=== PATIENT | female | born 1965 | race Caucasian/White ===

== ENCOUNTER 2016-12-03 09:31 | Inpatient (IN) | payer MEDICAID ==
[~2016-12-03] VITALS: Ht 165.1 cm; Wt 64.5 kg
[2016-12-03] MEDS ORDERED: SODIUM CHLOR 0.9% 1000 ML INJ 1,000 ML IV SCH (09:33)
[2016-12-03 09:36] VITALS: BP 132/81; PULSE 112; RESP 18; O2SAT 96
[2016-12-03] MEDS ORDERED: FENT100D T-DERMAL (09:38)
[2016-12-03] MEDS ORDERED: OXYC-259 PO (09:38)
[2016-12-03] MEDS ORDERED: nausea med PO (09:38)
--- NOTE | 2016-12-03 09:40 | PD ---
HPI Chief Complaint: GI Complaint Time Seen by Provider: 09:33 Travel History International Travel<30 days: No Contact w/Intl Traveler<30days: No Traveled to known affect area: No History of Present Illness HPI 51-year-old female with history of lung cancer on chemotherapy (M,Th,F), brought in by ambulance from home for evaluation of nausea, vomiting, and abdominal pain. The patient reports that she has had several episodes of bilious emesis since around 4:00 AM today. Abdominal pain is diffuse, cramping , moderate. She denies history of abdominal surgeries. No diarrhea. No chest pain or dyspnea. She was given 4 mg of IV Zofran by EMS with improvement in nausea. PFSH Social History Tobacco Use: No (former smoker) Allergies-Medications (Allergen,Severity, Reaction): Coded Allergies: No Known Allergies (Unverified , 12/03/16) Reported Meds & Prescriptions Reported Meds & Active Scripts Active Nicotine Patch (Nicotine) 7 Mg/24 Hr Patch 7 Mg T-DERMAL DAILY Reported [nausea med] Unknown Dose PO Q6HR PRN Oxycontin (Oxycodone HCl) 10 Mg Tab 10 Mg PO Q6HR PRN Fentanyl Patch 72 HR (Fentanyl) 100 Mcg/Hr Patch 100 Mcg T-DERMAL Q72H Remove old patch when new one placed. Review of Systems Except as stated in HPI: all other systems reviewed are Neg Physical Exam Narrative GENERAL: Well-developed, well-nourished, comfortable, no acute distress. SKIN: Warm and dry. HEAD: Atraumatic. Normocephalic. EYES: Pupils equal and round. No scleral icterus. No injection or drainage. ENT: Mucous membranes pink and moist. NECK: Trachea midline. No JVD. CARDIOVASCULAR: Regular rate and rhythm. RESPIRATORY: No accessory muscle use. Clear to auscultation. Breath sounds equal bilaterally. GASTROINTESTINAL: Abdomen soft, nondistended. Mild diffuse tenderness without peritoneal signs. Normal bowel sounds. MUSCULOSKELETAL: No obvious deformities. No clubbing. No cyanosis. No edema. NEUROLOGICAL: Awake and alert. No obvious cranial nerve deficits. Motor grossly within normal limits. Normal speech. PSYCHIATRIC: Appropriate mood and affect; insight and judgment normal. Data Data Last Documented VS Vital Signs Date Time Temp Pulse Resp B/P Pulse Ox O2 Delivery O2 Flow Rate FiO2 12/03/16 10:05 98 Room Air 12/03/16 10:04 18 12/03/16 09:36 112 132/81 Orders Complete Blood Count With Diff (12/03/16 09:33) Comprehensive Metabolic Panel (12/03/16 09:33) Lipase (12/03/16 09:33) Prothrombin Time / Inr (Pt) (12/03/16 09:33) Act Partial Throm Time (Ptt) (12/03/16 09:33) Urinalysis - C+S If Indicated (12/03/16 09:33) Ct Abd/Pel W Iv Contrast(Rout) (12/03/16 09:33) Iv Access Insert/Monitor (12/03/16 09:33) Ecg Monitoring (12/03/16 09:33) Oximetry (12/03/16 09:33) Ondansetron Inj (Zofran Inj) (12/03/16 09:45) Sodium Chlor 0.9% 1000 Ml Inj (Ns 1000 M (12/03/16 09:33) Sodium Chloride 0.9% Flush (Ns Flush) (12/03/16 09:45) Electrocardiogram (12/03/16 09:33) Ckmb (Isoenzyme) Profile (12/03/16 09:33) Troponin I (12/03/16 09:33) Lactic Acid (12/03/16 10:22) CKMB (12/03/16 09:40) CKMB% (12/03/16 09:40) Iohexol 350 Inj (Omnipaque 350 Inj) (12/03/16 10:36) Chest, Single Ap (12/03/16 ) Morphine Inj (Morphine Inj) (12/03/16 11:30) Sodium Chlor 0.9% 1000 Ml Inj (Ns 1000 M (12/03/16 12:45) Alprazolam (Xanax) (12/03/16 12:45) Admit Order (Ed Use Only) (12/03/16 12:55) Labs Laboratory Tests Test 12/03/16 12/03/16 12/03/16 09:40 11:01 11:22 White Blood Count 29.9 TH/MM3 Red Blood Count 3.60 MIL/MM3 Hemoglobin 11.1 GM/DL Hematocrit 34.4 % Mean Corpuscular Volume 95.8 FL Mean Corpuscular Hemoglobin 30.8 PG Mean Corpuscular Hemoglobin 32.2 % Concent Red Cell Distribution Width 17.9 % Platelet Count 47 TH/MM3 Mean Platelet Volume 9.4 FL Neutrophils (%) (Auto) 98.3 % Lymphocytes (%) (Auto) 0.9 % Monocytes (%) (Auto) 0.7 % Eosinophils (%) (Auto) 0.1 % Basophils (%) (Auto) 0.0 % Neutrophils # (Auto) 29.4 TH/MM3 Lymphocytes # (Auto) 0.3 TH/MM3 Monocytes # (Auto) 0.2 TH/MM3 Eosinophils # (Auto) 0.0 TH/MM3 Basophils # (Auto) 0.0 TH/MM3 CBC Comment AUTO DIFF Differential Total Cells 100 Counted Neutrophils % (Manual) 71 % Band Neutrophils % 28 % Monocytes % 1 % Neutrophils # (Manual) 29.6 TH/MM3 Differential Comment FINAL DIFF MANUAL Platelet Estimate LOW Platelet Morphology Comment NORMAL Tear Drop Cells 1+ Ovalocytes 1+ Prothrombin Time 13.0 SEC Prothromb Time International 1.2 RATIO Ratio Activated Partial 28.5 SEC Thromboplast Time Sodium Level 135 MEQ/L Potassium Level 3.4 MEQ/L Chloride Level 101 MEQ/L Carbon Dioxide Level 23.3 MEQ/L Anion Gap 11 MEQ/L Blood Urea Nitrogen 14 MG/DL Creatinine 0.48 MG/DL Estimat Glomerular Filtration 136 ML/MIN Rate Random Glucose 105 MG/DL Calcium Level 7.7 MG/DL Magnesium Level 2.1 MG/DL Total Bilirubin 0.4 MG/DL Aspartate Amino Transf 39 U/L (AST/SGOT) Alanine Aminotransferase 15 U/L (ALT/SGPT) Alkaline Phosphatase 129 U/L Total Creatine Kinase 135 U/L Creatine Kinase MB 3.7 NG/ML Troponin I LESS THAN 0.02 NG/ML Total Protein 6.4 GM/DL Albumin 3.2 GM/DL Lipase 38 U/L Lactic Acid Level 1.3 mmol/L Urine Color LIGHT-YELLOW Urine Turbidity CLEAR Urine pH 7.5 Urine Specific [place] 1.043 Urine Protein TRACE mg/dL Urine Glucose (UA) NEG mg/dL Urine Ketones 40 mg/dL Urine Occult Blood NEG Urine Nitrite NEG Urine Bilirubin NEG Urine Urobilinogen LESS THAN 2.0 MG/DL Urine Leukocyte Esterase NEG Urine RBC LESS THAN 1 /hpf Urine WBC 2 /hpf Urine Squamous Epithelial 1 /hpf Cells Urine Bacteria OCC /hpf Urine Mucus FEW /lpf Microscopic Urinalysis Comment CULT NOT INDICATED MDM Medical Decision Making Medical Screen Exam Complete: Yes Emergency Medical Condition: Yes Differential Diagnosis Nausea and vomiting, enteritis, gastritis, pancreatitis, hepatobiliary disease, bowel obstruction Narrative Course Initial vital signs show heart rate 112, blood pressure 132/81, pulse ox 96% on room air. CBC shows WBC 29.9, hemoglobin 11.1, hematocrit 34.4, platelets 47, neutrophils 98.3%, band neutrophils 28%. CMP is essentially unremarkable. Cardiac enzymes are negative. Lipase is 38. UA is not suggestive of UTI. CT abdomen pelvis: CONCLUSION: 1. Nondisplaced fracture of the transverse process of L2. 2. No findings to indicate bowel obstruction are seen. 3. There are scattered low-attenuation lesions throughout the liver these are probably simple cysts however they are indeterminate in appearance and metastatic disease cannot be entirely excluded. If prior imaging is available these would be of benefit for direct comparison. If not, MRI imaging could be performed for more definitive assessment. Chest x-ray interpreted by me shows no free air, no pneumothorax, no infiltrate. Patient was made aware of all findings. On reassessment she is still feeling very nauseous and is still having epigastric abdominal discomfort. She is tachypneic and slightly tachycardic, and states that she feels somewhat anxious. She will be given another liter of normal saline IV as well as Xanax. Patient is on Neupogen or Neulasta with her chemotherapy. Given ongoing nausea, abdominal pain, as well as leukocytosis, the patient be admitted for further treatment and evaluation. Leukocytosis is most likely secondary to Neupogen or Neulasta, less likely infectious. Case discussed with hospitalist Dr. Lewis who will admit the patient to his service for overnight observation. Diagnosis Primary Impression: Intractable abdominal pain Additional Impressions: Nausea and vomiting Qualified Code: R11.2 - Intractable vomiting with nausea, unspecified vomiting type Leukocytosis Qualified Code: D72.829 - Leukocytosis, unspecified type Admitting Information Admitting Physician Requests: Observation Scripts Nicotine Patch 7 Mg/24 Hr Patch7 Mg T-DERMAL DAILY #30 PATCH Ref 0 Prov:Fish Lewis MD 12/03/16 Keith Becerril MD Dec 03, 2016 09:40
[2016-12-03] MEDS ORDERED: SODIUM CHLORIDE 0.9% FLUSH 5 ML FLUSH IVF PRN (09:45)
[2016-12-03] MEDS ORDERED: ONDANSETRON HCL 4 MG/2 ML VIAL IVP ONE (09:45)
[2016-12-03 10:04] LABS: AUTOMATED NEUTROPHIL # 29.4 TH/MM3 (1.8-7.7); EOSINOPHIL % 0.1 % (0.0-4.0); HEMATOCRIT 34.4 % (35.0-46.0); LYMPH % 0.9 % (9.0-44.0); LYMPHOCYTE # 0.3 TH/MM3 (1.0-4.8); MEAN CELL VOLUME 95.8 FL (80.0-100.0); MEAN CORPUSCULAR HEMOGLOBIN 30.8 PG (27.0-34.0); MEAN CORPUSCULAR HGB CONC 32.2 % (32.0-36.0); MONO % 0.7 % (0.0-8.0); NEUT % 98.3 % (16.0-70.0); PLATELET COUNT 47 TH/MM3 (150-450); RED CELL DISTRIBUTION WIDTH 17.9 % (11.6-17.2); WHITE BLOOD COUNT 29.9 TH/MM3 (4.0-11.0)
[2016-12-03 10:05] VITALS: O2SAT 98
[2016-12-03 10:08] LABS: HEMO FLAGS AUTO DIFF
[2016-12-03 10:11] LABS: APTT (PATIENT) 28.5 SEC (24.3-30.1); INTERNATIONAL NORMALIZED RATIO 1.2 RATIO
[2016-12-03 10:17] LABS: ANION GAP 11 MEQ/L (5-15); AST (GOT) 39 U/L (15-37); BICARBONATE 23.3 MEQ/L (21.0-32.0); BLOOD UREA NITROGEN 14 MG/DL (7-18); CHLORIDE 101 MEQ/L (98-107); GLOMERULAR FILTRATION RATE 136 ML/MIN (>89); POTASSIUM 3.4 MEQ/L (3.5-5.1); SODIUM (NA) 135 MEQ/L (136-145)
[2016-12-03 10:22] LABS: ALKALINE PHOSPHATASE 129 U/L (45-117); ALT (GPT) 15 U/L (10-53); CREATINE KINASE 135 U/L (26-192); TOTAL BILIRUBIN ADULT 0.4 MG/DL (0.2-1.0)
[2016-12-03 10:34] LABS: CKMB 3.7 NG/ML (0.5-3.6)
[2016-12-03 10:36] LABS: BANDS 28 % (0-6); NEUTROPHIL # MANUAL DIFF 29.6 TH/MM3 (1.8-7.7); OVALOCYTES 1+ (NORMAL); PLATELET ESTIMATE SMEAR LOW (NORMAL); PLATELET MORPHOLOGY NORMAL (NORMAL); POLYS (SEG NEUTROPHILS) 71 % (16-70); SCAN/DIFF FINAL DIFF MANUAL; TEARDROP RBCS 1+ (NORMAL); WBC DIFF SAMPLE 100
[2016-12-03] MEDS ORDERED: IOHEXOL 350 MG/ML 10 ML VIAL (for RAD DIAG) IV ONE (10:36)
--- NOTE | 2016-12-03 11:17 | RADRPT ---
EXAM DATE/TIME: 12/03/2016 10:34 [facility] COMPARISON: No previous studies available for comparison. INDICATIONS : Lower abdominal pain and vomiting today. IV CONTRAST: 70 cc Omnipaque 350 (iohexol) IV ORAL CONTRAST: No oral contrast ingested. RADIATION DOSE: 7.23 CTDIvol (mGy) MEDICAL HISTORY : Carcinoma, lung. SURGICAL HISTORY : None. ENCOUNTER: Initial ACUITY: 1 day PAIN SCALE: 7/10 LOCATION: Bilateral lower quadrant TECHNIQUE: Volumetric scanning of the abdomen and pelvis was performed. Using automated exposure control and ad justment of the mA and/or kV according to patient size, radiation dose was kept as low as reasonably achievable to obtain optimal diagnostic quality images. FINDINGS: The limited portion of lung bases lies demonstrates moderate atelectasis or infiltrate in the left lo wer lobe. The right lung base is clear. There is very minimal pericardial effusion evident. Examination of the liver demonstrates scattered low-attenuation lesions throughout the liver. The lar gest lesion identified in the right lobe measures 1.1 cm. The largest lesion identified in the left l obe measures 1.1 cm as well. There are numerous other smaller lesions evident. These are somewhat sma ll in size and possibly represents cyst however metastatic disease to the liver is not excluded. MRI imaging with contrast would be warranted for further assessment. The appearance of the spleen, pancreas, adrenal glands and kidneys is within normal limits. There is no free intraperitoneal air. No free intraperitoneal fluid is identified. There is no retrop eritoneal lymphadenopathy. The aorta is normal in caliber. There is no free fluid within the pelvis. No iliac or inguinal adenopathy is present. The visualized loops of small and large bowel within the pelvis are unremarkable. Bone window imaging is provided. These demonstrate a nondisplaced fracture of the transverse process of L2. The remaining of the osseous structures demonstrate mild degenerative changes but are otherwis e intact. CONCLUSION: 1. Nondisplaced fracture of the transverse process of L2. 2. No findings to indicate bowel obstruction are seen. 3. There are scattered low-attenuation lesions throughout the liver these are probably simple cysts h owever they are indeterminate in appearance and metastatic disease cannot be entirely excluded. If pr ior imaging is available these would be of benefit for direct comparison. If not, MRI imaging could b e performed for more definitive assessment. Adam Aldana MD on December 03, 2016 at 11:10 Board Certified Radiologist. This report was verified electronically.
[2016-12-03] MEDS ORDERED: MORPHINE SULFATE 4 MG/ML INJ IV PUSH ONE (11:30)
[2016-12-03 11:55] LABS: BACTERIA, URINE OCC /hpf; BLOOD, URINE NEG (NEG); COMMENT (UR) CULT NOT INDICATED; CULTURE IF INDICATED CULT NOT INDICATED; GLUCOSE,URINE NEG (NEG); KETONE, URINE 40 mg/dL (NEG); MUCUS URINE FEW /lpf (OCC); NITRITE,URINE NEG (NEG); PH, URINE 7.5 (5.0-8.5); SQUAMOUS EPITHELIAL CELL URINE 1 /hpf (0-5); URINE COLOR LIGHT-YELLOW (YELLW/STRAW)
[2016-12-03] MEDS ORDERED: ALPRAZolam 0.5 MG TAB PO ONE (12:45)
[2016-12-03] MEDS ORDERED: SODIUM CHLOR 0.9% 1000 ML INJ 1,000 ML IV ONE ×2 (12:45→13:15)
[2016-12-03] MEDS ORDERED: NALOXONE HCL 0.4 MG/ML AMP IV PRN (13:00)
--- NOTE | 2016-12-03 13:07 | RADRPT ---
EXAM DATE/TIME: 12/03/2016 11:23 [facility] COMPARISON: No previous studies available for comparison. INDICATIONS : Chest pain MEDICAL HISTORY : Chronic obstructive pulmonary disease. Carcinoma, lung. SURGICAL HISTORY : None. ENCOUNTER: Initial ACUITY: 1 day PAIN SCORE: 6/10 LOCATION: Bilateral chest FINDINGS: A single view of the chest demonstrates the lungs to be symmetrically aerated without evidence of mas s, infiltrate or effusion. The cardiomediastinal contours are unremarkable. Mottled appearance of th e proximal right humerus with findings of an old fracture deformity. CONCLUSION: 1. No acute cardiopulmonary process. 2. Mottled appearance of the proximal right humerus. There may be an associated old fracture deformit y as well. Cannot exclude chronic inflammation/infection or metastatic disease. Cristian Tate MD on December 03, 2016 at 13:02 Board Certified Radiologist. This report was verified electronically.
[2016-12-03] MEDS ORDERED: HYDROmorphone HCL PF 1 MG/ML VIAL IV PUSH PRN (13:15)
[2016-12-03] MEDS ORDERED: POTASSIUM CHLOR 10 MEQ PREMIX 100 ML IV SCH (14:00)
[2016-12-03] MEDS ORDERED: fentaNYL 100 MCG/HR PATCH TD SCH (14:00)
--- NOTE | 2016-12-03 14:18 | EKG ---
Date Performed: 12/03/2016 Time Performed: 09:47:34 PTAGE: 51 years EKG: SINUS TACHYCARDIA POSSIBLE LEFT ATRIAL ENLARGEMENT NONSPECIFIC T-WAVE ABNORMALITY ABNORMAL RHYTHM ECG NO PREVIOUS TRACING DOCTOR: Micah Nñuez Interpretating Date/Time 12/03/2016 14:16:43
[2016-12-03] MEDS: POTASSIUM CHLOR 20 MEQ PREMIX 100 ML IV SCH ×3 (16:00→18:00)
[2016-12-03] MEDS: D5-1/2 NS + KCL 20 MEQ INJ 1,000 ML IV SCH (16:08)
[2016-12-03 16:27] VITALS: BP 156/94; PULSE 106; RESP 18; TEMP 98.5; O2SAT 98
[2016-12-03] MEDS: HYDROmorphone HCL PF 1 MG/ML VIAL IV PUSH PRN (16:37)
[2016-12-03] MEDS: ONDANSETRON HCL 4 MG/2 ML VIAL IV PUSH SCH (16:42)
[2016-12-03 17:00] VITALS: PULSE 107
[2016-12-03] MEDS ORDERED: NICO7DIS2 T-DERMAL (17:58)
--- NOTE | 2016-12-03 18:08 | HHI.HP ---
[facility] Primary Care Physician Admission Diagnosis intractable abdominal pain, nausea and vomiting, leukocytosis Diagnoses: Travel History International Travel<30 Days: No Contact w/Intl Traveler <30 Da: No Traveled to Known Affected Are: No History of Present Illness 51-year-old female with a history of lung cancer on chemotherapy 3 times weekly since August, who presents with a 2 day history of nausea with bilious yellow vomiting, subsequently waking up at 4 AM today with sharp, constant, nonradiating, left sided epigastric pain with no exacerbating or relieving factors. She also reports some chills, however no measured fevers. Patient does report starting dexamethasone 10 mg by mouth twice daily 3 days ago for exacerbation of chronic right shoulder pain. She reports her shoulder pain has not improved, but that shoulder pain is not of concern at this time. She denies ever having an ulcer. She does report very small specks of blood in the vomitus at times, however denies any coffee-ground emesis. Denies any black tarry stools. She does take about 1200 mg of ibuprofen daily. Patient says she was taking her antinausea medication, however this has not been working. Review of Systems Performed and negative except for history of present illness and past medical history. Past Family Social History Past Medical History Lung cancer on chemotherapy. Small cell. On chemotherapy Past Surgical History History of partial lung resection Pneumothorax. Resolved after surgery Left-sided ankle surgery Reported Medications Reported Meds & Active Scripts Active Reported [nausea med] Unknown Dose PO Q6HR PRN Oxycontin (Oxycodone HCl) 10 Mg Tab 10 Mg PO Q6HR PRN Fentanyl Patch 72 HR (Fentanyl) 100 Mcg/Hr Patch 100 Mcg T-DERMAL Q72H Remove old patch when new one placed. Allergies: Coded Allergies: No Known Allergies (Unverified , 12/03/16) Family History Mother at age 60 from cancer Father young age secondary to injuries. Social History Patient reports chronic smoking with 1 pack per day history for 30 years, however over the past several months has been smoking around 6 cigarettes per day. Denies any drinking. Denies any illicit drugs. Lives with Physical Exam Vital Signs Vital Signs Date Time Temp Pulse Resp B/P Pulse Ox O2 Delivery O2 Flow Rate FiO2 12/03/16 17:00 107 12/03/16 16:27 98.5 106 18 156/94 98 12/03/16 10:05 98 Room Air 12/03/16 10:04 18 12/03/16 09:36 112 18 132/81 96 Room Air Physical Exam GENERAL: This is a well-nourished, well-developed patient, who appears in pain. She is alert and oriented 3. SKIN: No rashes, ecchymoses or lesions. Cool and dry. HEAD: Atraumatic. Normocephalic. No temporal or scalp tenderness. EYES: Pupils equal round and reactive. Extraocular motions intact. No scleral icterus. No injection or drainage. ENT: Nose without bleeding, purulent drainage or septal hematoma. Throat without erythema, tonsillar hypertrophy or exudate. Uvula midline. Airway patent. NECK: Trachea midline. No JVD or lymphadenopathy. Supple, nontender, no meningeal signs. CARDIOVASCULAR: Regular rate and rhythm without murmurs, gallops, or rubs. RESPIRATORY: Clear to auscultation. Breath sounds equal bilaterally. No wheezes , rales, or rhonchi. GASTROINTESTINAL: Abdomen soft. Patient does have tenderness to palpation in the epigastrium. No rebound or guarding. MUSCULOSKELETAL: Extremities without clubbing, cyanosis, or edema. No joint tenderness, effusion, or edema noted. No calf tenderness. Negative Homans sign bilaterally. NEUROLOGICAL: Awake and alert. Cranial nerves II through XII intact. Motor and sensory grossly within normal limits. Five out of 5 muscle strength in all muscle groups. Normal speech. Laboratory Laboratory Tests Test 12/03/16 12/03/16 12/03/16 09:40 11:01 11:22 White Blood Count 29.9 Red Blood Count 3.60 Hemoglobin 11.1 Hematocrit 34.4 Mean Corpuscular Volume 95.8 Mean Corpuscular Hemoglobin 30.8 Mean Corpuscular Hemoglobin 32.2 Concent Red Cell Distribution Width 17.9 Platelet Count 47 Mean Platelet Volume 9.4 Neutrophils (%) (Auto) 98.3 Lymphocytes (%) (Auto) 0.9 Monocytes (%) (Auto) 0.7 Eosinophils (%) (Auto) 0.1 Basophils (%) (Auto) 0.0 Neutrophils # (Auto) 29.4 Lymphocytes # (Auto) 0.3 Monocytes # (Auto) 0.2 Eosinophils # (Auto) 0.0 Basophils # (Auto) 0.0 CBC Comment AUTO DIFF Differential Total Cells 100 Counted Neutrophils % (Manual) 71 Band Neutrophils % 28 Monocytes % 1 Neutrophils # (Manual) 29.6 Differential Comment FINAL DIFF MANUAL Platelet Estimate LOW Platelet Morphology Comment NORMAL Tear Drop Cells 1+ Ovalocytes 1+ Prothrombin Time 13.0 Prothromb Time International 1.2 Ratio Activated Partial 28.5 Thromboplast Time Sodium Level 135 Potassium Level 3.4 Chloride Level 101 Carbon Dioxide Level 23.3 Anion Gap 11 Blood Urea Nitrogen 14 Creatinine 0.48 Estimat Glomerular Filtration 136 Rate Random Glucose 105 Calcium Level 7.7 Magnesium Level 2.1 Total Bilirubin 0.4 Aspartate Amino Transf 39 (AST/SGOT) Alanine Aminotransferase 15 (ALT/SGPT) Alkaline Phosphatase 129 Total Creatine Kinase 135 Creatine Kinase MB 3.7 Troponin I LESS THAN 0.02 Total Protein 6.4 Albumin 3.2 Lipase 38 Lactic Acid Level 1.3 Urine Color LIGHT-YELLOW Urine Turbidity CLEAR Urine pH 7.5 Urine Specific [place] 1.043 Urine Protein TRACE Urine Glucose (UA) NEG Urine Ketones 40 Urine Occult Blood NEG Urine Nitrite NEG Urine Bilirubin NEG Urine Urobilinogen LESS THAN 2.0 Urine Leukocyte Esterase NEG Urine RBC LESS THAN 1 Urine WBC 2 Urine Squamous Epithelial 1 Cells Urine Bacteria OCC Urine Mucus FEW Microscopic Urinalysis Comment CULT NOT INDICATED Result Diagram: 12/03/16 0940 12/03/16 0940 Imaging Last Impressions Abdomen/Pelvis CT 12/03/16 0933 Signed Impressions: Service Date/Time: Saturday, December 03, 2016 10:34 - CONCLUSION: 1. Nondisplaced fracture of the transverse process of L2. 2. No findings to indicate bowel obstruction are seen. 3. There are scattered low-attenuation lesions throughout the liver these are probably simple cysts however they are indeterminate in appearance and metastatic disease cannot be entirely excluded. If prior imaging is available these would be of benefit for direct comparison. If not, MRI imaging could be performed for more definitive assessment. Adam Aldana MD Chest X-Ray 12/03/16 0000 Signed Impressions: Service Date/Time: Saturday, December 03, 2016 11:23 - CONCLUSION: 1. No acute cardiopulmonary process. 2. Mottled appearance of the proximal right humerus. There may be an associated old fracture deformity as well. Cannot exclude chronic inflammation/infection or metastatic disease. Cristian Tate MD Assessment and Plan Assessment and Plan //Nausea and vomiting. Acute on chronic. //Lung squamous cell carcinoma. -Nausea Likely secondary to chemotherapy. -Scheduled IV Zofran, with as needed Reglan. We are out of Phenergan unfortunately. Consult hematology. //Epigastric pain. Acute. With tenderness to palpation. -This is several days after starting dexamethasone. Concerning for gastric ulcer. Without acute anemia. -Hold dexamethasone. -IV PPI. -Pain from narcotics as necessary. -We'll consult gastroenterology. //L2 transverse process fracture. -Patient reports chronic numbness in right leg, likely secondary to radiculopathy. -Follow-up primary care as outpatient. Denies any acute pain. //Chronic right shoulder pain. -Continue fentanyl patch. //Leukocytosis. Likely secondary to Neupogen. We'll continue monitor for signs of infection. //Hypokalemia. Acute. Mild. Replaced. //Liver lesions versus simple cysts. Requests outpatient imaging reports. Ending. //Tobacco abuse. Cessation strongly advised. Counseling provided. //From cytopenia. Likely chronic. No signs of acute bleeding. Continue to monitor. //DVT prophylaxis. SCDs. We'll hold AC secondary to possible gastric ulcer. Discussed Condition With Patient, ED physician, at bedside. Physician Certification 2 Midnight Certification Type: Continued Stay Order for Inpatient Services This is an observation admission Estimated LOS (days): 1 This is an observation admission. Post-Hospital Plan: Not yet determined Notes: This is an observation admission. Fish Lewis MD Dec 03, 2016 18:08
[2016-12-03] MEDS ORDERED: PANTOPRAZOLE INJ 80 MG in SODIUM CHLORIDE 0.9% INJ 35 ML IV ONE (18:45)
[2016-12-03] MEDS ORDERED: PROCHLORPERAZINE INJ 10 MG/2 ML VIAL IVS PRN (19:00)
[2016-12-03 19:07] VITALS: BP 178/98; PULSE 100; RESP 18; TEMP 97.8; O2SAT 95
[2016-12-03] MEDS: METOCLOPRAMIDE HCL 10 MG/2 ML VIAL IV PUSH PRN (19:22)
[2016-12-03] MEDS ORDERED: GADODIAMIDE PF 287 MG/ML 5 ML VIAL (for RAD MRI) IV PUSH ONE (20:07)
--- NOTE | 2016-12-03 20:46 | RADRPT ---
EXAM DATE/TIME: 12/03/2016 19:52 [facility] COMPARISON: CT ABDOMEN & PELVIS W CONTRAST, December 03, 2016, 10:34. CHEST SINGLE AP, December 03, 2016, 11:23. INDICATIONS : Mass. CONTRAST: 15 cc Omniscan (gadodiamide) IV MEDICAL HISTORY : Carcinoma, lung. SURGICAL HISTORY : Chest tube about 20 years ago. Port placement. ENCOUNTER: Initial ACUITY: 2 day PAIN SCORE: 8/10 LOCATION: Bilateral cranial TECHNIQUE: Multiplanar, multisequence MRI of the brain was performed both prior to and following the administrat ion of paramagnetic contrast. FINDINGS: CEREBRUM: The ventricles are normal for age. No evidence of midline shift, mass lesion, hemorrhage or acute in farction. No extraaxial fluid collections are seen. The pituitary gland and suprasellar cistern are normal in configuration. WHITE MATTER: Multiple high signal spots are seen in the white matter tracks bilaterally characteristic of ischemic demyelinization. POSTERIOR FOSSA: The cerebellum and brainstem are intact. The 4th ventricle is midline. The cerebellopontine angle is unremarkable. The cerebellar tonsils are normal in position. DIFFUSION IMAGING: No focal areas of restricted diffusion are seen. No evidence of acute infarction. EXTRACRANIAL: The visualized portions of the orbits and paranasal sinuses are unremarkable. POST-CONTRAST: No enhancing mass occupying lesions are seen within the brain. However, there are some areas of scatt ered enhancement within the marrow of the calvarium CONCLUSION: 1. Chronic white matter changes bilaterally characteristic of ischemic demyelinization. 2. No evidence of a mass within the substance of the brain. 3. Nonspecific enhancement of the marrow of the calvarium. Bony metastatic disease would be a conside ration. If clinically indicated, recommend a whole body bone scan for further evaluation. Fernando Diaz MD on December 03, 2016 at 20:33 Board Certified Radiologist. This report was verified electronically.
[2016-12-03] MEDS: SODIUM CHLORIDE 0.9% FLUSH 5 ML FLUSH FLUSH SCH (21:00)
[2016-12-03] MEDS: oxyCODONE HCL 10 MG CONTROLLED RELEASE TAB PO SCH (21:12)
[2016-12-03] MEDS: PANTOPRAZOLE SODIUM 40 MG VIAL IV SCH (21:12)
[2016-12-03] MEDS ORDERED: ENALAPRILAT 1.25 MG/ML VIAL IV PUSH PRN (21:45)
[2016-12-04] VITALS (9 sets, daily range): BP systolic 120–174; BP diastolic 67–95; PULSE 84–127; RESP 18–20; TEMP 96–99.1; O2SAT 96–100
[2016-12-04] MEDS: ONDANSETRON HCL 4 MG/2 ML VIAL IV PUSH SCH ×4 (00:10→20:25)
[2016-12-04] MEDS: HYDROmorphone HCL PF 1 MG/ML VIAL IV PUSH PRN ×5 (00:10→22:15)
--- NOTE | 2016-12-04 06:35 | MB ---
cc: NITISH LAY,ANASTACIO Brown MD DATE OF 1965 DATE OF SERVICE 12/03/[address] Lewis CHIEF COMPLAINT Dr. Lewis requested consultation for Mrs. Jeter regarding intractable nausea and vomiting associated with small cell lung cancer diagnosis. HISTORY OF PRESENT ILLNESS Mrs. Jeter is a 51-year-old woman with history of small cell lung cancer diagnosed in [place] in July of 2016. She reports she was metastatic at the time of diagnosis. She had a lesion in her bone. She had an incident in the hospital, fell and fractured the right humerus. She is receiving palliative chemotherapy. I suspect that she is receiving standard cisplatin or carboplatin along with MANUFACTURING ELECTRICIAN-16 every 3-4 weeks. She is receiving chemotherapy alone because of the metastatic disease presentation. She reports imaging study of the brain was performed at the time of diagnosis. She denies having BAKER BREAD mets. With the last chemotherapy she developed intractable nausea and vomiting. This prompted her to come in to be evaluated. She reports he usually feels well with the chemotherapy. This time is different that she felt bad and has been unable to take anything p.o. She has also increasing pain on the right upper arm. She has no prior history of deep vein thromboses. She has no headaches, no vision changes. She merely has nausea and vomiting. She is unable to tolerate lorazepam as antinausea medication. She believes that the medication had caused her to have ill effects, prompted her fall back in [place]. She is still nauseous despite scheduled Zofran. She has p.r.n. Reglan also ordered. She has chronic pain for which she is wearing a Fentanyl patch, 100 mcg per hour. Breakthrough medication is available. REVIEW OF SYSTEMS She denies any fevers. She feels flushed and sweaty. She requires sitting up and getting comfortable. She was taking ibuprofen for some time because of the pain. She describes some epigastric pain and now right arm pain. The rest of her review of systems is negative. PAST MEDICAL HISTORY 1. Metastatic small cell lung cancer, extensive stage disease. 2. Chemotherapy-induced anemia. 3. Thrombocytopenia. PAST SURGICAL HISTORY 1. Partial lung resection. 2. Left-sided ankle surgery. 3. Port placement. 4. Pneumothorax. FAMILY HISTORY Mother had breast cancer and at age 60. Father from injuries. No cancer. SOCIAL HISTORY She is , lives with her . She has moved from [place] to [place] to the [facility] recently. She has been in the [facility] for the past month. She commutes to see her medical oncologist in [place]. ALLERGIES No known drug allergies. CURRENT MEDICATIONS 1. Zofran. 2. Fentanyl patch. 3. Potassium chloride. 4. Hydromorphone p.r.n. 5. Ondansetron. 6. Protonix. PHYSICAL EXAMINATION VITAL SIGNS: Temperature 98.5, heart rate 106, respiratory rate 18, blood pressure 156/94. GENERAL: Ms.. Jeter is a well-developed, well-nourished flushed-appearing woman who looks anxious and uncomfortable. She sits up and gets very nauseous. She has some retching. She has a cough with some sputum production. HEENT: Her pupils are round, reactive to light and accommodation. Conjunctivae pink. Oropharynx is clear. NECK: Supple. LUNGS: Clear to auscultation. CARDIOVASCULAR: Exam reveals tachycardia. ABDOMEN: Benign. Epigastric discomfort to palpation. LOWER EXTREMITIES: With no edema. Pneumatic compression stockings are in place. LABORATORY DATA 1. Hypokalemia. 2. Hypomagnesemia. 3. Hypocalcemia. 4. Hypoalbuminemia. 5. Thrombocytopenia, platelet count 47,000. 6. Anemia - 11.1. 7. Leukocytosis of 29,900. IMAGING STUDIES CT of the abdomen and pelvis shows a nondisplaced fracture of transverse processes L2. No bowel obstruction. ASSESSMENT Mrs. Jeter is a 51-year-old woman with a long history of tobacco use. She is unable to quit despite her diagnosis of metastatic small cell lung cancer. She smokes occasionally still. She was diagnosed with metastatic small cell lung cancer in July 2016 in [place]. She has moved to the [facility] after first moving to [place]. She had her last cycle of chemotherapy last week and presented with intractable nausea and vomiting. She has associated leukocytosis from Neulasta support suspected. She has a mild anemia and thrombocytopenia. We had discussed concern for progression in light of her new symptoms of right humerus pain. She has new nausea and vomiting. The chemotherapy used to make her feel better. X-ray showed mottled appearance of the right humerus consistent with previous mets. Continued pain control. She is offered p.r.n. pain medication for breakthrough. She is already on 100 mcg per hour patch. We will optimize antiemetic therapy with the use of scheduled Zofran. Reglan is used p.r.n. Compazine will be added p.r.n. We discussed obtaining MRI of the brain to rule out BAKER BREAD metastatic disease. These are new symptoms from chemotherapy that she tolerated previously well. Ultimately, she plans to follow up with her medical oncologist in [place]. We will refer to Case Management for patient assistance to Bianka as she has been applying. Her questions were answered to her satisfaction. Nitish Lay MD RAD/SSB /6:57 PM /6:18 AM
[2016-12-04 06:59] LABS: HEMATOCRIT 28.4 % (35.0-46.0); MEAN CELL VOLUME 95.7 FL (80.0-100.0); MEAN CORPUSCULAR HGB CONC 33.5 % (32.0-36.0); PLATELET COUNT 30 TH/MM3 (150-450); RED BLOOD COUNT 2.96 MIL/MM3 (4.00-5.30); RED CELL DISTRIBUTION WIDTH 17.2 % (11.6-17.2); WHITE BLOOD COUNT 20.6 TH/MM3 (4.0-11.0)
[2016-12-04 07:09] LABS: HEMO FLAGS AUTO DIFF
[2016-12-04] MEDS ORDERED: HYDROmorphone HCL PF 1 MG/ML VIAL IV PUSH ONE ×2 (07:15→14:00)
[2016-12-04 07:25] LABS: ALT (GPT) 13 U/L (10-53); ANION GAP 9 MEQ/L (5-15); AST (GOT) 26 U/L (15-37); BICARBONATE 21.9 MEQ/L (21.0-32.0); BLOOD UREA NITROGEN 4 MG/DL (7-18); CHLORIDE 106 MEQ/L (98-107); GLOMERULAR FILTRATION RATE 168 ML/MIN (>89); POTASSIUM 3.7 MEQ/L (3.5-5.1); SODIUM (NA) 137 MEQ/L (136-145)
[2016-12-04 07:27] LABS: ALKALINE PHOSPHATASE 121 U/L (45-117); TOTAL BILIRUBIN ADULT 0.2 MG/DL (0.2-1.0)
[2016-12-04 07:48] LABS: BANDS 16 % (0-6); NEUTROPHIL # MANUAL DIFF 19.8 TH/MM3 (1.8-7.7); POLYS (SEG NEUTROPHILS) 80 % (16-70); WBC DIFF SAMPLE 100
[2016-12-04 07:49] LABS: DOHLE BODIES PRESENT (NONE SEEN); KERATOCYTES OCC (NORMAL); PLATELET ESTIMATE SMEAR LOW (NORMAL); PLATELET MORPHOLOGY NORMAL (NORMAL); SCAN/DIFF FINAL DIFF MANUAL; TEARDROP RBCS 1+ (NORMAL)
[2016-12-04] MEDS: D5-1/2 NS + KCL 20 MEQ INJ 1,000 ML IV SCH ×3 (09:56→20:00)
[2016-12-04] MEDS: SODIUM CHLORIDE 0.9% FLUSH 5 ML FLUSH FLUSH SCH ×2 (09:56→20:25)
[2016-12-04] MEDS: PANTOPRAZOLE SODIUM 40 MG VIAL IV SCH ×2 (09:57→20:25)
--- NOTE | 2016-12-04 11:53 | PD.CONS ---
HPI History of Present Illness This is a 51 year old female with a history of small cell lung cancer, who developed intractable nausea and vomiting after her last chemotherapy dose. She was diagnosed with small cell lung cancer in July 2016 and [place]. Prior to relocating to this area, her oncologist is able to get her established with Dr. Vail at the cancer [facility]. She recently had her fourth dose of chemotherapy (she does not recall what this was) on November 30. The next day she began having persistent nausea and vomiting. She was able to eat a little bit of clear liquids on Saturday, but by Saturday was not able to keep anythign down. She has Zofran at home to take as needed and she tried taking this on Saturday but did not have any relief. She reports that she is continued to have nausea vomiting consisting of a clear or bilious material, but no visible blood. She has not been able to eat or drink anything since that time because of the nausea and vomiting. She denies any abdominal pain, heartburn, reflux, constipation, diarrhea, melena, or hematochezia. She reports that she has never had any issues with nausea and vomiting in the past with her chemotherapy. She denies any history of peptic ulcer disease. Abdomen /Pelvis CT (12/03/16)-----> 1. Nondisplaced fracture of the transverse process of L2. 2. No findings to indicate bowel obstruction are seen. 3. There are scattered low-attenuation lesions throughout the liver these are probably simple cysts however they are indeterminate in appearance and metastatic disease cannot be entirely excluded. If prior imaging is available these would be of benefit for direct comparison. If not, MRI imaging could be performed for more definitive assessment. She was also evaluated with MRI of the brain ()-----> Brain MRI (12/03/16)----> 1. Chronic white matter changes bilaterally characteristic of ischemic demyelinization. 2. No evidence of a mass within the substance of the brain. 3. Nonspecific enhancement of the marrow of the calvarium. Bony metastatic disease would be a consideration. If clinically indicated, recommend a whole body bone scan for further evaluation. She denies any history of peptic ulcer disease and has never been evaluated with an EGD or colonoscopy. I did discuss further evaluation with EGD with her and at this time she is not agreeable, although she will think about it. ( WorrellMelony) PFSH Past Medical History Metastatic small cell lung cancer, extensive disease Chemotherapy-induced anemia Thrombocytopenia Past Surgical History Partial lung resection Left sided ankle surgery Port placement Chest tube for pneumothorax (WorrellMelony) Coded Allergies: No Known Allergies (Unverified , 12/03/16) Medications Allergies Coded Allergies Type Severity Reaction Last Updated Verified No Known Allergies 12/03/16 No Active Scripts Medications Dose Route/Sig Days Date Category Dose Instructions Nicotine Patch (Nicotine) 7 Mg/24 Hr Patch 7 Mg T-DERMAL DAILY 12/03/16 Rx [nausea med] Unknown Dose PO Q6HR PRN 12/03/16 Reported Oxycontin (Oxycodone HCl) 10 Mg Tab 10 Mg PO Q6HR PRN 12/03/16 Reported Fentanyl Patch 72 HR (Fentanyl) 100 Mcg/Hr Patch 100 Mcg T-DERMAL Q72H 12/03/16 Reported Remove old patch when new one placed. Family History Mother from breast cancer Social History Patient reports chronic smoking with 1 pack per day history for 30 years, however over the past several months has been smoking around 6 cigarettes per day. No alcohol or illicit drug use (Worrell,Melony SALDAÑA) Review of Systems Constitutional: COMPLAINS OF: Fatigue, Weight loss (she cannot quantify), Change in appetite Respiratory: DENIES: Cough Cardiovascular: DENIES: Chest pain, Palpitations Gastrointestinal: COMPLAINS OF: Nausea, Vomiting, DENIES: Abdominal pain, Black stools, Bloody stools, Constipation, Diarrhea, Swelling of Abdomen, Heartburn, Hematemesis Musculoskeletal: DENIES: Joint pain Hematologic/lymphatic: COMPLAINS OF: Bruising Neurologic: DENIES: Headache Psychiatric: DENIES: Confusion (Melony Worrell) GI Exam Vitals I&O Vital Signs Date Time Temp Pulse Resp B/P Pulse Ox O2 Delivery O2 Flow Rate FiO2 12/04/16 08:18 97.6 99 18 120/95 96 12/04/16 04:47 97.7 110 18 136/84 97 12/04/16 00:19 98.4 84 18 174/82 98 12/04/16 00:00 105 12/03/16 19:07 97.8 100 18 178/98 95 12/03/16 17:00 107 12/03/16 16:27 98.5 106 18 156/94 98 Imaging Last Impressions Abdomen/Pelvis CT 12/03/16 0933 Signed Impressions: Service Date/Time: Saturday, December 03, 2016 10:34 - CONCLUSION: 1. Nondisplaced fracture of the transverse process of L2. 2. No findings to indicate bowel obstruction are seen. 3. There are scattered low-attenuation lesions throughout the liver these are probably simple cysts however they are indeterminate in appearance and metastatic disease cannot be entirely excluded. If prior imaging is available these would be of benefit for direct comparison. If not, MRI imaging could be performed for more definitive assessment. Adam Aldana MD Chest X-Ray 12/03/16 0000 Signed Impressions: Service Date/Time: Saturday, December 03, 2016 11:23 - CONCLUSION: 1. No acute cardiopulmonary process. 2. Mottled appearance of the proximal right humerus. There may be an associated old fracture deformity as well. Cannot exclude chronic inflammation/infection or metastatic disease. Cristian Tate MD Brain MRI 12/03/16 0000 Signed Impressions: Service Date/Time: Saturday, December 03, 2016 19:52 - CONCLUSION: 1. Chronic white matter changes bilaterally characteristic of ischemic demyelinization. 2. No evidence of a mass within the substance of the brain. 3. Nonspecific enhancement of the marrow of the calvarium. Bony metastatic disease would be a consideration. If clinically indicated, recommend a whole body bone scan for further evaluation. Fernando Diaz MD Laboratory Test 12/03/16 12/04/16 19:22 06:02 Hemoglobin 10.1 GM/DL 9.5 GM/DL White Blood Count 20.6 TH/MM3 Red Blood Count 2.96 MIL/MM3 Hematocrit 28.4 % Mean Corpuscular Volume 95.7 FL Mean Corpuscular Hemoglobin 32.0 PG Mean Corpuscular Hemoglobin 33.5 % Concent Red Cell Distribution Width 17.2 % Platelet Count 30 TH/MM3 Mean Platelet Volume 9.3 FL Neutrophils (%) (Auto) % Lymphocytes (%) (Auto) % Monocytes (%) (Auto) % Eosinophils (%) (Auto) % Basophils (%) (Auto) % Neutrophils # (Auto) TH/MM3 Lymphocytes # (Auto) TH/MM3 Monocytes # (Auto) TH/MM3 Eosinophils # (Auto) TH/MM3 Basophils # (Auto) TH/MM3 CBC Comment AUTO DIFF Differential Total Cells 100 Counted Neutrophils % (Manual) 80 % Band Neutrophils % 16 % Lymphocytes % 3 % Monocytes % 1 % Neutrophils # (Manual) 19.8 TH/MM3 Differential Comment FINAL DIFF MANUAL Dohle Bodies PRESENT Platelet Estimate LOW Platelet Morphology Comment NORMAL Tear Drop Cells 1+ Keratocytes OCC Sodium Level 137 MEQ/L Potassium Level 3.7 MEQ/L Chloride Level 106 MEQ/L Carbon Dioxide Level 21.9 MEQ/L Anion Gap 9 MEQ/L Blood Urea Nitrogen 4 MG/DL Creatinine 0.40 MG/DL Estimat Glomerular Filtration 168 ML/MIN Rate Random Glucose 98 MG/DL Calcium Level 7.6 MG/DL Total Bilirubin 0.2 MG/DL Aspartate Amino Transf 26 U/L (AST/SGOT) Alanine Aminotransferase 13 U/L (ALT/SGPT) Alkaline Phosphatase 121 U/L Total Protein 5.7 GM/DL Albumin 2.8 GM/DL Physical Examination HEENT: Normocephalic; atraumatic; no jaundice. CHEST: CTA CARDIAC: RRR ABDOMEN: Soft, nondistended, nontender; no hepatosplenomegaly; bowel sounds are present in all four quadrants. EXTREMITIES: No clubbing, cyanosis, or edema. SKIN: Normal; no rash; no jaundice. FRONT OFFICE ASSOCIATE: No focal deficits; alert and oriented times three. (Melony Worrell) Assessment and Plan Plan ASSESSMENT: - Intractable nausea, vomiting. Began after her last chemotherapy tx on Saturday. This was her 4th dose and she reports that she has never had any issues with this in the past. She takes Zofran at home but did not have any improvement. She has not been able to keep anything down since that time. Abdomen/Pelvis CT (12/03/16)-----> 1. Nondisplaced fracture of the transverse process of L2. 2. No findings to indicate bowel obstruction are seen. 3. There are scattered low-attenuation lesions throughout the liver these are probably simple cysts however they are indeterminate in appearance and metastatic disease cannot be entirely excluded. If prior imaging is available these would be of benefit for direct comparison. If not , MRI imaging could be performed for more definitive assessment. She was also evaluated with MRI of the brain (12/03/16)-----> 1. Chronic white matter changes bilaterally characteristic of ischemic demyelinization. 2. No evidence of a mass within the substance of the brain. 3. Nonspecific enhancement of the marrow of the calvarium. Bony metastatic disease would be a consideration. If clinically indicated, recommend a whole body bone scan for further evaluation. Denies history of peptic ulcer disease and has never been evaluated with an EGD or colonoscopy. I did discuss further evaluation with EGD with her and at this time she is not agreeable, although she will think about it. PPI, Compazine, Reglan. IVF. - Anemia, secondary to chemotherapy. No obvious active bleeding. - Thrombocytopenia. Plt 30,000. No active bleeding. Will defer to hematology/ oncology. - Leukocytosis. Oncology suspects that she was treated with Neulasta recently. - Metastatic small cell lung cancer. Followed at [facility]. Had 4th chemotherapy on 11/30. PLAN: - REILLY - PPI - IVF - Reglan prn - Compazine prn - Monitor labs - Notify gi of active bleeding. - Oncology follow-up - Supportive care - D/W patient further evaluation with EGD. She is not agreeable at this time, although she will consider this - Further recommendations to follow based on results of above - Patient seen and examined by Dr. Soriano and myself and this note is written on her behalf (Melony Worrell) Physician Comments seen, examined agree with above call us if patient agrees with egd (Maria Esther Soriano MD) Melony Worrell Dec 04, 2016 11:53 Maria Esther Soriano MD Dec 04, 2016 16:06
[2016-12-04] MEDS: oxyCODONE HCL 10 MG CONTROLLED RELEASE TAB PO SCH ×2 (12:29→20:25)
--- NOTE | 2016-12-04 12:42 | PD.ONC.PN ---
Subjective Subjective Remarks Afebrile overnight. Patient in severe pain. She complains of severe pain in her back shooting down her leg and pain in both her arms. She did eat some scrambled eggs and a whole bowl of cream of wheat. Last BM 7PM yesterday evening. Objective Data Date Time Temp Pulse Resp B/P Pulse Ox O2 Delivery O2 Flow Rate FiO2 12/04/16 12:32 96.0 107 19 125/67 98 12/04/16 08:18 97.6 99 18 120/95 96 12/04/16 04:47 97.7 110 18 136/84 97 12/04/16 00:19 98.4 84 18 174/82 98 12/04/16 00:00 105 12/03/16 19:07 97.8 100 18 178/98 95 12/03/16 17:00 107 12/03/16 16:27 98.5 106 18 156/94 98 Result Diagram: 12/04/16 0602 12/04/16 0602 Laboratory Results Laboratory Tests Test 12/03/16 12/04/16 19:22 06:02 Hemoglobin 10.1 GM/DL 9.5 GM/DL White Blood Count 20.6 TH/MM3 Red Blood Count 2.96 MIL/MM3 Hematocrit 28.4 % Mean Corpuscular Volume 95.7 FL Mean Corpuscular Hemoglobin 32.0 PG Mean Corpuscular Hemoglobin 33.5 % Concent Red Cell Distribution Width 17.2 % Platelet Count 30 TH/MM3 Mean Platelet Volume 9.3 FL Neutrophils (%) (Auto) % Lymphocytes (%) (Auto) % Monocytes (%) (Auto) % Eosinophils (%) (Auto) % Basophils (%) (Auto) % Neutrophils # (Auto) TH/MM3 Lymphocytes # (Auto) TH/MM3 Monocytes # (Auto) TH/MM3 Eosinophils # (Auto) TH/MM3 Basophils # (Auto) TH/MM3 CBC Comment AUTO DIFF Differential Total Cells 100 Counted Neutrophils % (Manual) 80 % Band Neutrophils % 16 % Lymphocytes % 3 % Monocytes % 1 % Neutrophils # (Manual) 19.8 TH/MM3 Differential Comment FINAL DIFF MANUAL Dohle Bodies PRESENT Platelet Estimate LOW Platelet Morphology Comment NORMAL Tear Drop Cells 1+ Keratocytes OCC Sodium Level 137 MEQ/L Potassium Level 3.7 MEQ/L Chloride Level 106 MEQ/L Carbon Dioxide Level 21.9 MEQ/L Anion Gap 9 MEQ/L Blood Urea Nitrogen 4 MG/DL Creatinine 0.40 MG/DL Estimat Glomerular Filtration 168 ML/MIN Rate Random Glucose 98 MG/DL Calcium Level 7.6 MG/DL Total Bilirubin 0.2 MG/DL Aspartate Amino Transf 26 U/L (AST/SGOT) Alanine Aminotransferase 13 U/L (ALT/SGPT) Alkaline Phosphatase 121 U/L Total Protein 5.7 GM/DL Albumin 2.8 GM/DL Imaging Studies Last Impressions Abdomen/Pelvis CT 12/03/16 0933 Signed Impressions: Service Date/Time: Saturday, December 03, 2016 10:34 - CONCLUSION: 1. Nondisplaced fracture of the transverse process of L2. 2. No findings to indicate bowel obstruction are seen. 3. There are scattered low-attenuation lesions throughout the liver these are probably simple cysts however they are indeterminate in appearance and metastatic disease cannot be entirely excluded. If prior imaging is available these would be of benefit for direct comparison. If not, MRI imaging could be performed for more definitive assessment. Adam Aldana MD Chest X-Ray 12/03/16 0000 Signed Impressions: Service Date/Time: Saturday, December 03, 2016 11:23 - CONCLUSION: 1. No acute cardiopulmonary process. 2. Mottled appearance of the proximal right humerus. There may be an associated old fracture deformity as well. Cannot exclude chronic inflammation/infection or metastatic disease. Cristian Tate MD Brain MRI 12/03/16 0000 Signed Impressions: Service Date/Time: Saturday, December 03, 2016 19:52 - CONCLUSION: 1. Chronic white matter changes bilaterally characteristic of ischemic demyelinization. 2. No evidence of a mass within the substance of the brain. 3. Nonspecific enhancement of the marrow of the calvarium. Bony metastatic disease would be a consideration. If clinically indicated, recommend a whole body bone scan for further evaluation. Fernando Diaz MD Administered Medications Medications (Trade) Dose Ordered Sig/Homero Route PRN Reason Start Time Stop Time Status Last Admin Dose Admin Potassium Chloride/Dextrose/ Sod Cl (D5-1/2 NS + KCl 20 Meq Inj) 1,000 ml @ 100 mls/hr Q10H IV 12/03/16 14:00 12/04/16 09:56 IV Flush (NS Flush) 2 ml BID FLUSH 12/03/16 21:00 12/04/16 09:56 Ondansetron HCl (Zofran Inj) 4 mg Q6HR IV PUSH 12/03/16 18:00 12/04/16 06:12 Metoclopramide HCl (Reglan Inj) 10 mg Q8H PRN IV PUSH NAUSEA 12/03/16 13:00 12/03/16 19:22 Fentanyl (Duragesic 100 Mcg Patch.72 Hr) 1 patch Q3D TD 12/03/16 14:00 12/03/16 17:30 Oxycodone HCl (OxyCONTIN CR) 10 mg Q12HR PO 12/03/16 21:00 12/04/16 12:29 Hydromorphone HCl (Dilaudid Pf Inj) 1 mg Q4H PRN IV PUSH PAIN SCALE 8 TO 10 12/03/16 13:15 12/04/16 06:12 Pantoprazole Sodium (Protonix Inj) 40 mg BID IV 12/03/16 21:00 12/04/16 09:57 Objective Remarks GENERAL: Chronically ill female, sitting up in bed panting and complaining of pain. SKIN: Warm and dry. HEAD: Normocephalic. EYES: No injection or drainage. NECK: Supple, trachea midline. CARDIOVASCULAR: +S1/S2 RESPIRATORY: diminished at bases, anterior boyd with scattered rhonchi. GASTROINTESTINAL: Abdomen soft, non-tender, nondistended. EXTREMITIES: No cyanosis NEUROLOGICAL: No obvious focal deficit. Awake, alert, and oriented x3. Assessment/Plan Problem List: (1) Right arm pain Status: Acute Plan: --likely d/t metastatic disease --Continue pain control with Fentanyl 100mcg + dilaudid PRN breakthrough (2) Small cell lung cancer Status: Acute Plan: --follows with an oncologist in [place] --is receiving palliative chemotherapy (likely standard cisplatin or carboplatin along with SEAT COVER INSTALLER-16 every 3-4 weeks) --denies WHEEL SETTER mets (3) Nausea and vomiting Status: Acute Plan: --scheduled Zofran with PRN Compazine and Reglan for breakthrough (4) Leukocytosis Status: Acute Plan: ---secondary to G-CSF (Neulasta) (5) Antineoplastic chemotherapy induced anemia Status: Acute Plan: --monitor for bleeding --transfuse as needed for hgb <7.5 (6) Chemotherapy-induced thrombocytopenia Status: Acute Plan: --monitor for bleeding --transfuse as needed for platelets <15K or bleeding Assessment 51y/o with intractable nausea and vomiting associated with small cell lung cancer diagnosis. history of small cell lung cancer diagnosed in [place] in July of 2016-- metastatic at the time of diagnosis. Plan 1. d/w patient--she takes PRN Oxycodone at home, not Oxycontin. will stop Oxycontin. 2. will increase the Dilaudid to 1 and 1.5mg depending on pain level and decrease the time interval to every 3 hours. 3. I discussed starting the patient on a bowel regimen with her opiates but she does not want to take any stool softeners. she states they make her sick and she can control her bowels. Attending Statement The exam, history, and the medical decision-making described in the above note were completed with the assistance of the mid-level provider. I reviewed and agree with the findings presented. I attest that I had a [id number] encounter with the patient on the same day, and personally performed and documented my assessment and findings in the medical record. Pt seen and examined in AM. Reports better in terms of nausea. Looking forward to eating. Discussed MRI results no evidence of WHEEL SETTER mets. Suspect N/V due to chemo related toxicity. Discussed w/ GI pt's refusal for work up. Pt anticipate returning to her oncologist in [place]. Problem Qualifiers (1) Nausea and vomiting: Qualified Code: R11.2 - Intractable vomiting with nausea, unspecified vomiting type (2) Leukocytosis: Qualified Code: D72.829 - Leukocytosis, unspecified type Jessy Hoffmann Dec 04, 2016 12:42 Minoo Schwartz MD Dec 04, 2016 20:00
[2016-12-04] MEDS ORDERED: HYDROmorphone HCL PF 1 MG/ML VIAL IV PUSH STA (12:56)
[2016-12-04] MEDS ORDERED: HYDROmorphone HCL PF 1 MG/ML VIAL IV PUSH PRN ×3 (13:06→13:15)
--- NOTE | 2016-12-04 17:44 | HHI.PR ---
Subjective Remarks Patient seen this afternoon around 1 PM. She reports that nausea has improved, however chronic back pain is unbearable. She is walking around the room. Appears to has eaten a little bit of her lunch, however says she cannot eat anymore due to pain. Objective Vital Signs Date Time Temp Pulse Resp B/P Pulse Ox O2 Delivery O2 Flow Rate FiO2 12/04/16 16:33 99.1 94 18 120/87 96 12/04/16 12:32 96.0 107 19 125/67 98 12/04/16 08:18 97.6 99 18 120/95 96 12/04/16 04:47 97.7 110 18 136/84 97 12/04/16 00:19 98.4 84 18 174/82 98 12/04/16 00:00 105 12/03/16 19:07 97.8 100 18 178/98 95 Result Diagram: 12/04/16 0602 12/04/16 0602 Imaging Last Impressions Abdomen/Pelvis CT 12/03/16 0933 Signed Impressions: Service Date/Time: Saturday, December 03, 2016 10:34 - CONCLUSION: 1. Nondisplaced fracture of the transverse process of L2. 2. No findings to indicate bowel obstruction are seen. 3. There are scattered low-attenuation lesions throughout the liver these are probably simple cysts however they are indeterminate in appearance and metastatic disease cannot be entirely excluded. If prior imaging is available these would be of benefit for direct comparison. If not, MRI imaging could be performed for more definitive assessment. Adam Aldana MD Chest X-Ray 12/03/16 0000 Signed Impressions: Service Date/Time: Saturday, December 03, 2016 11:23 - CONCLUSION: 1. No acute cardiopulmonary process. 2. Mottled appearance of the proximal right humerus. There may be an associated old fracture deformity as well. Cannot exclude chronic inflammation/infection or metastatic disease. Cristian Tate MD Brain MRI 12/03/16 0000 Signed Impressions: Service Date/Time: Saturday, December 03, 2016 19:52 - CONCLUSION: 1. Chronic white matter changes bilaterally characteristic of ischemic demyelinization. 2. No evidence of a mass within the substance of the brain. 3. Nonspecific enhancement of the marrow of the calvarium. Bony metastatic disease would be a consideration. If clinically indicated, recommend a whole body bone scan for further evaluation. Fernando Diaz MD Objective Remarks GENERAL: patient sitting up in bed. Appears uncomfortable. She is alert and oriented 3. SKIN: Warm and dry. HEAD: Normocephalic. EYES: No scleral icterus. No injection or drainage. NECK: Supple, trachea midline. No JVD. CARDIOVASCULAR: Regular rate and rhythm without murmurs, gallops, or rubs. RESPIRATORY: Breath sounds equal bilaterally. No accessory muscle use. GASTROINTESTINAL: Abdomen soft, non-tender, nondistended. no rebound or guarding MUSCULOSKELETAL: No cyanosis, or edema. BACK: Nontender without obvious deformity. No CVA tenderness. A/P Assessment and Plan 12/04/16 Nausea and epigastric pain improved. Refused EGD. -Pain medications increased. Basal OxyContin 30 mg twice daily. -Monitor CBC for platelets. //Nausea and vomiting. Acute on chronic. Improving on treatment. //Lung squamous cell carcinoma. -Nausea Likely secondary to chemotherapy versus pain. -Continue Scheduled IV Zofran, with as needed Compazine. We are out of Phenergan unfortunately. Oncology following. Appreciate assistance. //Epigastric pain. Acute. With tenderness to palpation. Improving. -This is several days after starting dexamethasone. Concerning for gastric ulcer. Without acute anemia. -Hold dexamethasone. -IV PPI. -Pain from narcotics as necessary. -CT abdomen reviewed no obvious cause of acute pain. Could be from liver lesions. -Gastric nephrology consult. Patient refuses EGD. We'll continue PPI. Hemoglobin is stable. //L2 transverse process fracture. -Patient reports chronic numbness in right leg, likely secondary to radiculopathy. -Follow-up primary care as outpatient. Denies any acute pain. //Chronic right shoulder, , low back pain -With L2 transverse process fracture. -Continue fentanyl patch. -We will add OxyContin 30 mg twice daily for basal control. Appreciate oncology assistance with increasing as needed IV Dilaudid. Continue to monitor. //Leukocytosis. Likely secondary to Neupogen. We'll continue monitor for signs of infection. //Hypokalemia. Acute. Mild. Resolved after replacement. //Liver lesions versus simple cysts. -Outpatient imaging pending. -20 to follow-up with oncology as outpatient. //Tobacco abuse. Cessation strongly advised. Counseling provided. //Thrombocytopenia . Likely chronic, chemotherapy-induced. Continue to monitor. -Hematology following. Appreciate assistance. No signs of active bleeding. Transfusion as needed for platelets under 15,000. //DVT prophylaxis. SCDs. We'll continue to hold AC secondary to possible gastric ulcer. Discharge Planning possible discharge home in the next 1-2 days if -tolerating diet, -pain controlled, -and CBC is stable. -appreciate case management assistance Fish Lewis MD Dec 04, 2016 17:44
[2016-12-04] MEDS: SODIUM CHLORIDE 0.9% FLUSH 5 ML FLUSH FLUSH PRN ×2 (20:13→20:25)
[2016-12-04] MEDS ORDERED: HYDROmorphone HCL PF 2 MG/ML VIAL IV PRN (23:45)
[2016-12-05] VITALS (14 sets, daily range): BP systolic 115–157; BP diastolic 74–97; PULSE 103–126; RESP 15–20; TEMP 97–99.9; O2SAT 91–99
[2016-12-05] MEDS: ONDANSETRON HCL 4 MG/2 ML VIAL IV PUSH SCH ×4 (00:13→17:52)
[2016-12-05] MEDS: HYDROmorphone HCL PF 1 MG/ML VIAL IV PUSH PRN ×11 (00:13→21:39)
[2016-12-05] MEDS: D5-1/2 NS + KCL 20 MEQ INJ 1,000 ML IV SCH ×2 (03:24→16:00)
[2016-12-05] MEDS: SODIUM CHLORIDE 0.9% FLUSH 5 ML FLUSH FLUSH PRN ×3 (03:33→06:58)
[2016-12-05] MEDS ORDERED: PADIMATE (CHAPSTICK) 4.5 GM TUBE TOPICAL PRN (04:00)
[2016-12-05 04:11] LABS: AUTOMATED NEUTROPHIL # 8.1 TH/MM3 (1.8-7.7); BASOPHIL % 0.2 % (0.0-2.0); EOSINOPHIL # 0.1 TH/MM3 (0-0.4); EOSINOPHIL % 0.9 % (0.0-4.0); HEMATOCRIT 26.5 % (35.0-46.0); LYMPH % 3.2 % (9.0-44.0); LYMPHOCYTE # 0.3 TH/MM3 (1.0-4.8); MEAN CORPUSCULAR HEMOGLOBIN 32.2 PG (27.0-34.0); MEAN CORPUSCULAR HGB CONC 33.9 % (32.0-36.0); MONO % 3.6 % (0.0-8.0); NEUT % 92.1 % (16.0-70.0); RED BLOOD COUNT 2.79 MIL/MM3 (4.00-5.30); RED CELL DISTRIBUTION WIDTH 17.4 % (11.6-17.2); WHITE BLOOD COUNT 8.7 TH/MM3 (4.0-11.0)
[2016-12-05 04:17] LABS: HEMO FLAGS AUTO DIFF
[2016-12-05 04:20] LABS: PLATELET COUNT 19 TH/MM3 (150-450)
[2016-12-05 04:39] LABS: BICARBONATE 25.1 MEQ/L (21.0-32.0); POTASSIUM 4.1 MEQ/L (3.5-5.1)
[2016-12-05] MEDS ORDERED: Infusaport/Implanted VAD PRN NS Lock Flush IVF (05:30)
[2016-12-05 07:04] LABS: BANDS 28 % (0-6); CORRECTED NUCLEATED RBC 2 /100 WBC (0-0); DOHLE BODIES PRESENT (NONE SEEN); EOSINOPHILS 3 % (0-4); METAMYELOCYTES 1 % (0-1); NEUTROPHIL # MANUAL DIFF 7.9 TH/MM3 (1.8-7.7); POLYS (SEG NEUTROPHILS) 62 % (16-70); WBC DIFF SAMPLE 100
[2016-12-05 07:05] LABS: PLATELET ESTIMATE SMEAR RARE (NORMAL); PLATELET MORPHOLOGY NORMAL (NORMAL); SCAN/DIFF FINAL DIFF MANUAL
[2016-12-05 07:06] LABS: TEARDROP RBCS 1+ (NORMAL)
[2016-12-05] MEDS: oxyCODONE HCL 10 MG CONTROLLED RELEASE TAB PO SCH ×2 (08:27→21:01)
[2016-12-05] MEDS: SODIUM CHLORIDE 0.9% FLUSH 5 ML FLUSH FLUSH SCH ×2 (08:28→21:00)
[2016-12-05] MEDS: PANTOPRAZOLE SODIUM 40 MG VIAL IV SCH ×2 (08:28→21:02)
[2016-12-05] MEDS ORDERED: HYDROmorphone HCL PF 1 MG/ML VIAL IV PUSH ONE (11:00)
[2016-12-05] MEDS ORDERED: oxyCODONE HCL 20 MG CONTROLLED RELEASE TAB PO ONE (11:00)
[2016-12-05] MEDS ORDERED: fentaNYL 100 MCG/HR PATCH TD SCH (12:00)
[2016-12-05] MEDS ORDERED: fentaNYL 50 MCG/HR PATCH TD SCH (12:00)
--- NOTE | 2016-12-05 12:51 | PD.ONC.PN ---
Subjective Subjective Remarks Afebrile overnight. patient still having significant pain in the hip and low back. She is about to go down for MRI. Objective Data Date Time Temp Pulse Resp B/P Pulse Ox O2 Delivery O2 Flow Rate FiO2 12/05/16 11:28 18 12/05/16 07:50 99.2 103 20 124/77 94 12/05/16 04:00 97.0 104 18 138/82 99 12/05/16 00:00 97.7 20 137/79 98 12/04/16 22:52 115 12/04/16 21:30 97.0 127 20 135/90 100 12/04/16 19:32 98.8 118 18 132/67 97 12/04/16 16:33 99.1 94 18 120/87 96 Result Diagram: 12/05/16 0330 12/05/16 0330 Laboratory Results Laboratory Tests Test 12/05/16 12/05/16 12/05/16 03:30 08:51 09:33 White Blood Count 8.7 TH/MM3 Red Blood Count 2.79 MIL/MM3 Hemoglobin 9.0 GM/DL Hematocrit 26.5 % Mean Corpuscular Volume 95.0 FL Mean Corpuscular Hemoglobin 32.2 PG Mean Corpuscular Hemoglobin 33.9 % Concent Red Cell Distribution Width 17.4 % Platelet Count 19 TH/MM3 Mean Platelet Volume 9.5 FL Neutrophils (%) (Auto) 92.1 % Lymphocytes (%) (Auto) 3.2 % Monocytes (%) (Auto) 3.6 % Eosinophils (%) (Auto) 0.9 % Basophils (%) (Auto) 0.2 % Neutrophils # (Auto) 8.1 TH/MM3 Lymphocytes # (Auto) 0.3 TH/MM3 Monocytes # (Auto) 0.3 TH/MM3 Eosinophils # (Auto) 0.1 TH/MM3 Basophils # (Auto) 0.0 TH/MM3 CBC Comment AUTO DIFF Differential Total Cells 100 Counted Neutrophils % (Manual) 62 % Band Neutrophils % 28 % Monocytes % 6 % Eosinophils % 3 % Neutrophils # (Manual) 7.9 TH/MM3 Metamyelocytes 1 % Nucleated Red Blood Cells 2 /100 WBC Differential Comment FINAL DIFF MANUAL Dohle Bodies PRESENT Platelet Estimate RARE Platelet Morphology Comment NORMAL Tear Drop Cells 1+ Sodium Level 139 MEQ/L Potassium Level 4.1 MEQ/L Chloride Level 106 MEQ/L Carbon Dioxide Level 25.1 MEQ/L Anion Gap 8 MEQ/L Blood Urea Nitrogen 4 MG/DL Creatinine 0.36 MG/DL Estimat Glomerular Filtration 190 ML/MIN Rate Random Glucose 102 MG/DL Calcium Level 7.7 MG/DL Blood Type O POSITIVE O POSITIVE Blood Bank Comment Administered Medications Medications (Trade) Dose Ordered Sig/Homero Route PRN Reason Start Time Stop Time Status Last Admin Dose Admin Potassium Chloride/Dextrose/ Sod Cl (D5-1/2 NS + KCl 20 Meq Inj) 1,000 ml @ 100 mls/hr Q10H IV 12/03/16 14:00 12/05/16 03:24 IV Flush (NS Flush) 2 ml UNSCH PRN FLUSH FLUSH AFTER USING IV ACCESS 12/03/16 13:00 12/05/16 06:58 IV Flush (NS Flush) 2 ml BID FLUSH 12/03/16 21:00 12/05/16 08:28 Ondansetron HCl (Zofran Inj) 4 mg Q6HR IV PUSH 12/03/16 18:00 12/05/16 10:57 Metoclopramide HCl (Reglan Inj) 10 mg Q8H PRN IV PUSH NAUSEA 12/03/16 13:00 12/03/16 19:22 Pantoprazole Sodium (Protonix Inj) 40 mg BID IV 12/03/16 21:00 12/05/16 08:28 Hydromorphone HCl (Dilaudid Pf Inj) 1.5 mg Q2H PRN IV PUSH PAIN SCALE 8 TO 10 12/04/16 22:00 12/05/16 10:58 Padimate O (Chapstick) 1 applic UNSCH PRN TOPICAL DRY LIPS 12/05/16 04:00 12/05/16 04:00 Fentanyl (Duragesic 100 Mcg Patch.72 Hr) 1 patch Q3D TD 12/05/16 12:00 12/05/16 12:04 Fentanyl (Duragesic 50 Mcg Patch.72 Hr) 1 patch Q3D TD 12/05/16 12:00 12/05/16 12:03 Objective Remarks GENERAL: Chronically ill female, lying on stretcher, getting ready to go down for MRI SKIN: Warm and dry. HEAD: Normocephalic. EYES: No injection or drainage. NECK: Supple, trachea midline. CARDIOVASCULAR: +S1/S2 RESPIRATORY: scattered rhonchi. GASTROINTESTINAL: Abdomen soft, non-tender, nondistended. EXTREMITIES: No cyanosis NEUROLOGICAL: awake and alert, normal speech. Assessment/Plan Problem List: (1) Right arm pain Status: Acute Plan: --likely d/t metastatic disease --Continue pain control with Fentanyl 150mcg + oxycontin 50mg BID + Dilaudid PRN breakthrough (2) Small cell lung cancer Status: Acute Plan: --follows with an oncologist in [place] --is receiving palliative chemotherapy (likely standard cisplatin or carboplatin along with [employer]-16 every 3-4 weeks) --denies JIRA ADMINISTRATOR mets (3) Nausea and vomiting Status: Acute Plan: --scheduled Zofran with PRN Compazine and Reglan for breakthrough (4) Leukocytosis Status: Acute Plan: ---secondary to G-CSF (Neulasta) (5) Antineoplastic chemotherapy induced anemia Status: Acute Plan: --monitor for bleeding --transfuse as needed for hgb <7.5 (6) Chemotherapy-induced thrombocytopenia Status: Acute Plan: --monitor for bleeding --transfuse as needed for platelets <15K or bleeding Assessment 51y/o with intractable nausea and vomiting associated with small cell lung cancer diagnosis. history of small cell lung cancer diagnosed in [place] in July of 2016-- metastatic at the time of diagnosis. Plan 1. continue pain management, nausea support, agree with MRI L-spine today. 2. follow up with oncologist in [place] upon discharge. Attending Statement The exam, history, and the medical decision-making described in the above note were completed with the assistance of the mid-level provider. I reviewed and agree with the findings presented. I attest that I had a [id number] encounter with the patient on the same day, and personally performed and documented my assessment and findings in the medical record. Pt seen and examined. Still c/o pain R shoulder and lower back radiating to L leg. Still has pain uncomfortable despite breakthrough and increase in Fentanyl patch. No expectation pain would be zero but still significant to make her uncomfortable. Nausea vomiting resolve. Nose bleeds, s/p transfuse platelet for platelet count 19K. Monitor for bleeding.Cytopenia related to chemo. MRI findings reviewed, suspect her disease etiology of pain. FU with oncologist in [place]. Problem Qualifiers (1) Nausea and vomiting: Qualified Code: R11.2 - Intractable vomiting with nausea, unspecified vomiting type (2) Leukocytosis: Qualified Code: D72.829 - Leukocytosis, unspecified type Jessy Hoffmann Dec 05, 2016 12:51 Minoo Schwartz MD Dec 05, 2016 18:06
[2016-12-05] MEDS ORDERED: ACETAMINOPHEN 325 MG TAB PO PRN (13:00)
[2016-12-05] MEDS ORDERED: HYDROmorphone HCL PF 1 MG/ML VIAL IV PUSH PRN (13:00)
[2016-12-05] MEDS ORDERED: diphenhydrAMINE HCL 25 MG CAP PO PRN (13:00)
[2016-12-05] MEDS ORDERED: GADODIAMIDE PF 287 MG/ML 5 ML VIAL (for RAD MRI) IV ONE (13:26)
--- NOTE | 2016-12-05 15:33 | RADRPT ---
EXAM DATE/TIME: 12/05/2016 12:58 [facility] COMPARISON: No previous studies available for comparison. INDICATIONS : Metastatic disease. Back pain with fracture. Lung cancer. CONTRAST: 14 cc Omniscan (gadodiamide) IV MEDICAL HISTORY : Carcinoma, lung. Hypertension. SURGICAL HISTORY : Tonsillectomy. ENCOUNTER: Subsequent ACUITY: 3 day PAIN SCORE: 5/10 LOCATION: Back. TECHNIQUE: Multiplanar multisequence MRI of the lumbar spine was performed with and without contr ast. FINDINGS: Sagittal T1 pre and post contrast, T2 and inversion recovery images show the heterogene ous signal throughout the visualized portions of the thoracic, lumbar, and sacral spines as well as t he pelvis. Many of these areas do show enhancement following gadolinium administration and findings are characteristic of extensive metastatic disease. There is mild multilevel degenerative disc disea se predominantly at L1-2 and L4-5 with broad based disc bulges encroaching on the spinal canal. I do not see significant spinal stenosis, however. Vertebral body heights are maintained without fractur e or listhesis. Detailed axial images as follows: T12-L1: The thecal sac has a normal diameter. No evidence of disc bulge or protrusion. The neural foramina are patent bilaterally. L1-L2: Diffuse disc bulge predominantly directed anteriorly. Spinal canal and neural foramina are patent. L2-L3: Mild, diffuse disc bulge. There is some facet hypertrophy but the spinal canal and neural fo ramina are patent. L3-L4: The thecal sac has a normal diameter. No evidence of disc bulge or protrusion. The neural f oramina are patent bilaterally. L4-L5: Diffuse disc bulge and facet hypertrophy resulting in moderate central spinal stenosis with no obvious central nerve root compromise. However, the disc does abut up to against the left L4 nerv e root after it leaves the neural foramina. Right neural foramina is patent. L5-S1: Facet hypertrophy but the spinal canal and neural foramina are patent. CONCLUSION: 1. MR findings characteristic of extensive metastatic disease to the lower thoracic, the entire lumba r and the entire sacral spine as well as the pelvis. 2. Multilevel degenerative disc disease with disc bulges most prominent at L1-2 and L4-5. There is m oderate central spinal stenosis at L4-5 with no central nerve root compromise. 3. Left posterior lateral component of the L4-5 disc abuts up against the left L4 nerve root after it leaves the neural foramina. Clinical significance of this is uncertain. 4. Neural foramina appear to be adequate at all remaining levels despite the aforementioned degenerat inge changes. Cristian Tate MD on December 05, 2016 at 15:10 Board Certified Radiologist. This report was verified electronically.
--- NOTE | 2016-12-05 15:59 | HHI.GIFU ---
GI Follow-up Note Consult Follow-up Subjective: Patient laying in bed complaining of severe back pain, awaiting for pain medications.She tolerated diet well, no nausea, or vomiting.Decreased appetite . She is still refusing egd .MRI spine noted Objective: PHYSICAL EXAMINATION: Vitals signs stable No fever Vital Signs Date Time Temp Pulse Resp B/P Pulse Ox O2 Delivery O2 Flow Rate FiO2 12/05/16 11:50 98.8 107 20 132/78 92 12/05/16 11:28 18 12/05/16 08:15 105 HEENT: Pupils round and reactive to light; normocephalic; atraumatic; no jaundice. Throat is clear. NECK: Neck is supple, no JVD, no lymphadenopathy. CHEST: Chest is clear to auscultation and percussion. CARDIAC: Regular rate and rhythm with no murmur gallop or rubs. ABDOMEN: Soft, nondistended, nontender; no hepatosplenomegaly; bowel sounds are present in all four quadrants. EXTREMITIES: No clubbing, cyanosis, or edema. SKIN: Normal; no rash; no jaundice. DISTRIBUTION A CLASS LINEMAN: No focal deficits; alert and oriented times three. Available Data (labs, X- Rays, Procedues) : Laboratory Tests Test 12/03/16 12/04/16 12/05/16 12/05/16 19:22 06:02 03:30 08:51 Hemoglobin 10.1 GM/DL 9.5 GM/DL 9.0 GM/DL White Blood Count 20.6 TH/MM3 8.7 TH/MM3 Red Blood Count 2.96 MIL/MM3 2.79 MIL/MM3 Hematocrit 28.4 % 26.5 % Mean Corpuscular Volume 95.7 FL 95.0 FL Mean Corpuscular Hemoglobin 32.0 PG 32.2 PG Mean Corpuscular Hemoglobin 33.5 % 33.9 % Concent Red Cell Distribution Width 17.2 % 17.4 % Platelet Count 30 TH/MM3 19 TH/MM3 Mean Platelet Volume 9.3 FL 9.5 FL Neutrophils (%) (Auto) % 92.1 % Lymphocytes (%) (Auto) % 3.2 % Monocytes (%) (Auto) % 3.6 % Eosinophils (%) (Auto) % 0.9 % Basophils (%) (Auto) % 0.2 % Neutrophils # (Auto) TH/MM3 8.1 TH/MM3 Lymphocytes # (Auto) TH/MM3 0.3 TH/MM3 Monocytes # (Auto) TH/MM3 0.3 TH/MM3 Eosinophils # (Auto) TH/MM3 0.1 TH/MM3 Basophils # (Auto) TH/MM3 0.0 TH/MM3 CBC Comment AUTO DIFF AUTO DIFF Differential Total Cells 100 100 Counted Neutrophils % (Manual) 80 % 62 % Band Neutrophils % 16 % 28 % Lymphocytes % 3 % Monocytes % 1 % 6 % Neutrophils # (Manual) 19.8 TH/MM3 7.9 TH/MM3 Differential Comment FINAL DIFF FINAL DIFF MANUAL MANUAL Dohle Bodies PRESENT PRESENT Platelet Estimate LOW RARE Platelet Morphology Comment NORMAL NORMAL Tear Drop Cells 1+ 1+ Keratocytes OCC Sodium Level 137 MEQ/L 139 MEQ/L Potassium Level 3.7 MEQ/L 4.1 MEQ/L Chloride Level 106 MEQ/L 106 MEQ/L Carbon Dioxide Level 21.9 MEQ/L 25.1 MEQ/L Anion Gap 9 MEQ/L 8 MEQ/L Blood Urea Nitrogen 4 MG/DL 4 MG/DL Creatinine 0.40 MG/DL 0.36 MG/DL Estimat Glomerular Filtration 168 ML/MIN 190 ML/MIN Rate Random Glucose 98 MG/DL 102 MG/DL Calcium Level 7.6 MG/DL 7.7 MG/DL Total Bilirubin 0.2 MG/DL Aspartate Amino Transf 26 U/L (AST/SGOT) Alanine Aminotransferase 13 U/L (ALT/SGPT) Alkaline Phosphatase 121 U/L Total Protein 5.7 GM/DL Albumin 2.8 GM/DL Eosinophils % 3 % Metamyelocytes 1 % Nucleated Red Blood Cells 2 /100 WBC Blood Type O POSITIVE Blood Bank Comment Test 12/05/16 09:33 Blood Type O POSITIVE ASSESSMENT/PLAN: nausea, vomiting resolved most likely secondary chemotherapy ugi bleeding -resolved possible secondary mucositis, mw tear abdominal pain -referred pain metastatic lung cancer on chemotherapy elevated alp most likely secondary metastatic bone disease Recommendations egd if agrees at this time refusing supportive care antiemetics ppi soft diet gi will sign off, call us if patient changes her mind It was a pleasure seeing Amanda Jeter. Thank you for this consult. Entered by: Maria Esther Turcios MD Dec 05, 2016 15:59
[2016-12-05] MEDS: ACETAMINOPHEN 325 MG TAB PO PRN (21:35)
[2016-12-05] MEDS: diphenhydrAMINE HCL 25 MG CAP PO PRN (21:35)
--- NOTE | 2016-12-05 21:47 | HHI.PR ---
Subjective Remarks Patient seen this morning around 10 AM. She reports left back and hip pain severe. Reports nausea and vomiting has resolved. had nosebleed which has resolved. Objective Vital Signs Date Time Temp Pulse Resp B/P Pulse Ox O2 Delivery O2 Flow Rate FiO2 12/05/16 17:05 98.3 124 18 139/74 99 12/05/16 16:47 98.6 104 18 133/79 94 12/05/16 15:50 99.1 107 20 115/75 91 12/05/16 13:15 18 12/05/16 13:15 18 12/05/16 13:15 18 12/05/16 13:15 18 12/05/16 11:50 98.8 107 20 132/78 92 12/05/16 11:28 18 12/05/16 08:15 105 12/05/16 07:50 99.2 103 20 124/77 94 12/05/16 04:00 97.0 104 18 138/82 99 12/05/16 00:00 97.7 20 137/79 98 12/04/16 22:52 115 12/04/16 21:30 97.0 127 20 135/90 100 I/O 12/04/16 12/04/16 12/04/16 12/05/16 12/05/16 12/05/16 07:00 15:00 23:00 07:00 15:00 23:00 Intake Total 240 ml 120 ml Balance 240 ml 120 ml Intake Oral 240 ml 120 ml # Voids 1 3 # Bowel Movements 0 Result Diagram: 12/05/16 0330 12/05/16 0330 Objective Remarks GENERAL: patient sitting up in bed. Appears uncomfortable, writhing in pain at times. She is alert and oriented 3. SKIN: Warm and dry. HEAD: Normocephalic. EYES: No scleral icterus. No injection or drainage. NECK: Supple, trachea midline. No JVD. CARDIOVASCULAR: Regular rate and rhythm without murmurs, gallops, or rubs. RESPIRATORY: Breath sounds equal bilaterally. No accessory muscle use. GASTROINTESTINAL: Abdomen soft, non-tender, nondistended. no rebound or guarding MUSCULOSKELETAL: No cyanosis, or edema. BACK: Nontender without obvious deformity. No CVA tenderness. A/P Assessment and Plan 12/05/16 Nausea and epigastric pain resolved. -Pain medications increased again. fentanyl patch and basal OxyContin increased -nosebleed. Platelet transfusion ordered. //Nausea and vomiting. Acute on chronic. Improving on treatment. //Lung squamous cell carcinoma. -Nausea Likely secondary to chemotherapy versus pain. -Continue Scheduled IV Zofran, with as needed Compazine. We are out of Phenergan unfortunately. Oncology following. Appreciate assistance. //Epigastric pain. Acute. With tenderness to palpation. Improving. -This is several days after starting dexamethasone. Concerning for gastric ulcer. Without acute anemia. -Hold dexamethasone. -IV PPI. -Pain from narcotics as necessary. -CT abdomen reviewed no obvious cause of acute pain. Could be from liver lesions. -gastroenterology consult. Patient refuses EGD. We'll continue PPI. Hemoglobin is stable. //L2 transverse process fracture. -Patient reports chronic numbness in right leg, likely secondary to radiculopathy. -Follow-up primary care as outpatient. Denies any acute pain. //Chronic right shoulder, , low back pain -With L2 transverse process fracture. -Continue fentanyl patch. -We will add OxyContin 30 mg twice daily for basal control. Appreciate oncology assistance with increasing as needed IV Dilaudid. Continue to monitor. //Leukocytosis. Likely secondary to Neupogen. We'll continue monitor for signs of infection. //Hypokalemia. Acute. Mild. Resolved after replacement. //Liver lesions versus simple cysts. -Outpatient imaging pending. -20 to follow-up with oncology as outpatient. //Tobacco abuse. Cessation strongly advised. Counseling provided. //Thrombocytopenia . Likely chronic, chemotherapy-induced. Continue to monitor. -Hematology following. Appreciate assistance. No signs of active bleeding. Transfusion as needed for platelets under 15,000. -12/05. Nosebleed. Transfuse 2 units of platelets for bleeding. //DVT prophylaxis. SCDs. We'll continue to hold AC secondary to possible gastric ulcer. Discharge Planning still withuncontrolled painuncontrolled pain. Adjusting the medications. -patient is tolerating diet. -can consider discharge home when pain controlled -appreciate case management assistance Fish Lewis MD Dec 05, 2016 21:47
[2016-12-05] MEDS ORDERED: DILTIAZEM HCL 25 MG/5 ML VIAL IV ONE (22:15)
[2016-12-05] MEDS ORDERED: HYDROmorphone HCL PF 2 MG/ML VIAL IV PUSH ONE (22:15)
[2016-12-05 22:56] LABS: BETA HCG QUANT LESS THAN 1 MIU/ML (0-5)
[2016-12-06] MEDS: ONDANSETRON HCL 4 MG/2 ML VIAL IV PUSH SCH ×4 (00:33→18:31)
[2016-12-06] MEDS: D5-1/2 NS + KCL 20 MEQ INJ 1,000 ML IV SCH ×2 (00:33→10:26)
[2016-12-06 02:23] LABS: AUTOMATED NEUTROPHIL # 4.6 TH/MM3 (1.8-7.7); BASOPHIL % 0.4 % (0.0-2.0); EOSINOPHIL # 0.1 TH/MM3 (0-0.4); EOSINOPHIL % 1.2 % (0.0-4.0); HEMATOCRIT 26.4 % (35.0-46.0); LYMPH % 4.7 % (9.0-44.0); LYMPHOCYTE # 0.3 TH/MM3 (1.0-4.8); MEAN CORPUSCULAR HEMOGLOBIN 32.3 PG (27.0-34.0); MEAN CORPUSCULAR HGB CONC 33.6 % (32.0-36.0); MONO % 12.4 % (0.0-8.0); NEUT % 81.3 % (16.0-70.0); PLATELET COUNT 42 TH/MM3 (150-450); RED BLOOD COUNT 2.75 MIL/MM3 (4.00-5.30); RED CELL DISTRIBUTION WIDTH 17.3 % (11.6-17.2); WHITE BLOOD COUNT 5.7 TH/MM3 (4.0-11.0)
[2016-12-06 02:28] LABS: HEMO FLAGS AUTO DIFF
[2016-12-06 02:55] LABS: BANDS 29 % (0-6); METAMYELOCYTES 9 % (0-1); MYELOCYTES 2 % (0-0); NEUTROPHIL # MANUAL DIFF 5.1 TH/MM3 (1.8-7.7); POLYS (SEG NEUTROPHILS) 50 % (16-70); WBC DIFF SAMPLE 100
[2016-12-06 02:58] LABS: OVALOCYTES 1+ (NORMAL); PLATELET ESTIMATE SMEAR LOW (NORMAL); PLATELET MORPHOLOGY NORMAL (NORMAL); SCAN/DIFF FINAL DIFF MANUAL
[2016-12-06] MEDS: HYDROmorphone HCL PF 1 MG/ML VIAL IV PUSH PRN ×4 (03:15→10:23)
[2016-12-06 04:00] VITALS: BP 138/92; RESP 18; TEMP 98.4; O2SAT 97
[2016-12-06 06:38] LABS: AUTOMATED NEUTROPHIL # 3.2 TH/MM3 (1.8-7.7); BASOPHIL % 0.5 % (0.0-2.0); EOSINOPHIL # 0.1 TH/MM3 (0-0.4); EOSINOPHIL % 1.4 % (0.0-4.0); HEMATOCRIT 25.5 % (35.0-46.0); LYMPH % 5.9 % (9.0-44.0); LYMPHOCYTE # 0.2 TH/MM3 (1.0-4.8); MEAN CELL VOLUME 96.5 FL (80.0-100.0); MEAN CORPUSCULAR HEMOGLOBIN 31.7 PG (27.0-34.0); MEAN CORPUSCULAR HGB CONC 32.8 % (32.0-36.0); MONO % 12.9 % (0.0-8.0); NEUT % 79.3 % (16.0-70.0); PLATELET COUNT 34 TH/MM3 (150-450); RED BLOOD COUNT 2.64 MIL/MM3 (4.00-5.30); RED CELL DISTRIBUTION WIDTH 17.5 % (11.6-17.2)
[2016-12-06 06:39] LABS: HEMO FLAGS AUTO DIFF
[2016-12-06 06:52] LABS: POTASSIUM 4.2 MEQ/L (3.5-5.1)
[2016-12-06 07:29] LABS: BANDS 23 % (0-6); CORRECTED NUCLEATED RBC 1 /100 WBC (0-0); DOHLE BODIES PRESENT (NONE SEEN); METAMYELOCYTES 5 % (0-1); MYELOCYTES 2 % (0-0); NEUTROPHIL # MANUAL DIFF 3.4 TH/MM3 (1.8-7.7); OVALOCYTES 1+ (NORMAL); PLATELET ESTIMATE SMEAR LOW (NORMAL); PLATELET MORPHOLOGY ENLARGED (NORMAL); POLYS (SEG NEUTROPHILS) 54 % (16-70); SCAN/DIFF FINAL DIFF MANUAL; TEARDROP RBCS 1+ (NORMAL); TOXIC GRANULATION 2+ (NORMAL); WBC DIFF SAMPLE 100
[2016-12-06 07:50] VITALS: BP 121/82; PULSE 118; RESP 20; TEMP 99.8; O2SAT 93
[2016-12-06] MEDS: oxyCODONE HCL 10 MG CONTROLLED RELEASE TAB PO SCH (08:19)
[2016-12-06] MEDS: PANTOPRAZOLE SODIUM 40 MG VIAL IV SCH ×2 (08:19→20:32)
[2016-12-06] MEDS: SODIUM CHLORIDE 0.9% FLUSH 5 ML FLUSH FLUSH SCH ×2 (09:00→20:01)
[2016-12-06] MEDS ORDERED: oxyCODONE HCL 10 MG CONTROLLED RELEASE TAB PO ONE (11:00)
[2016-12-06] MEDS: DOCUSATE SODIUM 50 MG/SENNA 8.6 MG TAB PO SCH ×3 (11:45→20:34)
--- NOTE | 2016-12-06 11:47 | HHI.PR ---
Subjective Remarks She reports that pain has improved somewhat, almost tolerable. Denies any chest pain or shortness of breath. Denies any nausea or vomiting. Objective Vital Signs Date Time Temp Pulse Resp B/P Pulse Ox O2 Delivery O2 Flow Rate FiO2 12/06/16 07:50 99.8 118 20 121/82 93 12/06/16 04:00 98.4 18 138/92 97 12/05/16 23:13 99.5 120 15 136/77 98 12/05/16 22:43 99.9 126 15 149/83 95 12/05/16 22:33 99.5 118 15 137/89 93 12/05/16 21:30 99.8 118 18 157/97 94 12/05/16 21:01 112 12/05/16 17:05 98.3 124 18 139/74 99 12/05/16 16:47 98.6 104 18 133/79 94 12/05/16 15:50 99.1 107 20 115/75 91 12/05/16 13:15 18 12/05/16 13:15 18 12/05/16 13:15 18 12/05/16 13:15 18 12/05/16 11:50 98.8 107 20 132/78 92 I/O 12/05/16 12/05/16 12/05/16 12/06/16 12/06/16 12/06/16 07:00 15:00 23:00 07:00 15:00 23:00 Intake Total 240 ml 120 ml 480 ml 430 ml Balance 240 ml 120 ml 480 ml 430 ml Intake Oral 240 ml 120 ml 480 ml 240 ml Platelets 190 ml # Voids 1 3 3 2 # Bowel Movements 0 Result Diagram: 12/06/16 0610 12/06/16 0610 Imaging Last Impressions Lumbar Spine MRI 12/05/16 0000 Signed Impressions: Service Date/Time: Monday, December 05, 2016 12:58 - CONCLUSION: 1. MR findings characteristic of extensive metastatic disease to the lower thoracic, the entire lumbar and the entire sacral spine as well as the pelvis. 2. Multilevel degenerative disc disease with disc bulges most prominent at L1-2 and L4-5. There is moderate central spinal stenosis at L4-5 with no central nerve root compromise. 3. Left posterior lateral component of the L4-5 disc abuts up against the left L4 nerve root after it leaves the neural foramina. Clinical significance of this is uncertain. 4. Neural foramina appear to be adequate at all remaining levels despite the aforementioned degenerative changes. Cristian Tate MD Abdomen/Pelvis CT 12/03/16 0933 Signed Impressions: Service Date/Time: Saturday, December 03, 2016 10:34 - CONCLUSION: 1. Nondisplaced fracture of the transverse process of L2. 2. No findings to indicate bowel obstruction are seen. 3. There are scattered low-attenuation lesions throughout the liver these are probably simple cysts however they are indeterminate in appearance and metastatic disease cannot be entirely excluded. If prior imaging is available these would be of benefit for direct comparison. If not, MRI imaging could be performed for more definitive assessment. Adam Aldana MD Chest X-Ray 12/03/16 0000 Signed Impressions: Service Date/Time: Saturday, December 03, 2016 11:23 - CONCLUSION: 1. No acute cardiopulmonary process. 2. Mottled appearance of the proximal right humerus. There may be an associated old fracture deformity as well. Cannot exclude chronic inflammation/infection or metastatic disease. Cristian Tate MD Brain MRI 12/03/16 0000 Signed Impressions: Service Date/Time: Saturday, December 03, 2016 19:52 - CONCLUSION: 1. Chronic white matter changes bilaterally characteristic of ischemic demyelinization. 2. No evidence of a mass within the substance of the brain. 3. Nonspecific enhancement of the marrow of the calvarium. Bony metastatic disease would be a consideration. If clinically indicated, recommend a whole body bone scan for further evaluation. Fernando Diaz MD Objective Remarks GENERAL: patient sitting up in bed. Appears comfortable, however improved from yesterday. She is alert and oriented 3. SKIN: Warm and dry. HEAD: Normocephalic. EYES: No scleral icterus. No injection or drainage. NECK: Supple, trachea midline. No JVD. CARDIOVASCULAR: Regular rate and rhythm without murmurs, gallops, or rubs. RESPIRATORY: Breath sounds equal bilaterally. No accessory muscle use. GASTROINTESTINAL: Abdomen soft, non-tender, nondistended. no rebound or guarding MUSCULOSKELETAL: No cyanosis, or edema. BACK: Nontender without obvious deformity. No CVA tenderness. A/P Assessment and Plan 12/06/16 -Switch Dilaudid to by mouth with IV breakthrough Dilaudid. -Platelets acceptable. No acute bleeding. //Nausea and vomiting. Acute on chronic. Improving on treatment. //Lung squamous cell carcinoma. -Nausea Likely secondary to chemotherapy versus pain. -Continue Scheduled IV Zofran, with as needed Compazine. We are out of Phenergan unfortunately. Oncology following. Appreciate assistance. //Epigastric pain. Acute. With tenderness to palpation. Appears to have resolved. -This is several days after starting dexamethasone. Concerning for gastric ulcer. Without acute anemia. -Hold dexamethasone. -IV PPI. -Pain from narcotics as necessary. -CT abdomen reviewed no obvious cause of acute pain. Could be from liver lesions. -gastroenterology consult. Patient refuses EGD. We'll continue PPI. Hemoglobin is stable. //Chronic right shoulder, , low back pain //L2 transverse process fracture. //Findings of new metastatic disease lumbar spine. -Please see MRI above -With L2 transverse process fracture. -Continue fentanyl patch. -Pain control improved. Continue fentanyl patch 150 mcg/h. Increase OxyContin to 60 mg twice daily. Switch IV Dilaudid to 6 mg 2 hours by mouth. Half milligram Dilaudid when necessary breakthrough pain. //Leukocytosis. Likely secondary to Neupogen. We'll continue monitor for signs of infection. //Hypokalemia. Acute. Mild. Resolved after replacement. //Liver lesions versus simple cysts. -Outpatient imaging pending. -20 to follow-up with oncology as outpatient. //Tobacco abuse. Cessation strongly advised. Counseling provided. //Thrombocytopenia . Likely chronic, chemotherapy-induced. Continue to monitor. -Hematology following. Appreciate assistance. No signs of active bleeding. Transfusion as needed for platelets under 15,000. -12/05. Nosebleed. Transfuse 2 units of platelets for bleeding. -12/05. Platelets improved after transfusion. Monitor. No acute bleeding //DVT prophylaxis. SCDs. We'll continue to hold AC secondary to possible gastric ulcer. Discharge Planning -Transition pain meds to by mouth. -Tomorrow, if pain is stable on regimen, patient can discharge home to follow- up with oncology as outpatient. -Patient does not have insurance, we'll need medications provided. -patient is tolerating diet. -appreciate case management assistance Fish Lewis MD Dec 06, 2016 11:47
[2016-12-06 11:50] VITALS: BP 119/73; PULSE 117; RESP 20; TEMP 99.2; O2SAT 95
[2016-12-06] MEDS ORDERED: OMEP40CA2 PO (11:57)
[2016-12-06] MEDS ORDERED: ONDA1TAB17 PO (11:57)
[2016-12-06] MEDS ORDERED: DILA2TAB2 PO (11:57)
[2016-12-06] MEDS ORDERED: OXYC20TA17 PO (11:57)
[2016-12-06] MEDS ORDERED: FENT50T TD (11:57)
[2016-12-06] MEDS ORDERED: SENN1TAB PO (11:57)
[2016-12-06] MEDS ORDERED: FENT100T TD (11:57)
[2016-12-06] MEDS ORDERED: EMETSOL PO (11:58)
[2016-12-06] MEDS ORDERED: REGL10TA5 PO (11:58)
[2016-12-06] MEDS ORDERED: SODIUM PHOSPHATE INJ 15 MMOL in SODIUM CHLORIDE 0.9% INJ 150 ML IV ONE (12:00)
--- NOTE | 2016-12-06 12:42 | PD.ONC.PN ---
Subjective Subjective Remarks Tmax 99.9 overnight. Patient continues to have pain in her back and is concerned about going home as she does not know how to get her Rx paid for. She does not want a bowel regimen. Objective Data Date Time Temp Pulse Resp B/P Pulse Ox O2 Delivery O2 Flow Rate FiO2 12/06/16 07:50 99.8 118 20 121/82 93 12/06/16 04:00 98.4 18 138/92 97 12/05/16 23:13 99.5 120 15 136/77 98 12/05/16 22:43 99.9 126 15 149/83 95 12/05/16 22:33 99.5 118 15 137/89 93 12/05/16 21:30 99.8 118 18 157/97 94 12/05/16 21:01 112 12/05/16 17:05 98.3 124 18 139/74 99 12/05/16 16:47 98.6 104 18 133/79 94 12/05/16 15:50 99.1 107 20 115/75 91 12/05/16 13:15 18 12/05/16 13:15 18 12/05/16 13:15 18 12/05/16 13:15 18 Result Diagram: 12/06/16 0610 12/06/16 0610 Laboratory Results Laboratory Tests Test 12/06/16 12/06/16 00:35 06:10 White Blood Count 5.7 TH/MM3 4.0 TH/MM3 Red Blood Count 2.75 MIL/MM3 2.64 MIL/MM3 Hemoglobin 8.9 GM/DL 8.4 GM/DL Hematocrit 26.4 % 25.5 % Mean Corpuscular Volume 96.0 FL 96.5 FL Mean Corpuscular Hemoglobin 32.3 PG 31.7 PG Mean Corpuscular Hemoglobin 33.6 % 32.8 % Concent Red Cell Distribution Width 17.3 % 17.5 % Platelet Count 42 TH/MM3 34 TH/MM3 Mean Platelet Volume 7.7 FL 7.9 FL Neutrophils (%) (Auto) 81.3 % 79.3 % Lymphocytes (%) (Auto) 4.7 % 5.9 % Monocytes (%) (Auto) 12.4 % 12.9 % Eosinophils (%) (Auto) 1.2 % 1.4 % Basophils (%) (Auto) 0.4 % 0.5 % Neutrophils # (Auto) 4.6 TH/MM3 3.2 TH/MM3 Lymphocytes # (Auto) 0.3 TH/MM3 0.2 TH/MM3 Monocytes # (Auto) 0.7 TH/MM3 0.5 TH/MM3 Eosinophils # (Auto) 0.1 TH/MM3 0.1 TH/MM3 Basophils # (Auto) 0.0 TH/MM3 0.0 TH/MM3 CBC Comment AUTO DIFF AUTO DIFF Differential Total Cells 100 100 Counted Neutrophils % (Manual) 50 % 54 % Band Neutrophils % 29 % 23 % Lymphocytes % 3 % 8 % Monocytes % 7 % 8 % Neutrophils # (Manual) 5.1 TH/MM3 3.4 TH/MM3 Metamyelocytes 9 % 5 % Myelocytes 2 % 2 % Differential Comment FINAL DIFF FINAL DIFF MANUAL MANUAL Platelet Estimate LOW LOW Platelet Morphology Comment NORMAL ENLARGED Ovalocytes 1+ 1+ Nucleated Red Blood Cells 1 /100 WBC Toxic Granulation 2+ Dohle Bodies PRESENT Tear Drop Cells 1+ Sodium Level 134 MEQ/L Potassium Level 4.2 MEQ/L Chloride Level 103 MEQ/L Carbon Dioxide Level 24.0 MEQ/L Anion Gap 7 MEQ/L Blood Urea Nitrogen 4 MG/DL Creatinine 0.31 MG/DL Estimat Glomerular Filtration 226 ML/MIN Rate Random Glucose 96 MG/DL Calcium Level 7.9 MG/DL Phosphorus Level 1.4 MG/DL Magnesium Level 2.0 MG/DL Albumin 3.1 GM/DL Administered Medications Medications (Trade) Dose Ordered Sig/Homero Route PRN Reason Start Time Stop Time Status Last Admin Dose Admin IV Flush (NS Flush) 2 ml UNSCH PRN FLUSH FLUSH AFTER USING IV ACCESS 12/03/16 13:00 12/05/16 06:58 IV Flush (NS Flush) 2 ml BID FLUSH 12/03/16 21:00 12/05/16 08:28 Ondansetron HCl (Zofran Inj) 4 mg Q6HR IV PUSH 12/03/16 18:00 12/06/16 12:16 Metoclopramide HCl (Reglan Inj) 10 mg Q8H PRN IV PUSH NAUSEA 12/03/16 13:00 12/03/16 19:22 Pantoprazole Sodium (Protonix Inj) 40 mg BID IV 12/03/16 21:00 12/06/16 08:19 Padimate O (Chapstick) 1 applic UNSCH PRN TOPICAL DRY LIPS 12/05/16 04:00 12/05/16 04:00 Fentanyl (Duragesic 100 Mcg Patch.72 Hr) 1 patch Q3D TD 12/05/16 12:00 12/05/16 12:04 Fentanyl (Duragesic 50 Mcg Patch.72 Hr) 1 patch Q3D TD 12/05/16 12:00 12/05/16 12:03 Diphenhydramine HCl (Benadryl) 25 mg Q4H PRN PO BLOOD PRODUCTS 12/05/16 20:45 12/05/16 21:35 Acetaminophen 650 mg 650 mg Q4H PRN PO BLOOD PRODUCTS 12/05/16 20:45 12/05/16 21:35 Sodium Phosphate/ Sodium Chloride (Sodium Phosphate Inj/NS Inj) 155 ml @ 38.75 mls/ hr ONCE ONCE IV 12/06/16 12:00 12/06/16 15:59 12/06/16 12:15 Objective Remarks GENERAL: Middle aged female, sitting up in bed in [facility]. SKIN: Warm and dry. +alopecia HEAD: Normocephalic. EYES: No injection or drainage. NECK: Supple, trachea midline. CARDIOVASCULAR: +S1/S2 RESPIRATORY: scattered rhonchi, all lung boyd. GASTROINTESTINAL: Abdomen soft, non-tender, nondistended. EXTREMITIES: No cyanosis NEUROLOGICAL: awake and alert, normal speech. able to move extremities. Assessment/Plan Problem List: (1) Small cell lung cancer Status: Acute Plan: --follows with an oncologist in [place] --is receiving palliative chemotherapy (likely standard cisplatin or carboplatin along with FINANCIAL AID MANAGER-16 every 3-4 weeks) --denies PROGRAM DIRECTOR/TRAFFIC DIRECTOR mets (2) Nausea and vomiting Status: Acute Plan: --scheduled Zofran with PRN Compazine and Reglan for breakthrough (3) Antineoplastic chemotherapy induced anemia Status: Acute Plan: --monitor for bleeding --transfuse as needed for hgb <7.5 (4) Chemotherapy-induced thrombocytopenia Status: Acute Plan: --monitor for bleeding --transfuse as needed for platelets <15K or bleeding (5) Pain Status: Acute Plan: --d/t metastatic disease --Continue pain control with Fentanyl 150mcg + oxycontin 50mg BID + Dilaudid PRN breakthrough Assessment 51y/o with intractable nausea and vomiting associated with small cell lung cancer diagnosis. history of small cell lung cancer diagnosed in [place] in July of 2016-- metastatic at the time of diagnosis. Plan 1. d/w patient and MRI findings. patient will need to follow up with Oncologist in [place] for further treatment. It appears she has progressed on her current treatment. Discussed with patient making an appointment as soon as possible after discharge. 2. oncology will sign off. patient clear for discharge once pain controlled. Attending Statement The exam, history, and the medical decision-making described in the above note were completed with the assistance of the mid-level provider. I reviewed and agree with the findings presented. I attest that I had a [id number] encounter with the patient on the same day, and personally performed and documented my assessment and findings in the medical record. PT seen and examined. Discussed MRI findings and options for treatment of SCLCA, ultimately defer to her primary oncologist for decision to change chemo vs. XRT as adjunctive therapy. Continue goal to manage pain, pt more comfortable. Problem Qualifiers (1) Nausea and vomiting: Qualified Code: R11.2 - Intractable vomiting with nausea, unspecified vomiting type Jessy Hoffmann Dec 06, 2016 12:42 Minoo Schwartz MD Dec 06, 2016 17:57
[2016-12-06] MEDS ORDERED: REMOVE OLD PATCH T-DERMAL SCH (14:00)
[2016-12-06] MEDS: HYDROmorphone HCL 2 MG TAB PO PRN ×4 (14:14→20:31)
[2016-12-06 15:50] VITALS: BP 110/66; PULSE 120; RESP 20; TEMP 99.5; O2SAT 94
[2016-12-06 20:00] VITALS: BP 130/87; PULSE 125; RESP 20; TEMP 97.4; O2SAT 98
[2016-12-06] MEDS: METOCLOPRAMIDE HCL 10 MG/2 ML VIAL IV PUSH PRN (20:01)
[2016-12-06] MEDS: oxyCODONE HCL 20 MG CONTROLLED RELEASE TAB PO SCH (20:34)
[2016-12-06 21:00] VITALS: PULSE 113
[2016-12-07] VITALS (7 sets, daily range): BP systolic 101–121; BP diastolic 65–85; PULSE 106–127; RESP 16–22; TEMP 96.1–100; O2SAT 92–97
[2016-12-07] MEDS: ONDANSETRON HCL 4 MG/2 ML VIAL IV PUSH SCH ×5 (00:35→22:15)
[2016-12-07] MEDS: HYDROmorphone HCL 2 MG TAB PO PRN ×8 (00:42→21:30)
[2016-12-07] MEDS: HYDROmorphone HCL PF 1 MG/ML VIAL IV PUSH PRN ×5 (06:06→22:16)
[2016-12-07 06:58] LABS: AUTOMATED NEUTROPHIL # 2.6 TH/MM3 (1.8-7.7); BASOPHIL % 0.4 % (0.0-2.0); EOSINOPHIL % 0.5 % (0.0-4.0); HEMATOCRIT 22.7 % (35.0-46.0); LYMPH % 5.3 % (9.0-44.0); LYMPHOCYTE # 0.2 TH/MM3 (1.0-4.8); MEAN CELL VOLUME 94.7 FL (80.0-100.0); MEAN CORPUSCULAR HEMOGLOBIN 31.5 PG (27.0-34.0); MEAN CORPUSCULAR HGB CONC 33.2 % (32.0-36.0); MONO % 11.1 % (0.0-8.0); NEUT % 82.7 % (16.0-70.0); RED CELL DISTRIBUTION WIDTH 17.2 % (11.6-17.2); WHITE BLOOD COUNT 3.2 TH/MM3 (4.0-11.0)
[2016-12-07 07:08] LABS: HEMO FLAGS AUTO DIFF
[2016-12-07 07:10] LABS: PLATELET COUNT 19 TH/MM3 (150-450)
[2016-12-07 07:23] LABS: BICARBONATE 24.8 MEQ/L (21.0-32.0); MAGNESIUM 1.9 MG/DL (1.5-2.5); POTASSIUM 3.8 MEQ/L (3.5-5.1)
[2016-12-07 08:31] LABS: BANDS 34 % (0-6); BASOPHILS 1 % (0-2); CORRECTED NUCLEATED RBC 5 /100 WBC (0-0); EOSINOPHILS 1 % (0-4); METAMYELOCYTES 11 % (0-1); MYELOCYTES 2 % (0-0); NEUTROPHIL # MANUAL DIFF 2.7 TH/MM3 (1.8-7.7); PLATELET ESTIMATE SMEAR LOW (NORMAL); POLYS (SEG NEUTROPHILS) 36 % (16-70); WBC DIFF SAMPLE 100
[2016-12-07 08:32] LABS: PLATELET MORPHOLOGY NORMAL (NORMAL)
[2016-12-07 08:33] LABS: HELMET CELLS OCC (NORMAL); SCAN/DIFF FINAL DIFF MANUAL; TEARDROP RBCS 1+ (NORMAL)
[2016-12-07] MEDS: PANTOPRAZOLE SODIUM 40 MG VIAL IV SCH ×2 (08:42→19:53)
[2016-12-07] MEDS: oxyCODONE HCL 20 MG CONTROLLED RELEASE TAB PO SCH ×2 (08:42→21:32)
[2016-12-07] MEDS: SODIUM CHLORIDE 0.9% FLUSH 5 ML FLUSH FLUSH SCH ×2 (08:43→19:53)
[2016-12-07] MEDS: DOCUSATE SODIUM 50 MG/SENNA 8.6 MG TAB PO SCH ×2 (08:43→19:51)
[2016-12-07] MEDS: METOPROLOL TARTRATE 25 MG TAB PO SCH ×2 (08:44→19:52)
[2016-12-07] MEDS ORDERED: PILL SPLITTER OTHER PRN (08:45)
[2016-12-07] MEDS ORDERED: oxyCODONE HCL 20 MG CONTROLLED RELEASE TAB PO ONE (09:30)
[2016-12-07] MEDS ORDERED: HYDROmorphone HCL PF 1 MG/ML VIAL IV PUSH ONE (09:30)
[2016-12-07] MEDS ORDERED: SODIUM PHOSPHATE INJ 30 MMOL in SODIUM CHLOR 0.9% 250 ML INJ 250 ML IV ONE (10:00)
[2016-12-07] MEDS ORDERED: DOCUSATE SODIUM 50 MG/SENNA 8.6 MG TAB PO ONE (11:00)
[2016-12-07] MEDS ORDERED: FENT75DI T-DERMAL (11:43)
[2016-12-07] MEDS ORDERED: OXYC80TA9 PO (11:43)
[2016-12-07] MEDS ORDERED: fentaNYL 75 MCG/HR PATCH TD SCH (12:00)
[2016-12-07] MEDS ORDERED: MAGNESIUM HYDROXIDE SUSP 30 ML CUP PO ONE (12:00)
[2016-12-07] MEDS: REMOVE OLD PATCH T-DERMAL SCH ×2 (14:00)
--- NOTE | 2016-12-07 14:24 | HHI.PR ---
Subjective Remarks Patient seen this morning around 9:30 AM. Reports that pain is worse today, not controlled on current regimen. Denies any chest pain or shortness breath. Still no bowel movement. Objective Vital Signs Date Time Temp Pulse Resp B/P Pulse Ox O2 Delivery O2 Flow Rate FiO2 12/07/16 12:00 97.4 106 16 115/74 97 12/07/16 08:00 100.0 115 20 108/85 96 12/07/16 07:01 19 12/07/16 07:01 19 12/07/16 04:00 99.2 127 22 120/65 96 12/07/16 00:00 97.8 114 18 101/69 92 12/06/16 22:00 19 12/06/16 21:00 113 12/06/16 20:00 97.4 125 20 130/87 98 12/06/16 15:50 99.5 120 20 110/66 94 I/O 12/06/16 12/06/16 12/06/16 12/07/16 12/07/16 12/07/16 07:00 15:00 23:00 07:00 15:00 23:00 Intake Total 430 ml 120 ml 240 ml 240 ml Balance 430 ml 120 ml 240 ml 240 ml Intake Oral 240 ml 120 ml 240 ml 240 ml Platelets 190 ml # Voids 2 2 4 # Bowel Movements 0 Result Diagram: 12/07/16 0604 12/07/16 0604 Imaging Last Impressions Lumbar Spine MRI 12/05/16 0000 Signed Impressions: Service Date/Time: Monday, December 05, 2016 12:58 - CONCLUSION: 1. MR findings characteristic of extensive metastatic disease to the lower thoracic, the entire lumbar and the entire sacral spine as well as the pelvis. 2. Multilevel degenerative disc disease with disc bulges most prominent at L1-2 and L4-5. There is moderate central spinal stenosis at L4-5 with no central nerve root compromise. 3. Left posterior lateral component of the L4-5 disc abuts up against the left L4 nerve root after it leaves the neural foramina. Clinical significance of this is uncertain. 4. Neural foramina appear to be adequate at all remaining levels despite the aforementioned degenerative changes. Cristian Tate MD Abdomen/Pelvis CT 12/03/16 0933 Signed Impressions: Service Date/Time: Saturday, December 03, 2016 10:34 - CONCLUSION: 1. Nondisplaced fracture of the transverse process of L2. 2. No findings to indicate bowel obstruction are seen. 3. There are scattered low-attenuation lesions throughout the liver these are probably simple cysts however they are indeterminate in appearance and metastatic disease cannot be entirely excluded. If prior imaging is available these would be of benefit for direct comparison. If not, MRI imaging could be performed for more definitive assessment. Adam Aldana MD Chest X-Ray 12/03/16 0000 Signed Impressions: Service Date/Time: Saturday, December 03, 2016 11:23 - CONCLUSION: 1. No acute cardiopulmonary process. 2. Mottled appearance of the proximal right humerus. There may be an associated old fracture deformity as well. Cannot exclude chronic inflammation/infection or metastatic disease. Cristian Tate MD Brain MRI 12/03/16 0000 Signed Impressions: Service Date/Time: Saturday, December 03, 2016 19:52 - CONCLUSION: 1. Chronic white matter changes bilaterally characteristic of ischemic demyelinization. 2. No evidence of a mass within the substance of the brain. 3. Nonspecific enhancement of the marrow of the calvarium. Bony metastatic disease would be a consideration. If clinically indicated, recommend a whole body bone scan for further evaluation. Fernando Diaz MD Objective Remarks GENERAL: patient sitting up in bed. Appears uncomfortable today. She is alert and oriented 3. SKIN: Warm and dry. HEAD: Normocephalic. EYES: No scleral icterus. No injection or drainage. NECK: Supple, trachea midline. No JVD. CARDIOVASCULAR: Regular rate and rhythm without murmurs, gallops, or rubs. RESPIRATORY: Breath sounds equal bilaterally. No accessory muscle use. GASTROINTESTINAL: Abdomen soft, non-tender, nondistended. no rebound or guarding MUSCULOSKELETAL: No cyanosis, or edema. BACK: Nontender without obvious deformity. No CVA tenderness. A/P Assessment and Plan 12/07/16 //Metastatic cancer pain .Pain not controlled on current regimen. We will increase OxyContin to 80 mg twice daily, increase fentanyl patch to 175 g per hour. //Thrombocytopenia Platelets low but still acceptable. No acute bleeding. //Leukopenia, however neutrophils acceptable. //Anemia of malignancy. Hemoglobin 7.5, however no signs of acute bleeding. Continue to monitor. //Opioid-induced constipation. Cathartics ordered. 2. //Hypophosphatemia. Replace. //Chronic right shoulder, , low back pain //L2 transverse process fracture. //Findings of new metastatic disease lumbar spine. -Please see MRI above -With L2 transverse process fracture. - 12/07 We will increase OxyContin to 80 mg twice daily, increase fentanyl patch to 175 g per hour. //Leukocytosis. Resolved. Likely secondary to Neupogen. We'll continue monitor for signs of infection. //Leukopenia. Secondary to malignancy, chemotherapy. Neutrophils acceptable. Continue to monitor.. //Nausea and vomiting. Acute on chronic. Resolved. //Lung squamous cell carcinoma. -Nausea Likely secondary to chemotherapy versus pain. -Continue Scheduled IV Zofran, with as needed Compazine. We are out of Phenergan unfortunately. Oncology following. Appreciate assistance. //Hypophosphatemia. Replace. //Thrombocytopenia . Likely chronic, chemotherapy-induced. Continue to monitor. -Hematology following. Appreciate assistance. No signs of active bleeding. Transfusion as needed for platelets under 15,000. -12/05. Nosebleed. Transfuse 2 units of platelets for bleeding. -12/05. Platelets improved after transfusion. Monitor. No acute bleeding //Anemia of malignancy. Hemoglobin 7.5, however no signs of acute bleeding. Continue to monitor. //Epigastric pain. Acute. resolved. -This is several days after starting dexamethasone. Concerning for gastric ulcer. Without acute anemia. -Hold dexamethasone. -IV PPI. -Pain from narcotics as necessary. -CT abdomen reviewed no obvious cause of acute pain. Could be from liver lesions. -gastroenterology consult. Patient refuses EGD. We'll continue PPI. Hemoglobin is stable. //Liver lesions versus simple cysts. -Outpatient imaging pending. -20 to follow-up with oncology as outpatient. //Tobacco abuse. Cessation strongly advised. Counseling provided. //Hypokalemia. Acute. Mild. Resolved after replacement. //DVT prophylaxis. SCDs. We'll continue to hold AC secondary to possible gastric ulcer. Discharge Planning -Trying toTransition pain meds to by mouth. -12/07. Pain not controlled. Tomorrow, if pain is stable on regimen, patient can discharge home to follow-up with oncology as outpatient. -Patient does not have insurance, we'll need medications provided. -patient is tolerating diet. -appreciate case management assistance Fish Lewis MD Dec 07, 2016 14:24
[2016-12-07] MEDS: fentaNYL 100 MCG/HR PATCH TD SCH (14:27)
[2016-12-07] MEDS: fentaNYL 75 MCG/HR PATCH TD SCH (14:27)
[2016-12-07] MEDS ORDERED: ACETAMINOPHEN 325 MG TAB PO PRN (23:15)
[2016-12-07] MEDS ORDERED: diphenhydrAMINE HCL 25 MG CAP PO PRN (23:15)
[2016-12-07] MEDS ORDERED: SODIUM CHLOR 0.9% 250 ML INJ 250 ML IV ONE (23:15)
[2016-12-07] MEDS: ACETAMINOPHEN 325 MG TAB PO PRN (23:49)
[2016-12-07] MEDS: diphenhydrAMINE HCL 25 MG CAP PO PRN (23:49)
[2016-12-08] VITALS (10 sets, daily range): BP systolic 111–142; BP diastolic 65–83; PULSE 78–138; RESP 16–20; TEMP 95.5–99.8; O2SAT 92–99
[2016-12-08] MEDS: HYDROmorphone HCL 2 MG TAB PO PRN ×4 (00:44→22:39)
[2016-12-08] MEDS: HYDROmorphone HCL PF 1 MG/ML VIAL IV PUSH PRN ×5 (00:53→23:23)
[2016-12-08] MEDS: ONDANSETRON HCL 4 MG/2 ML VIAL IV PUSH SCH ×4 (06:00→22:41)
[2016-12-08] MEDS: oxyCODONE HCL 20 MG CONTROLLED RELEASE TAB PO SCH ×2 (08:00→20:01)
[2016-12-08] MEDS: DOCUSATE SODIUM 50 MG/SENNA 8.6 MG TAB PO SCH ×2 (08:00→19:23)
[2016-12-08] MEDS: METOPROLOL TARTRATE 25 MG TAB PO SCH ×2 (08:01→20:01)
[2016-12-08] MEDS: PANTOPRAZOLE SODIUM 40 MG VIAL IV SCH ×2 (08:01→19:23)
[2016-12-08] MEDS: SODIUM CHLORIDE 0.9% FLUSH 5 ML FLUSH FLUSH SCH ×2 (08:01→16:01)
[2016-12-08 10:47] LABS: AUTOMATED NEUTROPHIL # 3.7 TH/MM3 (1.8-7.7); BASOPHIL % 0.4 % (0.0-2.0); EOSINOPHIL % 0.3 % (0.0-4.0); HEMATOCRIT 23.1 % (35.0-46.0); LYMPH % 4.6 % (9.0-44.0); LYMPHOCYTE # 0.2 TH/MM3 (1.0-4.8); MEAN CELL VOLUME 94.5 FL (80.0-100.0); MEAN CORPUSCULAR HEMOGLOBIN 31.6 PG (27.0-34.0); MEAN CORPUSCULAR HGB CONC 33.4 % (32.0-36.0); NEUT % 89.7 % (16.0-70.0); PLATELET COUNT 38 TH/MM3 (150-450); RED BLOOD COUNT 2.44 MIL/MM3 (4.00-5.30); RED CELL DISTRIBUTION WIDTH 17.3 % (11.6-17.2); WHITE BLOOD COUNT 4.1 TH/MM3 (4.0-11.0)
[2016-12-08 10:48] LABS: HEMO FLAGS AUTO DIFF
[2016-12-08 11:09] LABS: BICARBONATE 27.3 MEQ/L (21.0-32.0); POTASSIUM 3.7 MEQ/L (3.5-5.1)
[2016-12-08 13:17] LABS: BANDS 43 % (0-6); CORRECTED NUCLEATED RBC 2 /100 WBC (0-0); METAMYELOCYTES 2 % (0-1); MYELOCYTES 1 % (0-0); NEUTROPHIL # MANUAL DIFF 3.5 TH/MM3 (1.8-7.7); PLATELET ESTIMATE SMEAR LOW (NORMAL); PLATELET MORPHOLOGY NORMAL (NORMAL); POLYS (SEG NEUTROPHILS) 39 % (16-70); SCAN/DIFF FINAL DIFF MANUAL; TEARDROP RBCS 1+ (NORMAL); WBC DIFF SAMPLE 100
[2016-12-08] MEDS ORDERED: OXYMETAZOLINE HCL 0.05% 15 ML NASAL SPRAY NASAL PRN (15:00)
[2016-12-08] MEDS ORDERED: SODIUM CHLOR 0.9% 250 ML INJ 250 ML IV ONE (16:00)
[2016-12-08] MEDS: diphenhydrAMINE HCL 25 MG CAP PO PRN (19:23)
[2016-12-08] MEDS: ACETAMINOPHEN 325 MG TAB PO PRN (19:23)
[2016-12-08 21:43] LABS: AUTOMATED NEUTROPHIL # 4.2 TH/MM3 (1.8-7.7); BASOPHIL % 0.2 % (0.0-2.0); EOSINOPHIL % 0.3 % (0.0-4.0); HEMATOCRIT 21.1 % (35.0-46.0); LYMPH % 4.3 % (9.0-44.0); LYMPHOCYTE # 0.2 TH/MM3 (1.0-4.8); MEAN CELL VOLUME 93.6 FL (80.0-100.0); MEAN CORPUSCULAR HEMOGLOBIN 32.1 PG (27.0-34.0); MEAN CORPUSCULAR HGB CONC 34.3 % (32.0-36.0); MONO % 6.8 % (0.0-8.0); NEUT % 88.4 % (16.0-70.0); PLATELET COUNT 93 TH/MM3 (150-450); RED BLOOD COUNT 2.25 MIL/MM3 (4.00-5.30); RED CELL DISTRIBUTION WIDTH 17.1 % (11.6-17.2); WHITE BLOOD COUNT 4.8 TH/MM3 (4.0-11.0)
[2016-12-08 21:51] LABS: HEMO FLAGS AUTO DIFF
[2016-12-08 21:56] LABS: INTERNATIONAL NORMALIZED RATIO 1.1 RATIO; PROTHROMBIN TIME - PATIENT 12.7 SEC (9.8-11.6)
[2016-12-08 22:22] LABS: BANDS 28 % (0-6); METAMYELOCYTES 6 % (0-1); MYELOCYTES 3 % (0-0); POLYS (SEG NEUTROPHILS) 47 % (16-70); WBC DIFF SAMPLE 100
[2016-12-08 22:23] LABS: PLATELET ESTIMATE SMEAR LOW (NORMAL); PLATELET MORPHOLOGY NORMAL (NORMAL)
[2016-12-08 22:24] LABS: SCAN/DIFF FINAL DIFF MANUAL
[2016-12-09] VITALS (8 sets, daily range): BP systolic 115–131; BP diastolic 78–91; PULSE 70–140; RESP 19–22; TEMP 96.8–99.1; O2SAT 95–99
[2016-12-09] MEDS: HYDROmorphone HCL 2 MG TAB PO PRN ×7 (05:05→22:21)
[2016-12-09] MEDS: ONDANSETRON HCL 4 MG/2 ML VIAL IV PUSH SCH ×4 (05:06→23:38)
--- NOTE | 2016-12-09 06:08 | HHI.PR ---
Subjective Remarks Late entry. Date of service 12/08/16. Patient seen the morning of 12/08/16. Patient says he is feeling all right. Denies any chest pain or shortness of breath. He does report nausea, vomiting of clear mucus. He is looking forward to surgical evaluation. Objective Vital Signs Date Time Temp Pulse Resp B/P Pulse Ox O2 Delivery O2 Flow Rate FiO2 12/09/16 04:00 98.2 140 19 129/91 95 12/09/16 00:30 18 12/09/16 00:30 20 12/09/16 00:00 96.8 111 19 121/78 96 12/08/16 21:00 138 12/08/16 20:50 18 12/08/16 20:50 18 12/08/16 20:00 99.3 125 19 118/79 99 12/08/16 19:20 98.0 118 20 120/74 98 12/08/16 18:05 95.5 78 16 112/78 12/08/16 16:00 99.8 117 16 117/80 95 12/08/16 12:00 99.2 116 16 119/77 97 12/08/16 08:57 98.1 116 16 142/83 92 I/O 12/08/16 12/08/16 12/08/16 12/09/16 12/09/16 12/09/16 07:00 15:00 23:00 07:00 15:00 23:00 Intake Total 240 ml 600 ml Balance 240 ml 600 ml Intake Oral 240 ml 600 ml # Voids 2 2 1 Result Diagram: 12/08/168 12/08/16 1031 Objective Remarks GENERAL: patient standing up, walking in room. Appears comfortable. She is alert and oriented 3.does have nosebleed, with moderate bleeding. SKIN: Warm and dry. HEAD: Normocephalic. EYES: No scleral icterus. No injection or drainage. NECK: Supple, trachea midline. No JVD. CARDIOVASCULAR: Regular rate and rhythm without murmurs, gallops, or rubs. RESPIRATORY: Breath sounds equal bilaterally. No accessory muscle use. GASTROINTESTINAL: Abdomen soft, non-tender, nondistended. no rebound or guarding MUSCULOSKELETAL: No cyanosis, or edema. BACK: Nontender without obvious deformity. No CVA tenderness. A/P Assessment and Plan 12/08/16 //Metastatic cancer pain. -Pain stable on current regimen. Continue. //Epistaxis. 12/08. Platelet transfusion. Fibrinogen within normal limits. Add Afrin as needed for bleeding. //Thrombocytopenia -with nosebleed. Transfuse platelets. //Leukopenia, however neutrophils acceptable. Stable. //Anemia of malignancy. Hemoglobin 7.7, slight increase. Monitor. //Opioid-induced constipation. Continue twice daily Telma-Colace //Chronic right shoulder, , low back pain //L2 transverse process fracture. //Findings of new metastatic disease lumbar spine. -Please see MRI above -With L2 transverse process fracture. - 12/07 We will increase OxyContin to 80 mg twice daily, increase fentanyl patch to 175 g per hour. //Leukocytosis. Resolved. Likely secondary to Neupogen. We'll continue monitor for signs of infection. //Leukopenia. Secondary to malignancy, chemotherapy. Neutrophils acceptable. Continue to monitor.. //Nausea and vomiting. Acute on chronic. Resolved. //Lung squamous cell carcinoma. -Nausea Likely secondary to chemotherapy versus pain. -Continue Scheduled IV Zofran, with as needed Compazine. We are out of Phenergan unfortunately. Oncology following. Appreciate assistance. //Hypophosphatemia. Replaced 12/07. //Thrombocytopenia . Likely chronic, chemotherapy-induced. Continue to monitor. -Hematology following. Appreciate assistance. No signs of active bleeding. Transfusion as needed for platelets under 15,000. -12/05. Nosebleed. Transfuse 2 units of platelets for bleeding. -12/05. Platelets improved after transfusion. Monitor. No acute bleeding -12/08-with nosebleed. Transfuse platelets. //Anemia of malignancy. - no signs of acute bleeding. -Stable. Continue to monitor. //Epigastric pain. Acute. resolved. -This is several days after starting dexamethasone. Concerning for gastric ulcer. Without acute anemia. -Hold dexamethasone. -IV PPI. -Pain from narcotics as necessary. -CT abdomen reviewed no obvious cause of acute pain. Could be from liver lesions. -gastroenterology consult. Patient refuses EGD. We'll continue PPI. -Pain improved. Hemoglobin is stable. //Liver lesions versus simple cysts. -Outpatient imaging pending. - follow-up with oncology as outpatient. //Tobacco abuse. Cessation strongly advised. Counseling provided. //Hypokalemia. Acute. Mild. Resolved after replacement. //Sinus tachycardia. Without shortness breath. Likely secondary to pain, malignancy. Continue Low-dose metoprolol for prevention of tachycardia induced cardiomyopathy. //DVT prophylaxis. SCDs. We'll continue to hold AC secondary to anemia, epistaxis. Discharge Planning -12/08. Pain controlled. Holding discharge due to epistaxis, need for platelet transfusion. -Patient does not have insurance, medications provided. -patient is tolerating diet. -appreciate case management assistance Fish Lewis MD Dec 09, 2016 06:08
[2016-12-09] MEDS: HYDROmorphone HCL PF 1 MG/ML VIAL IV PUSH PRN ×7 (06:31→23:37)
[2016-12-09 07:30] LABS: AUTOMATED NEUTROPHIL # 5.1 TH/MM3 (1.8-7.7); BASOPHIL % 0.6 % (0.0-2.0); EOSINOPHIL % 0.3 % (0.0-4.0); HEMATOCRIT 23.1 % (35.0-46.0); LYMPH % 3.9 % (9.0-44.0); LYMPHOCYTE # 0.2 TH/MM3 (1.0-4.8); MEAN CELL VOLUME 94.4 FL (80.0-100.0); MEAN CORPUSCULAR HEMOGLOBIN 31.1 PG (27.0-34.0); MEAN CORPUSCULAR HGB CONC 32.9 % (32.0-36.0); MONO % 7.1 % (0.0-8.0); NEUT % 88.1 % (16.0-70.0); PLATELET COUNT 80 TH/MM3 (150-450); RED BLOOD COUNT 2.45 MIL/MM3 (4.00-5.30); RED CELL DISTRIBUTION WIDTH 17.5 % (11.6-17.2); WHITE BLOOD COUNT 5.8 TH/MM3 (4.0-11.0)
[2016-12-09 08:24] LABS: HEMO FLAGS AUTO DIFF
[2016-12-09] MEDS: DOCUSATE SODIUM 50 MG/SENNA 8.6 MG TAB PO SCH ×2 (08:24→19:33)
[2016-12-09 08:25] LABS: BICARBONATE 25.3 MEQ/L (21.0-32.0); POTASSIUM 3.4 MEQ/L (3.5-5.1)
[2016-12-09] MEDS: METOPROLOL TARTRATE 25 MG TAB PO SCH ×2 (08:27→19:34)
[2016-12-09] MEDS: oxyCODONE HCL 20 MG CONTROLLED RELEASE TAB PO SCH ×2 (08:27→21:44)
[2016-12-09] MEDS: SODIUM CHLORIDE 0.9% FLUSH 5 ML FLUSH FLUSH SCH ×2 (08:28→19:33)
[2016-12-09] MEDS: PANTOPRAZOLE SODIUM 40 MG VIAL IV SCH ×2 (08:28→19:33)
[2016-12-09] MEDS ORDERED: POTASSIUM CHLORIDE 10 MEQ CONTROLLED RELEASE TAB PO ONE (09:00)
[2016-12-09] MEDS ORDERED: POTASSIUM PHOSPHATE/SODIUM PHOSPHATE 250 MG TAB PO SCH ×2 (09:00→21:00)
[2016-12-09] MEDS ORDERED: SODIUM PHOSPHATE INJ 30 MMOL in SODIUM CHLOR 0.9% 250 ML INJ 250 ML IV ONE (11:00)
[2016-12-09 11:13] LABS: BANDS 56 % (0-6); CORRECTED NUCLEATED RBC 2 /100 WBC (0-0); METAMYELOCYTES 4 % (0-1); PLATELET ESTIMATE SMEAR LOW (NORMAL); PLATELET MORPHOLOGY NORMAL (NORMAL); POLYS (SEG NEUTROPHILS) 27 % (16-70); SCAN/DIFF FINAL DIFF MANUAL; TOXIC GRANULATION 2+ (NORMAL); WBC DIFF SAMPLE 100
[2016-12-09] MEDS ORDERED: SOD PHOSPHATE/SOD BIPHOSPHATE (ADULT) ENEMA 133ML PR ONE (13:00)
[2016-12-09] MEDS ORDERED: BISACODYL 10 MG SUPP RECTAL ONE (13:00)
[2016-12-09] MEDS ORDERED: BISACODYL EC 5 MG TABEC PO ONE (13:00)
[2016-12-09] MEDS ORDERED: MAGNESIUM CITRATE SOLN 300 ML BTL PO ONE (13:15)
[2016-12-09] MEDS ORDERED: DOCUSATE SODIUM 50 MG/SENNA 8.6 MG TAB PO ONE (13:15)
[2016-12-09] MEDS ORDERED: HYDROmorphone HCL PF 1 MG/ML VIAL IV PUSH ONE (16:30)
[2016-12-09] MEDS ORDERED: SODIUM CHLORID 0.9% 500 ML INJ 500 ML IV ONE (18:00)
[2016-12-09] MEDS: NS + KCL 20 MEQ INJ 1,000 ML IV SCH (20:29)
--- NOTE | 2016-12-09 22:48 | RADRPT ---
EXAM DATE/TIME: 12/09/2016 23:00 [place] COMPARISON: No previous studies available for comparison. INDICATIONS : Distention. MEDICAL HISTORY : Chronic obstructive pulmonary disease. Carcinoma, lung. SURGICAL HISTORY : None. ENCOUNTER: Initial ACUITY: 4 - 6 days PAIN SCORE: 10/10 LOCATION: Bilateral Abdomen FINDINGS: Supine view of the abdomen was performed. The abdominal bowel gas pattern is normal except moderate constipation. No abnormal masses, calcifications, or organomegaly is seen. The osseous structures a re unremarkable. CONCLUSION: 1. Moderate constipation. No acute findings. Magdiel Cuevas MD on December 09, 2016 at 22:46 Board Certified Radiologist. This report was verified electronically.
--- NOTE | 2016-12-09 23:44 | HHI.PR ---
Subjective Remarks she says that pain in her legs is little worse. She has been walking around much more. Denies any chest pain or shortness of breath. She reports not having bowel movements and she got here. Denies any bowel pain. She is not concerned that she has not had a bowel movement, says that she never has one Objective Vital Signs Date Time Temp Pulse Resp B/P Pulse Ox O2 Delivery O2 Flow Rate FiO2 12/09/16 20:02 119 12/09/16 20:00 98.3 138 19 131/82 96 12/09/16 15:00 97.8 122 20 117/79 99 12/09/16 11:21 98.5 112 20 130/91 97 12/09/16 07:50 99.1 126 22 120/84 95 12/09/16 07:07 20 12/09/16 06:31 19 12/09/16 04:00 98.2 140 19 129/91 95 12/09/16 00:00 96.8 111 19 121/78 96 I/O 12/08/16 12/08/16 12/08/16 12/09/16 12/09/16 12/09/16 07:00 15:00 23:00 07:00 15:00 23:00 Intake Total 240 ml 600 ml 480 ml 240 ml 240 ml 668 ml Balance 240 ml 600 ml 480 ml 240 ml 240 ml 668 ml Intake Oral 240 ml 600 ml 480 ml 240 ml 240 ml IV Total 668 ml # Voids 2 2 3 1 4 # Bowel Movements 0 0 0 Result Diagram: 12/09/16 0510 12/09/16 0510 Objective Remarks GENERAL: patient standing up, walking in roomas before. Appears comfortable. She is alert and oriented 3.nosebleed has resolved. SKIN: Warm and dry. HEAD: Normocephalic. EYES: No scleral icterus. No injection or drainage. NECK: Supple, trachea midline. No JVD. CARDIOVASCULAR: Regular rate and rhythm without murmurs, gallops, or rubs. RESPIRATORY: Breath sounds equal bilaterally. No accessory muscle use. GASTROINTESTINAL: Abdomen is distended. Firm. hypoactive bowel sounds.. no rebound or guarding MUSCULOSKELETAL: No cyanosis, or edema. BACK: Nontender without obvious deformity. No CVA tenderness. A/P Assessment and Plan 12/09/16 //Metastatic cancer pain. -Pain slightly worsened today. Increase as needed Dilaudid for breakthrough. //Epistaxis. 12/08. Platelet transfusion. Fibrinogen within normal limits. -Resolved after platelet transfusion, Afrin. //Thrombocytopenia -nosebleed resolved 12/08 after platelet transfusion. Continue to monitor. //Leukopenia, however neutrophils acceptable. Stable. //Anemia of malignancy. Hemoglobin 7.6, stable. Monitor. //Opioid-induced constipation. Multiple cathartics ordered. Relistor ordered for the morning of 12/10 //Chronic right shoulder, , low back pain //L2 transverse process fracture. //Findings of new metastatic disease lumbar spine. -Please see MRI above -With L2 transverse process fracture. - 12/07 We will increase OxyContin to 80 mg twice daily, increase fentanyl patch to 175 g per hour. //Leukocytosis. Resolved. Likely secondary to Neupogen. We'll continue monitor for signs of infection. //Leukopenia. Secondary to malignancy, chemotherapy. Neutrophils acceptable. Continue to monitor.. //Nausea and vomiting. Acute on chronic. Resolved. //Lung squamous cell carcinoma. -Nausea Likely secondary to chemotherapy versus pain. -Continue Scheduled IV Zofran, with as needed Compazine. We are out of Phenergan unfortunately. Oncology following. Appreciate assistance. //Hypophosphatemia. Replaced 12/07. //Thrombocytopenia . Likely chronic, chemotherapy-induced. Continue to monitor. -Hematology following. Appreciate assistance. No signs of active bleeding. Transfusion as needed for platelets under 15,000. -12/05. Nosebleed. Transfuse 2 units of platelets for bleeding. -12/05. Platelets improved after transfusion. Monitor. No acute bleeding -12/08-with nosebleed. Transfuse platelets. //Anemia of malignancy. - no signs of acute bleeding. -Stable. Continue to monitor. //Epigastric pain. Acute. resolved. -This is several days after starting dexamethasone. Concerning for gastric ulcer. Without acute anemia. -Hold dexamethasone. -IV PPI. -Pain from narcotics as necessary. -CT abdomen reviewed no obvious cause of acute pain. Could be from liver lesions. -gastroenterology consult. Patient refuses EGD. We'll continue PPI. -Pain improved. Hemoglobin is stable. //Liver lesions versus simple cysts. -Outpatient imaging pending. - follow-up with oncology as outpatient. //Tobacco abuse. Cessation strongly advised. Counseling provided. //Hypokalemia. Acute. Mild. Resolved after replacement. //Sinus tachycardia. Without shortness breath. Likely secondary to pain, malignancy. Continue Low-dose metoprolol for prevention of tachycardia induced cardiomyopathy. //DVT prophylaxis. SCDs. We'll continue to hold AC secondary to anemia, epistaxis. Discharge Planning -12/09. Pain worsened.. . Awaiting return of bowel function. -Patient does not have insurance, medications provided. -patient is tolerating diet. -appreciate case management assistance Fish Lewis MD Dec 09, 2016 23:43
[2016-12-10] VITALS (12 sets, daily range): BP systolic 100–137; BP diastolic 64–80; PULSE 105–126; RESP 18–20; TEMP 96.5–100; O2SAT 93–99
[2016-12-10] MEDS: HYDROmorphone HCL 2 MG TAB PO PRN ×8 (01:20→23:03)
[2016-12-10] MEDS: HYDROmorphone HCL PF 1 MG/ML VIAL IV PUSH PRN ×7 (02:57→21:15)
[2016-12-10] MEDS: ONDANSETRON HCL 4 MG/2 ML VIAL IV PUSH SCH ×4 (05:23→23:03)
[2016-12-10] MEDS: NS + KCL 20 MEQ INJ 1,000 ML IV SCH ×2 (05:23→21:04)
[2016-12-10 06:23] LABS: AUTOMATED NEUTROPHIL # 6.6 TH/MM3 (1.8-7.7); BASOPHIL % 0.2 % (0.0-2.0); EOSINOPHIL % 0.3 % (0.0-4.0); LYMPH % 3.8 % (9.0-44.0); LYMPHOCYTE # 0.3 TH/MM3 (1.0-4.8); MEAN CELL VOLUME 94.2 FL (80.0-100.0); MEAN CORPUSCULAR HEMOGLOBIN 30.9 PG (27.0-34.0); MEAN CORPUSCULAR HGB CONC 32.8 % (32.0-36.0); MONO % 5.1 % (0.0-8.0); NEUT % 90.6 % (16.0-70.0); PLATELET COUNT 41 TH/MM3 (150-450); RED BLOOD COUNT 2.23 MIL/MM3 (4.00-5.30); WHITE BLOOD COUNT 7.3 TH/MM3 (4.0-11.0)
[2016-12-10 06:27] LABS: HEMO FLAGS AUTO DIFF
[2016-12-10 06:45] LABS: BICARBONATE 26.6 MEQ/L (21.0-32.0); MAGNESIUM 2.4 MG/DL (1.5-2.5); POTASSIUM 3.8 MEQ/L (3.5-5.1)
[2016-12-10] MEDS ORDERED: METHYLNALTREXONE BROMIDE 12 MG/0.6 ML VIAL SQ ONE (07:30)
[2016-12-10 08:02] LABS: BANDS 55 % (0-6); CORRECTED NUCLEATED RBC 1 /100 WBC (0-0); EOSINOPHILS 1 % (0-4); METAMYELOCYTES 3 % (0-1); MYELOCYTES 2 % (0-0); NEUTROPHIL # MANUAL DIFF 6.9 TH/MM3 (1.8-7.7); POLYS (SEG NEUTROPHILS) 35 % (16-70); WBC DIFF SAMPLE 100
[2016-12-10 08:03] LABS: TOXIC GRANULATION 1+ (NORMAL)
[2016-12-10 08:04] LABS: DOHLE BODIES PRESENT (NONE SEEN); PLATELET ESTIMATE SMEAR LOW (NORMAL); PLATELET MORPHOLOGY NORMAL (NORMAL); SCAN/DIFF FINAL DIFF MANUAL; TEARDROP RBCS 1+ (NORMAL)
[2016-12-10] MEDS: PANTOPRAZOLE SODIUM 40 MG VIAL IV SCH ×2 (08:53→21:03)
[2016-12-10] MEDS: DOCUSATE SODIUM 50 MG/SENNA 8.6 MG TAB PO SCH ×2 (08:54→21:03)
[2016-12-10] MEDS: oxyCODONE HCL 20 MG CONTROLLED RELEASE TAB PO SCH (08:54)
[2016-12-10] MEDS: POTASSIUM PHOSPHATE/SODIUM PHOSPHATE 250 MG TAB PO SCH ×3 (08:54→17:13)
[2016-12-10] MEDS: METOPROLOL TARTRATE 25 MG TAB PO SCH ×2 (08:54→21:03)
[2016-12-10] MEDS: SODIUM CHLORIDE 0.9% FLUSH 5 ML FLUSH FLUSH SCH ×2 (08:55→21:04)
[2016-12-10] MEDS ORDERED: SODIUM PHOSPHATE INJ 30 MMOL in SODIUM CHLOR 0.9% 250 ML INJ 250 ML IV ONE (09:00)
[2016-12-10] MEDS: ACETAMINOPHEN 325 MG TAB PO PRN ×2 (10:00→13:53)
[2016-12-10] MEDS: diphenhydrAMINE HCL 25 MG CAP PO PRN ×2 (10:00→13:53)
[2016-12-10] MEDS ORDERED: SOD PHOSPHATE/SOD BIPHOSPHATE (ADULT) ENEMA 133ML PR PRN (13:00)
[2016-12-10] MEDS: fentaNYL 75 MCG/HR PATCH TD SCH (13:54)
[2016-12-10] MEDS: fentaNYL 100 MCG/HR PATCH TD SCH ×2 (13:54→17:13)
[2016-12-10] MEDS: REMOVE OLD PATCH T-DERMAL SCH ×2 (14:00)
[2016-12-10] MEDS ORDERED: FENT50T TD (15:36)
[2016-12-10] MEDS ORDERED: FENT100T TD (15:36)
[2016-12-10] MEDS ORDERED: METO25TA3 PO (15:36)
[2016-12-10] MEDS ORDERED: OXYC30TA62 PO (15:36)
[2016-12-10] MEDS ORDERED: KPHOS250 PO (15:36)
[2016-12-10] MEDS ORDERED: SENN1TAB2 PO (15:42)
[2016-12-10] MEDS: [UNRECOGNIZED DRUG - OTHER] TD SCH (17:13)
[2016-12-10] MEDS ORDERED: oxyCODONE HCL 20 MG CONTROLLED RELEASE TAB PO SCH (21:00)
[2016-12-10] MEDS: oxyCODONE HCL 10 MG CONTROLLED RELEASE TAB PO SCH (21:02)
[2016-12-10] MEDS: oxyCODONE HCL 80 MG CONTROLLED RELEASE TAB PO SCH (21:03)
--- NOTE | 2016-12-10 23:56 | HHI.PR ---
Subjective Remarks patient seen this morning. Positive bowel movement. Reports pain improved on current regimen. Denies any chest pain or shortness of breath. No bleeding. She does request increase in pain meds, as legs are still painful. Hemoglobin down today. Transfuse 2 units RBCs. also increased pain meds.Plan discharge tomorrow if stable. Objective Vital Signs Date Time Temp Pulse Resp B/P Pulse Ox O2 Delivery O2 Flow Rate FiO2 12/10/16 23:02 20 12/10/16 23:01 18 12/10/16 23:01 20 12/10/16 22:00 100.0 110 18 129/78 94 12/10/16 16:35 97.6 112 20 109/79 96 12/10/16 16:00 97.6 112 18 109/79 96 12/10/16 13:49 96.8 117 20 137/75 98 12/10/16 13:45 96.8 117 20 137/75 99 12/10/16 12:00 96.5 111 20 106/64 94 12/10/16 11:00 96.5 111 20 106/64 94 12/10/16 10:40 98.9 105 20 100/64 93 12/10/16 08:00 106 12/10/16 08:00 97.4 112 18 110/71 98 12/10/16 04:00 97.1 109 18 118/78 97 12/10/16 00:00 99.5 110 20 128/80 94 I/O 12/09/16 12/09/16 12/09/16 12/10/16 12/10/16 12/10/16 07:00 15:00 23:00 07:00 15:00 23:00 Intake Total 240 ml 240 ml 908 ml 910 ml 240 ml 1320 ml Balance 240 ml 240 ml 908 ml 910 ml 240 ml 1320 ml Intake Oral 240 ml 240 ml 240 ml 240 ml 240 ml 1320 ml IV Total 668 ml 670 ml # Voids 1 4 2 2 7 # Bowel Movements 0 0 0 0 1 0 Result Diagram: 12/10/1652912/10/16529 Objective Remarks GENERAL: patient standing up, walking in room as before. Appears comfortable. She is alert and oriented 3.no bleeding. SKIN: Warm and dry. HEAD: Normocephalic. EYES: No scleral icterus. No injection or drainage. NECK: Supple, trachea midline. No JVD. CARDIOVASCULAR: Regular rate and rhythm without murmurs, gallops, or rubs. RESPIRATORY: Breath sounds equal bilaterally. No accessory muscle use. GASTROINTESTINAL: Abdomen is distended. firm, but softer than yesterday.. positive bowel sounds.. no rebound or guarding MUSCULOSKELETAL: No cyanosis, or edema. BACK: Nontender without obvious deformity. No CVA tenderness. A/P Assessment and Plan 12/10/16 //Metastatic cancer pain. -improved, however patient requests increase pain meds, ordered. Increase basal pain control. //Epistaxis.resolvedwith platelets and aspirin. //Thrombocytopenia -status post 2 units PRBCs on 12/08. Slow decrease. Monitor. //Leukopenia, however neutrophils acceptable. Stable. //Anemia of malignancy. Hemoglobin 6.8.,transfuse 2 units 12/10. Recheck 12/11. //Opioid-induced constipation. resolved with laxatives. Relastor not necessary //Chronic right shoulder, , low back pain //L2 transverse process fracture. //Findings of new metastatic disease lumbar spine. -Please see MRI above -With L2 transverse process fracture. - 12/07 We will increase OxyContin to 80 mg twice daily, increase fentanyl patch to 175 g per hour. -12/10. Pain slightly improved. Patient requests increase in pain control. Increase OxyConti, , fentanyl patch. //Leukocytosis. Acute. Resolved. Likely secondary to Neupogen. We'll continue monitor for signs of infection. //Leukopenia. Also resolved. Secondary to malignancy, chemotherapy. Neutrophils acceptable. Continue to monitor.. //Nausea and vomiting. Acute on chronic. Resolved. //Lung squamous cell carcinoma. Metastatic to lumbar spine -Nausea Likely secondary to chemotherapy versus pain. -Continue Scheduled IV Zofran, with as needed Compazine. We are out of Phenergan unfortunately. Oncology following. Appreciate assistance. //Hypophosphatemia. Replaced 12/07. //Thrombocytopenia . Likely chronic, chemotherapy-induced. Continue to monitor. -Hematology following. Appreciate assistance. No signs of active bleeding. Transfusion as needed for platelets under 15,000. -12/05. Nosebleed. Transfuse 2 units of platelets for bleeding. -12/05. Platelets improved after transfusion. Monitor. No acute bleeding -12/08-with nosebleed. Transfuse platelets. //Anemia of malignancy. - no signs of acute bleeding. -Stable. Continue to monitor. //Epigastric pain. Acute. resolved. -This is several days after starting dexamethasone. Concerning for gastric ulcer. Without acute anemia. -Hold dexamethasone. -Continue PPI. -Pain from narcotics as necessary. -CT abdomen reviewed no obvious cause of acute pain. Could be from liver lesions. -gastroenterology consult. Patient refuses EGD. We'll continue PPI. -Pain improved. Hemoglobin is stable. //Liver lesions versus simple cysts. - follow-up with oncology as outpatient. //Tobacco abuse. Cessation strongly advised. Counseling provided. //Hypokalemia. Acute. Mild. Resolved after replacement. //Sinus tachycardia. Without shortness breath. Likely secondary to pain, malignancy. Continue Low-dose metoprolol for prevention of tachycardia induced cardiomyopathy. -12/10. Heart rate continues elevated. Could be from pain, malignancy, even thromboembolic disease. With thrombocytopenia, intermittent nosebleeds, patient not a candidate for anticoagulation. -12/10 Increase metoprolol. //DVT prophylaxis. SCDs. We'll continue to hold AC secondary to anemia, epistaxis. Discharge Planning -12/10. Pain improved, bowel movements. Need to increase by mouth pain meds. Medication sent to pharmacy to be filled. -Patient does not have insurance, medications Will beprovided. -patient is tolerating diet. -appreciate case management assistance Fish Lewis MD Dec 10, 2016 23:56
[2016-12-11] VITALS (7 sets, daily range): BP systolic 126–153; BP diastolic 67–91; PULSE 102–132; RESP 18–22; TEMP 98.4–98.9; O2SAT 92–99
[2016-12-11] MEDS: HYDROmorphone HCL 2 MG TAB PO PRN ×9 (04:10→23:55)
[2016-12-11] MEDS: ONDANSETRON HCL 4 MG/2 ML VIAL IV PUSH SCH ×4 (05:05→23:55)
[2016-12-11] MEDS: HYDROmorphone HCL PF 1 MG/ML VIAL IV PUSH PRN ×7 (05:18→22:00)
[2016-12-11 07:00] LABS: AUTOMATED NEUTROPHIL # 8.1 TH/MM3 (1.8-7.7); BASOPHIL % 0.3 % (0.0-2.0); EOSINOPHIL % 0.2 % (0.0-4.0); HEMATOCRIT 25.3 % (35.0-46.0); LYMPH % 3.2 % (9.0-44.0); LYMPHOCYTE # 0.3 TH/MM3 (1.0-4.8); MEAN CELL VOLUME 89.2 FL (80.0-100.0); MEAN CORPUSCULAR HEMOGLOBIN 30.2 PG (27.0-34.0); MEAN CORPUSCULAR HGB CONC 33.9 % (32.0-36.0); NEUT % 91.3 % (16.0-70.0); RED BLOOD COUNT 2.84 MIL/MM3 (4.00-5.30); RED CELL DISTRIBUTION WIDTH 19.5 % (11.6-17.2); WHITE BLOOD COUNT 8.8 TH/MM3 (4.0-11.0)
[2016-12-11 07:05] LABS: HEMO FLAGS AUTO DIFF
[2016-12-11 07:09] LABS: PLATELET COUNT 19 TH/MM3 (150-450)
[2016-12-11 07:20] LABS: BICARBONATE 26.3 MEQ/L (21.0-32.0); MAGNESIUM 2.2 MG/DL (1.5-2.5); POTASSIUM 3.6 MEQ/L (3.5-5.1)
[2016-12-11] MEDS: SODIUM CHLORIDE 0.9% FLUSH 5 ML FLUSH FLUSH SCH ×2 (08:24→20:26)
[2016-12-11] MEDS: oxyCODONE HCL 80 MG CONTROLLED RELEASE TAB PO SCH ×2 (08:24→20:25)
[2016-12-11] MEDS: POTASSIUM PHOSPHATE/SODIUM PHOSPHATE 250 MG TAB PO SCH ×3 (08:25→17:39)
[2016-12-11] MEDS: oxyCODONE HCL 10 MG CONTROLLED RELEASE TAB PO SCH ×2 (08:25→20:25)
[2016-12-11] MEDS: METOPROLOL TARTRATE 25 MG TAB PO SCH ×2 (08:25→20:24)
[2016-12-11] MEDS: DOCUSATE SODIUM 50 MG/SENNA 8.6 MG TAB PO SCH ×2 (08:25→20:24)
[2016-12-11] MEDS: PANTOPRAZOLE SODIUM 40 MG VIAL IV SCH ×2 (08:26→20:25)
[2016-12-11 08:54] LABS: BANDS 53 % (0-6); METAMYELOCYTES 3 % (0-1); MYELOCYTES 4 % (0-0); NEUTROPHIL # MANUAL DIFF 8.4 TH/MM3 (1.8-7.7); POLYS (SEG NEUTROPHILS) 35 % (16-70); WBC DIFF SAMPLE 100
[2016-12-11 08:55] LABS: PLATELET ESTIMATE SMEAR LOW (NORMAL); PLATELET MORPHOLOGY NORMAL (NORMAL); TOXIC GRANULATION 2+ (NORMAL)
[2016-12-11 08:56] LABS: OVALOCYTES 1+ (NORMAL); SCAN/DIFF FINAL DIFF MANUAL; TEARDROP RBCS 1+ (NORMAL)
[2016-12-11] MEDS ORDERED: POTASSIUM PHOSPHATE INJ 30 MMOL in SODIUM CHLOR 0.9% 250 ML INJ 250 ML IV ONE (09:00)
[2016-12-11 09:09] LABS: AUTOMATED NEUTROPHIL # 9.3 TH/MM3 (1.8-7.7); BASOPHIL % 0.2 % (0.0-2.0); EOSINOPHIL % 0.2 % (0.0-4.0); HEMATOCRIT 28.5 % (35.0-46.0); LYMPH % 2.5 % (9.0-44.0); LYMPHOCYTE # 0.2 TH/MM3 (1.0-4.8); MEAN CELL VOLUME 88.3 FL (80.0-100.0); MEAN CORPUSCULAR HEMOGLOBIN 30.6 PG (27.0-34.0); MEAN CORPUSCULAR HGB CONC 34.7 % (32.0-36.0); MONO % 4.6 % (0.0-8.0); NEUT % 92.5 % (16.0-70.0); PLATELET COUNT 24 TH/MM3 (150-450); RED BLOOD COUNT 3.23 MIL/MM3 (4.00-5.30); RED CELL DISTRIBUTION WIDTH 19.3 % (11.6-17.2)
[2016-12-11 09:11] LABS: HEMO FLAGS AUTO DIFF
[2016-12-11 09:47] LABS: BANDS 44 % (0-6); BASOPHILS 1 % (0-2); CORRECTED NUCLEATED RBC 1 /100 WBC (0-0); METAMYELOCYTES 12 % (0-1); MYELOCYTES 5 % (0-0); NEUTROPHIL # MANUAL DIFF 9.4 TH/MM3 (1.8-7.7); POLYS (SEG NEUTROPHILS) 32 % (16-70); PROMYELOCYTES 1 % (0-0); WBC DIFF SAMPLE 100
[2016-12-11 09:48] LABS: OVALOCYTES 1+ (NORMAL); PLATELET ESTIMATE SMEAR LOW (NORMAL); PLATELET MORPHOLOGY NORMAL (NORMAL)
[2016-12-11 09:49] LABS: ACANTHOCYTES OCC (NORMAL); HELMET CELLS OCC (NORMAL); SCAN/DIFF FINAL DIFF MANUAL; TEARDROP RBCS 1+ (NORMAL)
[2016-12-11] MEDS ORDERED: SODIUM PHOSPHATE INJ 30 MMOL in SODIUM CHLOR 0.9% 250 ML INJ 250 ML IV ONE (10:00)
--- NOTE | 2016-12-11 13:46 | HHI.PR ---
Subjective Remarks The patient wanted to go home. She wants her pain medications increased. She wants to know if she could be transferred to another hospital so she can get better pain medications. Objective Vitals Vital Signs Date Time Temp Pulse Resp B/P Pulse Ox O2 Delivery O2 Flow Rate FiO2 12/11/16 12:00 98.9 118 20 138/78 96 12/11/16 08:00 98.4 108 18 136/67 92 12/11/16 05:56 16 12/11/16 05:20 18 12/11/16 04:00 98.4 122 18 128/79 99 12/10/16 23:02 20 12/10/16 23:01 18 12/10/16 23:01 20 12/10/16 22:00 100.0 110 18 129/78 94 12/10/16 21:04 126 12/10/16 16:35 97.6 112 20 109/79 96 12/10/16 16:00 97.6 112 18 109/79 96 12/10/16 13:49 96.8 117 20 137/75 98 12/10/16 13:45 96.8 117 20 137/75 99 I/O 12/10/16 12/10/16 12/10/16 12/11/16 12/11/16 12/11/16 07:00 15:00 23:00 07:00 15:00 23:00 Intake Total 910 ml 240 ml 1320 ml 480 ml Balance 910 ml 240 ml 1320 ml 480 ml Intake Oral 240 ml 240 ml 1320 ml 480 ml IV Total 670 ml # Voids 2 7 2 # Bowel Movements 0 1 0 Result Diagram: 12/11/16 0830 12/11/16 0550 Imaging Last Impressions Abdomen X-Ray 12/09/16 0000 Signed Impressions: Service Date/Time: Friday, December 09, 2016 23:00 - CONCLUSION: 1. Moderate constipation. No acute findings. Magdiel Cuevas MD Lumbar Spine MRI 12/05/16 0000 Signed Impressions: Service Date/Time: Monday, December 05, 2016 12:58 - CONCLUSION: 1. MR findings characteristic of extensive metastatic disease to the lower thoracic, the entire lumbar and the entire sacral spine as well as the pelvis. 2. Multilevel degenerative disc disease with disc bulges most prominent at L1-2 and L4-5. There is moderate central spinal stenosis at L4-5 with no central nerve root compromise. 3. Left posterior lateral component of the L4-5 disc abuts up against the left L4 nerve root after it leaves the neural foramina. Clinical significance of this is uncertain. 4. Neural foramina appear to be adequate at all remaining levels despite the aforementioned degenerative changes. Cristian Tate MD Abdomen/Pelvis CT 12/03/16 0933 Signed Impressions: Service Date/Time: Saturday, December 03, 2016 10:34 - CONCLUSION: 1. Nondisplaced fracture of the transverse process of L2. 2. No findings to indicate bowel obstruction are seen. 3. There are scattered low-attenuation lesions throughout the liver these are probably simple cysts however they are indeterminate in appearance and metastatic disease cannot be entirely excluded. If prior imaging is available these would be of benefit for direct comparison. If not, MRI imaging could be performed for more definitive assessment. Adam Aldana MD Chest X-Ray 12/03/16 0000 Signed Impressions: Service Date/Time: Saturday, December 03, 2016 11:23 - CONCLUSION: 1. No acute cardiopulmonary process. 2. Mottled appearance of the proximal right humerus. There may be an associated old fracture deformity as well. Cannot exclude chronic inflammation/infection or metastatic disease. Cristian Tate MD Brain MRI 12/03/16 0000 Signed Impressions: Service Date/Time: Saturday, December 03, 2016 19:52 - CONCLUSION: 1. Chronic white matter changes bilaterally characteristic of ischemic demyelinization. 2. No evidence of a mass within the substance of the brain. 3. Nonspecific enhancement of the marrow of the calvarium. Bony metastatic disease would be a consideration. If clinically indicated, recommend a whole body bone scan for further evaluation. Fernando Diaz MD Objective Remarks GENERAL: Appears comfortable. She is alert and oriented 3. SKIN: Warm and dry. HEAD: Normocephalic. EYES: No scleral icterus. No injection or drainage. NECK: Supple, trachea midline. No JVD. CARDIOVASCULAR: Regular rate and rhythm without murmurs, gallops, or rubs. RESPIRATORY: Breath sounds equal bilaterally. No accessory muscle use. GASTROINTESTINAL: Abdomen is distended. Positive bowel sounds. No rebound or guarding. MUSCULOSKELETAL: No cyanosis, or edema. BACK: Nontender without obvious deformity. No CVA tenderness. Medications and IVs Current Medications Medications (Trade) Dose Ordered Sig/Homero Route Start Time Stop Time Status Last Admin (NS Flush) 2 ml UNSCH PRN FLUSH 12/03/16 13:00 12/05/16 06:58 (NS Flush) 2 ml BID FLUSH 12/03/16 21:00 12/11/16 08:24 (Narcan Inj) 0.4 mg UNSCH PRN IV 12/03/16 13:00 (Zofran Inj) 4 mg Q6HR IV PUSH 12/03/16 18:00 12/11/16 11:40 (Reglan Inj) 10 mg Q8H PRN IV PUSH 12/03/16 13:00 12/06/16 20:01 (Protonix Inj) 40 mg BID IV 12/03/16 21:00 12/11/16 08:26 (Compazine Inj) 10 mg Q6H PRN IVS 12/03/16 19:00 (Vasotec Inj) 1.25 mg Q6H PRN IV PUSH 12/03/16 21:45 ([place]) 1 applic UNSCH PRN TOPICAL 12/05/16 04:00 12/05/16 04:00 (NS Flush) 5 ml UNSCH PRN IVF 12/05/16 05:30 (Heparin Central Flush) 250 units UNSCH PRN IVF 12/05/16 05:30 12/06/16 20:37 (Heparin Central Flush) 500 units UNSCH IVF 12/05/16 05:30 (Benadryl) 25 mg Q4H PRN PO 12/05/16 20:45 12/10/16 13:53 (Tylenol) 650 mg Q4H PRN PO 12/05/16 20:45 12/10/16 13:53 (Dilaudid) 6 mg Q2HR PRN PO 12/06/16 11:00 12/11/16 13:38 (Pill Splitter) 1 ea UNSCH PRN OTHER 12/07/16 08:45 (Afrin 0.05% [facility] [place]) 2 spray Q6HR PRN NASAL 12/08/16 15:00 12/11/16 14:59 12/08/16 20:34 (Fleets Enema (Adult)) 133 ml DAILY PRN [place] 12/10/16 13:00 (K-Phos Neutral) 250 mg TID PO 12/10/16 09:00 12/11/16 12:30 (Lopressor) 25 mg Q12HR PO 12/10/16 21:00 12/11/16 08:25 (Duragesic 100 Mcg Patch.72 Hr) 2 patch Q3D TD 12/10/16 17:00 12/10/16 17:13 Miscellaneous Information 1 Q3D TD 12/10/16 17:00 12/10/16 17:13 (OxyCONTIN CR) 80 mg Q12H PO 12/10/16 21:00 12/11/16 08:24 (OxyCONTIN CR) 10 mg Q12H PO 12/10/16 21:00 12/11/16 08:25 Senna/Docusate Sodium 2 tab 2 tab BID PO 12/11/16 09:00 12/11/16 08:25 (Sodium Phosphate Inj/NS 250 ml Inj) 260 ml @ 43.333 mls/ hr ONCE ONCE IV 12/11/16 10:00 12/11/16 15:59 12/11/16 09:53 (Dilaudid Pf Inj) 1 mg Q3H PRN IV PUSH 12/11/16 15:30 UNV A/P Assessment and Plan Thrombocytopenia Chemo induced. Has had epistaxis. Status plt transfusions. Decreasing. - follow CBC and transfuse as needed. Anemia of malignancy Transfused 2 units. Stable. - follow CBC and transfuse as needed. Chronic right shoulder/ Low back pain L2 transverse process fracture noted. MRI findings characteristic of extensive metastatic disease to the lower thoracic, the entire lumbar and the entire sacral spine as well as the pelvis; Multilevel degenerative disc disease with disc bulges most prominent at L1-2 and L4-5; There is moderate central spinal stenosis at L4-5 with no central nerve root compromise; Left posterior lateral component of the L4-5 disc abuts up against the left L4 nerve root after it leaves the neural foramina; Clinical significance of this is uncertain. - pain control with OxyContin 80 mg twice daily, increased fentanyl patch to 200 g, Dilaudid for breakthrough. Nausea and vomiting Resolved. Pt has not been eating well. - add Ensure to meals. Squamous cell carcinoma of the lungs Mets to lumbar spine. - Nausea likely secondary to chemotherapy versus pain. - Continue Scheduled IV Zofran, with as needed Compazine. - Oncology input appreciated. Outpt follow-up. Hypophosphatemia Started on standing supplements. - continue IV phos as needed. - follow labs. Epigastric pain CT abdomen reviewed, no obvious cause of acute pain. Could be from liver lesions. Gastroenterology consulted. Patient refused EGD. - We'll continue PPI. - Pain control. Resolved. Tobacco abuse Cessation strongly advised. - Counseling provided. DVT prophylaxis. SCDs. We'll continue to hold AC secondary to anemia, epistaxis. Discharge Planning Discharge home in 1-2 days. Tylor Wilde DO Dec 11, 2016 13:46
[2016-12-11] MEDS: diphenhydrAMINE HCL 25 MG CAP PO PRN (22:04)
[2016-12-12] VITALS (9 sets, daily range): BP systolic 117–161; BP diastolic 80–100; PULSE 102–128; RESP 16–20; TEMP 98–100.5; O2SAT 94–100
[2016-12-12] MEDS: HYDROmorphone HCL PF 1 MG/ML VIAL IV PUSH PRN ×6 (01:35→21:11)
[2016-12-12] MEDS: diphenhydrAMINE HCL 25 MG CAP PO PRN (03:27)
[2016-12-12] MEDS: HYDROmorphone HCL 2 MG TAB PO PRN ×7 (03:28→23:35)
[2016-12-12 05:33] LABS: BICARBONATE 25.4 MEQ/L (21.0-32.0); MAGNESIUM 2.3 MG/DL (1.5-2.5); POTASSIUM 3.7 MEQ/L (3.5-5.1)
[2016-12-12] MEDS: ONDANSETRON HCL 4 MG/2 ML VIAL IV PUSH SCH ×4 (05:33→23:36)
[2016-12-12 05:38] LABS: HEMATOCRIT 28.5 % (35.0-46.0); MEAN CORPUSCULAR HEMOGLOBIN 31.3 PG (27.0-34.0); MEAN CORPUSCULAR HGB CONC 35.1 % (32.0-36.0); RED CELL DISTRIBUTION WIDTH 19.3 % (11.6-17.2); WHITE BLOOD COUNT 9.9 TH/MM3 (4.0-11.0)
[2016-12-12 06:06] LABS: PLATELET COUNT 15 TH/MM3 (150-450); REVIEW FLAG FINAL
[2016-12-12] MEDS: PANTOPRAZOLE SODIUM 40 MG VIAL IV SCH ×2 (07:46→20:11)
[2016-12-12] MEDS: METOPROLOL TARTRATE 25 MG TAB PO SCH ×2 (07:47→20:10)
[2016-12-12] MEDS: DOCUSATE SODIUM 50 MG/SENNA 8.6 MG TAB PO SCH ×2 (07:47→20:13)
[2016-12-12] MEDS: oxyCODONE HCL 10 MG CONTROLLED RELEASE TAB PO SCH ×2 (07:48→20:11)
[2016-12-12] MEDS: POTASSIUM PHOSPHATE/SODIUM PHOSPHATE 250 MG TAB PO SCH ×3 (07:48→17:54)
[2016-12-12] MEDS: oxyCODONE HCL 80 MG CONTROLLED RELEASE TAB PO SCH ×2 (07:48→20:11)
[2016-12-12] MEDS: SODIUM CHLORIDE 0.9% FLUSH 5 ML FLUSH FLUSH SCH ×2 (07:49→09:11)
[2016-12-12] MEDS ORDERED: SODIUM PHOSPHATE INJ 30 MMOL in SODIUM CHLOR 0.9% 250 ML INJ 250 ML IV ONE (08:45)
[2016-12-12] MEDS ORDERED: BISACODYL 10 MG SUPP RECTAL ONE (14:15)
--- NOTE | 2016-12-12 14:20 | HHI.PR ---
Subjective Remarks The patient was crying secondary to severe pain she was having in her left shoulder and left arm. She says she also still has right arm pain. She would like increased pain medications. She says she has not had a bowel movement but that's because she hasn't been eating much. Discussed with nursing. Objective Vitals Vital Signs Date Time Temp Pulse Resp B/P Pulse Ox O2 Delivery O2 Flow Rate FiO2 12/12/16 12:00 98.2 126 16 152/87 98 12/12/16 11:25 98.0 109 16 135/87 97 12/12/16 10:54 99.0 112 16 146/81 97 12/12/16 08:00 99.8 111 16 117/87 94 12/12/16 06:17 16 12/12/16 04:36 16 12/12/16 04:00 99.0 124 20 161/100 94 12/12/16 00:00 98.4 102 18 126/88 98 12/11/16 22:07 16 12/11/16 22:06 16 12/11/16 20:00 98.9 132 20 153/91 99 12/11/16 16:00 98.7 118 22 128/89 95 I/O 12/11/16 12/11/16 12/11/16 12/12/16 12/12/16 12/12/16 07:00 15:00 23:00 07:00 15:00 23:00 Intake Total 480 ml 600 ml 480 ml 150 ml Balance 480 ml 600 ml 480 ml 150 ml Intake Oral 480 ml 600 ml 480 ml 150 ml # Voids 2 4 2 2 # Bowel Movements 0 0 Result Diagram: 12/12/16 0335 12/12/16 0335 Imaging Last Impressions Abdomen X-Ray 12/09/16 0000 Signed Impressions: Service Date/Time: Friday, December 09, 2016 23:00 - CONCLUSION: 1. Moderate constipation. No acute findings. Magdiel Cuevas MD Lumbar Spine MRI 12/05/16 0000 Signed Impressions: Service Date/Time: Monday, December 05, 2016 12:58 - CONCLUSION: 1. MR findings characteristic of extensive metastatic disease to the lower thoracic, the entire lumbar and the entire sacral spine as well as the pelvis. 2. Multilevel degenerative disc disease with disc bulges most prominent at L1-2 and L4-5. There is moderate central spinal stenosis at L4-5 with no central nerve root compromise. 3. Left posterior lateral component of the L4-5 disc abuts up against the left L4 nerve root after it leaves the neural foramina. Clinical significance of this is uncertain. 4. Neural foramina appear to be adequate at all remaining levels despite the aforementioned degenerative changes. Cristian Tate MD Abdomen/Pelvis CT 12/03/16 0933 Signed Impressions: Service Date/Time: Saturday, December 03, 2016 10:34 - CONCLUSION: 1. Nondisplaced fracture of the transverse process of L2. 2. No findings to indicate bowel obstruction are seen. 3. There are scattered low-attenuation lesions throughout the liver these are probably simple cysts however they are indeterminate in appearance and metastatic disease cannot be entirely excluded. If prior imaging is available these would be of benefit for direct comparison. If not, MRI imaging could be performed for more definitive assessment. Adam Aldana MD Chest X-Ray 12/03/16 0000 Signed Impressions: Service Date/Time: Saturday, December 03, 2016 11:23 - CONCLUSION: 1. No acute cardiopulmonary process. 2. Mottled appearance of the proximal right humerus. There may be an associated old fracture deformity as well. Cannot exclude chronic inflammation/infection or metastatic disease. Cristian Tate MD Brain MRI 12/03/16 0000 Signed Impressions: Service Date/Time: Saturday, December 03, 2016 19:52 - CONCLUSION: 1. Chronic white matter changes bilaterally characteristic of ischemic demyelinization. 2. No evidence of a mass within the substance of the brain. 3. Nonspecific enhancement of the marrow of the calvarium. Bony metastatic disease would be a consideration. If clinically indicated, recommend a whole body bone scan for further evaluation. Fernando Diaz MD Objective Remarks GENERAL: Appears uncomfortable. She is alert and oriented 3. SKIN: Warm and dry. HEAD: Normocephalic. EYES: No scleral icterus. No injection or drainage. NECK: Supple, trachea midline. No JVD. CARDIOVASCULAR: Regular rate and rhythm without murmurs, gallops, or rubs. RESPIRATORY: Breath sounds equal bilaterally. No accessory muscle use. GASTROINTESTINAL: Abdomen is distended. Positive bowel sounds. No rebound or guarding. MUSCULOSKELETAL: No cyanosis, or edema. Tenderness to palpation of left collarbone, left shoulder, left humerus. BACK: Nontender without obvious deformity. No CVA tenderness. PSYCH: Teary-eyed. Medications and IVs Current Medications Medications (Trade) Dose Ordered Sig/Homero Route Start Time Stop Time Status Last Admin (NS Flush) 2 ml UNSCH PRN FLUSH 12/03/16 13:00 12/05/16 06:58 (NS Flush) 2 ml BID FLUSH 12/03/16 21:00 12/12/16 09:11 (Narcan Inj) 0.4 mg UNSCH PRN IV 12/03/16 13:00 (Zofran Inj) 4 mg Q6HR IV PUSH 12/03/16 18:00 12/12/16 11:32 (Reglan Inj) 10 mg Q8H PRN IV PUSH 12/03/16 13:00 12/06/16 20:01 (Protonix Inj) 40 mg BID IV 12/03/16 21:00 12/12/16 07:46 (Compazine Inj) 10 mg Q6H PRN IVS 12/03/16 19:00 (Vasotec Inj) 1.25 mg Q6H PRN IV PUSH 12/03/16 21:45 (Chapstick) 1 applic UNSCH PRN TOPICAL 12/05/16 04:00 12/05/16 04:00 (NS Flush) 5 ml UNSCH PRN IVF 12/05/16 05:30 (Heparin Central Flush) 250 units UNSCH PRN IVF 12/05/16 05:30 12/06/16 20:37 (Heparin Central Flush) 500 units UNSCH IVF 12/05/16 05:30 (Benadryl) 25 mg Q4H PRN PO 12/05/16 20:45 12/12/16 03:27 (Tylenol) 650 mg Q4H PRN PO 12/05/16 20:45 12/10/16 13:53 (Dilaudid) 6 mg Q2HR PRN PO 12/06/16 11:00 12/12/16 13:37 (Pill Splitter) 1 ea UNSCH PRN OTHER 12/07/16 08:45 (Fleets Enema (Adult)) 133 ml DAILY PRN [place] 12/10/16 13:00 (K-Phos Neutral) 250 mg TID PO 12/10/16 09:00 12/12/16 11:32 (Lopressor) 25 mg Q12HR PO 12/10/16 21:00 12/12/16 07:47 (Duragesic 100 Mcg Patch.72 Hr) 2 patch Q3D TD 12/10/16 17:00 12/10/16 17:13 Miscellaneous Information 1 Q3D TD 12/10/16 17:00 12/10/16 17:13 (OxyCONTIN CR) 80 mg Q12H PO 12/10/16 21:00 12/12/16 07:48 (OxyCONTIN CR) 10 mg Q12H PO 12/10/16 21:00 12/12/16 07:48 Senna/Docusate Sodium 2 tab 2 tab BID PO 12/11/16 09:00 12/12/16 07:47 (Sodium Phosphate Inj/NS 250 ml Inj) 260 ml @ 43.333 mls/ hr ONCE ONCE IV 12/12/16 08:45 12/12/16 14:44 12/12/16 11:31 (Dilaudid Pf Inj) 2 mg Q3H PRN IV PUSH 12/12/16 16:00 A/P Assessment and Plan Thrombocytopenia Chemo induced. Has had epistaxis. Status post platelet transfusions. Plt count 15 12/12. - follow CBC and transfuse as needed. Transfused one unit 12/12. Anemia of malignancy Transfused 2 units. Stable. - follow CBC and transfuse as needed. Chronic right shoulder/ Low back pain/ Left upper extremity pain L2 transverse process fracture noted. MRI findings characteristic of extensive metastatic disease to the lower thoracic, the entire lumbar and the entire sacral spine as well as the pelvis; Multilevel degenerative disc disease with disc bulges most prominent at L1-2 and L4-5; There is moderate central spinal stenosis at L4-5 with no central nerve root compromise; Left posterior lateral component of the L4-5 disc abuts up against the left L4 nerve root after it leaves the neural foramina; Clinical significance of this is uncertain. - pain control with OxyContin 80 mg twice daily, increased fentanyl patch to 200 g, Dilaudid PO and IV for breakthrough. - palliative care consult requested. - imaging of left upper extremity pending. Nausea and vomiting Resolved. Pt has not been eating well. - add Ensure to meals. 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 - continue pain control with a bowel regimen. - Continue Scheduled IV Zofran, with as needed Compazine. - Oncology input appreciated. Outpt follow-up. - palliative care consult requested. Hypophosphatemia Started on standing supplements. - continue IV phos as needed. - follow labs. Epigastric pain CT abdomen reviewed, no obvious cause of acute pain. Could be from liver lesions. Gastroenterology consulted. Patient refused EGD. - We'll continue PPI. - Pain control. Tobacco abuse Cessation strongly advised. - Counseling provided. DVT prophylaxis. SCDs. We'll continue to hold AC secondary to anemia, epistaxis. Discharge Planning Awaiting clinical improvement. Tylor Wilde DO Dec 12, 2016 14:20
--- NOTE | 2016-12-12 16:30 | RADRPT ---
EXAM DATE/TIME: 12/12/2016 14:47 [facility] COMPARISON: No previous studies available for comparison. INDICATIONS : Left shoulder pain no known injury. MEDICAL HISTORY : Carcinoma, bone. SURGICAL HISTORY : None. ENCOUNTER: Initial ACUITY: 3 weeks PAIN SCORE: 6/10 LOCATION: Left shoulder. FINDINGS: There is no evidence of acute fracture. Bony mineralization is normal. The joint space is maintained. There is mild osteoarthritis involving the acromioclavicular joint. The glenohumeral joint is intact . CONCLUSION: 1. Mild osteoarthritis as described above. Anibal Quigley MD on December 12, 2016 at 16:28 Board Certified Radiologist. This report was verified electronically.
--- NOTE | 2016-12-12 16:32 | RADRPT ---
EXAM DATE/TIME: 12/12/2016 14:54 [facility] COMPARISON: MRI LUMBAR SPINE W & W/O CONTRAST, December 05, 2016, 12:58. INDICATIONS : Right humerus pain, previous fracture. MEDICAL HISTORY : Carcinoma, bone. SURGICAL HISTORY : None. ENCOUNTER: Initial ACUITY: 2 months PAIN SCORE: 10/10 LOCATION: Right proximal humerus. FINDINGS: There is a fracture of the right humeral neck which appear subacute with osteopenia and callus format ion. The alignment is anatomic. The acromioclavicular joint is intact. This is likely pathologic cons idering the osseous metastatic disease in the spine. CONCLUSION: Probable pathologic fracture right humeral neck Anibal Quigley MD on December 12, 2016 at 16:29 Board Certified Radiologist. This report was verified electronically.
--- NOTE | 2016-12-12 16:37 | PD.CONS ---
Consult Service Palliative Care Consult Requested By Dr. Wilde . Primary Care Physician No Primary Care Physician . Reason for Consultation a. To assist with evaluation and management of symptoms including: pain b. To assist medical decision maker(s) with: better understanding of current medical conditions; weighing benefits/burdens of medical treatment options; making medical treatment decisions. . HPI History of Present Illness This 51-year-old female was diagnosed with small cell lung cancer in July 2016. At the time of diagnosis, she reports "it was already stage IV," and she recalls being told that she had metastatic disease in her "upper spine, lower spine, and my arm." She says she underwent radiation therapy to her chest and spine in August 2016, and she had chemotherapy in [place] every 4 weeks starting in August and continuing through October. She then moved to [place]: "I'm going to from this cancer so I thought I should get out of the winter." Her last chemotherapy was completed in [place] on 11/30/16. The patient notes that she had been declining slowly over the recent months, with more difficulty ambulating due to worsening pain, and with a decreasing appetite. She had lost "70 pounds" in July and August, but she says her weight has remained stable now since then. Soon after her most recent chemotherapy, the patient developed nausea and vomiting, and she presented to the emergency department here on 12/03/16 with intractable vomiting and worsening pain. In the emergency department, findings included: * Alert, moderate pain * Temp 98 8, pulse 112, respirations 18, blood pressure 132/81, oxygen saturation 98% on room air * White count 29.9, hemoglobin 11.1, platelets 47,000 * Sodium 135, creatinine 0.48, albumin 3.2 * CT abdomen/pelvis revealed some liver lesions of uncertain etiology and significance, and an L2 transverse process fracture * Chest x-ray was reported as negative * Subsequent MRI of the brain revealed no brain metastatic disease, but findings consistent with bony metastases The patient was admitted to the hospital and provided with IV fluids, and medications, and treatment of her nausea/vomiting. Her pain seems to be gradually worsening, and her opiate doses have been increased. Currently she is on OxyContin 90 mg twice a day and fentanyl 200 g patch. She had been receiving hydromorphone for breakthrough pain, getting about 4 mg IV daily total , and that dose was increased to 2 mg q3h PRN today. She has received a single 2 mg dose, and says that helped her pain more than the previous lesser dosing. Her medical team has been working toward getting her discharged from the hospital, as she has planned on returning to her oncologist in [place] to continue chemotherapy. Palliative Care was consulted to assist with symptom management, and to discuss with the patient the current illness, prognosis, and the benefits and burdens of the various treatment options. . Function/Cognitive Trajectory The patient functions independently, but notes that in the past month or 2 her ambulation has become more difficult because of worsening back pain; her pain is worse when she turns or bends or bears weight. . Review of Systems Constitutional: COMPLAINS OF: Fatigue, Weight loss Endocrine: DENIES: Polydipsia Eyes: DENIES: Eye inflammation Ears, nose, mouth, throat: COMPLAINS OF: Epistaxis (small amounts daily while in the hospital) Respiratory: COMPLAINS OF: Cough (mild, chronic), Shortness of breath (with exertion) Cardiovascular: DENIES: Chest pain Gastrointestinal: COMPLAINS OF: Constipation, Nausea, Vomiting, DENIES: Bloody stools, Vomiting blood Genitourinary: DENIES: Hematuria Musculoskeletal: COMPLAINS OF: Back pain, Neck pain Integumentary: DENIES: Rash Hematologic/Lymphatics: COMPLAINS OF: Bruising Immunologic/Allergic: DENIES: Urticaria Neurologic: DENIES: Localized weakness, Paresthesias, Seizures Psychiatric: COMPLAINS OF: Depression, DENIES: Hallucinations, Agitation Past Family Social History Coded Allergies: No Known Allergies (Unverified , 12/03/16) Past Medical History * Metastatic small cell lung cancer, extensive disease, widespread bony metastases * Pain, worsening, secondary to widespread bony metastases * Chemotherapy-induced anemia and thrombocytopenia * Admission for nausea/vomiting, likely chemotherapy-induced * Epistaxis, intermittent * History of right proximal humerus fracture . Past Surgical History * Partial lung resection July 2016 * Left sided ankle surgery * Port placement July 2016 * Chest tube for pneumothorax postop lung surgery . Reported Medications The patient was on a fentanyl patch and some oxycodone at home prior to this admission . Current Medications Medications (Trade) Dose Ordered Sig/Homero Route Start Time Stop Time Status Last Admin (NS Flush) 2 ml UNSCH PRN FLUSH 12/03/16 13:00 12/05/16 06:58 (NS Flush) 2 ml BID FLUSH 12/03/16 21:00 12/12/16 09:11 (Narcan Inj) 0.4 mg UNSCH PRN IV 12/03/16 13:00 (Zofran Inj) 4 mg Q6HR IV PUSH 12/03/16 18:00 12/12/16 11:32 (Reglan Inj) 10 mg Q8H PRN IV PUSH 12/03/16 13:00 12/06/16 20:01 (Protonix Inj) 40 mg BID IV 12/03/16 21:00 12/12/16 07:46 (Compazine Inj) 10 mg Q6H PRN IVS 12/03/16 19:00 (Vasotec Inj) 1.25 mg Q6H PRN IV PUSH 12/03/16 21:45 (Chapstick) 1 applic UNSCH PRN TOPICAL 12/05/16 04:00 12/05/16 04:00 (NS Flush) 5 ml UNSCH PRN IVF 12/05/16 05:30 (Heparin Central Flush) 250 units UNSCH PRN IVF 12/05/16 05:30 12/06/16 20:37 (Heparin Central Flush) 500 units UNSCH IVF 12/05/16 05:30 (Benadryl) 25 mg Q4H PRN PO 12/05/16 20:45 12/12/16 03:27 (Tylenol) 650 mg Q4H PRN PO 12/05/16 20:45 12/10/16 13:53 (Dilaudid) 6 mg Q2HR PRN PO 12/06/16 11:00 12/12/16 13:37 (Pill Splitter) 1 ea UNSCH PRN OTHER 12/07/16 08:45 (Fleets Enema (Adult)) 133 ml DAILY PRN MN 12/10/16 13:00 (K-Phos Neutral) 250 mg TID PO 12/10/16 09:00 12/12/16 11:32 (Lopressor) 25 mg Q12HR PO 12/10/16 21:00 12/12/16 07:47 (Duragesic 100 Mcg Patch.72 Hr) 2 patch Q3D TD 12/10/16 17:00 12/10/16 17:13 Miscellaneous Information 1 Q3D TD 12/10/16 17:00 12/10/16 17:13 (OxyCONTIN CR) 80 mg Q12H PO 12/10/16 21:00 12/12/16 07:48 (OxyCONTIN CR) 10 mg Q12H PO 12/10/16 21:00 12/12/16 07:48 (Telma-Colace) 2 tab BID PO 12/11/16 09:00 12/12/16 07:47 (Dilaudid Pf Inj) 2 mg Q3H PRN IV PUSH 12/12/16 16:00 12/12/16 14:19 Family History Mother from breast cancer at age 60. Her father at a young age of trauma. . Substance Use Tobacco: Longtime smoker one pack per day, fewer cigarettes in recent months Alcohol: None. Prescription med abuse: None. Illicits: None. . Psychosocial History The patient was born and raised in [place], and lived there most of her life. The patient moved to the [facility] mid October 2016, and then over here in recent days. She has been for nearly 4 years, and lives with her in their home here. She says she was not before. The patient has 5 children, ranging in age from 22 to 35. She says one of her children is imprisoned, 1 son is estranged, and that she remains close to the other 3 children. The patient worked [employer], and also did housekeeping work. She has not been working recently because of her illness and chemotherapy. . Spiritual/Cultural Factors She reports that she is an unaffiliated [employer], and she does not want any wet process miller visits. . Living Will: Never completed Health Care Surrogate: Never completed Durable Power of Field Counsel: Never completed Today's verbally stated goals: The patient tells me she is hoping to live "a little little while longer," and she is hoping that the chemotherapy will help that. She wants to get her pain under control, get out of the hospital, and continue aggressive care. When it is apparent that her disease is progressing, she says she will stop chemotherapy and would be open to hospice services at that time. She is considering DNR status, but says "I am not ready to make that decision yet." Ethical and Legal Issues There are no ethical issues that would impact her care or decision-making at this time. The patient has capacity for decision making. When she loses that capacity, her will be her proxy decision maker. . Physical Exam Vital Signs Date Time Temp Pulse Resp B/P Pulse Ox O2 Delivery O2 Flow Rate FiO2 12/12/16 12:00 98.2 126 16 152/87 98 12/12/16 11:25 98.0 109 16 135/87 97 12/12/16 10:54 99.0 112 16 146/81 97 12/12/16 08:00 99.8 111 16 117/87 94 12/12/16 06:17 16 12/12/16 04:36 16 12/12/16 04:00 99.0 124 20 161/100 94 12/12/16 00:00 98.4 102 18 126/88 98 12/11/16 22:07 16 12/11/16 22:06 16 12/11/16 20:00 98.9 132 20 153/91 99 12/11/16 16:00 98.7 118 22 128/89 95 12/11/16 12/12/16 19:00 07:00 Intake Total 600 ml 630 ml Balance 600 ml 630 ml Intake Oral 600 ml 630 ml # Voids 4 4 # Bowel Movements 0 Exam CONSTITUTIONAL/GENERAL: This is an adequately nourished patient who appears chronically ill, and she has some visible discomfort when she moves her torso in certain ways. TUBES/LINES/DRAINS: Peripheral IV SKIN: She is pale. No jaundice, rashes, or lesions. No wounds seen anteriorly. Skin temperature appropriate. Not diaphoretic. HEAD: Atraumatic. Normocephalic. EYES: Pupils equal and round and reactive. Extraocular motions intact. No scleral icterus. No injection or drainage. Fundi not examined. ENT: Hearing grossly normal. Nose without bleeding or purulent drainage. Throat without visible erythema, exudates, masses, or lesions. NECK: Trachea midline. Supple, nontender. No palpable thyroid enlargement or nodularity. CARDIOVASCULAR: Regular rate and rhythm without murmurs, gallops, or rubs. No JVD. Peripheral pulses symmetric. RESPIRATORY/CHEST: Symmetric, unlabored respirations. There are scattered rhonchi bilaterally GASTROINTESTINAL: Abdomen soft, non-tender, nondistended. No hepato-splenomegaly , or palpable masses. No guarding. Bowel sounds present. GENITOURINARY: Without palpable bladder distension. MUSCULOSKELETAL: Extremities without clubbing, cyanosis. There is some chronic edema about the right proximal humerus, and some tenderness there. No calf tenderness. No mottling or clubbing. LYMPHATICS: No palpable cervical or supraclavicular adenopathy. NEUROLOGICAL: Awake and alert. Motor and sensory grossly within normal limits. Follows commands. Cognitively sharp. Moves all extremities. PSYCHIATRIC: No obvious anxiety/depression. no apparent hallucinations or other psychotic thought process. . Diagnostic Tests Laboratory Laboratory Tests Test 12/10/16 12/10/16 12/11/16 12/11/16 05:30 08:40 05:50 08:30 White Blood Count 7.3 TH/MM3 8.8 TH/MM3 10.0 TH/MM3 (4.0-11.0) (4.0-11.0) (4.0-11.0) Red Blood Count 2.23 MIL/MM3 2.84 MIL/MM3 3.23 MIL/MM3 (4.00-5.30) (4.00-5.30) (4.00-5.30) Hemoglobin 6.9 GM/DL 8.6 GM/DL 9.9 GM/DL (11.6-15.3) (11.6-15.3) (11.6-15.3) Hematocrit 21.0 % 25.3 % 28.5 % (35.0-46.0) (35.0-46.0) (35.0-46.0) Mean Corpuscular Volume 94.2 FL 89.2 FL 88.3 FL (80.0-100.0) (80.0-100.0) (80.0-100.0) Mean Corpuscular Hemoglobin 30.9 PG 30.2 PG 30.6 PG (27.0-34.0) (27.0-34.0) (27.0-34.0) Mean Corpuscular Hemoglobin 32.8 % 33.9 % 34.7 % Concent (32.0-36.0) (32.0-36.0) (32.0-36.0) Red Cell Distribution Width 17.0 % 19.5 % 19.3 % (11.6-17.2) (11.6-17.2) (11.6-17.2) Platelet Count 41 TH/MM3 19 TH/MM3 24 TH/MM3 (150-450) (150-450) (150-450) Mean Platelet Volume 8.8 FL 9.4 FL 9.8 FL (7.0-11.0) (7.0-11.0) (7.0-11.0) Neutrophils (%) (Auto) 90.6 % 91.3 % 92.5 % (16.0-70.0) (16.0-70.0) (16.0-70.0) Lymphocytes (%) (Auto) 3.8 % 3.2 % 2.5 % (9.0-44.0) (9.0-44.0) (9.0-44.0) Monocytes (%) (Auto) 5.1 % (0.0-8.0) 5.0 % (0.0-8.0) 4.6 % (0.0-8.0) Eosinophils (%) (Auto) 0.3 % (0.0-4.0) 0.2 % (0.0-4.0) 0.2 % (0.0-4.0) Basophils (%) (Auto) 0.2 % (0.0-2.0) 0.3 % (0.0-2.0) 0.2 % (0.0-2.0) Neutrophils # (Auto) 6.6 TH/MM3 8.1 TH/MM3 9.3 TH/MM3 (1.8-7.7) (1.8-7.7) (1.8-7.7) Lymphocytes # (Auto) 0.3 TH/MM3 0.3 TH/MM3 0.2 TH/MM3 (1.0-4.8) (1.0-4.8) (1.0-4.8) Monocytes # (Auto) 0.4 TH/MM3 0.4 TH/MM3 0.5 TH/MM3 (0-0.9) (0-0.9) (0-0.9) Eosinophils # (Auto) 0.0 TH/MM3 0.0 TH/MM3 0.0 TH/MM3 (0-0.4) (0-0.4) (0-0.4) Basophils # (Auto) 0.0 TH/MM3 0.0 TH/MM3 0.0 TH/MM3 (0-0.2) (0-0.2) (0-0.2) CBC Comment AUTO DIFF AUTO DIFF AUTO DIFF Differential Total Cells 100 100 100 Counted Neutrophils % (Manual) 35 % (16-70) 35 % (16-70) 32 % (16-70) Band Neutrophils % 55 % (0-6) 53 % (0-6) 44 % (0-6) Lymphocytes % 2 % (9-44) 4 % (9-44) 2 % (9-44) Monocytes % 2 % (0-8) 1 % (0-8) 3 % (0-8) Eosinophils % 1 % (0-4) Neutrophils # (Manual) 6.9 TH/MM3 8.4 TH/MM3 9.4 TH/MM3 (1.8-7.7) (1.8-7.7) (1.8-7.7) Metamyelocytes 3 % (0-1) 3 % (0-1) 12 % (0-1) Myelocytes 2 % (0-0) 4 % (0-0) 5 % (0-0) Nucleated Red Blood Cells 1 /100 WBC 1 /100 WBC (0-0) (0-0) Differential Comment FINAL DIFF FINAL DIFF FINAL DIFF MANUAL MANUAL MANUAL Toxic Granulation 1+ (NORMAL) 2+ (NORMAL) Dohle Bodies PRESENT (NONE SEEN) Platelet Estimate LOW (NORMAL) LOW (NORMAL) LOW (NORMAL) Platelet Morphology Comment NORMAL NORMAL NORMAL (NORMAL) (NORMAL) (NORMAL) Tear Drop Cells 1+ (NORMAL) 1+ (NORMAL) 1+ (NORMAL) Sodium Level 138 MEQ/L 138 MEQ/L (136-145) (136-145) Potassium Level 3.8 MEQ/L 3.6 MEQ/L (3.5-5.1) (3.5-5.1) Chloride Level 100 MEQ/L 103 MEQ/L (98-107) (98-107) Carbon Dioxide Level 26.6 MEQ/L 26.3 MEQ/L (21.0-32.0) (21.0-32.0) Anion Gap 11 MEQ/L (5-15) 9 MEQ/L (5-15) Blood Urea Nitrogen 3 MG/DL (7-18) 5 MG/DL (7-18) Creatinine 0.27 MG/DL 0.25 MG/DL (0.50-1.00) (0.50-1.00) Estimat Glomerular Filtration 265 ML/MIN 289 ML/MIN Rate (>89) (>89) Random Glucose 101 MG/DL 98 MG/DL (74-106) (74-106) Calcium Level 7.5 MG/DL 7.0 MG/DL (8.5-10.1) (8.5-10.1) Phosphorus Level 1.1 MG/DL 1.1 MG/DL (2.5-4.9) (2.5-4.9) Magnesium Level 2.4 MG/DL 2.2 MG/DL (1.5-2.5) (1.5-2.5) Albumin 2.9 GM/DL 2.7 GM/DL (3.4-5.0) (3.4-5.0) Blood Type O POSITIVE Antibody Screen NEGATIVE Crossmatch Leukocyte-Reduced Red Blood Cells Blood Bank Comment Basophilic Stippling FAINT (NORMAL) Ovalocytes 1+ (NORMAL) 1+ (NORMAL) Basophils % 1 % (0-2) Promyelocytes 1 % (0-0) Helmet Cells OCC (NORMAL) Acanthocytes OCC (NORMAL) Test 12/12/16 12/12/16 03:35 08:48 White Blood Count 9.9 TH/MM3 (4.0-11.0) Red Blood Count 3.20 MIL/MM3 (4.00-5.30) Hemoglobin 10.0 GM/DL (11.6-15.3) Hematocrit 28.5 % (35.0-46.0) Mean Corpuscular Volume 89.0 FL (80.0-100.0) Mean Corpuscular Hemoglobin 31.3 PG (27.0-34.0) Mean Corpuscular Hemoglobin 35.1 % Concent (32.0-36.0) Red Cell Distribution Width 19.3 % (11.6-17.2) Platelet Count 15 TH/MM3 (150-450) Mean Platelet Volume 9.7 FL (7.0-11.0) Sodium Level 134 MEQ/L (136-145) Potassium Level 3.7 MEQ/L (3.5-5.1) Chloride Level 100 MEQ/L (98-107) Carbon Dioxide Level 25.4 MEQ/L (21.0-32.0) Anion Gap 9 MEQ/L (5-15) Blood Urea Nitrogen 5 MG/DL (7-18) Creatinine 0.28 MG/DL (0.50-1.00) Estimat Glomerular Filtration 254 ML/MIN Rate (>89) Random Glucose 105 MG/DL (74-106) Calcium Level 7.7 MG/DL (8.5-10.1) Phosphorus Level 1.1 MG/DL (2.5-4.9) Magnesium Level 2.3 MG/DL (1.5-2.5) Blood Bank Comment Result Diagram: 12/12/16 0335 12/12/16334 Imaging Last Impressions Abdomen X-Ray 12/09/16 Signed Impressions: Service Date/Time: Friday, December 09, 2016 23:00 - CONCLUSION: 1. Moderate constipation. No acute findings. Magdiel Cuevas MD Lumbar Spine MRI 12/05/16 0000 Signed Impressions: Service Date/Time: Monday, December 05, 2016 12:58 - CONCLUSION: 1. MR findings characteristic of extensive metastatic disease to the lower thoracic, the entire lumbar and the entire sacral spine as well as the pelvis. 2. Multilevel degenerative disc disease with disc bulges most prominent at L1-2 and L4-5. There is moderate central spinal stenosis at L4-5 with no central nerve root compromise. 3. Left posterior lateral component of the L4-5 disc abuts up against the left L4 nerve root after it leaves the neural foramina. Clinical significance of this is uncertain. 4. Neural foramina appear to be adequate at all remaining levels despite the aforementioned degenerative changes. Cristian Tate MD Abdomen/Pelvis CT 12/03/16 0933 Signed Impressions: Service Date/Time: Saturday, December 03, 2016 10:34 - CONCLUSION: 1. Nondisplaced fracture of the transverse process of L2. 2. No findings to indicate bowel obstruction are seen. 3. There are scattered low-attenuation lesions throughout the liver these are probably simple cysts however they are indeterminate in appearance and metastatic disease cannot be entirely excluded. If prior imaging is available these would be of benefit for direct comparison. If not, MRI imaging could be performed for more definitive assessment. Adam Aldana MD Chest X-Ray 12/03/16 0000 Signed Impressions: Service Date/Time: Saturday, December 03, 2016 11:23 - CONCLUSION: 1. No acute cardiopulmonary process. 2. Mottled appearance of the proximal right humerus. There may be an associated old fracture deformity as well. Cannot exclude chronic inflammation/infection or metastatic disease. Cristian Tate MD Brain MRI 12/03/16 0000 Signed Impressions: Service Date/Time: Saturday, December 03, 2016 19:52 - CONCLUSION: 1. Chronic white matter changes bilaterally characteristic of ischemic demyelinization. 2. No evidence of a mass within the substance of the brain. 3. Nonspecific enhancement of the marrow of the calvarium. Bony metastatic disease would be a consideration. If clinically indicated, recommend a whole body bone scan for further evaluation. Fernando Diaz MD Patient/Family Conference Present at Family Conference: Patient . Family Conference Time (mins): 39 Family Conference Location: Bedside Issues Discussed: * Palliative care role, purpose, approach * Hospice care role, purpose, approach * Additional medical, psychosocial, and spiritual history * Patients general health, functional status, and cognitive changes in the months leading up to the current hospitalization * Patient/family understanding of the current medical problems * Patient/family understanding of prognosis * Patients goals of care as best understood from advance directives and/or conversations and/or values * Current medical treatment options and benefits/burdens of those options * Likely scenarios comparing ongoing aggressive care with a transition to comfort measures only * Questions answered to the best of my ability * Palliative care contact information provided The patient tells me she is hoping to live "a little little while longer," and she is hoping that the chemotherapy will help that. She wants to get her pain under control, get out of the hospital, and continue aggressive care. When it is apparent that her disease is progressing, she says she will stop chemotherapy and would be open to hospice services at that time. She is considering DNR status, but says "I am not ready to make that decision yet." . Assessment and Plan Disease Oriented Problem List: (1) metastatic small cell lung cancer, extensive disease, widespread bony metastases (2) pain, worsening, secondary to widespread bony metastases (3) chemotherapy-induced anemia and thrombocytopenia (4) hospitalization for nausea/vomiting, likely chemotherapy-induced (5) epistaxis, intermittent (6) history of right proximal humerus fracture Symptom Scale: (1) pain 0-10 Scale: 6 (her fentanyl and oxycodone have been increased) Pertinent Non-Medical Issues Psychosocial: , unemployed, 5 children living in [place]. Spiritual: Unaffiliated [employer] who does not desire wet process miller visits. Legal: The patient has capacity for decision making. When she loses that capacity, her will be her proxy decision maker. Ethical issues impacting care: None . Important Contacts : Lai Jeter [phone] . Prognosis This patient is terminal, likely with weeks or months to live due to her extensive stage lung cancer. She is appropriate for hospice services when she makes the decision to stop chemotherapy and further aggressive care. . Code Status: Full Code Plan * FULL CODE * GOALS: The patient tells me she is hoping to live "a little little while longer," and she is hoping that the chemotherapy will help that. She wants to get her pain under control, get out of the hospital, and continue aggressive care. When it is apparent that her disease is progressing, she says she will stop chemotherapy and would be open to hospice services at that time. She is considering DNR status, but says "I am not ready to make that decision yet." * DECISION-MAKING: The patient has capacity for decision making. When she loses that capacity, her will be her proxy decision maker. * SYMPTOMS: Pain: Currently, the patient is receiving OxyContin 90 mg BID and fentanyl 200 g patch, and she is requiring PRN opiates about 4 times daily, having received 6 mg of parenteral hydromorphone in the past 34 hours. Since 1 mg of parenteral hydromorphone is equivalent to about 13-14 mg of oral oxycodone , her total daily dose of OxyContin could be increased by an additional 40 or 50 mg daily in divided dosing. When it is time for conversion to oral opiates for PRN dosing, short acting oxycodone would be appropriate at approx 10% of her total daily opiate dosing, or oxycodone 30-40 mg q4h PRN. * Palliative Care will continue to follow the patient during this hospitalization. . Time Spent Total Floor Time (mins): 78 Face to Face Time (mins): 44 >50% Counseling/Coord of Care: Yes Thank you for the opportunity to participate in the care of Ms. Jeter. Attestation To help prompt me to consider important information that might be impacting today's encounter and assessment, information from prior notes written by myself or my colleagues may have been "brought forward" into today's note. My signature on this note, however, is an attestation that I personally performed the exam, history, and/or decision-making noted today, and, unless otherwise indicated, the interactions with patient, family, and staff as well as the review of records all occurred today. I also attest that the listed assessment and stated plan reflect my best clinical judgment today based on the combination of historical information, prior notes, and today's exam/ interactions. When time spent is documented, it refers only to time spent today by the signer, or if indicated, combined time spent today by collaborating physician/nurse practitioner. Kandace Curran MD Dec 12, 2016 16:34
[2016-12-12 19:39] LABS: HEMATOCRIT 26.6 % (35.0-46.0); MEAN CELL VOLUME 90.3 FL (80.0-100.0); MEAN CORPUSCULAR HGB CONC 33.3 % (32.0-36.0); PLATELET COUNT 29 TH/MM3 (150-450); RED BLOOD COUNT 2.94 MIL/MM3 (4.00-5.30); WHITE BLOOD COUNT 8.3 TH/MM3 (4.0-11.0)
[2016-12-12 19:51] LABS: REVIEW FLAG FINAL
[2016-12-13] VITALS (8 sets, daily range): BP systolic 113–137; BP diastolic 63–84; PULSE 101–134; RESP 16–20; TEMP 96.6–100.3; O2SAT 93–98
[2016-12-13] MEDS: HYDROmorphone HCL PF 1 MG/ML VIAL IV PUSH PRN ×5 (01:23→22:51)
[2016-12-13] MEDS: HYDROmorphone HCL 2 MG TAB PO PRN ×6 (02:58→22:35)
[2016-12-13] MEDS: ONDANSETRON HCL 4 MG/2 ML VIAL IV PUSH SCH ×3 (05:37→17:54)
[2016-12-13 06:02] LABS: HEMATOCRIT 24.4 % (35.0-46.0); MEAN CELL VOLUME 89.4 FL (80.0-100.0); MEAN CORPUSCULAR HEMOGLOBIN 30.9 PG (27.0-34.0); MEAN CORPUSCULAR HGB CONC 34.5 % (32.0-36.0); RED BLOOD COUNT 2.72 MIL/MM3 (4.00-5.30); RED CELL DISTRIBUTION WIDTH 18.9 % (11.6-17.2); WHITE BLOOD COUNT 7.3 TH/MM3 (4.0-11.0)
[2016-12-13 06:17] LABS: REVIEW FLAG FINAL
[2016-12-13 06:19] LABS: PLATELET COUNT 13 TH/MM3 (150-450)
[2016-12-13 06:23] LABS: BICARBONATE 26.5 MEQ/L (21.0-32.0); MAGNESIUM 2.1 MG/DL (1.5-2.5); POTASSIUM 3.3 MEQ/L (3.5-5.1)
[2016-12-13] MEDS ORDERED: SODIUM CHLOR 0.9% 250 ML INJ 250 ML IV ONE (06:45)
[2016-12-13] MEDS: oxyCODONE HCL 80 MG CONTROLLED RELEASE TAB PO SCH ×2 (08:14→20:32)
[2016-12-13] MEDS: METOPROLOL TARTRATE 25 MG TAB PO SCH ×2 (08:15→20:36)
[2016-12-13] MEDS: oxyCODONE HCL 10 MG CONTROLLED RELEASE TAB PO SCH ×2 (08:15→20:35)
[2016-12-13] MEDS: PANTOPRAZOLE SODIUM 40 MG VIAL IV SCH ×2 (08:15→20:38)
[2016-12-13] MEDS: DOCUSATE SODIUM 50 MG/SENNA 8.6 MG TAB PO SCH ×2 (08:15→20:36)
[2016-12-13] MEDS: POTASSIUM PHOSPHATE/SODIUM PHOSPHATE 250 MG TAB PO SCH ×3 (08:15→17:54)
[2016-12-13] MEDS: SODIUM CHLORIDE 0.9% FLUSH 5 ML FLUSH FLUSH SCH ×2 (08:16→20:37)
[2016-12-13] MEDS: diphenhydrAMINE HCL 25 MG CAP PO PRN (09:52)
[2016-12-13] MEDS: ACETAMINOPHEN 325 MG TAB PO PRN (09:52)
--- NOTE | 2016-12-13 11:52 | HHI.HCPN ---
Reason for visit a. To assist with evaluation and management of symptoms including: pain b. To assist medical decision maker(s) with: better understanding of current medical conditions; weighing benefits/burdens of medical treatment options; making medical treatment decisions. . Subjective/Interval History This 51-year-old female was diagnosed with small cell lung cancer. INTERVAL NOTE: She says her pain is more stable; she did receive 4 doses of hydromorphone 2 mg IV in the past 24 hours. She is not sedated by the meds. The x-rays yesterday are consistent with a pathologic fx R humerus, and some DJD. Her platelet count has continued to decrease, now 13,000, and hematology is returning to see pt. . Advance Directives Living Will: Never completed Health Care Surrogate: Never completed Durable Power of Geometry Teacher: Never completed Objective Vital Signs Date Time Temp Pulse Resp B/P Pulse Ox O2 Delivery O2 Flow Rate FiO2 12/13/16 09:48 98.6 114 16 113/68 96 12/13/16 08:00 98.6 114 18 113/68 93 12/13/16 04:00 98.3 20 121/75 98 12/13/16 00:00 98.9 119 18 125/84 96 12/12/16 21:16 99.4 12/12/16 20:55 100.5 128 18 141/94 100 12/12/16 16:00 99.6 124 16 126/80 94 12/12/16 12:00 98.2 126 16 152/87 98 Intake & Output 12/13/16 12/13/16 07:00 19:00 Intake Total 720 ml Balance 720 ml Intake Oral 720 ml # Voids 3 # Bowel Movements 1 Physical Exam CONSTITUTIONAL/GENERAL: This is an adequately nourished patient who appears chronically ill, and she has some visible discomfort when she moves her torso in certain ways. TUBES/LINES/DRAINS: Peripheral IV SKIN: She is pale. No jaundice, rashes, or lesions. No wounds seen anteriorly. Skin temperature appropriate. Not diaphoretic. ENT: Hearing grossly normal. Nose without bleeding or purulent drainage. Throat without visible erythema, exudates, masses, or lesions. NECK: Trachea midline. Supple, nontender. No palpable thyroid enlargement or nodularity. CARDIOVASCULAR: Regular rate and rhythm without murmurs, gallops, or rubs. No JVD. Peripheral pulses symmetric. RESPIRATORY/CHEST: Symmetric, unlabored respirations. There are scattered rhonchi bilaterally GASTROINTESTINAL: Abdomen soft, non-tender, nondistended. No hepato-splenomegaly , or palpable masses. No guarding. Bowel sounds present. MUSCULOSKELETAL: Extremities without clubbing, cyanosis. There is some edema about the right proximal humerus (overlying the fx), and some tenderness there. No calf tenderness. No mottling or clubbing. NEUROLOGICAL: Awake and alert. Motor and sensory grossly within normal limits. Follows commands. Cognitively sharp. Moves all extremities. PSYCHIATRIC: No obvious anxiety/depression. no apparent hallucinations or other psychotic thought process. . Diagnostic Tests Laboratory Laboratory Tests Test 12/11/16 12/11/16 12/12/16 12/12/16 05:50 08:30 03:35 08:48 White Blood Count 8.8 TH/MM3 10.0 TH/MM3 9.9 TH/MM3 (4.0-11.0) (4.0-11.0) (4.0-11.0) Red Blood Count 2.84 MIL/MM3 3.23 MIL/MM3 3.20 MIL/MM3 (4.00-5.30) (4.00-5.30) (4.00-5.30) Hemoglobin 8.6 GM/DL 9.9 GM/DL 10.0 GM/DL (11.6-15.3) (11.6-15.3) (11.6-15.3) Hematocrit 25.3 % 28.5 % 28.5 % (35.0-46.0) (35.0-46.0) (35.0-46.0) Mean Corpuscular Volume 89.2 FL 88.3 FL 89.0 FL (80.0-100.0) (80.0-100.0) (80.0-100.0) Mean Corpuscular Hemoglobin 30.2 PG 30.6 PG 31.3 PG (27.0-34.0) (27.0-34.0) (27.0-34.0) Mean Corpuscular Hemoglobin 33.9 % 34.7 % 35.1 % Concent (32.0-36.0) (32.0-36.0) (32.0-36.0) Red Cell Distribution Width 19.5 % 19.3 % 19.3 % (11.6-17.2) (11.6-17.2) (11.6-17.2) Platelet Count 19 TH/MM3 24 TH/MM3 15 TH/MM3 (150-450) (150-450) (150-450) Mean Platelet Volume 9.4 FL 9.8 FL 9.7 FL (7.0-11.0) (7.0-11.0) (7.0-11.0) Neutrophils (%) (Auto) 91.3 % 92.5 % (16.0-70.0) (16.0-70.0) Lymphocytes (%) (Auto) 3.2 % 2.5 % (9.0-44.0) (9.0-44.0) Monocytes (%) (Auto) 5.0 % (0.0-8.0) 4.6 % (0.0-8.0) Eosinophils (%) (Auto) 0.2 % (0.0-4.0) 0.2 % (0.0-4.0) Basophils (%) (Auto) 0.3 % (0.0-2.0) 0.2 % (0.0-2.0) Neutrophils # (Auto) 8.1 TH/MM3 9.3 TH/MM3 (1.8-7.7) (1.8-7.7) Lymphocytes # (Auto) 0.3 TH/MM3 0.2 TH/MM3 (1.0-4.8) (1.0-4.8) Monocytes # (Auto) 0.4 TH/MM3 0.5 TH/MM3 (0-0.9) (0-0.9) Eosinophils # (Auto) 0.0 TH/MM3 0.0 TH/MM3 (0-0.4) (0-0.4) Basophils # (Auto) 0.0 TH/MM3 0.0 TH/MM3 (0-0.2) (0-0.2) CBC Comment AUTO DIFF AUTO DIFF Differential Total Cells 100 100 Counted Neutrophils % (Manual) 35 % (16-70) 32 % (16-70) Band Neutrophils % 53 % (0-6) 44 % (0-6) Lymphocytes % 4 % (9-44) 2 % (9-44) Monocytes % 1 % (0-8) 3 % (0-8) Neutrophils # (Manual) 8.4 TH/MM3 9.4 TH/MM3 (1.8-7.7) (1.8-7.7) Metamyelocytes 3 % (0-1) 12 % (0-1) Myelocytes 4 % (0-0) 5 % (0-0) Differential Comment FINAL DIFF FINAL DIFF MANUAL MANUAL Toxic Granulation 2+ (NORMAL) Platelet Estimate LOW (NORMAL) LOW (NORMAL) Platelet Morphology Comment NORMAL NORMAL (NORMAL) (NORMAL) Basophilic Stippling FAINT (NORMAL) Tear Drop Cells 1+ (NORMAL) 1+ (NORMAL) Ovalocytes 1+ (NORMAL) 1+ (NORMAL) Sodium Level 138 MEQ/L 134 MEQ/L (136-145) (136-145) Potassium Level 3.6 MEQ/L 3.7 MEQ/L (3.5-5.1) (3.5-5.1) Chloride Level 103 MEQ/L 100 MEQ/L (98-107) (98-107) Carbon Dioxide Level 26.3 MEQ/L 25.4 MEQ/L (21.0-32.0) (21.0-32.0) Anion Gap 9 MEQ/L (5-15) 9 MEQ/L (5-15) Blood Urea Nitrogen 5 MG/DL (7-18) 5 MG/DL (7-18) Creatinine 0.25 MG/DL 0.28 MG/DL (0.50-1.00) (0.50-1.00) Estimat Glomerular Filtration 289 ML/MIN 254 ML/MIN Rate (>89) (>89) Random Glucose 98 MG/DL 105 MG/DL (74-106) (74-106) Calcium Level 7.0 MG/DL 7.7 MG/DL (8.5-10.1) (8.5-10.1) Phosphorus Level 1.1 MG/DL 1.1 MG/DL (2.5-4.9) (2.5-4.9) Magnesium Level 2.2 MG/DL 2.3 MG/DL (1.5-2.5) (1.5-2.5) Albumin 2.7 GM/DL (3.4-5.0) Basophils % 1 % (0-2) Promyelocytes 1 % (0-0) Nucleated Red Blood Cells 1 /100 WBC (0-0) Helmet Cells OCC (NORMAL) Acanthocytes OCC (NORMAL) Blood Bank Comment Test 12/12/16 12/13/16 12/13/16 15:00 05:36 06:43 White Blood Count 8.3 TH/MM3 7.3 TH/MM3 (4.0-11.0) (4.0-11.0) Red Blood Count 2.94 MIL/MM3 2.72 MIL/MM3 (4.00-5.30) (4.00-5.30) Hemoglobin 8.8 GM/DL 8.4 GM/DL (11.6-15.3) (11.6-15.3) Hematocrit 26.6 % 24.4 % (35.0-46.0) (35.0-46.0) Mean Corpuscular Volume 90.3 FL 89.4 FL (80.0-100.0) (80.0-100.0) Mean Corpuscular Hemoglobin 30.0 PG 30.9 PG (27.0-34.0) (27.0-34.0) Mean Corpuscular Hemoglobin 33.3 % 34.5 % Concent (32.0-36.0) (32.0-36.0) Red Cell Distribution Width 19.0 % 18.9 % (11.6-17.2) (11.6-17.2) Platelet Count 29 TH/MM3 13 TH/MM3 (150-450) (150-450) Mean Platelet Volume 9.4 FL 9.7 FL (7.0-11.0) (7.0-11.0) Sodium Level 135 MEQ/L (136-145) Potassium Level 3.3 MEQ/L (3.5-5.1) Chloride Level 100 MEQ/L (98-107) Carbon Dioxide Level 26.5 MEQ/L (21.0-32.0) Anion Gap 9 MEQ/L (5-15) Blood Urea Nitrogen 5 MG/DL (7-18) Creatinine 0.25 MG/DL (0.50-1.00) Estimat Glomerular Filtration 289 ML/MIN Rate (>89) Random Glucose 101 MG/DL (74-106) Calcium Level 7.6 MG/DL (8.5-10.1) Phosphorus Level 1.2 MG/DL (2.5-4.9) Magnesium Level 2.1 MG/DL (1.5-2.5) Blood Bank Comment Result Diagram: 12/13/16 0536 12/13/16 0536 Imaging Last Impressions Shoulder X-Ray 12/12/16 0000 Signed Impressions: Service Date/Time: Monday, December 12, 2016 14:47 - CONCLUSION: 1. Mild osteoarthritis as described above. Anibal Quigley MD Humerus X-Ray 12/12/16 0000 Signed Impressions: Service Date/Time: Monday, December 12, 2016 14:54 - CONCLUSION: Probable pathologic fracture right humeral neck Anibal Quigley MD Abdomen X-Ray 12/09/16 0000 Signed Impressions: Service Date/Time: Friday, December 09, 2016 23:00 - CONCLUSION: 1. Moderate constipation. No acute findings. Magdiel Cuevas MD Lumbar Spine MRI 12/05/16 0000 Signed Impressions: Service Date/Time: Monday, December 05, 2016 12:58 - CONCLUSION: 1. MR findings characteristic of extensive metastatic disease to the lower thoracic, the entire lumbar and the entire sacral spine as well as the pelvis. 2. Multilevel degenerative disc disease with disc bulges most prominent at L1-2 and L4-5. There is moderate central spinal stenosis at L4-5 with no central nerve root compromise. 3. Left posterior lateral component of the L4-5 disc abuts up against the left L4 nerve root after it leaves the neural foramina. Clinical significance of this is uncertain. 4. Neural foramina appear to be adequate at all remaining levels despite the aforementioned degenerative changes. Cristian Tate MD Abdomen/Pelvis CT 12/03/16 0933 Signed Impressions: Service Date/Time: Saturday, December 03, 2016 10:34 - CONCLUSION: 1. Nondisplaced fracture of the transverse process of L2. 2. No findings to indicate bowel obstruction are seen. 3. There are scattered low-attenuation lesions throughout the liver these are probably simple cysts however they are indeterminate in appearance and metastatic disease cannot be entirely excluded. If prior imaging is available these would be of benefit for direct comparison. If not, MRI imaging could be performed for more definitive assessment. Adam Aldana MD Chest X-Ray 12/03/16 0000 Signed Impressions: Service Date/Time: Saturday, December 03, 2016 11:23 - CONCLUSION: 1. No acute cardiopulmonary process. 2. Mottled appearance of the proximal right humerus. There may be an associated old fracture deformity as well. Cannot exclude chronic inflammation/infection or metastatic disease. Cristian Tate MD Brain MRI 12/03/16 0000 Signed Impressions: Service Date/Time: Saturday, December 03, 2016 19:52 - CONCLUSION: 1. Chronic white matter changes bilaterally characteristic of ischemic demyelinization. 2. No evidence of a mass within the substance of the brain. 3. Nonspecific enhancement of the marrow of the calvarium. Bony metastatic disease would be a consideration. If clinically indicated, recommend a whole body bone scan for further evaluation. Fernando Diaz MD Assessment and Plan Disease Oriented Problem List: (1) metastatic small cell lung cancer, extensive disease, widespread bony metastases (2) pain, worsening, secondary to widespread bony metastases (3) chemotherapy-induced anemia and thrombocytopenia (4) hospitalization for nausea/vomiting, likely chemotherapy-induced (5) epistaxis, intermittent (6) history of right proximal humerus fracture Symptom Scale: (1) pain 0-10 Scale: 6 (her fentanyl and oxycodone have been increased) Pertinent Non-Medical Issues Psychosocial: , unemployed, 5 children living in [place]. Spiritual: Unaffiliated Jain Religious who does not desire esthetician spa visits. Legal: The patient has capacity for decision making. When she loses that capacity, her will be her proxy decision maker. Ethical issues impacting care: None . Important Contacts : Lai Jeter [phone] . Prognosis This patient is terminal, likely with weeks or months to live due to her extensive stage lung cancer. She is appropriate for hospice services when she makes the decision to stop chemotherapy and further aggressive care. . Code Status: Full Code Plan * FULL CODE * GOALS: She is hoping to live "a little little while longer," and she is hoping that more chemotherapy will help that. She wants to get her pain under control, get out of the hospital, and continue aggressive care. When it is apparent that her disease is progressing, she says she will stop chemotherapy and would be open to hospice services at that time. She is considering DNR status, but says "I am not ready to make that decision yet." * DECISION-MAKING: The patient has capacity for decision making. When she loses that capacity, her will be her proxy decision maker. * SYMPTOMS: Pain: Currently, the patient is receiving OxyContin 90 mg BID and fentanyl 200 g patch, and she is receiving PRN parenteral hydromorphone. Based on current use, and since 1 mg of parenteral hydromorphone is equivalent to about 13-14 mg of oral oxycodone, her total daily dose of OxyContin could be increased by an additional 40 or 50 mg daily in divided dosing. When it is time for conversion to oral opiates for PRN dosing, short acting oxycodone would be appropriate at approx 10% of her total daily opiate dosing, or oxycodone 30-40 mg q4h PRN. One other option to consider for her pain is the addition of a couple mg of some adjuvant Decadron (often is useful with bone pain due to mets). * Palliative Care will continue to follow the patient during this hospitalization. . Time Spent Total Floor Time (mins): 36 Face to Face Time (mins): 13 >50% Counseling/Coord of Care: Yes (d/w RN) Attestation To help prompt me to consider important information that might be impacting today's encounter and assessment, information from prior notes written by myself or my colleagues may have been "brought forward" into today's note. My signature on this note, however, is an attestation that I personally performed the exam, history, and/or decision-making noted today, and, unless otherwise indicated, the interactions with patient, family, and staff as well as the review of records all occurred today. I also attest that the listed assessment and stated plan reflect my best clinical judgment today based on the combination of historical information, prior notes, and today's exam/ interactions. When time spent is documented, it refers only to time spent today by the signer, or if indicated, combined time spent today by collaborating physician/nurse practitioner. Kandace Curran MD Dec 13, 2016 11:52
[2016-12-13] MEDS ORDERED: POTASSIUM CHLORIDE 25 MEQ EFFERVESCENT TAB PO ONE (13:15)
[2016-12-13] MEDS ORDERED: fentaNYL 75 MCG/HR PATCH TD SCH (14:00)
[2016-12-13] MEDS ORDERED: SODIUM PHOSPHATE INJ 30 MMOL in SODIUM CHLOR 0.9% 250 ML INJ 250 ML IV ONE (14:00)
[2016-12-13 14:18] LABS: HEMATOCRIT 27.3 % (35.0-46.0); MEAN CELL VOLUME 89.7 FL (80.0-100.0); MEAN CORPUSCULAR HGB CONC 33.4 % (32.0-36.0); RED BLOOD COUNT 3.04 MIL/MM3 (4.00-5.30); RED CELL DISTRIBUTION WIDTH 18.9 % (11.6-17.2); WHITE BLOOD COUNT 10.1 TH/MM3 (4.0-11.0)
[2016-12-13 14:22] LABS: REVIEW FLAG FINAL
--- NOTE | 2016-12-13 14:23 | HHI.PR ---
Subjective Remarks The pt said her pain was well controlled. She talked with palliative care and thinks she would still want treatment and is not quite ready for hospice yet. She did say she would like to be DNR. She was ambulating around the room. Objective Vitals Vital Signs Date Time Temp Pulse Resp B/P Pulse Ox O2 Delivery O2 Flow Rate FiO2 12/13/16 12:04 96.6 101 18 128/63 97 12/13/16 09:48 98.6 114 16 113/68 96 12/13/16 08:00 98.6 114 18 113/68 93 12/13/16 04:00 98.3 20 121/75 98 12/13/16 00:00 98.9 119 18 125/84 96 12/12/16 21:16 99.4 12/12/16 20:55 100.5 128 18 141/94 100 12/12/16 16:00 99.6 124 16 126/80 94 I/O 12/12/16 12/12/16 12/12/16 12/13/16 12/13/16 12/13/16 07:00 15:00 23:00 07:00 15:00 23:00 Intake Total 150 ml 480 ml 480 ml 240 ml Balance 150 ml 480 ml 480 ml 240 ml Intake Oral 150 ml 480 ml 480 ml 240 ml # Voids 2 2 2 1 # Bowel Movements 0 1 Result Diagram: 12/13/16 0536 12/13/16 0536 Imaging Last Impressions Shoulder X-Ray 12/12/16 0000 Signed Impressions: Service Date/Time: Monday, December 12, 2016 14:47 - CONCLUSION: 1. Mild osteoarthritis as described above. Anibal Quigley MD Humerus X-Ray 12/12/16 0000 Signed Impressions: Service Date/Time: Monday, December 12, 2016 14:54 - CONCLUSION: Probable pathologic fracture right humeral neck Anibal Quigley MD Abdomen X-Ray 12/09/16 0000 Signed Impressions: Service Date/Time: Friday, December 09, 2016 23:00 - CONCLUSION: 1. Moderate constipation. No acute findings. Magdiel Cuevas MD Lumbar Spine MRI 12/05/16 0000 Signed Impressions: Service Date/Time: Monday, December 05, 2016 12:58 - CONCLUSION: 1. MR findings characteristic of extensive metastatic disease to the lower thoracic, the entire lumbar and the entire sacral spine as well as the pelvis. 2. Multilevel degenerative disc disease with disc bulges most prominent at L1-2 and L4-5. There is moderate central spinal stenosis at L4-5 with no central nerve root compromise. 3. Left posterior lateral component of the L4-5 disc abuts up against the left L4 nerve root after it leaves the neural foramina. Clinical significance of this is uncertain. 4. Neural foramina appear to be adequate at all remaining levels despite the aforementioned degenerative changes. Cristian Tate MD Abdomen/Pelvis CT 12/03/16 0933 Signed Impressions: Service Date/Time: Saturday, December 03, 2016 10:34 - CONCLUSION: 1. Nondisplaced fracture of the transverse process of L2. 2. No findings to indicate bowel obstruction are seen. 3. There are scattered low-attenuation lesions throughout the liver these are probably simple cysts however they are indeterminate in appearance and metastatic disease cannot be entirely excluded. If prior imaging is available these would be of benefit for direct comparison. If not, MRI imaging could be performed for more definitive assessment. Adam Aldana MD Chest X-Ray 12/03/16 0000 Signed Impressions: Service Date/Time: Saturday, December 03, 2016 11:23 - CONCLUSION: 1. No acute cardiopulmonary process. 2. Mottled appearance of the proximal right humerus. There may be an associated old fracture deformity as well. Cannot exclude chronic inflammation/infection or metastatic disease. Cristian Tate MD Brain MRI 12/03/16 0000 Signed Impressions: Service Date/Time: Saturday, December 03, 2016 19:52 - CONCLUSION: 1. Chronic white matter changes bilaterally characteristic of ischemic demyelinization. 2. No evidence of a mass within the substance of the brain. 3. Nonspecific enhancement of the marrow of the calvarium. Bony metastatic disease would be a consideration. If clinically indicated, recommend a whole body bone scan for further evaluation. Fernando Diaz MD Objective Remarks GENERAL: Appears comfortable. She is alert and oriented 3. SKIN: Warm and dry. HEAD: Normocephalic. EYES: No scleral icterus. No injection or drainage. NECK: Supple, trachea midline. No JVD. CARDIOVASCULAR: Regular rate and rhythm without murmurs, gallops, or rubs. RESPIRATORY: Breath sounds equal bilaterally. No accessory muscle use. GASTROINTESTINAL: Abdomen is distended. Positive bowel sounds. No rebound or guarding. MUSCULOSKELETAL: No cyanosis, or edema. Tenderness to palpation of left collarbone, left shoulder, left humerus. BACK: Nontender without obvious deformity. No CVA tenderness. PSYCH: Mood and affect appropriate. Medications and IVs Current Medications Medications (Trade) Dose Ordered Sig/Homero Route Start Time Stop Time Status Last Admin (NS Flush) 2 ml UNSCH PRN FLUSH 12/03/16 13:00 12/05/16 06:58 (NS Flush) 2 ml BID FLUSH 12/03/16 21:00 12/13/16 08:16 (Narcan Inj) 0.4 mg UNSCH PRN IV 12/03/16 13:00 (Zofran Inj) 4 mg Q6HR IV PUSH 12/03/16 18:00 12/13/16 05:37 (Reglan Inj) 10 mg Q8H PRN IV PUSH 12/03/16 13:00 12/06/16 20:01 (Protonix Inj) 40 mg BID IV 12/03/16 21:00 12/13/16 08:15 (Compazine Inj) 10 mg Q6H PRN IVS 12/03/16 19:00 (Vasotec Inj) 1.25 mg Q6H PRN IV PUSH 12/03/16 21:45 (Chapstick) 1 applic UNSCH PRN TOPICAL 12/05/16 04:00 12/05/16 04:00 (NS Flush) 5 ml UNSCH PRN IVF 12/05/16 05:30 (Heparin Central Flush) 250 units UNSCH PRN IVF 12/05/16 05:30 12/06/16 20:37 (Heparin Central Flush) 500 units UNSCH IVF 12/05/16 05:30 (Benadryl) 25 mg Q4H PRN PO 12/05/16 20:45 12/13/16 09:52 (Tylenol) 650 mg Q4H PRN PO 12/05/16 20:45 12/13/16 09:52 (Dilaudid) 6 mg Q2HR PRN PO 12/06/16 11:00 12/13/16 13:49 (Pill Splitter) 1 ea UNSCH PRN OTHER 12/07/16 08:45 (Fleets Enema (Adult)) 133 ml DAILY PRN IA 12/10/16 13:00 (K-Phos Neutral) 250 mg TID PO 12/10/16 09:00 12/13/16 11:47 (Lopressor) 25 mg Q12HR PO 12/10/16 21:00 12/13/16 08:15 (Duragesic 100 Mcg Patch.72 Hr) 2 patch Q3D TD 12/10/16 17:00 12/10/16 17:13 Miscellaneous Information 1 Q3D TD 12/10/16 17:00 12/10/16 17:13 (OxyCONTIN CR) 80 mg Q12H PO 12/10/16 21:00 12/13/16 08:14 (OxyCONTIN CR) 10 mg Q12H PO 12/10/16 21:00 12/13/16 08:15 (Telma-Colace) 2 tab BID PO 12/11/16 09:00 12/13/16 08:15 Hydromorphone HCl 2 mg 2 mg Q3H PRN IV PUSH 12/12/16 16:00 12/13/16 04:18 Sodium Chloride 250 ml @ 15 mls/hr ONCE ONCE IV 12/13/16 06:45 12/13/16 23:24 12/13/16 06:45 (Sodium Phosphate Inj/NS 250 ml Inj) 260 ml @ 43.333 mls/ hr ONCE ONCE IV 12/13/16 14:00 12/13/16 19:59 A/P Assessment and Plan Thrombocytopenia Chemo induced. Has had epistaxis. Status post platelet transfusions. Plt count 13 12/13. - follow CBC and transfuse as needed. Transfused one unit 12/13. - reconsult oncology. Anemia of malignancy Transfused 2 units. Stable. - follow CBC and transfuse as needed. Chronic right shoulder/ Low back pain/ Left upper extremity pain L2 transverse process fracture noted. MRI findings characteristic of extensive metastatic disease to the lower thoracic, the entire lumbar and the entire sacral spine as well as the pelvis; Multilevel degenerative disc disease with disc bulges most prominent at L1-2 and L4-5; There is moderate central spinal stenosis at L4-5 with no central nerve root compromise; Left posterior lateral component of the L4-5 disc abuts up against the left L4 nerve root after it leaves the neural foramina; Clinical significance of this is uncertain. Pathologic fracture of right humerus noted. - pain control with OxyContin 80 mg twice daily, increased fentanyl patch to 200 g, Dilaudid PO and IV for breakthrough. Pain level well controlled 12/13. Nausea and vomiting Resolved. Pt has not been eating well. - added Ensure to meals. 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 Palliative care consult appreciated. - continue pain control with a bowel regimen. - Continue Scheduled IV Zofran, with as needed Compazine. - Oncology input appreciated. - change status to DNR. - follow up with palliative care. Hypophosphatemia Started on standing supplements. - continue IV phos as needed. - follow labs. Epigastric pain CT abdomen reviewed, no obvious cause of acute pain. Could be from liver lesions. Gastroenterology consulted. Patient refused EGD. - We'll continue PPI. - Pain control. Tobacco abuse Cessation strongly advised. - Counseling provided. DVT prophylaxis. SCDs. We'll continue to hold AC secondary to anemia, epistaxis. Discharge Planning Awaiting clinical improvement. Tylor Wilde DO Dec 13, 2016 14:23
[2016-12-13 14:26] LABS: PLATELET COUNT 17 TH/MM3 (150-450)
[2016-12-13] MEDS: fentaNYL 100 MCG/HR PATCH TD SCH (16:18)
[2016-12-13] MEDS: [UNRECOGNIZED DRUG - OTHER] TD SCH (17:00)
[2016-12-13 21:00] LABS: HEMATOCRIT 25.3 % (35.0-46.0); MEAN CELL VOLUME 89.6 FL (80.0-100.0); MEAN CORPUSCULAR HEMOGLOBIN 30.6 PG (27.0-34.0); MEAN CORPUSCULAR HGB CONC 34.1 % (32.0-36.0); RED BLOOD COUNT 2.82 MIL/MM3 (4.00-5.30); RED CELL DISTRIBUTION WIDTH 18.8 % (11.6-17.2)
[2016-12-13 21:04] LABS: REVIEW FLAG FINAL
[2016-12-13 21:06] LABS: PLATELET COUNT 17 TH/MM3 (150-450)
[2016-12-14] VITALS (9 sets, daily range): BP systolic 108–152; BP diastolic 63–84; PULSE 106–135; RESP 16–22; TEMP 96.7–99.6; O2SAT 93–98
[2016-12-14] MEDS: HYDROmorphone HCL 2 MG TAB PO PRN ×7 (00:47→21:57)
[2016-12-14] MEDS: HYDROmorphone HCL PF 1 MG/ML VIAL IV PUSH PRN ×8 (02:11→22:04)
[2016-12-14] MEDS: ONDANSETRON HCL 4 MG/2 ML VIAL IV PUSH SCH ×4 (06:00→17:09)
[2016-12-14 06:02] LABS: HEMATOCRIT 24.9 % (35.0-46.0); MEAN CELL VOLUME 89.4 FL (80.0-100.0); MEAN CORPUSCULAR HGB CONC 34.6 % (32.0-36.0); RED BLOOD COUNT 2.78 MIL/MM3 (4.00-5.30); RED CELL DISTRIBUTION WIDTH 18.8 % (11.6-17.2); WHITE BLOOD COUNT 9.9 TH/MM3 (4.0-11.0)
[2016-12-14 06:03] LABS: REVIEW FLAG FINAL
[2016-12-14 06:05] LABS: PLATELET COUNT 13 TH/MM3 (150-450)
[2016-12-14 06:26] LABS: BICARBONATE 28.7 MEQ/L (21.0-32.0); POTASSIUM 3.6 MEQ/L (3.5-5.1)
[2016-12-14] MEDS: PANTOPRAZOLE SODIUM 40 MG VIAL IV SCH (08:17)
[2016-12-14] MEDS: POTASSIUM PHOSPHATE/SODIUM PHOSPHATE 250 MG TAB PO SCH ×3 (08:17→17:07)
[2016-12-14] MEDS: oxyCODONE HCL 80 MG CONTROLLED RELEASE TAB PO SCH ×2 (08:17→20:04)
[2016-12-14] MEDS: METOPROLOL TARTRATE 25 MG TAB PO SCH ×2 (08:17→20:04)
[2016-12-14] MEDS: DOCUSATE SODIUM 50 MG/SENNA 8.6 MG TAB PO SCH ×2 (08:17→20:04)
[2016-12-14] MEDS: oxyCODONE HCL 10 MG CONTROLLED RELEASE TAB PO SCH ×2 (08:17→20:05)
[2016-12-14] MEDS: SODIUM CHLORIDE 0.9% FLUSH 5 ML FLUSH FLUSH SCH ×2 (08:18→20:05)
--- NOTE | 2016-12-14 10:25 | HHI.PR ---
Subjective Remarks The patient says that her pain was high because she wasn't getting her medications on a regular basis. She said she does not like the food here. She has been drinking ensure. She has not had a bowel movement for a few days. Discussed with nursing. Objective Vitals Vital Signs Date Time Temp Pulse Resp B/P Pulse Ox O2 Delivery O2 Flow Rate FiO2 12/14/16 09:47 16 12/14/16 09:47 16 12/14/16 09:47 16 12/14/16 08:18 16 12/14/16 08:00 98.3 106 16 108/69 94 12/14/16 04:00 99.5 117 19 117/67 93 12/14/16 00:00 99.6 135 19 137/80 95 12/13/16 20:43 99.7 12/13/16 20:00 100.3 134 19 137/74 93 12/13/16 16:00 98.8 105 16 117/83 94 12/13/16 12:04 96.6 101 18 128/63 97 I/O 12/13/16 12/13/16 12/13/16 12/14/16 12/14/16 12/14/16 07:00 15:00 23:00 07:00 15:00 23:00 Intake Total 240 ml 1200 ml 240 ml 240 ml Balance 240 ml 1200 ml 240 ml 240 ml Intake Oral 240 ml 1200 ml 240 ml 240 ml # Voids 1 2 2 2 # Bowel Movements 0 0 0 Result Diagram: 12/14/16 0456 12/14/16 0456 Imaging Last Impressions Shoulder X-Ray 12/12/16 0000 Signed Impressions: Service Date/Time: Monday, December 12, 2016 14:47 - CONCLUSION: 1. Mild osteoarthritis as described above. Anibal Quigley MD Humerus X-Ray 12/12/16 0000 Signed Impressions: Service Date/Time: Monday, December 12, 2016 14:54 - CONCLUSION: Probable pathologic fracture right humeral neck Anibal Quigley MD Abdomen X-Ray 12/09/16 0000 Signed Impressions: Service Date/Time: Friday, December 09, 2016 23:00 - CONCLUSION: 1. Moderate constipation. No acute findings. Magdiel Cuevas MD Lumbar Spine MRI 12/05/16 0000 Signed Impressions: Service Date/Time: Monday, December 05, 2016 12:58 - CONCLUSION: 1. MR findings characteristic of extensive metastatic disease to the lower thoracic, the entire lumbar and the entire sacral spine as well as the pelvis. 2. Multilevel degenerative disc disease with disc bulges most prominent at L1-2 and L4-5. There is moderate central spinal stenosis at L4-5 with no central nerve root compromise. 3. Left posterior lateral component of the L4-5 disc abuts up against the left L4 nerve root after it leaves the neural foramina. Clinical significance of this is uncertain. 4. Neural foramina appear to be adequate at all remaining levels despite the aforementioned degenerative changes. Cristian Tate MD Abdomen/Pelvis CT 12/03/16 0933 Signed Impressions: Service Date/Time: Saturday, December 03, 2016 10:34 - CONCLUSION: 1. Nondisplaced fracture of the transverse process of L2. 2. No findings to indicate bowel obstruction are seen. 3. There are scattered low-attenuation lesions throughout the liver these are probably simple cysts however they are indeterminate in appearance and metastatic disease cannot be entirely excluded. If prior imaging is available these would be of benefit for direct comparison. If not, MRI imaging could be performed for more definitive assessment. Adam Aldana MD Chest X-Ray 12/03/16 0000 Signed Impressions: Service Date/Time: Saturday, December 03, 2016 11:23 - CONCLUSION: 1. No acute cardiopulmonary process. 2. Mottled appearance of the proximal right humerus. There may be an associated old fracture deformity as well. Cannot exclude chronic inflammation/infection or metastatic disease. Cristian Tate MD Brain MRI 12/03/16 0000 Signed Impressions: Service Date/Time: Saturday, December 03, 2016 19:52 - CONCLUSION: 1. Chronic white matter changes bilaterally characteristic of ischemic demyelinization. 2. No evidence of a mass within the substance of the brain. 3. Nonspecific enhancement of the marrow of the calvarium. Bony metastatic disease would be a consideration. If clinically indicated, recommend a whole body bone scan for further evaluation. Fernando Diaz MD Objective Remarks GENERAL: Appears comfortable. She is alert and oriented 3. SKIN: Warm and dry. HEAD: Normocephalic. EYES: No scleral icterus. No injection or drainage. NECK: Supple, trachea midline. No JVD. CARDIOVASCULAR: Regular rate and rhythm without murmurs, gallops, or rubs. RESPIRATORY: Breath sounds equal bilaterally. No accessory muscle use. GASTROINTESTINAL: Abdomen is distended. Positive bowel sounds. No rebound or guarding. MUSCULOSKELETAL: No cyanosis, or edema. Tenderness to palpation of left collarbone, left shoulder, left humerus. BACK: Nontender without obvious deformity. No CVA tenderness. PSYCH: Mood and affect appropriate. Medications and IVs Current Medications Medications (Trade) Dose Ordered Sig/Homero Route Start Time Stop Time Status Last Admin (NS Flush) 2 ml UNSCH PRN FLUSH 12/03/16 13:00 12/05/16 06:58 (NS Flush) 2 ml BID FLUSH 12/03/16 21:00 12/14/16 08:18 (Narcan Inj) 0.4 mg UNSCH PRN IV 12/03/16 13:00 (Zofran Inj) 4 mg Q6HR IV PUSH 12/03/16 18:00 12/13/16 17:54 (Reglan Inj) 10 mg Q8H PRN IV PUSH 12/03/16 13:00 12/06/16 20:01 (Protonix Inj) 40 mg BID IV 12/03/16 21:00 12/14/16 08:17 (Compazine Inj) 10 mg Q6H PRN IVS 12/03/16 19:00 (Vasotec Inj) 1.25 mg Q6H PRN IV PUSH 12/03/16 21:45 (Chapstick) 1 applic UNSCH PRN TOPICAL 12/05/16 04:00 12/05/16 04:00 (NS Flush) 5 ml UNSCH PRN IVF 12/05/16 05:30 (Heparin Central Flush) 250 units UNSCH PRN IVF 12/05/16 05:30 12/06/16 20:37 (Heparin Central Flush) 500 units UNSCH IVF 12/05/16 05:30 (Benadryl) 25 mg Q4H PRN PO 12/05/16 20:45 12/13/16 09:52 (Tylenol) 650 mg Q4H PRN PO 12/05/16 20:45 12/13/16 09:52 (Dilaudid) 6 mg Q2HR PRN PO 12/06/16 11:00 12/14/16 07:27 (Pill Splitter) 1 ea UNSCH PRN OTHER 12/07/16 08:45 (Fleets Enema (Adult)) 133 ml DAILY PRN AR 12/10/16 13:00 (K-Phos Neutral) 250 mg TID PO 12/10/16 09:00 12/14/16 08:17 (Lopressor) 25 mg Q12HR PO 12/10/16 21:00 12/14/16 08:17 (Duragesic 100 Mcg Patch.72 Hr) 2 patch Q3D TD 12/10/16 17:00 12/13/16 16:18 Miscellaneous Information 1 Q3D TD 12/10/16 17:00 12/13/16 17:00 (OxyCONTIN CR) 80 mg Q12H PO 12/10/16 21:00 12/14/16 08:17 (OxyCONTIN CR) 10 mg Q12H PO 12/10/16 21:00 12/14/16 08:17 (Telma-Colace) 2 tab BID PO 12/11/16 09:00 12/14/16 08:17 Hydromorphone HCl 2 mg 2 mg Q3H PRN IV PUSH 12/12/16 16:00 12/14/16 09:45 (Sodium Phosphate Inj/NS Inj) 155 ml @ 38.75 mls/ hr ONCE ONCE IV 12/14/16 11:00 12/14/16 14:59 A/P Assessment and Plan Thrombocytopenia Chemo induced. Has had epistaxis. Status post platelet transfusions. Plt count 13 12/14. - follow CBC and transfuse as needed. Transfused additional unit of platelets . - reconsult oncology. Anemia of malignancy Transfused 2 units. Stable. - follow CBC and transfuse as needed. Chronic right shoulder/ Low back pain/ Left upper extremity pain L2 transverse process fracture noted. MRI findings characteristic of extensive metastatic disease to the lower thoracic, the entire lumbar and the entire sacral spine as well as the pelvis; Multilevel degenerative disc disease with disc bulges most prominent at L1-2 and L4-5; There is moderate central spinal stenosis at L4-5 with no central nerve root compromise; Left posterior lateral component of the L4-5 disc abuts up against the left L4 nerve root after it leaves the neural foramina; Clinical significance of this is uncertain. Pathologic fracture of right humerus noted. - pain control with OxyContin 80 mg twice daily, increased fentanyl patch to 200 g, Dilaudid PO and IV for breakthrough. Pain level not well controlled s/t not getting pain meds on time. Nausea and vomiting Resolved. Pt has not been eating well. - added Ensure to meals. - Miralax for constipation. 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 Palliative care consult appreciated. - continue pain control with a bowel regimen. - Continue Scheduled IV Zofran, with as needed Compazine. - Oncology input appreciated. - change status to DNR. - follow up with palliative care. Hypophosphatemia Started on standing supplements. - continue IV phos as needed. - follow labs. Epigastric pain CT abdomen reviewed, no obvious cause of acute pain. Could be from liver lesions. Gastroenterology consulted. Patient refused EGD. - We'll continue PPI. - Pain control. Tobacco abuse Cessation strongly advised. - Counseling provided. DVT prophylaxis. SCDs. We'll continue to hold AC secondary to anemia, epistaxis. Discharge Planning Awaiting clinical improvement. Tylor Wilde DO Dec 14, 2016 10:25
[2016-12-14] MEDS ORDERED: POLYETHYLENE GLYCOL 17 GM PKG PO ONE (10:30)
[2016-12-14] MEDS ORDERED: SODIUM PHOSPHATE INJ 15 MMOL in SODIUM CHLORIDE 0.9% INJ 150 ML IV ONE (11:00)
--- NOTE | 2016-12-14 14:38 | PD.ONC.PN ---
Subjective Subjective Remarks Afebrile overnight. Patient resting comfortably without complaint. Denies bleeding. States pain has been relatively well controlled. Objective Data Date Time Temp Pulse Resp B/P Pulse Ox O2 Delivery O2 Flow Rate FiO2 12/14/16 12:00 97.5 108 16 115/65 98 12/14/16 10:35 97.8 111 16 112/63 96 12/14/16 09:47 16 12/14/16 09:47 16 12/14/16 09:47 16 12/14/16 08:18 16 12/14/16 08:00 98.3 106 16 108/69 94 12/14/16 04:00 99.5 117 19 117/67 93 12/14/16 00:00 99.6 135 19 137/80 95 12/13/16 20:43 99.7 12/13/16 20:00 100.3 134 19 137/74 93 12/13/16 16:00 98.8 105 16 117/83 94 Result Diagram: 12/14/16 0456 12/14/16 0456 Laboratory Results Laboratory Tests Test 12/13/16 12/14/16 12/14/16 20:34 04:56 08:45 White Blood Count 9.0 TH/MM3 9.9 TH/MM3 Red Blood Count 2.82 MIL/MM3 2.78 MIL/MM3 Hemoglobin 8.6 GM/DL 8.6 GM/DL Hematocrit 25.3 % 24.9 % Mean Corpuscular Volume 89.6 FL 89.4 FL Mean Corpuscular Hemoglobin 30.6 PG 31.0 PG Mean Corpuscular Hemoglobin 34.1 % 34.6 % Concent Red Cell Distribution Width 18.8 % 18.8 % Platelet Count 17 TH/MM3 13 TH/MM3 Mean Platelet Volume 9.0 FL 9.5 FL Sodium Level 135 MEQ/L Potassium Level 3.6 MEQ/L Chloride Level 99 MEQ/L Carbon Dioxide Level 28.7 MEQ/L Anion Gap 7 MEQ/L Blood Urea Nitrogen 6 MG/DL Creatinine 0.29 MG/DL Estimat Glomerular Filtration 244 ML/MIN Rate Random Glucose 96 MG/DL Calcium Level 8.1 MG/DL Phosphorus Level 2.0 MG/DL Magnesium Level 2.0 MG/DL Blood Bank Comment Administered Medications Medications (Trade) Dose Ordered Sig/Homero Route PRN Reason Start Time Stop Time Status Last Admin Dose Admin IV Flush (NS Flush) 2 ml UNSCH PRN FLUSH FLUSH AFTER USING IV ACCESS 12/03/16 13:00 12/05/16 06:58 IV Flush (NS Flush) 2 ml BID FLUSH 12/03/16 21:00 12/14/16 08:18 Ondansetron HCl (Zofran Inj) 4 mg Q6HR IV PUSH 12/03/16 18:00 12/14/16 12:04 Metoclopramide HCl (Reglan Inj) 10 mg Q8H PRN IV PUSH NAUSEA 12/03/16 13:00 12/06/16 20:01 Pantoprazole Sodium (Protonix Inj) 40 mg BID IV 12/03/16 21:00 12/14/16 08:17 Padimate O (Chapstick) 1 applic UNSCH PRN TOPICAL DRY LIPS 12/05/16 04:00 12/05/16 04:00 Heparin Sodium (Porcine) (Heparin Central Flush) 250 units UNSCH PRN IVF SEE PROTOCOL TABLE 12/05/16 05:30 12/06/16 20:37 Diphenhydramine HCl (Benadryl) 25 mg Q4H PRN PO BLOOD PRODUCTS 12/05/16 20:45 12/13/16 09:52 Acetaminophen (Tylenol) 650 mg Q4H PRN PO BLOOD PRODUCTS 12/05/16 20:45 12/13/16 09:52 Hydromorphone HCl (Dilaudid) 6 mg Q2HR PRN PO PAIN SCALE 4 TO 10 12/06/16 11:00 12/14/16 12:04 Potassium Phos/ Sodium Phos (K-Phos Neutral) 250 mg TID PO 12/10/16 09:00 12/14/16 12:04 Metoprolol Tartrate (Lopressor) 25 mg Q12HR PO 12/10/16 21:00 12/14/16 08:17 Fentanyl (Duragesic 100 Mcg Patch.72 Hr) 2 patch Q3D TD 12/10/16 17:00 12/13/16 16:18 Miscellaneous Information 1 Q3D TD 12/10/16 17:00 12/13/16 17:00 Oxycodone HCl (OxyCONTIN CR) 80 mg Q12H PO 12/10/16 21:00 12/14/16 08:17 Oxycodone HCl (OxyCONTIN CR) 10 mg Q12H PO 12/10/16 21:00 12/14/16 08:17 Senna/Docusate Sodium (Telma-Colace) 2 tab BID PO 12/11/16 09:00 12/14/16 08:17 Hydromorphone HCl 2 mg 2 mg Q3H PRN IV PUSH BREAKTHROUGH PAIN 12/12/16 16:00 12/14/16 13:04 Sodium Phosphate/ Sodium Chloride (Sodium Phosphate Inj/NS Inj) 155 ml @ 38.75 mls/ hr ONCE ONCE IV 12/14/16 11:00 12/14/16 14:59 12/14/16 12:05 Objective Remarks GENERAL: Chronically ill female, walking around room in [facility]. SKIN: Warm and dry. HEAD: Normocephalic. EYES: No injection or drainage. NECK: Supple, trachea midline. CARDIOVASCULAR: +S1/S2 RESPIRATORY: occasional wheeze. diminished at bases GASTROINTESTINAL: Abdomen soft, non-tender, nondistended. EXTREMITIES: No cyanosis NEUROLOGICAL: awake and alert, normal speech. no obvious focal deficit. Assessment/Plan Problem List: (1) Small cell lung cancer Status: Acute Plan: --follows with an oncologist in [place] --is receiving palliative chemotherapy (likely standard cisplatin or carboplatin along with CREDIT RISK MANAGER-16 every 3-4 weeks) --denies FURNITURE AND BEDDING INSPECTOR mets (2) Thrombocytopenia Status: Acute Plan: --likely bone marrow slow to recover from chemotherapy --medication list reviewed--I don't see any medications that would cause that degree of thrombocytopenia --will check DIC panel --CT ab/pelvis showed normal sized spleen Assessment 51y/o with intractable nausea and vomiting associated with small cell lung cancer diagnosis. history of small cell lung cancer diagnosed in [place] in July of 2016-- metastatic at the time of diagnosis. Plan 1. check DIC panel, monitor CBC 2. transfuse as needed to keep platelets greater than 15K. Attending Statement The exam, history, and the medical decision-making described in the above note were completed with the assistance of the mid-level provider. I reviewed and agree with the findings presented. I attest that I had a [id number] encounter with the patient on the same day, and personally performed and documented my assessment and findings in the medical record. Noted events the past week, persistent thrombocytopenia, hematology recalled. Pt reports previous XRT to pelvis and sternum for metastatic disease. Also reports she was suppose to be on steroids but stopped it before coming into hospital- ? ITP. Empiric trial of steroids Prednisone 20mg BID GI prophylaxis protonix - switch po. Coag normal, unlikely DIC. Check HIT, exposure to UFH. Suspect the chemo most likely contribute with bone marrow slow to recover after XRT. Supportive care. Post transfusion purpura - direct coomb's will be checked. No other meds considered to cause thrombocytopenia. No NSAIDS or ASA, no AL meds. Stop UFH. Check US r/o DVT. Monitor for bleeding. Jessy Hoffmann Dec 14, 2016 14:37 Minoo Schwartz MD Dec 14, 2016 19:49
[2016-12-14] MEDS: ACETAMINOPHEN 325 MG TAB PO PRN (14:47)
[2016-12-14] MEDS: diphenhydrAMINE HCL 25 MG CAP PO PRN (14:48)
[2016-12-14] MEDS: predniSONE 20 MG TAB PO SCH (20:06)
--- NOTE | 2016-12-14 21:07 | RADRPT ---
EXAM DATE/TIME: 12/14/2016 20:20 [place] COMPARISON: No previous studies available for comparison. INDICATIONS : Bilateral leg pain. MEDICAL HISTORY : Carcinoma, lung. Arthritis. Chronic obstructive pulmonary disease. Dyspnea. HTN. Depression. SURGICAL HISTORY : Partial right lung removal. Left ankle surgery. Chemotherapy. Radiation therapy. ENCOUNTER: Initial ACUITY: 1 week PAIN SCORE: 8/10 LOCATION: Bilateral leg. TECHNIQUE: Venous ultrasound of the left and right leg was performed from the inguinal ligament to the proximal calf. Real-time, color Doppler and spectral tracing, compression and augmentation techniques were us ed. FINDINGS: RIGHT LEG: There is normal compressibility of the deep venous system from the inguinal region to the proximal ca lf. No echogenic clot is seen in the lumen of the common femoral, femoral, popliteal, and posterior tibial veins. There is a normal response of the venous system to proximal and distal augmentation an d respiration. LEFT LEG: There is normal compressibility of the deep venous system from the inguinal region to the proximal ca lf. No echogenic clot is seen in the lumen of the common femoral, femoral, popliteal, and posterior tibial veins. There is a normal response of the venous system to proximal and distal augmentation an d respiration. CONCLUSION: No evidence of deep venous thrombosis within the lower extremities. Daniel Culver MD on December 14, 2016 at 21:06 Board Certified Radiologist. This report was verified electronically.
[2016-12-14 21:41] LABS: APTT (PATIENT) 32.7 SEC (24.3-30.1); INTERNATIONAL NORMALIZED RATIO 1.2 RATIO; PROTHROMBIN TIME - PATIENT 13.6 SEC (9.8-11.6)
[2016-12-15] VITALS: BP 135/83; PULSE 118; RESP 20; TEMP 97; O2SAT 92
[2016-12-15] MEDS: HYDROmorphone HCL 2 MG TAB PO PRN ×9 (00:35→21:55)
[2016-12-15] MEDS: HYDROmorphone HCL PF 1 MG/ML VIAL IV PUSH PRN ×2 (01:26→05:18)
[2016-12-15 04:00] VITALS: BP 129/85; PULSE 119; RESP 20; TEMP 96.5; O2SAT 94
[2016-12-15] MEDS: ONDANSETRON HCL 4 MG/2 ML VIAL IV PUSH SCH ×4 (05:20→18:15)
[2016-12-15 07:42] LABS: HEMATOCRIT 25.8 % (35.0-46.0); MEAN CELL VOLUME 90.6 FL (80.0-100.0); MEAN CORPUSCULAR HEMOGLOBIN 29.7 PG (27.0-34.0); MEAN CORPUSCULAR HGB CONC 32.8 % (32.0-36.0); PLATELET COUNT 30 TH/MM3 (150-450); RED BLOOD COUNT 2.85 MIL/MM3 (4.00-5.30); RED CELL DISTRIBUTION WIDTH 18.4 % (11.6-17.2); WHITE BLOOD COUNT 12.3 TH/MM3 (4.0-11.0)
[2016-12-15 07:48] LABS: REVIEW FLAG FINAL
[2016-12-15 08:00] VITALS: BP 112/81; PULSE 102; RESP 18; TEMP 97.2; O2SAT 94
[2016-12-15 08:07] LABS: MAGNESIUM 2.2 MG/DL (1.5-2.5); POTASSIUM 4.1 MEQ/L (3.5-5.1)
[2016-12-15] MEDS: PANTOPRAZOLE SOD 40 MG DELAYED RELEASE TAB PO SCH (08:33)
[2016-12-15] MEDS: DOCUSATE SODIUM 50 MG/SENNA 8.6 MG TAB PO SCH ×2 (08:34→21:48)
[2016-12-15] MEDS: METOPROLOL TARTRATE 25 MG TAB PO SCH ×2 (08:34→21:47)
[2016-12-15] MEDS: oxyCODONE HCL 10 MG CONTROLLED RELEASE TAB PO SCH ×2 (08:36→21:46)
[2016-12-15] MEDS: POTASSIUM PHOSPHATE/SODIUM PHOSPHATE 250 MG TAB PO SCH ×3 (08:36→18:14)
[2016-12-15] MEDS: oxyCODONE HCL 80 MG CONTROLLED RELEASE TAB PO SCH ×2 (08:37→21:47)
[2016-12-15] MEDS: predniSONE 20 MG TAB PO SCH ×2 (08:37→21:00)
[2016-12-15] MEDS: SODIUM CHLORIDE 0.9% FLUSH 5 ML FLUSH FLUSH SCH ×2 (08:38→21:00)
[2016-12-15] MEDS ORDERED: METHYLNALTREXONE BROMIDE 12 MG/0.6 ML VIAL SQ ONE (08:45)
--- NOTE | 2016-12-15 10:05 | PD.ONC.PN ---
Subjective Subjective Remarks Afebrile overnight. No BM in several days. Patient states she is tired of talking about bowel movements. No bleeding. Objective Data Date Time Temp Pulse Resp B/P Pulse Ox O2 Delivery O2 Flow Rate FiO2 12/15/16 08:00 97.2 102 18 112/81 94 12/15/16 06:00 20 12/15/16 04:20 19 12/15/16 04:00 96.5 119 20 129/85 94 12/15/16 00:00 97.0 118 20 135/83 92 12/14/16 22:05 20 12/14/16 22:05 19 12/14/16 20:00 96.7 123 22 152/84 96 12/14/16 16:00 98.2 115 20 111/76 96 12/14/16 15:55 99.2 119 18 127/76 12/14/16 15:10 98.9 117 18 117/74 12/14/16 12:00 97.5 108 16 115/65 98 12/14/16 10:35 97.8 111 16 112/63 96 Result Diagram: 12/15/16 0612 12/15/16 0612 Laboratory Results Laboratory Tests Test 12/14/16 12/15/16 21:00 06:12 Prothrombin Time 13.6 SEC Prothromb Time International 1.2 RATIO Ratio Activated Partial 32.7 SEC Thromboplast Time Fibrinogen 317 mg/dL White Blood Count 12.3 TH/MM3 Red Blood Count 2.85 MIL/MM3 Hemoglobin 8.5 GM/DL Hematocrit 25.8 % Mean Corpuscular Volume 90.6 FL Mean Corpuscular Hemoglobin 29.7 PG Mean Corpuscular Hemoglobin 32.8 % Concent Red Cell Distribution Width 18.4 % Platelet Count 30 TH/MM3 Mean Platelet Volume 9.8 FL Sodium Level 136 MEQ/L Potassium Level 4.1 MEQ/L Chloride Level 100 MEQ/L Carbon Dioxide Level 28.0 MEQ/L Anion Gap 8 MEQ/L Blood Urea Nitrogen 8 MG/DL Creatinine 0.34 MG/DL Estimat Glomerular Filtration 203 ML/MIN Rate Random Glucose 145 MG/DL Calcium Level 8.7 MG/DL Phosphorus Level 2.2 MG/DL Magnesium Level 2.2 MG/DL Lactate Dehydrogenase 3958 U/L Administered Medications Medications (Trade) Dose Ordered Sig/Homero Route PRN Reason Start Time Stop Time Status Last Admin Dose Admin IV Flush (NS Flush) 2 ml UNSCH PRN FLUSH FLUSH AFTER USING IV ACCESS 12/03/16 13:00 12/05/16 06:58 IV Flush (NS Flush) 2 ml BID FLUSH 12/03/16 21:00 12/15/16 08:38 Ondansetron HCl (Zofran Inj) 4 mg Q6HR IV PUSH 12/03/16 18:00 12/14/16 17:09 Metoclopramide HCl (Reglan Inj) 10 mg Q8H PRN IV PUSH NAUSEA 12/03/16 13:00 12/06/16 20:01 Padimate O (Chapstick) 1 applic UNSCH PRN TOPICAL DRY LIPS 12/05/16 04:00 12/05/16 04:00 Diphenhydramine HCl (Benadryl) 25 mg Q4H PRN PO BLOOD PRODUCTS 12/05/16 20:45 12/14/16 14:48 Acetaminophen (Tylenol) 650 mg Q4H PRN PO BLOOD PRODUCTS 12/05/16 20:45 12/14/16 14:47 Hydromorphone HCl (Dilaudid) 6 mg Q2HR PRN PO PAIN SCALE 4 TO 10 12/06/16 11:00 12/15/16 08:36 Potassium Phos/ Sodium Phos (K-Phos Neutral) 250 mg TID PO 12/10/16 09:00 12/15/16 08:36 Metoprolol Tartrate (Lopressor) 25 mg Q12HR PO 12/10/16 21:00 12/15/16 08:34 Fentanyl (Duragesic 100 Mcg Patch.72 Hr) 2 patch Q3D TD 12/10/16 17:00 12/13/16 16:18 Miscellaneous Information 1 Q3D TD 12/10/16 17:00 12/13/16 17:00 Oxycodone HCl (OxyCONTIN CR) 80 mg Q12H PO 12/10/16 21:00 12/15/16 08:37 Oxycodone HCl (OxyCONTIN CR) 10 mg Q12H PO 12/10/16 21:00 12/15/16 08:36 Senna/Docusate Sodium (Telma-Colace) 2 tab BID PO 12/11/16 09:00 12/15/16 08:34 Pantoprazole Sodium (Protonix) 40 mg DAILY PO 12/15/16 09:00 12/15/16 08:33 Prednisone (Deltasone) 20 mg BID PO 12/14/16 21:00 12/15/16 08:37 Objective Remarks GENERAL: Chronically ill female, upright in room in [facility]. SKIN: Warm and dry. HEAD: Normocephalic. EYES: No injection or drainage. NECK: Supple, trachea midline. CARDIOVASCULAR: +S1/S2 RESPIRATORY: diminished at bases. anterior boyd clear. GASTROINTESTINAL: Abdomen soft, non-tender, nondistended. EXTREMITIES: No cyanosis NEUROLOGICAL: awake and alert, normal speech. no obvious focal deficit. Assessment/Plan Problem List: (1) Small cell lung cancer Status: Acute Plan: --follows with an oncologist in [place] --is receiving palliative chemotherapy (likely standard cisplatin or carboplatin along with CERTIFIED REGISTERED NURSE PRACTITIONER-16 every 3-4 weeks) --denies ACLS NURSE mets (2) Thrombocytopenia Status: Acute Plan: --Suspect the chemo most likely contribute with bone marrow slow to recover after XRT. --medication list reviewed--I don't see any medications that would cause that degree of thrombocytopenia --DIC panel negative --CT ab/pelvis showed normal sized spleen --Pt reports previous XRT to pelvis and sternum for metastatic disease. --Also reports she was suppose to be on steroids but stopped it before coming into hospital- ? ITP. --Empiric trial of steroids Prednisone 20mg BID --Check HIT, exposure to UFH--->pending --direct Renate pending No NSAIDS or ASA, no [place] meds. Monitor for bleeding. Assessment 51y/o with intractable nausea and vomiting associated with small cell lung cancer diagnosis. history of small cell lung cancer diagnosed in [place] in July of 2016-- metastatic at the time of diagnosis. Plan 1. await HIT, renate, continue prednisone. 2. transfuse as needed to keep platelets greater than 15K. Attending Statement The exam, history, and the medical decision-making described in the above note were completed with the assistance of the mid-level provider. I reviewed and agree with the findings presented. I attest that I had a [id number] encounter with the patient on the same day, and personally performed and documented my assessment and findings in the medical record. Sitting up in chair coloring. No CP/SOB. No bleeding. Platelet trended up with transfusion. HIT ab pending. Likely slow platelet recovery after the chemotherapy. Continue to monitor. Jessy Hoffmann Dec 15, 2016 10:05 Trever Carolina MD Dec 15, 2016 11:48
[2016-12-15] MEDS: HYDROmorphone HCL PF 2 MG/ML VIAL IV PUSH PRN ×3 (10:26→22:34)
[2016-12-15 12:00] VITALS: BP 118/75; PULSE 102; RESP 18; TEMP 98.1; O2SAT 96
--- NOTE | 2016-12-15 13:59 | HHI.PR ---
Subjective Remarks The patient was ambulating around her room. She is complaining about the food. She said her pain was controlled. Discussed with nursing. Objective Vitals Vital Signs Date Time Temp Pulse Resp B/P Pulse Ox O2 Delivery O2 Flow Rate FiO2 12/15/16 12:00 98.1 102 18 118/75 96 12/15/16 08:00 97.2 102 18 112/81 94 12/15/16 06:00 20 12/15/16 04:20 19 12/15/16 04:00 96.5 119 20 129/85 94 12/15/16 00:00 97.0 118 20 135/83 92 12/14/16 22:05 20 12/14/16 22:05 19 12/14/16 20:00 96.7 123 22 152/84 96 12/14/16 16:00 98.2 115 20 111/76 96 12/14/16 15:55 99.2 119 18 127/76 12/14/16 15:10 98.9 117 18 117/74 I/O 12/14/16 12/14/16 12/14/16 12/15/16 12/15/16 12/15/16 07:00 15:00 23:00 07:00 15:00 23:00 Intake Total 240 ml 960 ml 240 ml 480 ml Balance 240 ml 960 ml 240 ml 480 ml Intake Oral 240 ml 960 ml 240 ml 480 ml # Voids 2 4 1 2 # Bowel Movements 0 Result Diagram: 12/15/16 0612 12/15/16 0612 Imaging Last Impressions Lower Extremity Ultrasound 12/14/16 0000 Signed Impressions: Service Date/Time: Wednesday, December 14, 2016 20:20 - CONCLUSION: No evidence of deep venous thrombosis within the lower extremities. Daniel Culver MD Shoulder X-Ray 12/12/16 0000 Signed Impressions: Service Date/Time: Monday, December 12, 2016 14:47 - CONCLUSION: 1. Mild osteoarthritis as described above. Anibal Quigley MD Humerus X-Ray 12/12/16 0000 Signed Impressions: Service Date/Time: Monday, December 12, 2016 14:54 - CONCLUSION: Probable pathologic fracture right humeral neck Anibal Quigley MD Abdomen X-Ray 12/09/16 0000 Signed Impressions: Service Date/Time: Friday, December 09, 2016 23:00 - CONCLUSION: 1. Moderate constipation. No acute findings. Magdiel Cuevas MD Lumbar Spine MRI 12/05/16 0000 Signed Impressions: Service Date/Time: Monday, December 05, 2016 12:58 - CONCLUSION: 1. MR findings characteristic of extensive metastatic disease to the lower thoracic, the entire lumbar and the entire sacral spine as well as the pelvis. 2. Multilevel degenerative disc disease with disc bulges most prominent at L1-2 and L4-5. There is moderate central spinal stenosis at L4-5 with no central nerve root compromise. 3. Left posterior lateral component of the L4-5 disc abuts up against the left L4 nerve root after it leaves the neural foramina. Clinical significance of this is uncertain. 4. Neural foramina appear to be adequate at all remaining levels despite the aforementioned degenerative changes. Cristian Tate MD Abdomen/Pelvis CT 12/03/16 0933 Signed Impressions: Service Date/Time: Saturday, December 03, 2016 10:34 - CONCLUSION: 1. Nondisplaced fracture of the transverse process of L2. 2. No findings to indicate bowel obstruction are seen. 3. There are scattered low-attenuation lesions throughout the liver these are probably simple cysts however they are indeterminate in appearance and metastatic disease cannot be entirely excluded. If prior imaging is available these would be of benefit for direct comparison. If not, MRI imaging could be performed for more definitive assessment. Adam Aldana MD Chest X-Ray 12/03/16 0000 Signed Impressions: Service Date/Time: Saturday, December 03, 2016 11:23 - CONCLUSION: 1. No acute cardiopulmonary process. 2. Mottled appearance of the proximal right humerus. There may be an associated old fracture deformity as well. Cannot exclude chronic inflammation/infection or metastatic disease. Cristian Tate MD Brain MRI 12/03/16 0000 Signed Impressions: Service Date/Time: Saturday, December 03, 2016 19:52 - CONCLUSION: 1. Chronic white matter changes bilaterally characteristic of ischemic demyelinization. 2. No evidence of a mass within the substance of the brain. 3. Nonspecific enhancement of the marrow of the calvarium. Bony metastatic disease would be a consideration. If clinically indicated, recommend a whole body bone scan for further evaluation. Fernando Diaz MD Objective Remarks GENERAL: Appears comfortable. She is alert and oriented 3. SKIN: Warm and dry. HEAD: Normocephalic. EYES: No scleral icterus. No injection or drainage. NECK: Supple, trachea midline. No JVD. CARDIOVASCULAR: Regular rate and rhythm without murmurs, gallops, or rubs. RESPIRATORY: Breath sounds equal bilaterally. No accessory muscle use. GASTROINTESTINAL: Abdomen is distended. Positive bowel sounds. No rebound or guarding. MUSCULOSKELETAL: No cyanosis, or edema. Tenderness to palpation of left collarbone, left shoulder, left humerus. BACK: Nontender without obvious deformity. No CVA tenderness. PSYCH: Mood and affect appropriate. Medications and IVs Current Medications Medications (Trade) Dose Ordered Sig/Homero Route Start Time Stop Time Status Last Admin (NS Flush) 2 ml UNSCH PRN FLUSH 12/03/16 13:00 12/05/16 06:58 (NS Flush) 2 ml BID FLUSH 12/03/16 21:00 12/15/16 08:38 (Narcan Inj) 0.4 mg UNSCH PRN IV 12/03/16 13:00 (Zofran Inj) 4 mg Q6HR IV PUSH 12/03/16 18:00 12/15/16 12:14 (Reglan Inj) 10 mg Q8H PRN IV PUSH 12/03/16 13:00 12/06/16 20:01 (Compazine Inj) 10 mg Q6H PRN IVS 12/03/16 19:00 (Vasotec Inj) 1.25 mg Q6H PRN IV PUSH 12/03/16 21:45 (Chapstick) 1 applic UNSCH PRN TOPICAL 12/05/16 04:00 12/05/16 04:00 (Benadryl) 25 mg Q4H PRN PO 12/05/16 20:45 12/14/16 14:48 (Tylenol) 650 mg Q4H PRN PO 12/05/16 20:45 12/14/16 14:47 (Dilaudid) 6 mg Q2HR PRN PO 12/06/16 11:00 12/15/16 12:16 (Pill Splitter) 1 ea UNSCH PRN OTHER 12/07/16 08:45 (K-Phos Neutral) 250 mg TID PO 12/10/16 09:00 12/15/16 12:15 (Lopressor) 25 mg Q12HR PO 12/10/16 21:00 12/15/16 08:34 (Duragesic 100 Mcg Patch.72 Hr) 2 patch Q3D TD 12/10/16 17:00 12/13/16 16:18 Miscellaneous Information 1 Q3D TD 12/10/16 17:00 12/13/16 17:00 (OxyCONTIN CR) 80 mg Q12H PO 12/10/16 21:00 12/15/16 08:37 (OxyCONTIN CR) 10 mg Q12H PO 12/10/16 21:00 12/15/16 08:36 (Telma-Colace) 2 tab BID PO 12/11/16 09:00 12/15/16 08:34 (Protonix) 40 mg DAILY PO 12/15/16 09:00 12/15/16 08:33 (Deltasone) 20 mg BID PO 12/14/16 21:00 12/15/16 08:37 (Dilaudid Pf Inj) 2 mg Q6HR PRN IV PUSH 12/15/16 12:00 12/15/16 10:26 A/P Assessment and Plan Thrombocytopenia Chemo induced. Has had epistaxis. Appreciate oncology input. Negative for DIC. Duplex LE negative. - follow CBC and transfuse as needed. Transfused additional unit of platelets . Stable 12/15. - HIT panel pending. - prednisone trial per oncology. Anemia of malignancy Transfused 2 units. Stable. - follow CBC and transfuse as needed. Chronic right shoulder/ Low back pain/ Left upper extremity pain L2 transverse process fracture noted. MRI findings characteristic of extensive metastatic disease to the lower thoracic, the entire lumbar and the entire sacral spine as well as the pelvis; Multilevel degenerative disc disease with disc bulges most prominent at L1-2 and L4-5; There is moderate central spinal stenosis at L4-5 with no central nerve root compromise; Left posterior lateral component of the L4-5 disc abuts up against the left L4 nerve root after it leaves the neural foramina; Clinical significance of this is uncertain. Pathologic fracture of right humerus noted. - pain control with OxyContin 80 mg twice daily, increased fentanyl patch to 200 g, Dilaudid PO and IV for breakthrough. Nausea and vomiting Resolved. Pt has not been eating well. - added Ensure to meals. - Miralax for constipation. 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 Palliative care consult appreciated. - continue pain control with a bowel regimen. - Continue scheduled IV Zofran with as needed Compazine. - Oncology input appreciated. - change status to DNR. - follow up with palliative care. Hypophosphatemia Started on standing supplements. - continue IV phos as needed. - follow labs. Epigastric pain CT abdomen reviewed, no obvious cause of acute pain. Could be from liver lesions. Gastroenterology consulted. Patient refused EGD. - We'll continue PPI. - Pain control. Tobacco abuse Cessation strongly advised. Room frequently smells of smoke. - Counseling provided. DVT prophylaxis. SCDs. We'll continue to hold AC secondary to anemia, epistaxis. Discharge Planning Awaiting clinical improvement. Tylor Wilde DO Dec 15, 2016 13:59
[2016-12-15 16:00] VITALS: BP 125/90; PULSE 106; RESP 18; TEMP 97; O2SAT 96
[2016-12-15] MEDS ORDERED: SODIUM PHOSPHATE INJ 15 MMOL in SODIUM CHLORIDE 0.9% INJ 150 ML IV ONE (16:00)
[2016-12-15 20:00] VITALS: BP 162/105; PULSE 133; RESP 24; TEMP 96.6; O2SAT 94
[2016-12-15] MEDS ORDERED: HYDROmorphone HCL PF 2 MG/ML VIAL IV PUSH ONE (20:00)
[2016-12-16] VITALS (9 sets, daily range): BP systolic 116–168; BP diastolic 56–91; PULSE 97–155; RESP 16–20; TEMP 96.5–98.7; O2SAT 91–99
[2016-12-16] MEDS: HYDROmorphone HCL 2 MG TAB PO PRN ×8 (00:01→22:33)
[2016-12-16] MEDS: HYDROmorphone HCL PF 2 MG/ML VIAL IV PUSH PRN ×3 (04:37→21:31)
[2016-12-16 04:51] LABS: HEMATOCRIT 22.9 % (35.0-46.0); MEAN CELL VOLUME 90.7 FL (80.0-100.0); MEAN CORPUSCULAR HEMOGLOBIN 30.1 PG (27.0-34.0); MEAN CORPUSCULAR HGB CONC 33.2 % (32.0-36.0); RED BLOOD COUNT 2.53 MIL/MM3 (4.00-5.30); RED CELL DISTRIBUTION WIDTH 18.7 % (11.6-17.2); WHITE BLOOD COUNT 10.2 TH/MM3 (4.0-11.0)
[2016-12-16 05:04] LABS: PLATELET COUNT 14 TH/MM3 (150-450); REVIEW FLAG FINAL
[2016-12-16 05:19] LABS: MAGNESIUM 2.1 MG/DL (1.5-2.5); POTASSIUM 4.2 MEQ/L (3.5-5.1)
[2016-12-16] MEDS: ONDANSETRON HCL 4 MG/2 ML VIAL IV PUSH SCH ×4 (06:00→18:00)
[2016-12-16] MEDS: predniSONE 20 MG TAB PO SCH ×2 (07:54→20:10)
[2016-12-16] MEDS: oxyCODONE HCL 10 MG CONTROLLED RELEASE TAB PO SCH (07:55)
[2016-12-16] MEDS: oxyCODONE HCL 80 MG CONTROLLED RELEASE TAB PO SCH ×2 (07:55→20:10)
[2016-12-16] MEDS: METOPROLOL TARTRATE 25 MG TAB PO SCH ×2 (07:56→20:11)
[2016-12-16] MEDS: PANTOPRAZOLE SOD 40 MG DELAYED RELEASE TAB PO SCH (07:57)
[2016-12-16] MEDS: DOCUSATE SODIUM 50 MG/SENNA 8.6 MG TAB PO SCH ×2 (07:57→20:11)
[2016-12-16] MEDS: POTASSIUM PHOSPHATE/SODIUM PHOSPHATE 250 MG TAB PO SCH ×3 (07:57→17:19)
[2016-12-16] MEDS ORDERED: SODIUM CHLOR 0.9% 250 ML INJ 250 ML IV ONE (08:30)
[2016-12-16] MEDS: SODIUM CHLORIDE 0.9% FLUSH 5 ML FLUSH FLUSH SCH ×2 (09:00→20:12)
--- NOTE | 2016-12-16 10:31 | PD.ONC.PN ---
Subjective Subjective Remarks Afebrile overnight. Patient resting comfortably without complaint. No bleeding. Objective Data Date Time Temp Pulse Resp B/P Pulse Ox O2 Delivery O2 Flow Rate FiO2 12/16/16 08:00 96.5 97 16 134/83 93 12/16/16 06:15 20 12/16/16 05:30 19 12/16/16 04:00 98.0 106 18 123/83 91 12/16/16 00:00 98.7 106 18 129/91 93 12/15/16 23:00 20 12/15/16 23:00 20 12/15/16 21:00 20 12/15/16 20:00 96.6 133 24 162/105 94 12/15/16 16:00 97.0 106 18 125/90 96 12/15/16 12:00 98.1 102 18 118/75 96 12/16/16 12/16/16 12/16/16 07:00 15:00 23:00 Intake Total 480 ml Balance 480 ml Result Diagram: 12/16/16 0445 12/16/16 0445 Laboratory Results Laboratory Tests Test 12/16/16 12/16/16 04:45 08:26 White Blood Count 10.2 TH/MM3 Red Blood Count 2.53 MIL/MM3 Hemoglobin 7.6 GM/DL Hematocrit 22.9 % Mean Corpuscular Volume 90.7 FL Mean Corpuscular Hemoglobin 30.1 PG Mean Corpuscular Hemoglobin 33.2 % Concent Red Cell Distribution Width 18.7 % Platelet Count 14 TH/MM3 Mean Platelet Volume 9.1 FL Sodium Level 137 MEQ/L Potassium Level 4.2 MEQ/L Chloride Level 101 MEQ/L Carbon Dioxide Level 28.0 MEQ/L Anion Gap 8 MEQ/L Blood Urea Nitrogen 9 MG/DL Creatinine 0.29 MG/DL Estimat Glomerular Filtration 244 ML/MIN Rate Random Glucose 140 MG/DL Calcium Level 8.3 MG/DL Phosphorus Level 2.5 MG/DL Magnesium Level 2.1 MG/DL Blood Bank Comment Administered Medications Medications (Trade) Dose Ordered Sig/Homero Route PRN Reason Start Time Stop Time Status Last Admin Dose Admin IV Flush (NS Flush) 2 ml UNSCH PRN FLUSH FLUSH AFTER USING IV ACCESS 12/03/16 13:00 12/05/16 06:58 IV Flush (NS Flush) 2 ml BID FLUSH 12/03/16 21:00 12/15/16 21:00 Ondansetron HCl (Zofran Inj) 4 mg Q6HR IV PUSH 12/03/16 18:00 12/15/16 18:15 Metoclopramide HCl (Reglan Inj) 10 mg Q8H PRN IV PUSH NAUSEA 12/03/16 13:00 12/06/16 20:01 Padimate O (Chapstick) 1 applic UNSCH PRN TOPICAL DRY LIPS 12/05/16 04:00 12/05/16 04:00 Diphenhydramine HCl (Benadryl) 25 mg Q4H PRN PO BLOOD PRODUCTS 12/05/16 20:45 12/14/16 14:48 Acetaminophen (Tylenol) 650 mg Q4H PRN PO BLOOD PRODUCTS 12/05/16 20:45 12/14/16 14:47 Hydromorphone HCl (Dilaudid) 6 mg Q2HR PRN PO PAIN SCALE 4 TO 10 12/06/16 11:00 12/16/16 07:56 Potassium Phos/ Sodium Phos (K-Phos Neutral) 250 mg TID PO 12/10/16 09:00 12/16/16 07:57 Metoprolol Tartrate (Lopressor) 25 mg Q12HR PO 12/10/16 21:00 12/16/16 07:56 Fentanyl (Duragesic 100 Mcg Patch.72 Hr) 2 patch Q3D TD 12/10/16 17:00 12/13/16 16:18 Miscellaneous Information 1 Q3D TD 12/10/16 17:00 12/13/16 17:00 Oxycodone HCl (OxyCONTIN CR) 80 mg Q12H PO 12/10/16 21:00 12/16/16 07:55 Oxycodone HCl (OxyCONTIN CR) 10 mg Q12H PO 12/10/16 21:00 12/16/16 07:55 Senna/Docusate Sodium (Telma-Colace) 2 tab BID PO 12/11/16 09:00 12/16/16 07:57 Pantoprazole Sodium (Protonix) 40 mg DAILY PO 12/15/16 09:00 12/16/16 07:57 Prednisone (Deltasone) 20 mg BID PO 12/14/16 21:00 12/16/16 07:54 Hydromorphone HCl (Dilaudid Pf Inj) 2 mg Q6HR PRN IV PUSH BREAKTHROUGH PAIN 12/15/16 12:00 12/16/16 04:37 Objective Remarks GENERAL: Chronically ill female, supine in bed, sleeping on approach. SKIN: Warm and dry. HEAD: Normocephalic. EYES: No injection or drainage. NECK: Supple, trachea midline. CARDIOVASCULAR: +S1/S2 RESPIRATORY: anterior boyd clear. GASTROINTESTINAL: Abdomen soft, non-tender, nondistended. 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 --medication list reviewed--I don't see any medications that would cause that degree of thrombocytopenia --DIC panel negative --CT ab/pelvis showed normal sized spleen --Pt reports previous XRT to pelvis and sternum for metastatic disease. --Also reports she was suppose to be on steroids but stopped it before coming into hospital- ? ITP. --Empiric trial of steroids Prednisone 20mg BID --Check HIT, exposure to UFH--->pending --direct Tylor negative No NSAIDS or ASA, no NH meds. Monitor for bleeding. Assessment 51y/o with intractable nausea and vomiting associated with small cell lung cancer diagnosis. history of small cell lung cancer diagnosed in [place] in July of 2016-- metastatic at the time of diagnosis. Plan 1. await HIT, continue prednisone. 2. give 1 unit platelets, 1 unit pRBC Attending Statement The exam, history, and the medical decision-making described in the above note were completed with the assistance of the mid-level provider. I reviewed and agree with the findings presented. I attest that I had a [id number] encounter with the patient on the same day, and personally performed and documented my assessment and findings in the medical record. Blood counts still low. Transfuse PRBC and platelet today. HIT ab pending. May need bone marrow biopsy if counts do not improve soon. Jessy Hoffmann Dec 16, 2016 10:31 Trever Carolina MD Dec 16, 2016 11:58
[2016-12-16] MEDS: ACETAMINOPHEN 325 MG TAB PO PRN (11:33)
[2016-12-16] MEDS: diphenhydrAMINE HCL 25 MG CAP PO PRN (11:33)
--- NOTE | 2016-12-16 13:52 | HHI.PR ---
Subjective Remarks The patient said that her pain was 6 out of 10. We discussed pain control. She was about to get another unit of blood. She was trying to eat a hamburger. Family at the bedside. Discussed with nursing. Objective Vitals Vital Signs Date Time Temp Pulse Resp B/P Pulse Ox O2 Delivery O2 Flow Rate FiO2 12/16/16 13:35 98.0 107 18 148/89 95 12/16/16 12:42 98.1 112 20 116/56 96 12/16/16 12:11 96.7 116 16 119/62 12/16/16 08:00 96.5 97 16 134/83 93 12/16/16 06:15 20 12/16/16 05:30 19 12/16/16 04:00 98.0 106 18 123/83 91 12/16/16 00:00 98.7 106 18 129/91 93 12/15/16 23:00 20 12/15/16 23:00 20 12/15/16 21:00 20 12/15/16 20:00 96.6 133 24 162/105 94 12/15/16 16:00 97.0 106 18 125/90 96 I/O 12/15/16 12/15/16 12/15/16 12/16/16 12/16/16 12/16/16 07:00 15:00 23:00 07:00 15:00 23:00 Intake Total 480 ml 480 ml 240 ml 480 ml Balance 480 ml 480 ml 240 ml 480 ml Intake Oral 480 ml 480 ml 240 ml 480 ml # Voids 2 5 2 3 # Bowel Movements 0 Result Diagram: 12/16/16 0445 12/16/16 0445 Imaging Last Impressions Lower Extremity Ultrasound 12/14/16 0000 Signed Impressions: Service Date/Time: Wednesday, December 14, 2016 20:20 - CONCLUSION: No evidence of deep venous thrombosis within the lower extremities. Daniel Culver MD Shoulder X-Ray 12/12/16 0000 Signed Impressions: Service Date/Time: Monday, December 12, 2016 14:47 - CONCLUSION: 1. Mild osteoarthritis as described above. Anibal Quigley MD Humerus X-Ray 12/12/16 0000 Signed Impressions: Service Date/Time: Monday, December 12, 2016 14:54 - CONCLUSION: Probable pathologic fracture right humeral neck Anibal Quigley MD Abdomen X-Ray 12/09/16 0000 Signed Impressions: Service Date/Time: Friday, December 09, 2016 23:00 - CONCLUSION: 1. Moderate constipation. No acute findings. Magdiel Cuevas MD Lumbar Spine MRI 12/05/16 0000 Signed Impressions: Service Date/Time: Monday, December 05, 2016 12:58 - CONCLUSION: 1. MR findings characteristic of extensive metastatic disease to the lower thoracic, the entire lumbar and the entire sacral spine as well as the pelvis. 2. Multilevel degenerative disc disease with disc bulges most prominent at L1-2 and L4-5. There is moderate central spinal stenosis at L4-5 with no central nerve root compromise. 3. Left posterior lateral component of the L4-5 disc abuts up against the left L4 nerve root after it leaves the neural foramina. Clinical significance of this is uncertain. 4. Neural foramina appear to be adequate at all remaining levels despite the aforementioned degenerative changes. Cristian Tate MD Abdomen/Pelvis CT 12/03/16 0933 Signed Impressions: Service Date/Time: Saturday, December 03, 2016 10:34 - CONCLUSION: 1. Nondisplaced fracture of the transverse process of L2. 2. No findings to indicate bowel obstruction are seen. 3. There are scattered low-attenuation lesions throughout the liver these are probably simple cysts however they are indeterminate in appearance and metastatic disease cannot be entirely excluded. If prior imaging is available these would be of benefit for direct comparison. If not, MRI imaging could be performed for more definitive assessment. Adam Aldana MD Chest X-Ray 12/03/16 0000 Signed Impressions: Service Date/Time: Saturday, December 03, 2016 11:23 - CONCLUSION: 1. No acute cardiopulmonary process. 2. Mottled appearance of the proximal right humerus. There may be an associated old fracture deformity as well. Cannot exclude chronic inflammation/infection or metastatic disease. Cristian Tate MD Brain MRI 12/03/16 0000 Signed Impressions: Service Date/Time: Saturday, December 03, 2016 19:52 - CONCLUSION: 1. Chronic white matter changes bilaterally characteristic of ischemic demyelinization. 2. No evidence of a mass within the substance of the brain. 3. Nonspecific enhancement of the marrow of the calvarium. Bony metastatic disease would be a consideration. If clinically indicated, recommend a whole body bone scan for further evaluation. Fernando Diaz MD Objective Remarks GENERAL: Appears comfortable. She is alert and oriented 3. SKIN: Warm and dry. HEAD: Normocephalic. EYES: No scleral icterus. No injection or drainage. NECK: Supple, trachea midline. No JVD. CARDIOVASCULAR: Regular rate and rhythm without murmurs, gallops, or rubs. RESPIRATORY: Breath sounds equal bilaterally. No accessory muscle use. GASTROINTESTINAL: Abdomen is distended. Positive bowel sounds. No rebound or guarding. MUSCULOSKELETAL: No cyanosis, or edema. Tenderness to palpation of left collarbone, left shoulder, left humerus. BACK: Nontender without obvious deformity. No CVA tenderness. PSYCH: Mood and affect appropriate. Medications and IVs Current Medications Medications (Trade) Dose Ordered Sig/Homero Route Start Time Stop Time Status Last Admin (NS Flush) 2 ml UNSCH PRN FLUSH 12/03/16 13:00 12/05/16 06:58 (NS Flush) 2 ml BID FLUSH 12/03/16 21:00 12/16/16 09:00 (Narcan Inj) 0.4 mg UNSCH PRN IV 12/03/16 13:00 (Zofran Inj) 4 mg Q6HR IV PUSH 12/03/16 18:00 12/15/16 18:15 (Reglan Inj) 10 mg Q8H PRN IV PUSH 12/03/16 13:00 12/06/16 20:01 (Compazine Inj) 10 mg Q6H PRN IVS 12/03/16 19:00 (Vasotec Inj) 1.25 mg Q6H PRN IV PUSH 12/03/16 21:45 (Chapstick) 1 applic UNSCH PRN TOPICAL 12/05/16 04:00 12/05/16 04:00 (Benadryl) 25 mg Q4H PRN PO 12/05/16 20:45 12/16/16 11:33 (Tylenol) 650 mg Q4H PRN PO 12/05/16 20:45 12/16/16 11:33 (Dilaudid) 6 mg Q2HR PRN PO 12/06/16 11:00 12/16/16 12:28 (Pill Splitter) 1 ea UNSCH PRN OTHER 12/07/16 08:45 (K-Phos Neutral) 250 mg TID PO 12/10/16 09:00 12/16/16 11:33 (Lopressor) 25 mg Q12HR PO 12/10/16 21:00 12/16/16 07:56 (Duragesic 100 Mcg Patch.72 Hr) 2 patch Q3D TD 12/10/16 17:00 12/13/16 16:18 Miscellaneous Information 1 Q3D TD 12/10/16 17:00 12/13/16 17:00 (OxyCONTIN CR) 80 mg Q12H PO 12/10/16 21:00 12/16/16 07:55 (OxyCONTIN CR) 10 mg Q12H PO 12/10/16 21:00 12/16/16 07:55 (Telma-Colace) 2 tab BID PO 12/11/16 09:00 12/16/16 07:57 (Protonix) 40 mg DAILY PO 12/15/16 09:00 12/16/16 07:57 (Deltasone) 20 mg BID PO 12/14/16 21:00 12/16/16 07:54 Hydromorphone HCl 2 mg 2 mg Q6HR PRN IV PUSH 12/15/16 12:00 12/16/16 04:37 (NS 250 ml Inj) 250 ml @ 15 mls/hr ONCE ONCE IV 12/16/16 08:30 12/17/16 01:09 A/P Assessment and Plan Thrombocytopenia Chemo induced. Has had epistaxis. Appreciate oncology input. Not consistent with DIC. Duplex LE negative. - follow CBC and transfuse as needed. Will transfuse an additional unit of platelets 12/16. - HIT panel pending. - prednisone trial per oncology. Anemia of malignancy Hemoglobin has been decreasing. - follow CBC and transfuse as needed. Transfuse 1 unit PRBCs 12/16. Chronic right shoulder/ Low back pain/ Left upper extremity pain L2 transverse process fracture noted. MRI findings characteristic of extensive metastatic disease to the lower thoracic, the entire lumbar and the entire sacral spine as well as the pelvis; Multilevel degenerative disc disease with disc bulges most prominent at L1-2 and L4-5; There is moderate central spinal stenosis at L4-5 with no central nerve root compromise; Left posterior lateral component of the L4-5 disc abuts up against the left L4 nerve root after it leaves the neural foramina; Clinical significance of this is uncertain. Pathologic fracture of right humerus noted. - pain control with OxyContin 1000 mg twice daily, increased fentanyl patch to 200 g, Dilaudid PO and IV for breakthrough. Nausea and vomiting Resolved. Pt has not been eating well. - added Ensure to meals. - Miralax for constipation. 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 Palliative care consult appreciated. - continue pain control with a bowel regimen. - Continue scheduled IV Zofran with as needed Compazine. - Oncology input appreciated. - change status to DNR. - follow up with palliative care. Hypophosphatemia Started on standing supplements. - continue IV phos as needed. - follow labs. Stable 12/16. Epigastric pain CT abdomen reviewed, no obvious cause of acute pain. Could be from liver lesions. Gastroenterology consulted. Patient refused EGD. - We'll continue PPI. - Pain control. Tobacco abuse Cessation strongly advised. Room frequently smells of smoke. - Counseling provided. DVT prophylaxis. SCDs. We'll continue to hold AC secondary to anemia, epistaxis. Discharge Planning Awaiting clinical improvement. Tylor Wilde DO Dec 16, 2016 13:52
[2016-12-16] MEDS ORDERED: oxyCODONE HCL 10 MG CONTROLLED RELEASE TAB PO ONE (14:00)
[2016-12-16 14:06] LABS: HEPARIN INDUCED PLATELET AB NEGATIVE (NEGATIVE)
[2016-12-16] MEDS: [UNRECOGNIZED DRUG - OTHER] TD SCH (17:00)
[2016-12-16] MEDS: fentaNYL 100 MCG/HR PATCH TD SCH (17:20)
[2016-12-16] MEDS: oxyCODONE HCL 20 MG CONTROLLED RELEASE TAB PO SCH (20:10)
[2016-12-17] VITALS (10 sets, daily range): BP systolic 114–150; BP diastolic 61–84; PULSE 91–136; RESP 18–24; TEMP 96–99.3; O2SAT 92–96
[2016-12-17] MEDS: ONDANSETRON HCL 4 MG/2 ML VIAL IV PUSH SCH ×5 (00:42→23:32)
[2016-12-17] MEDS: HYDROmorphone HCL 2 MG TAB PO PRN ×9 (00:46→23:33)
[2016-12-17] MEDS: HYDROmorphone HCL PF 2 MG/ML VIAL IV PUSH PRN ×4 (03:35→22:40)
[2016-12-17 07:58] LABS: AUTOMATED NEUTROPHIL # 8.2 TH/MM3 (1.8-7.7); BASOPHIL % 0.4 % (0.0-2.0); EOSINOPHIL % 0.1 % (0.0-4.0); LYMPH % 2.1 % (9.0-44.0); LYMPHOCYTE # 0.2 TH/MM3 (1.0-4.8); MEAN CELL VOLUME 89.8 FL (80.0-100.0); MEAN CORPUSCULAR HEMOGLOBIN 29.5 PG (27.0-34.0); MEAN CORPUSCULAR HGB CONC 32.9 % (32.0-36.0); MONO % 4.6 % (0.0-8.0); NEUT % 92.8 % (16.0-70.0); RED BLOOD COUNT 2.67 MIL/MM3 (4.00-5.30); RED CELL DISTRIBUTION WIDTH 18.7 % (11.6-17.2); WHITE BLOOD COUNT 8.8 TH/MM3 (4.0-11.0)
[2016-12-17 08:04] LABS: HEMO FLAGS AUTO DIFF
[2016-12-17 08:10] LABS: PLATELET COUNT 8 TH/MM3 (150-450)
[2016-12-17] MEDS: DOCUSATE SODIUM 50 MG/SENNA 8.6 MG TAB PO SCH ×2 (08:22→20:52)
[2016-12-17] MEDS: POTASSIUM PHOSPHATE/SODIUM PHOSPHATE 250 MG TAB PO SCH ×3 (08:22→17:06)
[2016-12-17] MEDS: PANTOPRAZOLE SOD 40 MG DELAYED RELEASE TAB PO SCH (08:23)
[2016-12-17] MEDS: predniSONE 20 MG TAB PO SCH ×2 (08:23→20:59)
[2016-12-17] MEDS: METOPROLOL TARTRATE 25 MG TAB PO SCH ×2 (08:23→20:53)
[2016-12-17] MEDS: oxyCODONE HCL 20 MG CONTROLLED RELEASE TAB PO SCH (08:24)
[2016-12-17] MEDS: oxyCODONE HCL 80 MG CONTROLLED RELEASE TAB PO SCH ×2 (08:24→20:53)
[2016-12-17] MEDS: SODIUM CHLORIDE 0.9% FLUSH 5 ML FLUSH FLUSH SCH ×2 (08:27→20:54)
[2016-12-17] MEDS ORDERED: diphenhydrAMINE HCL 25 MG CAP PO PRN (08:30)
[2016-12-17] MEDS ORDERED: ACETAMINOPHEN 325 MG TAB PO PRN (08:30)
[2016-12-17] MEDS ORDERED: SODIUM CHLOR 0.9% 250 ML INJ 250 ML IV ONE (08:30)
[2016-12-17] MEDS: LACTULOSE SYRUP 20 GM/30 ML CUP PO SCH ×3 (08:30→17:06)
--- NOTE | 2016-12-17 08:41 | PD.ONC.PN ---
Subjective Subjective Remarks Afebrile overnight. Patient had nose bleed this AM. No bowel movement in several days. No abdominal pain. Objective Data Date Time Temp Pulse Resp B/P Pulse Ox O2 Delivery O2 Flow Rate FiO2 12/17/16 07:13 18 12/17/16 04:03 18 12/17/16 04:00 98.1 108 19 119/83 94 12/17/16 00:00 97.7 136 22 140/76 94 12/16/16 21:10 18 12/16/16 21:10 18 12/16/16 20:00 98.6 155 20 168/89 99 12/16/16 15:30 98.4 107 18 131/74 97 12/16/16 15:30 98.4 107 18 131/74 97 12/16/16 13:57 98.2 103 16 123/64 98 12/16/16 13:35 98.0 107 18 148/89 95 12/16/16 12:42 98.1 112 20 116/56 96 12/16/16 12:11 96.7 116 16 119/62 Result Diagram: 12/17/16 0618 12/16/16 0445 Laboratory Results Laboratory Tests Test 12/16/16 12/17/16 10:00 06:18 Blood Type O POSITIVE Antibody Screen NEGATIVE Crossmatch Leukocyte-Reduced Red Blood Cells Blood Bank Comment White Blood Count 8.8 TH/MM3 Red Blood Count 2.67 MIL/MM3 Hemoglobin 7.9 GM/DL Hematocrit 24.0 % Mean Corpuscular Volume 89.8 FL Mean Corpuscular Hemoglobin 29.5 PG Mean Corpuscular Hemoglobin 32.9 % Concent Red Cell Distribution Width 18.7 % Platelet Count 8 TH/MM3 Mean Platelet Volume 9.8 FL Neutrophils (%) (Auto) 92.8 % Lymphocytes (%) (Auto) 2.1 % Monocytes (%) (Auto) 4.6 % Eosinophils (%) (Auto) 0.1 % Basophils (%) (Auto) 0.4 % Neutrophils # (Auto) 8.2 TH/MM3 Lymphocytes # (Auto) 0.2 TH/MM3 Monocytes # (Auto) 0.4 TH/MM3 Eosinophils # (Auto) 0.0 TH/MM3 Basophils # (Auto) 0.0 TH/MM3 CBC Comment AUTO DIFF Administered Medications Medications (Trade) Dose Ordered Sig/Homero Route PRN Reason Start Time Stop Time Status Last Admin Dose Admin IV Flush (NS Flush) 2 ml UNSCH PRN FLUSH FLUSH AFTER USING IV ACCESS 12/03/16 13:00 12/05/16 06:58 IV Flush (NS Flush) 2 ml BID FLUSH 12/03/16 21:00 12/17/16 08:27 Ondansetron HCl (Zofran Inj) 4 mg Q6HR IV PUSH 12/03/16 18:00 12/17/16 06:13 Metoclopramide HCl (Reglan Inj) 10 mg Q8H PRN IV PUSH NAUSEA 12/03/16 13:00 12/06/16 20:01 Padimate O (Chapstick) 1 applic UNSCH PRN TOPICAL DRY LIPS 12/05/16 04:00 12/05/16 04:00 Diphenhydramine HCl (Benadryl) 25 mg Q4H PRN PO BLOOD PRODUCTS 12/05/16 20:45 12/16/16 11:33 Acetaminophen (Tylenol) 650 mg Q4H PRN PO BLOOD PRODUCTS 12/05/16 20:45 12/16/16 11:33 Hydromorphone HCl (Dilaudid) 6 mg Q2HR PRN PO PAIN SCALE 4 TO 10 12/06/16 11:00 12/17/16 08:25 Potassium Phos/ Sodium Phos (K-Phos Neutral) 250 mg TID PO 12/10/16 09:00 12/17/16 08:22 Metoprolol Tartrate (Lopressor) 25 mg Q12HR PO 12/10/16 21:00 12/17/16 08:23 Fentanyl (Duragesic 100 Mcg Patch.72 Hr) 2 patch Q3D TD 12/10/16 17:00 12/16/16 17:20 Miscellaneous Information 1 Q3D TD 12/10/16 17:00 12/16/16 17:00 Senna/Docusate Sodium (Telma-Colace) 2 tab BID PO 12/11/16 09:00 12/17/16 08:22 Pantoprazole Sodium (Protonix) 40 mg DAILY PO 12/15/16 09:00 12/17/16 08:23 Prednisone (Deltasone) 20 mg BID PO 12/14/16 21:00 12/17/16 08:23 Hydromorphone HCl (Dilaudid Pf Inj) 2 mg Q6HR PRN IV PUSH BREAKTHROUGH PAIN 12/15/16 12:00 12/17/16 03:35 Oxycodone HCl (OxyCONTIN CR) 20 mg Q12HR PO 12/16/16 21:00 12/17/16 08:24 Oxycodone HCl (OxyCONTIN CR) 80 mg Q12HR PO 12/16/16 21:00 12/17/16 08:24 Objective Remarks GENERAL: Chronically ill female, sitting up in bed, has a tissue in her hand with a few dots of blood on it from nose bleed. SKIN: Warm and dry. HEAD: Normocephalic. EYES: No injection or drainage. NECK: Supple, trachea midline. CARDIOVASCULAR: +S1/S2 RESPIRATORY: diminished at bases, anterior boyd with occasional rhonchi GASTROINTESTINAL: Abdomen soft, non-tender, nondistended. EXTREMITIES: No cyanosis or edema. Assessment/Plan Problem List: (1) Small cell lung cancer Status: Acute Plan: --follows with an oncologist in [place] --is receiving palliative chemotherapy (likely standard cisplatin or carboplatin along with FLUID PUMP OPERATOR-16 every 3-4 weeks) --denies STAFF ELECTRICAL ENGINEER mets (2) Thrombocytopenia Status: Acute Plan: 12/17: will obtain bone marrow biopsy in invasive radiology, patient with persistent thrombocytopenia. --Suspect the chemo most likely contribute with bone marrow slow to recover after XRT. --medication list reviewed--I don't see any medications that would cause that degree of thrombocytopenia --DIC panel negative --CT ab/pelvis showed normal sized spleen --Pt reports previous XRT to pelvis and sternum for metastatic disease. --Also reports she was suppose to be on steroids but stopped it before coming into hospital- ? ITP. --Empiric trial of steroids Prednisone 20mg BID --Check HIT, exposure to UFH--->negative --direct Tylor negative No NSAIDS or ASA, no ME meds. Monitor for bleeding. Assessment 51y/o with intractable nausea and vomiting associated with small cell lung cancer diagnosis. history of small cell lung cancer diagnosed in [place] in July of 2016-- metastatic at the time of diagnosis. Plan 1. give 2 unit platelets 2. bone marrow biopsy in invasive radiology today 3. monitor CBC, monitor bleeding Attending Statement The exam, history, and the medical decision-making described in the above note were completed with the assistance of the mid-level provider. I reviewed and agree with the findings presented. I attest that I had a [id number] encounter with the patient on the same day, and personally performed and documented my assessment and findings in the medical record. Pt seen and examined. Reclining in evening napping. Denies any bleeding, still in pain. Discussed evaluation for thrombocytopenia, concern for bone marrow production problem, possible due to XRT leading to fibrosis Continue support, early for MDS but in differential. Bone marrow biopsy tomorrow. Jessy Hoffmann Dec 17, 2016 08:40 Minoo Schwartz MD Dec 17, 2016 19:11
[2016-12-17 09:20] LABS: BANDS 44 % (0-6); CORRECTED NUCLEATED RBC 1 /100 WBC (0-0); METAMYELOCYTES 4 % (0-1); MYELOCYTES 3 % (0-0); NEUTROPHIL # MANUAL DIFF 8.6 TH/MM3 (1.8-7.7); POLYS (SEG NEUTROPHILS) 47 % (16-70); WBC DIFF SAMPLE 100
[2016-12-17 09:21] LABS: KERATOCYTES OCC (NORMAL); TEARDROP RBCS 1+ (NORMAL)
[2016-12-17 09:22] LABS: PLATELET ESTIMATE SMEAR RARE (NORMAL); PLATELET MORPHOLOGY NORMAL (NORMAL); SCAN/DIFF FINAL DIFF MANUAL
[2016-12-17] MEDS: diphenhydrAMINE HCL 25 MG CAP PO PRN (11:27)
[2016-12-17] MEDS: ACETAMINOPHEN 325 MG TAB PO PRN (11:28)
[2016-12-17 11:46] LABS: INDIRECT BILIRUBIN 0.3 MG/DL (0.0-0.8); TOTAL BILIRUBIN ADULT 0.5 MG/DL (0.2-1.0)
--- NOTE | 2016-12-17 14:34 | HHI.HCPN ---
Reason for visit a. To assist with evaluation and management of symptoms including: pain b. To assist medical decision maker(s) with: better understanding of current medical conditions; weighing benefits/burdens of medical treatment options; making medical treatment decisions. . Subjective/Interval History This 51-year-old female was diagnosed with small cell lung cancer. Patient over the weekend decided to change code status to DNR. Pt last 24 hours of pain medicine includes: Oxycontin CR 100 mg q 12 hours atc. (started 12/16/16, previously was 90 mg) Fentanyl 200 mcg q 72 Dilaudid 2 mg iv q 6 hours prn pain ( pt has had 4 doses the past 24 hours). Dilaudid 6 mg q 2 hours prn pain. (Pt has had 10 doses the past 24 hours). Plt level down to 8. On my visit Pt endorse 7/10 most at the back, and right humerus pain. She is amenable to increase long acting oxycontin. She is anxious to get bone marrow biopsy done. She reaffirmed DNR status, but want to continue treatment if possible. I ask her if spouse is aware of the change in code status, and she stated yes. She did say she is a little bit sleepy, but that she just took her dilaudid. Reviewed with her the fine line in pain control and sedation. She states she would like better control with the pain. Family/friend interactions none at bedside today Advance Directives Living Will: Never completed Health Care Surrogate: Never completed Durable Power of Catalyst Plant Supervisor: Never completed Objective Vital Signs Date Time Temp Pulse Resp B/P Pulse Ox O2 Delivery O2 Flow Rate FiO2 12/17/16 12:50 96.0 103 20 114/61 95 12/17/16 12:27 97.2 101 20 124/81 95 12/17/16 11:50 97.2 101 20 124/81 95 12/17/16 07:50 96.1 110 20 146/79 93 12/17/16 07:13 18 12/17/16 04:03 18 12/17/16 04:00 98.1 108 19 119/83 94 12/17/16 00:00 97.7 136 22 140/76 94 12/16/16 21:10 18 12/16/16 21:10 18 12/16/16 20:00 98.6 155 20 168/89 99 12/16/16 15:30 98.4 107 18 131/74 97 12/16/16 15:30 98.4 107 18 131/74 97 Physical Exam CONSTITUTIONAL/GENERAL: This is an adequately nourished patient who appears chronically ill, and she has some visible discomfort when she moves her torso in certain ways. TUBES/LINES/DRAINS: Peripheral IV SKIN: She is pale. No jaundice, rashes, or lesions. No wounds seen anteriorly. Skin temperature appropriate. Not diaphoretic. ENT: Hearing grossly normal. Nose without bleeding or purulent drainage. Throat without visible erythema, exudates, masses, or lesions. NECK: Trachea midline. Supple, nontender. No palpable thyroid enlargement or nodularity. CARDIOVASCULAR: Regular rate and rhythm without murmurs, gallops, or rubs. No JVD. Peripheral pulses symmetric. RESPIRATORY/CHEST: Symmetric, unlabored respirations. There are scattered rhonchi bilaterally GASTROINTESTINAL: Abdomen soft, non-tender, nondistended. No hepato-splenomegaly , or palpable masses. No guarding. Bowel sounds present. MUSCULOSKELETAL: Extremities without clubbing, cyanosis. There is some edema about the right proximal humerus (overlying the fx), and some tenderness there. No calf tenderness. No mottling or clubbing. NEUROLOGICAL: Awake and alert. Motor and sensory grossly within normal limits. Follows commands. Cognitively sharp. Moves all extremities. PSYCHIATRIC: No obvious anxiety/depression. no apparent hallucinations or other psychotic thought process. . Diagnostic Tests Laboratory Laboratory Tests Test 12/14/16 12/15/16 12/15/16 12/16/16 21:00 06:12 10:15 04:45 Prothrombin Time 13.6 SEC (9.8-11.6) Prothromb Time International 1.2 RATIO Ratio Activated Partial 32.7 SEC Thromboplast Time (24.3-30.1) Fibrinogen 317 mg/dL (227-377) Heparin-Induced Platelet Ab NEGATIVE (Stephanie) (NEGATIVE) HIPA Patient Optical Density 0.080 O.D. (0.000-0.300) White Blood Count 12.3 TH/MM3 10.2 TH/MM3 (4.0-11.0) (4.0-11.0) Red Blood Count 2.85 MIL/MM3 2.53 MIL/MM3 (4.00-5.30) (4.00-5.30) Hemoglobin 8.5 GM/DL 7.6 GM/DL (11.6-15.3) (11.6-15.3) Hematocrit 25.8 % 22.9 % (35.0-46.0) (35.0-46.0) Mean Corpuscular Volume 90.6 FL 90.7 FL (80.0-100.0) (80.0-100.0) Mean Corpuscular Hemoglobin 29.7 PG 30.1 PG (27.0-34.0) (27.0-34.0) Mean Corpuscular Hemoglobin 32.8 % 33.2 % Concent (32.0-36.0) (32.0-36.0) Red Cell Distribution Width 18.4 % 18.7 % (11.6-17.2) (11.6-17.2) Platelet Count 30 TH/MM3 14 TH/MM3 (150-450) (150-450) Mean Platelet Volume 9.8 FL 9.1 FL (7.0-11.0) (7.0-11.0) Blood Smear Pathologist Review Sodium Level 136 MEQ/L 137 MEQ/L (136-145) (136-145) Potassium Level 4.1 MEQ/L 4.2 MEQ/L (3.5-5.1) (3.5-5.1) Chloride Level 100 MEQ/L 101 MEQ/L (98-107) (98-107) Carbon Dioxide Level 28.0 MEQ/L 28.0 MEQ/L (21.0-32.0) (21.0-32.0) Anion Gap 8 MEQ/L (5-15) 8 MEQ/L (5-15) Blood Urea Nitrogen 8 MG/DL (7-18) 9 MG/DL (7-18) Creatinine 0.34 MG/DL 0.29 MG/DL (0.50-1.00) (0.50-1.00) Estimat Glomerular Filtration 203 ML/MIN 244 ML/MIN Rate (>89) (>89) Random Glucose 145 MG/DL 140 MG/DL (74-106) (74-106) Calcium Level 8.7 MG/DL 8.3 MG/DL (8.5-10.1) (8.5-10.1) Phosphorus Level 2.2 MG/DL 2.5 MG/DL (2.5-4.9) (2.5-4.9) Magnesium Level 2.2 MG/DL 2.1 MG/DL (1.5-2.5) (1.5-2.5) Lactate Dehydrogenase 3958 U/L (84-246) Blood Type O POSITIVE Direct Antiglobulin Test NEGATIVE (Tylor) (NEGATIVE) Test 12/16/16 12/16/16 12/17/16 12/17/16 08:26 10:00 06:18 08:32 Blood Bank Comment Blood Type O POSITIVE Antibody Screen NEGATIVE Crossmatch Leukocyte-Reduced Red Blood Cells White Blood Count 8.8 TH/MM3 (4.0-11.0) Red Blood Count 2.67 MIL/MM3 (4.00-5.30) Hemoglobin 7.9 GM/DL (11.6-15.3) Hematocrit 24.0 % (35.0-46.0) Mean Corpuscular Volume 89.8 FL (80.0-100.0) Mean Corpuscular Hemoglobin 29.5 PG (27.0-34.0) Mean Corpuscular Hemoglobin 32.9 % Concent (32.0-36.0) Red Cell Distribution Width 18.7 % (11.6-17.2) Platelet Count 8 TH/MM3 (150-450) Mean Platelet Volume 9.8 FL (7.0-11.0) Neutrophils (%) (Auto) 92.8 % (16.0-70.0) Lymphocytes (%) (Auto) 2.1 % (9.0-44.0) Monocytes (%) (Auto) 4.6 % (0.0-8.0) Eosinophils (%) (Auto) 0.1 % (0.0-4.0) Basophils (%) (Auto) 0.4 % (0.0-2.0) Neutrophils # (Auto) 8.2 TH/MM3 (1.8-7.7) Lymphocytes # (Auto) 0.2 TH/MM3 (1.0-4.8) Monocytes # (Auto) 0.4 TH/MM3 (0-0.9) Eosinophils # (Auto) 0.0 TH/MM3 (0-0.4) Basophils # (Auto) 0.0 TH/MM3 (0-0.2) CBC Comment AUTO DIFF Differential Total Cells 100 Counted Neutrophils % (Manual) 47 % (16-70) Band Neutrophils % 44 % (0-6) Monocytes % 2 % (0-8) Neutrophils # (Manual) 8.6 TH/MM3 (1.8-7.7) Metamyelocytes 4 % (0-1) Myelocytes 3 % (0-0) Nucleated Red Blood Cells 1 /100 WBC (0-0) Differential Comment FINAL DIFF MANUAL Platelet Estimate RARE (NORMAL) Platelet Morphology Comment NORMAL (NORMAL) Tear Drop Cells 1+ (NORMAL) Keratocytes OCC (NORMAL) Test 12/17/16 10:32 Haptoglobin 208 MG/DL (30-200) Total Bilirubin 0.5 MG/DL (0.2-1.0) Direct Bilirubin 0.2 MG/DL (0.0-0.2) Indirect Bilirubin 0.3 MG/DL (0.0-0.8) Aspartate Amino Transf 78 U/L (15-37) (AST/SGOT) Alanine Aminotransferase 17 U/L (10-53) (ALT/SGPT) Alkaline Phosphatase 144 U/L (45-117) Lactate Dehydrogenase 3190 U/L (84-246) Total Protein 6.0 GM/DL (6.4-8.2) Albumin 2.7 GM/DL (3.4-5.0) Result Diagram: 12/17/16 0618 12/16/16 0445 Assessment and Plan Disease Oriented Problem List: (1) metastatic small cell lung cancer, extensive disease, widespread bony metastases (2) pain, worsening, secondary to widespread bony metastases (3) chemotherapy-induced anemia and thrombocytopenia (4) hospitalization for nausea/vomiting, likely chemotherapy-induced (5) epistaxis, intermittent (6) history of right proximal humerus fracture Symptom Scale: (1) pain 0-10 Scale: 6 (her fentanyl and oxycodone have been increased) Pertinent Non-Medical Issues Psychosocial: , unemployed, 5 children living in [place]. Spiritual: Unaffiliated [employer] who does not desire wellness coordinator visits. Legal: The patient has capacity for decision making. When she loses that capacity, her will be her proxy decision maker. Ethical issues impacting care: None . Important Contacts : Lai Gleasonyaron [phone] . Prognosis This patient is terminal, likely with weeks or months to live due to her extensive stage lung cancer. She is appropriate for hospice services when she makes the decision to stop chemotherapy and further aggressive care. . Code Status: No Code Plan * DNR * GOALS: She is hoping to live "a little little while longer," and she is hoping that more chemotherapy will help that. She wants to get her pain under control, get out of the hospital, and continue aggressive care. When it is apparent that her disease is progressing, she says she will stop chemotherapy and would be open to hospice services at that time. She reaffirms DNR status today. * DECISION-MAKING: The patient has capacity for decision making. When she loses that capacity, her will be her proxy decision maker. * SYMPTOMS: Pain, bony mets, right arm (fracture):Pt oxycontine increase by 10 mg recently. Will increase it by another 20 mg. continue oxycontine 120 mg q 12 hours, dilaudid IV and po prn, fentanyl. pain. I anticipate I will continue to need to increase pain meds, but need to wait for long acting build up. Per pt, oncology will start steroids. * Palliative Care will continue to follow the patient during this hospitalization. . Jovon Schneider MD Dec 17, 2016 14:34
--- NOTE | 2016-12-17 16:10 | HHI.PR ---
Subjective Remarks The patient was being seen by palliative care. She had questions about her pain medications. Otherwise she had no acute complaints. Discussed with nursing and oncology. Objective Vitals Vital Signs Date Time Temp Pulse Resp B/P Pulse Ox O2 Delivery O2 Flow Rate FiO2 12/17/16 14:50 99.3 94 18 123/65 95 12/17/16 14:26 97.4 91 20 118/75 96 12/17/16 12:50 96.0 103 20 114/61 95 12/17/16 12:27 97.2 101 20 124/81 95 12/17/16 11:50 97.2 101 20 124/81 95 12/17/16 07:50 96.1 110 20 146/79 93 12/17/16 07:13 18 12/17/16 04:03 18 12/17/16 04:00 98.1 108 19 119/83 94 12/17/16 00:00 97.7 136 22 140/76 94 12/16/16 21:10 18 12/16/16 21:10 18 12/16/16 20:00 98.6 155 20 168/89 99 I/O 12/16/16 12/16/16 12/16/16 12/17/16 12/17/16 12/17/16 07:00 15:00 23:00 07:00 15:00 23:00 Intake Total 480 ml 400 ml 1200 ml 240 ml Balance 480 ml 400 ml 1200 ml 240 ml Intake Oral 480 ml 1200 ml 240 ml Packed Cells 350 ml FFP 50 ml # Voids 3 7 3 # Bowel Movements 0 0 Result Diagram: 12/17/16 0618 12/16/16 0445 Imaging Last Impressions Lower Extremity Ultrasound 12/14/16 0000 Signed Impressions: Service Date/Time: Wednesday, December 14, 2016 20:20 - CONCLUSION: No evidence of deep venous thrombosis within the lower extremities. Daniel Culver MD Shoulder X-Ray 12/12/16 0000 Signed Impressions: Service Date/Time: Monday, December 12, 2016 14:47 - CONCLUSION: 1. Mild osteoarthritis as described above. Anibal Quigley MD Humerus X-Ray 12/12/16 0000 Signed Impressions: Service Date/Time: Monday, December 12, 2016 14:54 - CONCLUSION: Probable pathologic fracture right humeral neck Anibal Quigley MD Abdomen X-Ray 12/09/16 0000 Signed Impressions: Service Date/Time: Friday, December 09, 2016 23:00 - CONCLUSION: 1. Moderate constipation. No acute findings. Magdiel Cuevas MD Lumbar Spine MRI 12/05/16 0000 Signed Impressions: Service Date/Time: Monday, December 05, 2016 12:58 - CONCLUSION: 1. MR findings characteristic of extensive metastatic disease to the lower thoracic, the entire lumbar and the entire sacral spine as well as the pelvis. 2. Multilevel degenerative disc disease with disc bulges most prominent at L1-2 and L4-5. There is moderate central spinal stenosis at L4-5 with no central nerve root compromise. 3. Left posterior lateral component of the L4-5 disc abuts up against the left L4 nerve root after it leaves the neural foramina. Clinical significance of this is uncertain. 4. Neural foramina appear to be adequate at all remaining levels despite the aforementioned degenerative changes. Cristian Tate MD Abdomen/Pelvis CT 12/03/16 0933 Signed Impressions: Service Date/Time: Saturday, December 03, 2016 10:34 - CONCLUSION: 1. Nondisplaced fracture of the transverse process of L2. 2. No findings to indicate bowel obstruction are seen. 3. There are scattered low-attenuation lesions throughout the liver these are probably simple cysts however they are indeterminate in appearance and metastatic disease cannot be entirely excluded. If prior imaging is available these would be of benefit for direct comparison. If not, MRI imaging could be performed for more definitive assessment. Adam Aldana MD Chest X-Ray 12/03/16 0000 Signed Impressions: Service Date/Time: Saturday, December 03, 2016 11:23 - CONCLUSION: 1. No acute cardiopulmonary process. 2. Mottled appearance of the proximal right humerus. There may be an associated old fracture deformity as well. Cannot exclude chronic inflammation/infection or metastatic disease. Cristian Tate MD Brain MRI 12/03/16 0000 Signed Impressions: Service Date/Time: Saturday, December 03, 2016 19:52 - CONCLUSION: 1. Chronic white matter changes bilaterally characteristic of ischemic demyelinization. 2. No evidence of a mass within the substance of the brain. 3. Nonspecific enhancement of the marrow of the calvarium. Bony metastatic disease would be a consideration. If clinically indicated, recommend a whole body bone scan for further evaluation. Fernando Diaz MD Objective Remarks GENERAL: Appears comfortable. She is alert and oriented 3. SKIN: Warm and dry. HEAD: Normocephalic. EYES: No scleral icterus. No injection or drainage. NECK: Supple, trachea midline. No JVD. CARDIOVASCULAR: Regular rate and rhythm without murmurs, gallops, or rubs. RESPIRATORY: Breath sounds equal bilaterally. No accessory muscle use. GASTROINTESTINAL: Abdomen is distended. Positive bowel sounds. No rebound or guarding. MUSCULOSKELETAL: No cyanosis, or edema. Tenderness to palpation of left collarbone, left shoulder, left humerus. BACK: Nontender without obvious deformity. No CVA tenderness. PSYCH: Mood and affect appropriate. Medications and IVs Current Medications Medications (Trade) Dose Ordered Sig/Homero Route Start Time Stop Time Status Last Admin (NS Flush) 2 ml UNSCH PRN FLUSH 12/03/16 13:00 12/05/16 06:58 (NS Flush) 2 ml BID FLUSH 12/03/16 21:00 12/17/16 08:27 (Narcan Inj) 0.4 mg UNSCH PRN IV 12/03/16 13:00 (Zofran Inj) 4 mg Q6HR IV PUSH 12/03/16 18:00 12/17/16 11:29 (Reglan Inj) 10 mg Q8H PRN IV PUSH 12/03/16 13:00 12/06/16 20:01 (Compazine Inj) 10 mg Q6H PRN IVS 12/03/16 19:00 (Vasotec Inj) 1.25 mg Q6H PRN IV PUSH 12/03/16 21:45 (Chapstick) 1 applic UNSCH PRN TOPICAL 12/05/16 04:00 12/05/16 04:00 (Benadryl) 25 mg Q4H PRN PO 12/05/16 20:45 12/17/16 11:27 (Tylenol) 650 mg Q4H PRN PO 12/05/16 20:45 12/17/16 11:28 (Dilaudid) 6 mg Q2HR PRN PO 12/06/16 11:00 12/17/16 14:04 (Pill Splitter) 1 ea UNSCH PRN OTHER 12/07/16 08:45 (K-Phos Neutral) 250 mg TID PO 12/10/16 09:00 12/17/16 08:22 (Lopressor) 25 mg Q12HR PO 12/10/16 21:00 12/17/16 08:23 (Duragesic 100 Mcg Patch.72 Hr) 2 patch Q3D TD 12/10/16 17:00 12/16/16 17:20 Miscellaneous Information 1 Q3D TD 12/10/16 17:00 12/16/16 17:00 (Telma-Colace) 2 tab BID PO 12/11/16 09:00 12/17/16 08:22 (Protonix) 40 mg DAILY PO 12/15/16 09:00 12/17/16 08:23 (Deltasone) 20 mg BID PO 12/14/16 21:00 12/17/16 08:23 Hydromorphone HCl 2 mg 2 mg Q6HR PRN IV PUSH 12/15/16 12:00 12/17/16 09:53 (NS 250 ml Inj) 250 ml @ 15 mls/hr ONCE ONCE IV 12/17/16 08:30 12/18/16 01:09 12/17/16 12:25 (Lactulose Liq) 30 ml TID PO 12/17/16 09:00 (OxyCONTIN CR) 80 mg Q12HR PO 12/17/16 21:00 (OxyCONTIN CR) 40 mg Q12HR PO 12/17/16 21:00 A/P Assessment and Plan Thrombocytopenia Chemo induced. Has had epistaxis. Appreciate oncology input. Not consistent with DIC. Duplex LE negative. HIT panel negative. - follow CBC and transfuse as needed. Will transfuse an additional unit of platelets 12/17. - prednisone trial per oncology. - bone marrow biopsy pending. Anemia of malignancy Hemoglobin has been decreasing. - follow CBC and transfuse as needed. Transfuse 1 unit PRBCs 12/16. Chronic right shoulder/ Low back pain/ Left upper extremity pain L2 transverse process fracture noted. MRI findings characteristic of extensive metastatic disease to the lower thoracic, the entire lumbar and the entire sacral spine as well as the pelvis; Multilevel degenerative disc disease with disc bulges most prominent at L1-2 and L4-5; There is moderate central spinal stenosis at L4-5 with no central nerve root compromise; Left posterior lateral component of the L4-5 disc abuts up against the left L4 nerve root after it leaves the neural foramina; Clinical significance of this is uncertain. Pathologic fracture of right humerus noted. - pain control being adjusted by palliative care. Nausea and vomiting Resolved. Pt has not been eating well. - added Ensure to meals. - Miralax for constipation. 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 Palliative care consult appreciated. - continue pain control with a bowel regimen. - Continue scheduled IV Zofran with as needed Compazine. - Oncology input appreciated. - change status to DNR. - follow up with palliative care. Hypophosphatemia Started on standing supplements. - continue IV phos as needed. - follow labs. Stable 12/16. Epigastric pain CT abdomen reviewed, no obvious cause of acute pain. Could be from liver lesions. Gastroenterology consulted. Patient refused EGD. - We'll continue PPI. - Pain control. Tobacco abuse Cessation strongly advised. Room frequently smells of smoke. - Counseling provided. DVT prophylaxis. SCDs. We'll continue to hold AC secondary to anemia, epistaxis. Discharge Planning Awaiting clinical improvement. Tylor Wilde DO Dec 17, 2016 16:09
[2016-12-17 20:45] LABS: HEMATOCRIT 23.9 % (35.0-46.0); MEAN CELL VOLUME 88.6 FL (80.0-100.0); MEAN CORPUSCULAR HEMOGLOBIN 30.3 PG (27.0-34.0); MEAN CORPUSCULAR HGB CONC 34.2 % (32.0-36.0); PLATELET COUNT 36 TH/MM3 (150-450); RED CELL DISTRIBUTION WIDTH 18.5 % (11.6-17.2)
[2016-12-17] MEDS ORDERED: HYDROmorphone HCL PF 1 MG/ML VIAL IV PUSH ONE (20:45)
[2016-12-17 20:46] LABS: REVIEW FLAG FINAL
[2016-12-17] MEDS: oxyCODONE HCL 40 MG CONTROLLED RELEASE TAB PO SCH (20:53)
[2016-12-18] VITALS (8 sets, daily range): BP systolic 128–145; BP diastolic 62–90; PULSE 79–125; RESP 16–20; TEMP 96.3–98.7; O2SAT 91–96
[2016-12-18] MEDS: HYDROmorphone HCL 2 MG TAB PO PRN ×5 (02:47→18:08)
[2016-12-18] MEDS: HYDROmorphone HCL PF 2 MG/ML VIAL IV PUSH PRN ×2 (04:45→10:53)
[2016-12-18] MEDS: ONDANSETRON HCL 4 MG/2 ML VIAL IV PUSH SCH ×4 (06:15→23:18)
[2016-12-18 06:49] LABS: AUTOMATED NEUTROPHIL # 11.5 TH/MM3 (1.8-7.7); BASOPHIL % 0.3 % (0.0-2.0); EOSINOPHIL % 0.2 % (0.0-4.0); HEMATOCRIT 24.6 % (35.0-46.0); LYMPH % 2.6 % (9.0-44.0); LYMPHOCYTE # 0.3 TH/MM3 (1.0-4.8); MEAN CORPUSCULAR HEMOGLOBIN 29.7 PG (27.0-34.0); MEAN CORPUSCULAR HGB CONC 33.4 % (32.0-36.0); MONO % 3.8 % (0.0-8.0); NEUT % 93.1 % (16.0-70.0); PLATELET COUNT 24 TH/MM3 (150-450); RED BLOOD COUNT 2.77 MIL/MM3 (4.00-5.30); RED CELL DISTRIBUTION WIDTH 18.3 % (11.6-17.2); WHITE BLOOD COUNT 12.3 TH/MM3 (4.0-11.0)
[2016-12-18 06:58] LABS: HEMO FLAGS AUTO DIFF
[2016-12-18 07:00] LABS: ANION GAP 8 MEQ/L (5-15); AST (GOT) 144 U/L (15-37); BICARBONATE 28.7 MEQ/L (21.0-32.0); BLOOD UREA NITROGEN 11 MG/DL (7-18); CHLORIDE 101 MEQ/L (98-107); GLOMERULAR FILTRATION RATE 164 ML/MIN (>89); POTASSIUM 4.2 MEQ/L (3.5-5.1); SODIUM (NA) 138 MEQ/L (136-145)
[2016-12-18 07:03] LABS: ALKALINE PHOSPHATASE 152 U/L (45-117); ALT (GPT) 29 U/L (10-53); TOTAL BILIRUBIN ADULT 0.6 MG/DL (0.2-1.0)
[2016-12-18 07:15] LABS: RETIC % 1.5 % (0.4-3.0)
[2016-12-18 07:23] LABS: REVIEW FLAG FINAL
[2016-12-18 08:21] LABS: BANDS 10 % (0-6); METAMYELOCYTES 16 % (0-1); MYELOCYTES 4 % (0-0); NEUTROPHIL # MANUAL DIFF 9.5 TH/MM3 (1.8-7.7); PLATELET ESTIMATE SMEAR LOW (NORMAL); PLATELET MORPHOLOGY NORMAL (NORMAL); POLYS (SEG NEUTROPHILS) 47 % (16-70); SCAN/DIFF FINAL DIFF MANUAL; WBC DIFF SAMPLE 100
[2016-12-18] MEDS: oxyCODONE HCL 40 MG CONTROLLED RELEASE TAB PO SCH ×2 (09:03→20:23)
[2016-12-18] MEDS: oxyCODONE HCL 80 MG CONTROLLED RELEASE TAB PO SCH ×2 (09:03→20:23)
[2016-12-18] MEDS: METOPROLOL TARTRATE 25 MG TAB PO SCH ×2 (09:10→20:23)
[2016-12-18] MEDS ORDERED: HYDROmorphone HCL PF 1 MG/ML VIAL IV PUSH ONE (11:00)
--- NOTE | 2016-12-18 11:02 | HHI.HCPN ---
Reason for visit a. To assist with evaluation and management of symptoms including: pain b. To assist medical decision maker(s) with: better understanding of current medical conditions; weighing benefits/burdens of medical treatment options; making medical treatment decisions. . Subjective/Interval History Pt had plt transfusion. Pt pain is worse today 04/25. Pt also had a painful night. Pain is worse in the back and the legs, sharp, aching. Amenable to increase IV pain meds. Pt schedule for biopsy. I had a conversation with pt. Told pt that if pt's plt remains low, and pt continue to require transfusion, and low plt does not resovlve, she would not be a candidate for further treatment. Discussed hospice consideration. She states she would consider it and understands. She is amenable to continue biopsy and find out cause. Pt's was at bedside. Family/friend interactions Met with , he had no questions. Advance Directives Living Will: Never completed Health Care Surrogate: Never completed Durable Power of Biodiesel Plant Superintendent: Never completed Objective Vital Signs Date Time Temp Pulse Resp B/P Pulse Ox O2 Delivery O2 Flow Rate FiO2 12/18/16 08:00 97.3 79 18 137/62 95 12/18/16 07:15 18 12/18/16 05:15 15 12/18/16 04:00 97.3 108 18 133/87 92 12/18/16 00:00 98.7 125 20 145/84 93 12/17/16 21:37 18 12/17/16 21:37 18 12/17/16 21:37 18 12/17/16 20:00 97.2 135 24 150/81 96 12/17/16 15:30 98.0 91 20 125/84 92 12/17/16 14:50 99.3 94 18 123/65 95 12/17/16 14:26 97.4 91 20 118/75 96 12/17/16 12:50 96.0 103 20 114/61 95 12/17/16 12:27 97.2 101 20 124/81 95 12/17/16 11:50 97.2 101 20 124/81 95 Physical Exam CONSTITUTIONAL/GENERAL: This is an adequately nourished patient who appears chronically ill, and she has more discomfort when she moves her torso in certain ways. TUBES/LINES/DRAINS: Peripheral IV SKIN: She is pale. No jaundice, rashes, or lesions. No wounds seen anteriorly. Skin temperature appropriate. Not diaphoretic. ENT: Hearing grossly normal. Nose without bleeding or purulent drainage. Throat without visible erythema, exudates, masses, or lesions. NECK: Trachea midline. Supple, nontender. No palpable thyroid enlargement or nodularity. CARDIOVASCULAR: Regular rate and rhythm without murmurs, gallops, or rubs. No JVD. Peripheral pulses symmetric. RESPIRATORY/CHEST: Symmetric, unlabored respirations. There are scattered rhonchi bilaterally GASTROINTESTINAL: Abdomen soft, non-tender, nondistended. No hepato-splenomegaly , or palpable masses. No guarding. Bowel sounds present. MUSCULOSKELETAL: Extremities without clubbing, cyanosis. There is some edema about the right proximal humerus (overlying the fx), and some tenderness there. No calf tenderness. No mottling or clubbing. NEUROLOGICAL: Awake and alert. Motor and sensory grossly within normal limits. Follows commands. Cognitively sharp. Moves all extremities. PSYCHIATRIC: More anxious.. . Diagnostic Tests Laboratory Laboratory Tests Test 12/16/16 12/16/16 12/16/16 12/17/16 04:45 08:26 10:00 06:18 White Blood Count 10.2 TH/MM3 8.8 TH/MM3 (4.0-11.0) (4.0-11.0) Red Blood Count 2.53 MIL/MM3 2.67 MIL/MM3 (4.00-5.30) (4.00-5.30) Hemoglobin 7.6 GM/DL 7.9 GM/DL (11.6-15.3) (11.6-15.3) Hematocrit 22.9 % 24.0 % (35.0-46.0) (35.0-46.0) Mean Corpuscular Volume 90.7 FL 89.8 FL (80.0-100.0) (80.0-100.0) Mean Corpuscular Hemoglobin 30.1 PG 29.5 PG (27.0-34.0) (27.0-34.0) Mean Corpuscular Hemoglobin 33.2 % 32.9 % Concent (32.0-36.0) (32.0-36.0) Red Cell Distribution Width 18.7 % 18.7 % (11.6-17.2) (11.6-17.2) Platelet Count 14 TH/MM3 8 TH/MM3 (150-450) (150-450) Mean Platelet Volume 9.1 FL 9.8 FL (7.0-11.0) (7.0-11.0) Sodium Level 137 MEQ/L (136-145) Potassium Level 4.2 MEQ/L (3.5-5.1) Chloride Level 101 MEQ/L (98-107) Carbon Dioxide Level 28.0 MEQ/L (21.0-32.0) Anion Gap 8 MEQ/L (5-15) Blood Urea Nitrogen 9 MG/DL (7-18) Creatinine 0.29 MG/DL (0.50-1.00) Estimat Glomerular Filtration 244 ML/MIN Rate (>89) Random Glucose 140 MG/DL (74-106) Calcium Level 8.3 MG/DL (8.5-10.1) Phosphorus Level 2.5 MG/DL (2.5-4.9) Magnesium Level 2.1 MG/DL (1.5-2.5) Blood Bank Comment Blood Type O POSITIVE Antibody Screen NEGATIVE Crossmatch Leukocyte-Reduced Red Blood Cells Neutrophils (%) (Auto) 92.8 % (16.0-70.0) Lymphocytes (%) (Auto) 2.1 % (9.0-44.0) Monocytes (%) (Auto) 4.6 % (0.0-8.0) Eosinophils (%) (Auto) 0.1 % (0.0-4.0) Basophils (%) (Auto) 0.4 % (0.0-2.0) Neutrophils # (Auto) 8.2 TH/MM3 (1.8-7.7) Lymphocytes # (Auto) 0.2 TH/MM3 (1.0-4.8) Monocytes # (Auto) 0.4 TH/MM3 (0-0.9) Eosinophils # (Auto) 0.0 TH/MM3 (0-0.4) Basophils # (Auto) 0.0 TH/MM3 (0-0.2) CBC Comment AUTO DIFF Differential Total Cells 100 Counted Neutrophils % (Manual) 47 % (16-70) Band Neutrophils % 44 % (0-6) Monocytes % 2 % (0-8) Neutrophils # (Manual) 8.6 TH/MM3 (1.8-7.7) Metamyelocytes 4 % (0-1) Myelocytes 3 % (0-0) Nucleated Red Blood Cells 1 /100 WBC (0-0) Differential Comment FINAL DIFF MANUAL Platelet Estimate RARE (NORMAL) Platelet Morphology Comment NORMAL (NORMAL) Tear Drop Cells 1+ (NORMAL) Keratocytes OCC (NORMAL) Test 12/17/16 12/17/16 12/17/16 12/18/16 08:32 10:32 20:00 06:15 Blood Bank Comment Haptoglobin 208 MG/DL 231 MG/DL (30-200) (30-200) Total Bilirubin 0.5 MG/DL 0.6 MG/DL (0.2-1.0) (0.2-1.0) Direct Bilirubin 0.2 MG/DL (0.0-0.2) Indirect Bilirubin 0.3 MG/DL (0.0-0.8) Aspartate Amino Transf 78 U/L (15-37) 144 U/L (15-37) (AST/SGOT) Alanine Aminotransferase 17 U/L (10-53) 29 U/L (10-53) (ALT/SGPT) Alkaline Phosphatase 144 U/L 152 U/L (45-117) (45-117) Lactate Dehydrogenase 3190 U/L (84-246) Total Protein 6.0 GM/DL 6.8 GM/DL (6.4-8.2) (6.4-8.2) Albumin 2.7 GM/DL 3.1 GM/DL (3.4-5.0) (3.4-5.0) White Blood Count 11.0 TH/MM3 12.3 TH/MM3 (4.0-11.0) (4.0-11.0) Red Blood Count 2.70 MIL/MM3 2.77 MIL/MM3 (4.00-5.30) (4.00-5.30) Hemoglobin 8.2 GM/DL 8.2 GM/DL (11.6-15.3) (11.6-15.3) Hematocrit 23.9 % 24.6 % (35.0-46.0) (35.0-46.0) Mean Corpuscular Volume 88.6 FL 89.0 FL (80.0-100.0) (80.0-100.0) Mean Corpuscular Hemoglobin 30.3 PG 29.7 PG (27.0-34.0) (27.0-34.0) Mean Corpuscular Hemoglobin 34.2 % 33.4 % Concent (32.0-36.0) (32.0-36.0) Red Cell Distribution Width 18.5 % 18.3 % (11.6-17.2) (11.6-17.2) Platelet Count 36 TH/MM3 24 TH/MM3 (150-450) (150-450) Mean Platelet Volume 6.9 FL 6.8 FL (7.0-11.0) (7.0-11.0) Neutrophils (%) (Auto) 93.1 % (16.0-70.0) Lymphocytes (%) (Auto) 2.6 % (9.0-44.0) Monocytes (%) (Auto) 3.8 % (0.0-8.0) Eosinophils (%) (Auto) 0.2 % (0.0-4.0) Basophils (%) (Auto) 0.3 % (0.0-2.0) Neutrophils # (Auto) 11.5 TH/MM3 (1.8-7.7) Lymphocytes # (Auto) 0.3 TH/MM3 (1.0-4.8) Monocytes # (Auto) 0.5 TH/MM3 (0-0.9) Eosinophils # (Auto) 0.0 TH/MM3 (0-0.4) Basophils # (Auto) 0.0 TH/MM3 (0-0.2) CBC Comment AUTO DIFF Differential Total Cells 100 Counted Neutrophils % (Manual) 47 % (16-70) Band Neutrophils % 10 % (0-6) Lymphocytes % 23 % (9-44) Neutrophils # (Manual) 9.5 TH/MM3 (1.8-7.7) Metamyelocytes 16 % (0-1) Myelocytes 4 % (0-0) Differential Comment FINAL DIFF MANUAL Platelet Estimate LOW (NORMAL) Platelet Morphology Comment NORMAL (NORMAL) Reticulocyte Count 1.5 % (0.4-3.0) Absolute Reticulocyte Count 42.5 MIL/L (20.0-150.0) Sodium Level 138 MEQ/L (136-145) Potassium Level 4.2 MEQ/L (3.5-5.1) Chloride Level 101 MEQ/L (98-107) Carbon Dioxide Level 28.7 MEQ/L (21.0-32.0) Anion Gap 8 MEQ/L (5-15) Blood Urea Nitrogen 11 MG/DL (7-18) Creatinine 0.41 MG/DL (0.50-1.00) Estimat Glomerular Filtration 164 ML/MIN Rate (>89) Random Glucose 117 MG/DL (74-106) Calcium Level 8.7 MG/DL (8.5-10.1) Result Diagram: 12/18/1615 12/18/16614 Imaging Last Impressions Lower Extremity Ultrasound 12/14/16 0000 Signed Impressions: Service Date/Time: Wednesday, December 14, 2016 20:20 - CONCLUSION: No evidence of deep venous thrombosis within the lower extremities. Daniel Culver MD Shoulder X-Ray 12/12/16 0000 Signed Impressions: Service Date/Time: Monday, December 12, 2016 14:47 - CONCLUSION: 1. Mild osteoarthritis as described above. Anibal Quigley MD Humerus X-Ray 12/12/16 0000 Signed Impressions: Service Date/Time: Monday, December 12, 2016 14:54 - CONCLUSION: Probable pathologic fracture right humeral neck Anibal Quigley MD Abdomen X-Ray 12/09/16 0000 Signed Impressions: Service Date/Time: Friday, December 09, 2016 23:00 - CONCLUSION: 1. Moderate constipation. No acute findings. Magdiel Cuevas MD Lumbar Spine MRI 12/05/16 0000 Signed Impressions: Service Date/Time: Monday, December 05, 2016 12:58 - CONCLUSION: 1. MR findings characteristic of extensive metastatic disease to the lower thoracic, the entire lumbar and the entire sacral spine as well as the pelvis. 2. Multilevel degenerative disc disease with disc bulges most prominent at L1-2 and L4-5. There is moderate central spinal stenosis at L4-5 with no central nerve root compromise. 3. Left posterior lateral component of the L4-5 disc abuts up against the left L4 nerve root after it leaves the neural foramina. Clinical significance of this is uncertain. 4. Neural foramina appear to be adequate at all remaining levels despite the aforementioned degenerative changes. Cristian Tate MD Abdomen/Pelvis CT 12/03/16 0933 Signed Impressions: Service Date/Time: Saturday, December 03, 2016 10:34 - CONCLUSION: 1. Nondisplaced fracture of the transverse process of L2. 2. No findings to indicate bowel obstruction are seen. 3. There are scattered low-attenuation lesions throughout the liver these are probably simple cysts however they are indeterminate in appearance and metastatic disease cannot be entirely excluded. If prior imaging is available these would be of benefit for direct comparison. If not, MRI imaging could be performed for more definitive assessment. Adam Aldana MD Chest X-Ray 12/03/16 0000 Signed Impressions: Service Date/Time: Saturday, December 03, 2016 11:23 - CONCLUSION: 1. No acute cardiopulmonary process. 2. Mottled appearance of the proximal right humerus. There may be an associated old fracture deformity as well. Cannot exclude chronic inflammation/infection or metastatic disease. Cristian Tate MD Brain MRI 12/03/16 0000 Signed Impressions: Service Date/Time: Saturday, December 03, 2016 19:52 - CONCLUSION: 1. Chronic white matter changes bilaterally characteristic of ischemic demyelinization. 2. No evidence of a mass within the substance of the brain. 3. Nonspecific enhancement of the marrow of the calvarium. Bony metastatic disease would be a consideration. If clinically indicated, recommend a whole body bone scan for further evaluation. Fernando Diaz MD Assessment and Plan Disease Oriented Problem List: (1) metastatic small cell lung cancer, extensive disease, widespread bony metastases (2) pain, worsening, secondary to widespread bony metastases (3) chemotherapy-induced anemia and thrombocytopenia (4) hospitalization for nausea/vomiting, likely chemotherapy-induced (5) epistaxis, intermittent (6) history of right proximal humerus fracture Symptom Scale: (1) pain 0-10 Scale: 6 (her fentanyl and oxycodone have been increased) Pertinent Non-Medical Issues Psychosocial: , unemployed, 5 children living in [place]. Spiritual: Unaffiliated [employer] who does not desire contracts paralegal visits. Legal: The patient has capacity for decision making. When she loses that capacity, her will be her proxy decision maker. Ethical issues impacting care: None . Important Contacts : Lia Jeter [phone] . Prognosis This patient is terminal, likely with weeks or months to live due to her extensive stage lung cancer. She is appropriate for hospice services when she makes the decision to stop chemotherapy and further aggressive care. . Code Status: No Code Plan * DNR * GOALS: She is hoping to live "a little little while longer," and she is hoping that more chemotherapy will help that. She wants to get her pain under control, get out of the hospital, and continue aggressive care. When it is apparent that her disease is progressing, she says she will stop chemotherapy. I had a conversation with pt. Told pt that if pt's plt remains low, and pt continue to require transfusion, and low plt does not resovlve, she would not be a candidate for further treatment. Discussed hospice consideration. She states she would consider it and understands. She is amenable to continue biopsy and find out cause. Pt's was at bedside. * DECISION-MAKING: The patient has capacity for decision making. When she loses that capacity, her will be her proxy decision maker. * SYMPTOMS: Pain, bony mets, right arm (fracture):Pt oxycontine increase by 10 mg recently. Will increase it by another 20 mg. continue oxycontine 120 mg q 12 hours, dilaudid IV and po prn, fentanyl. pain. Will increase dose of dilaudid and decrease frequency. * Palliative Care will continue to follow the patient during this hospitalization. D/w with oncology. . Time Spent Total Floor Time (mins): 45 Face to Face Time (mins): 30 Attestation To help prompt me to consider important information that might be impacting today's encounter and assessment, information from prior notes written by myself or my colleagues may have been "brought forward" into today's note. My signature on this note, however, is an attestation that I personally performed the exam, history, and/or decision-making noted today, and, unless otherwise indicated, the interactions with patient, family, and staff as well as the review of records all occurred today. I also attest that the listed assessment and stated plan reflect my best clinical judgment today based on the combination of historical information, prior notes, and today's exam/ interactions. When time spent is documented, it refers only to time spent today by the signer, or if indicated, combined time spent today by collaborating physician/nurse practitioner. Jovon Schneider MD Dec 18, 2016 11:02
--- NOTE | 2016-12-18 11:44 | PD.ONC.PN ---
Subjective Subjective Remarks Afebrile overnight. Patient continues to have low back pain and is awaiting bone marrow biopsy. She has intermittent nose bleeding. She states it stopped , "but then I picked it this morning," and it started again. She had a bowel movement yesterday. Objective Data Date Time Temp Pulse Resp B/P Pulse Ox O2 Delivery O2 Flow Rate FiO2 12/18/16 08:00 97.3 79 18 137/62 95 12/18/16 07:15 18 12/18/16 05:15 15 12/18/16 04:00 97.3 108 18 133/87 92 12/18/16 00:00 98.7 125 20 145/84 93 12/17/16 21:37 18 12/17/16 21:37 18 12/17/16 21:37 18 12/17/16 20:00 97.2 135 24 150/81 96 12/17/16 15:30 98.0 91 20 125/84 92 12/17/16 14:50 99.3 94 18 123/65 95 12/17/16 14:26 97.4 91 20 118/75 96 12/17/16 12:50 96.0 103 20 114/61 95 12/17/16 12:27 97.2 101 20 124/81 95 12/17/16 11:50 97.2 101 20 124/81 95 Result Diagram: 12/18/16 0615 12/18/16 0615 Laboratory Results Laboratory Tests Test 12/17/16 12/18/16 20:00 06:15 White Blood Count 11.0 TH/MM3 12.3 TH/MM3 Red Blood Count 2.70 MIL/MM3 2.77 MIL/MM3 Hemoglobin 8.2 GM/DL 8.2 GM/DL Hematocrit 23.9 % 24.6 % Mean Corpuscular Volume 88.6 FL 89.0 FL Mean Corpuscular Hemoglobin 30.3 PG 29.7 PG Mean Corpuscular Hemoglobin 34.2 % 33.4 % Concent Red Cell Distribution Width 18.5 % 18.3 % Platelet Count 36 TH/MM3 24 TH/MM3 Mean Platelet Volume 6.9 FL 6.8 FL Neutrophils (%) (Auto) 93.1 % Lymphocytes (%) (Auto) 2.6 % Monocytes (%) (Auto) 3.8 % Eosinophils (%) (Auto) 0.2 % Basophils (%) (Auto) 0.3 % Neutrophils # (Auto) 11.5 TH/MM3 Lymphocytes # (Auto) 0.3 TH/MM3 Monocytes # (Auto) 0.5 TH/MM3 Eosinophils # (Auto) 0.0 TH/MM3 Basophils # (Auto) 0.0 TH/MM3 CBC Comment AUTO DIFF Differential Total Cells 100 Counted Neutrophils % (Manual) 47 % Band Neutrophils % 10 % Lymphocytes % 23 % Neutrophils # (Manual) 9.5 TH/MM3 Metamyelocytes 16 % Myelocytes 4 % Differential Comment FINAL DIFF MANUAL Platelet Estimate LOW Platelet Morphology Comment NORMAL Reticulocyte Count 1.5 % Absolute Reticulocyte Count 42.5 MIL/L Haptoglobin 231 MG/DL Sodium Level 138 MEQ/L Potassium Level 4.2 MEQ/L Chloride Level 101 MEQ/L Carbon Dioxide Level 28.7 MEQ/L Anion Gap 8 MEQ/L Blood Urea Nitrogen 11 MG/DL Creatinine 0.41 MG/DL Estimat Glomerular Filtration 164 ML/MIN Rate Random Glucose 117 MG/DL Calcium Level 8.7 MG/DL Total Bilirubin 0.6 MG/DL Aspartate Amino Transf 144 U/L (AST/SGOT) Alanine Aminotransferase 29 U/L (ALT/SGPT) Alkaline Phosphatase 152 U/L Total Protein 6.8 GM/DL Albumin 3.1 GM/DL Administered Medications Medications (Trade) Dose Ordered Sig/Homero Route PRN Reason Start Time Stop Time Status Last Admin Dose Admin IV Flush (NS Flush) 2 ml UNSCH PRN FLUSH FLUSH AFTER USING IV ACCESS 12/03/16 13:00 12/05/16 06:58 IV Flush (NS Flush) 2 ml BID FLUSH 12/03/16 21:00 12/17/16 20:54 Ondansetron HCl (Zofran Inj) 4 mg Q6HR IV PUSH 12/03/16 18:00 12/18/16 06:15 Metoclopramide HCl (Reglan Inj) 10 mg Q8H PRN IV PUSH NAUSEA 12/03/16 13:00 12/06/16 20:01 Padimate O (Chapstick) 1 applic UNSCH PRN TOPICAL DRY LIPS 12/05/16 04:00 12/05/16 04:00 Diphenhydramine HCl (Benadryl) 25 mg Q4H PRN PO BLOOD PRODUCTS 12/05/16 20:45 12/17/16 11:27 Acetaminophen (Tylenol) 650 mg Q4H PRN PO BLOOD PRODUCTS 12/05/16 20:45 12/17/16 11:28 Hydromorphone HCl (Dilaudid) 6 mg Q2HR PRN PO PAIN SCALE 4 TO 10 12/06/16 11:00 12/18/16 09:01 Potassium Phos/ Sodium Phos (K-Phos Neutral) 250 mg TID PO 12/10/16 09:00 12/17/16 17:06 Metoprolol Tartrate (Lopressor) 25 mg Q12HR PO 12/10/16 21:00 12/18/16 09:10 Fentanyl (Duragesic 100 Mcg Patch.72 Hr) 2 patch Q3D TD 12/10/16 17:00 12/16/16 17:20 Miscellaneous Information 1 Q3D TD 12/10/16 17:00 12/16/16 17:00 Senna/Docusate Sodium (Telma-Colace) 2 tab BID PO 12/11/16 09:00 12/17/16 20:52 Pantoprazole Sodium (Protonix) 40 mg DAILY PO 12/15/16 09:00 12/17/16 08:23 Prednisone (Deltasone) 20 mg BID PO 12/14/16 21:00 12/17/16 20:59 Lactulose (Lactulose Liq) 30 ml TID PO 12/17/16 09:00 12/17/16 17:06 Oxycodone HCl (OxyCONTIN CR) 80 mg Q12HR PO 12/17/16 21:00 12/18/16 09:03 Oxycodone HCl (OxyCONTIN CR) 40 mg Q12HR PO 12/17/16 21:00 12/18/16 09:03 Objective Remarks GENERAL: Middle aged female, upright in bed in [facility]. SKIN: Warm and dry. HEAD: Normocephalic. EYES: No injection or drainage. NECK: Supple, trachea midline. CARDIOVASCULAR: +S1/S2 RESPIRATORY: diminished at bases, anterior boyd clear. GASTROINTESTINAL: Abdomen soft, non-tender, nondistended. EXTREMITIES: No cyanosis or edema. Assessment/Plan Problem List: (1) Small cell lung cancer Status: Acute Plan: --follows with an oncologist in [place] --is receiving palliative chemotherapy (likely standard cisplatin or carboplatin along with CURRICULUM DEVELOPMENT COORDINATOR-16 every 3-4 weeks) --denies MAIL SERVICE COORDINATOR mets (2) Thrombocytopenia Status: Acute Plan: 12/18: bone marrow biopsy in invasive radiology today --Suspect the chemo most likely contribute with bone marrow slow to recover after XRT. --medication list reviewed--I don't see any medications that would cause that degree of thrombocytopenia --DIC panel negative --CT ab/pelvis showed normal sized spleen --Pt reports previous XRT to pelvis and sternum for metastatic disease. --Also reports she was suppose to be on steroids but stopped it before coming into hospital- ? ITP. --Empiric trial of steroids Prednisone 20mg BID --Check HIT, exposure to UFH--->negative --direct Tylor negative No NSAIDS or ASA, no CT meds. Monitor for bleeding. Assessment 51y/o with intractable nausea and vomiting associated with small cell lung cancer diagnosis. history of small cell lung cancer diagnosed in [place] in July of 2016-- metastatic at the time of diagnosis. Plan 1. bone marrow biopsy in IR today 2. monitor CBC Attending Statement Agree with above. Follow bone marrow biopsy results. Jessy Hoffmann Dec 18, 2016 11:43 Minoo Schwartz MD Dec 18, 2016 18:08
[2016-12-18] MEDS: DOCUSATE SODIUM 50 MG/SENNA 8.6 MG TAB PO SCH ×2 (11:46→20:23)
[2016-12-18] MEDS: LACTULOSE SYRUP 20 GM/30 ML CUP PO SCH ×2 (11:46→18:16)
[2016-12-18] MEDS: POTASSIUM PHOSPHATE/SODIUM PHOSPHATE 250 MG TAB PO SCH ×2 (11:48→18:16)
[2016-12-18] MEDS: predniSONE 20 MG TAB PO SCH ×2 (11:48→20:24)
[2016-12-18] MEDS: SODIUM CHLORIDE 0.9% FLUSH 5 ML FLUSH FLUSH SCH ×2 (11:49→20:24)
[2016-12-18] MEDS: PANTOPRAZOLE SOD 40 MG DELAYED RELEASE TAB PO SCH (11:49)
[2016-12-18] MEDS ORDERED: LIDOCAINE 1%/EPINEPHrine 1:100,000 SOLN 20 ML VIAL ONE (14:46)
[2016-12-18] MEDS ORDERED: fentaNYL CITRATE 250 MCG/5 ML AMP ONE (14:53)
[2016-12-18] MEDS ORDERED: MIDAZOLAM HCL 5 MG/5 ML VIAL ONE (14:53)
[2016-12-18] MEDS ORDERED: HYDROmorphone HCL PF 2 MG/ML VIAL ONE (15:15)
[2016-12-18] MEDS ORDERED: MIDAZOLAM HCL 2 MG/2 ML VIAL ONE (15:16)
--- NOTE | 2016-12-18 15:44 | PD.RAD ---
Post Procedure Progress Note Pre Procedure Diagnosis: (1) Leukocytosis Post Procedure Diagnosis: (1) Leukocytosis Procedure Date: Dec 18, 2016 Supervising Radiologist: Adam Aldana Anesthesia: Local, Conscious Sedation Plan of Activity Patient to Unit: ROPU Patient Condition: Poor Additional Comments: successful bone marrow biopsy samples sent to pathology See PACS Report for procedural detail/treatment Adam Aldana MD Dec 18, 2016 15:43
[2016-12-18] MEDS ORDERED: SODIUM CHLOR 0.9% 250 ML INJ 250 ML IV ONE (16:00)
--- NOTE | 2016-12-18 16:57 | RADRPT ---
EXAM DATE/TIME: 12/18/2016 15:09 [facility] COMPARISON: CT ABDOMEN & PELVIS W CONTRAST, December 03, 2016, 10:34. INDICATIONS : Thrombocytopenia. SEDATION TIME: 40 minutes BIOPSY SITE: Left ilium MEDICATION(S): 1.) 6 mg midazolam (Versed) IV 2.) 2 mg hydromorphone (Dilaudid) IV 3.) 350 mcg fentanyl (Sublimaze) IV DEVICE(S): 1.) 11 gauge Bone marrow biopsy needle MEDICAL HISTORY : Carcinoma, lung. Chronic obstructive pulmonary disease. Hypertension. SURGICAL HISTORY : Lobectomy. ENCOUNTER: Initial ACUITY: 1 day PAIN SCORE: 0/10 LOCATION: Bone marrow A total of one core specimen(s) were obtained and sent to the laboratory for pathologic evaluation. PROCEDURE: 1. CT guided bone marrow biopsy. 2. Conscious sedation with continuous EKG and oximetry monitoring. 3. EKG and oximetry remained stable throughout the procedure. Prior to the procedure informed consent was obtained. Any appropriate prior imaging studies were rev iewed. Using automated exposure control and adjustment of the mA and/or kV according to patient size , radiation dose was kept as low as reasonably achievable to obtain optimal diagnostic quality images . The site was prepped in a sterile fashion. Full sterile technique was used, including cap, mask, angelo rile gloves and gown and a large sterile sheet. Hand hygiene and 2% chlorhexidine and/or betadine/al cohol prep was utilized per protocol for cutaneous antisepsis. The skin and subcutaneous tissues wer e infiltrated with local anesthetic solution. With CT guidance the previously identified target was localized. Biopsy was performed using the presc ribed needle as above. Following biopsy marrow aspiration was performed with repeat puncture. Adequa te hemostasis was obtained with compression at the puncture site. Follow-up CT scan reveals no hemorrhage. Conscious sedation was performed with the prescribed dosages and duration as above in the presence of an independent trained radiology nurse to assist in the monitoring of the patient. EKG and oximetry remained stable throughout the procedure. The patient tolerated the procedure well and there were no complications. The patient was sent to Radiology Outpatient Unit in stable condition. CONCLUSION: 1. Uncomplicated CT guided bone marrow aspirate. 2. Uncomplicated CT guided bone marrow biopsy. Adam Aldana MD on December 18, 2016 at 16:55 Board Certified Radiologist. This report was verified electronically.
[2016-12-18 17:20] LABS: BONE MARROW PROCESSING COMPLETE; IRON STAIN DONE; JENNER GIEMSA STAIN DONE
--- NOTE | 2016-12-18 17:58 | HHI.PR ---
Subjective Remarks The patient was lethargic following the procedure. She had no acute complaints. Discussed with nursing in the [facility]. Objective Vitals Vital Signs Date Time Temp Pulse Resp B/P Pulse Ox O2 Delivery O2 Flow Rate FiO2 12/18/16 16:45 116 16 135/79 96 12/18/16 16:15 118 18 130/80 93 12/18/16 16:00 122 18 138/69 91 12/18/16 12:00 97.8 111 20 128/82 95 12/18/16 08:00 97.3 79 18 137/62 95 12/18/16 07:15 18 12/18/16 05:15 15 12/18/16 04:00 97.3 108 18 133/87 92 12/18/16 00:00 98.7 125 20 145/84 93 12/17/16 21:37 18 12/17/16 21:37 18 12/17/16 21:37 18 12/17/16 20:00 97.2 135 24 150/81 96 I/O 12/17/16 12/17/16 12/17/16 12/18/16 12/18/16 12/18/16 07:00 15:00 23:00 07:00 15:00 23:00 Intake Total 240 ml 0 ml 800 ml Balance 240 ml 0 ml 800 ml Intake Oral 240 ml 0 ml 240 ml Platelets 560 ml # Voids 3 3 1 3 2 # Bowel Movements 0 0 4 Result Diagram: 12/18/16 0615 12/18/16 0615 Imaging Last Impressions Bone Biopsy CT 12/18/16 0000 Signed Impressions: Service Date/Time: Sunday, December 18, 2016 15:09 - CONCLUSION: 1. Uncomplicated CT guided bone marrow aspirate. 2. Uncomplicated CT guided bone marrow biopsy. Adam Aldana MD Lower Extremity Ultrasound 12/14/16 0000 Signed Impressions: Service Date/Time: Wednesday, December 14, 2016 20:20 - CONCLUSION: No evidence of deep venous thrombosis within the lower extremities. Daniel Culver MD Shoulder X-Ray 12/12/16 0000 Signed Impressions: Service Date/Time: Monday, December 12, 2016 14:47 - CONCLUSION: 1. Mild osteoarthritis as described above. Anibal Qiugley MD Humerus X-Ray 12/12/16 0000 Signed Impressions: Service Date/Time: Monday, December 12, 2016 14:54 - CONCLUSION: Probable pathologic fracture right humeral neck Anibal Quigley MD Abdomen X-Ray 12/09/16 Signed Impressions: Service Date/Time: Friday, December 09, 2016 23:00 - CONCLUSION: 1. Moderate constipation. No acute findings. Magdiel Cuevas MD Lumbar Spine MRI 12/05/16 0000 Signed Impressions: Service Date/Time: Monday, December 05, 2016 12:58 - CONCLUSION: 1. MR findings characteristic of extensive metastatic disease to the lower thoracic, the entire lumbar and the entire sacral spine as well as the pelvis. 2. Multilevel degenerative disc disease with disc bulges most prominent at L1-2 and L4-5. There is moderate central spinal stenosis at L4-5 with no central nerve root compromise. 3. Left posterior lateral component of the L4-5 disc abuts up against the left L4 nerve root after it leaves the neural foramina. Clinical significance of this is uncertain. 4. Neural foramina appear to be adequate at all remaining levels despite the aforementioned degenerative changes. Cristian Tate MD Abdomen/Pelvis CT 12/03/16 0933 Signed Impressions: Service Date/Time: Saturday, December 03, 2016 10:34 - CONCLUSION: 1. Nondisplaced fracture of the transverse process of L2. 2. No findings to indicate bowel obstruction are seen. 3. There are scattered low-attenuation lesions throughout the liver these are probably simple cysts however they are indeterminate in appearance and metastatic disease cannot be entirely excluded. If prior imaging is available these would be of benefit for direct comparison. If not, MRI imaging could be performed for more definitive assessment. Adam Aldana MD Chest X-Ray 12/03/16 Signed Impressions: Service Date/Time: Saturday, December 03, 2016 11:23 - CONCLUSION: 1. No acute cardiopulmonary process. 2. Mottled appearance of the proximal right humerus. There may be an associated old fracture deformity as well. Cannot exclude chronic inflammation/infection or metastatic disease. Cristian Tate MD Brain MRI 12/03/16 Signed Impressions: Service Date/Time: Saturday, December 03, 2016 19:52 - CONCLUSION: 1. Chronic white matter changes bilaterally characteristic of ischemic demyelinization. 2. No evidence of a mass within the substance of the brain. 3. Nonspecific enhancement of the marrow of the calvarium. Bony metastatic disease would be a consideration. If clinically indicated, recommend a whole body bone scan for further evaluation. Fernando Diaz MD Objective Remarks GENERAL: Appears comfortable. SKIN: Warm and dry. HEAD: Normocephalic. EYES: No scleral icterus. No injection or drainage. NECK: Supple, trachea midline. No JVD. CARDIOVASCULAR: Regular rate and rhythm without murmurs, gallops, or rubs. RESPIRATORY: Breath sounds equal bilaterally. No accessory muscle use. GASTROINTESTINAL: Abdomen is distended. Positive bowel sounds. No rebound or guarding. MUSCULOSKELETAL: No cyanosis, or edema. Tenderness to palpation of left collarbone, left shoulder, left humerus. BACK: Nontender without obvious deformity. No CVA tenderness. NEURO: Lethargic. PSYCH: Withdrawn. Procedures Bone marrow biopsy 12/18. Medications and IVs Current Medications Medications (Trade) Dose Ordered Sig/Homero Route Start Time Stop Time Status Last Admin (NS Flush) 2 ml UNSCH PRN FLUSH 12/03/16 13:00 12/05/16 06:58 (NS Flush) 2 ml BID FLUSH 12/03/16 21:00 12/18/16 11:49 (Narcan Inj) 0.4 mg UNSCH PRN IV 12/03/16 13:00 (Zofran Inj) 4 mg Q6HR IV PUSH 12/03/16 18:00 12/18/16 11:47 (Reglan Inj) 10 mg Q8H PRN IV PUSH 12/03/16 13:00 12/06/16 20:01 (Compazine Inj) 10 mg Q6H PRN IVS 12/03/16 19:00 (Vasotec Inj) 1.25 mg Q6H PRN IV PUSH 12/03/16 21:45 (Chapstick) 1 applic UNSCH PRN TOPICAL 12/05/16 04:00 12/05/16 04:00 (Benadryl) 25 mg Q4H PRN PO 12/05/16 20:45 12/17/16 11:27 (Tylenol) 650 mg Q4H PRN PO 12/05/16 20:45 12/17/16 11:28 (Dilaudid) 6 mg Q2HR PRN PO 12/06/16 11:00 4/4/17 11:47 (Pill Splitter) 1 ea UNSCH PRN OTHER 12/07/16 08:45 (K-Phos Neutral) 250 mg TID PO 12/10/16 09:00 12/18/16 11:48 (Lopressor) 25 mg Q12HR PO 12/10/16 21:00 12/18/16 09:10 (Duragesic 100 Mcg Patch.72 Hr) 2 patch Q3D TD 12/10/16 17:00 12/16/16 17:20 Miscellaneous Information 1 Q3D TD 12/10/16 17:00 12/16/16 17:00 (Telma-Colace) 2 tab BID PO 12/11/16 09:00 12/17/16 20:52 (Protonix) 40 mg DAILY PO 12/15/16 09:00 12/18/16 11:49 (Deltasone) 20 mg BID PO 12/14/16 21:00 12/18/16 11:48 (Lactulose Liq) 30 ml TID PO 12/17/16 09:00 12/17/16 17:06 (OxyCONTIN CR) 80 mg Q12HR PO 12/17/16 21:00 12/18/16 09:03 (OxyCONTIN CR) 40 mg Q12HR PO 12/17/16 21:00 12/18/16 09:03 Hydromorphone HCl 3 mg 3 mg Q4HR PRN IV PUSH 12/18/16 12:00 (NS 250 ml Inj) 250 ml @ 15 mls/hr ONCE ONCE IV 12/18/16 16:00 12/19/16 08:39 A/P Assessment and Plan Thrombocytopenia Chemo induced. Has had epistaxis. Appreciate oncology input. Not consistent with DIC. Duplex LE negative. HIT panel negative. - follow CBC and transfuse as needed. Will transfuse an additional unit of platelets 12/17. - prednisone trial per oncology. - bone marrow biopsy done 12/18. Follow pathology. Anemia of malignancy Hemoglobin has been decreasing. - follow CBC and transfuse as needed. Transfuse 1 unit PRBCs 12/16. Stable. Chronic right shoulder/ Low back pain/ Left upper extremity pain L2 transverse process fracture noted. MRI findings characteristic of extensive metastatic disease to the lower thoracic, the entire lumbar and the entire sacral spine as well as the pelvis; Multilevel degenerative disc disease with disc bulges most prominent at L1-2 and L4-5; There is moderate central spinal stenosis at L4-5 with no central nerve root compromise; Left posterior lateral component of the L4-5 disc abuts up against the left L4 nerve root after it leaves the neural foramina; Clinical significance of this is uncertain. Pathologic fracture of right humerus noted. - pain control being adjusted by palliative care. Nausea and vomiting Resolved. Pt has not been eating well. - added Ensure to meals. - Miralax for constipation. 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 Palliative care consult appreciated. - continue pain control with a bowel regimen. - Continue scheduled IV Zofran with as needed Compazine. - Oncology input appreciated. - change status to DNR. - follow up with palliative care. Hypophosphatemia Started on standing supplements. - continue IV phos as needed. - follow labs. Stable. Epigastric pain CT abdomen reviewed, no obvious cause of acute pain. Could be from liver lesions. Gastroenterology consulted. Patient refused EGD. - We'll continue PPI. - Pain control. Tobacco abuse Cessation strongly advised. Room frequently smells of smoke. - Counseling provided. DVT prophylaxis. SCDs. We'll continue to hold AC secondary to anemia, epistaxis. Discharge Planning Awaiting clinical improvement. Tylor Wilde DO Dec 18, 2016 17:58
[2016-12-18] MEDS: HYDROmorphone HCL PF 4 MG/ML VIAL IV PUSH PRN ×2 (18:52→23:20)
[2016-12-19] VITALS (17 sets, daily range): BP systolic 131–162; BP diastolic 75–96; PULSE 93–127; RESP 16–22; TEMP 96.6–98.5; O2SAT 93–99
[2016-12-19] MEDS: HYDROmorphone HCL PF 4 MG/ML VIAL IV PUSH PRN ×5 (03:05→22:49)
[2016-12-19] MEDS: ONDANSETRON HCL 4 MG/2 ML VIAL IV PUSH SCH ×4 (05:13→23:38)
[2016-12-19] MEDS: HYDROmorphone HCL 2 MG TAB PO PRN ×6 (05:14→23:37)
[2016-12-19] MEDS: ACETAMINOPHEN 325 MG TAB PO PRN ×3 (05:23→19:36)
[2016-12-19] MEDS: diphenhydrAMINE HCL 25 MG CAP PO PRN ×3 (05:23→19:36)
[2016-12-19 05:55] LABS: AUTOMATED NEUTROPHIL # 10.7 TH/MM3 (1.8-7.7); BASOPHIL # 0.1 TH/MM3 (0-0.2); BASOPHIL % 0.4 % (0.0-2.0); EOSINOPHIL % 0.1 % (0.0-4.0); HEMATOCRIT 23.7 % (35.0-46.0); LYMPHOCYTE # 0.3 TH/MM3 (1.0-4.8); MEAN CORPUSCULAR HEMOGLOBIN 29.5 PG (27.0-34.0); MEAN CORPUSCULAR HGB CONC 33.2 % (32.0-36.0); MONO % 4.3 % (0.0-8.0); NEUT % 92.2 % (16.0-70.0); RED BLOOD COUNT 2.66 MIL/MM3 (4.00-5.30); RED CELL DISTRIBUTION WIDTH 18.4 % (11.6-17.2); WHITE BLOOD COUNT 11.6 TH/MM3 (4.0-11.0)
[2016-12-19 06:01] LABS: HEMO FLAGS AUTO DIFF
[2016-12-19 06:03] LABS: PLATELET COUNT 14 TH/MM3 (150-450)
[2016-12-19 07:38] LABS: BICARBONATE 27.6 MEQ/L (21.0-32.0); MAGNESIUM 2.5 MG/DL (1.5-2.5); POTASSIUM 4.5 MEQ/L (3.5-5.1)
[2016-12-19 08:22] LABS: BANDS 40 % (0-6); CORRECTED NUCLEATED RBC 1 /100 WBC (0-0); METAMYELOCYTES 8 % (0-1); MYELOCYTES 1 % (0-0); PLATELET ESTIMATE SMEAR RARE (NORMAL); PLATELET MORPHOLOGY NORMAL (NORMAL); POLYS (SEG NEUTROPHILS) 46 % (16-70); SCAN/DIFF FINAL DIFF MANUAL; WBC DIFF SAMPLE 100
[2016-12-19] MEDS: DOCUSATE SODIUM 50 MG/SENNA 8.6 MG TAB PO SCH ×2 (08:34→21:00)
[2016-12-19] MEDS: oxyCODONE HCL 40 MG CONTROLLED RELEASE TAB PO SCH ×2 (08:34→22:02)
[2016-12-19] MEDS: PANTOPRAZOLE SOD 40 MG DELAYED RELEASE TAB PO SCH (08:34)
[2016-12-19] MEDS: LACTULOSE SYRUP 20 GM/30 ML CUP PO SCH ×3 (08:34→17:11)
[2016-12-19] MEDS: POTASSIUM PHOSPHATE/SODIUM PHOSPHATE 250 MG TAB PO SCH ×3 (08:34→17:09)
[2016-12-19] MEDS: oxyCODONE HCL 80 MG CONTROLLED RELEASE TAB PO SCH ×2 (08:35→22:04)
[2016-12-19] MEDS: METOPROLOL TARTRATE 25 MG TAB PO SCH (08:35)
[2016-12-19] MEDS: predniSONE 20 MG TAB PO SCH ×2 (08:35→22:03)
[2016-12-19] MEDS: SODIUM CHLORIDE 0.9% FLUSH 5 ML FLUSH FLUSH SCH ×2 (08:36→22:05)
[2016-12-19 10:17] LABS: HEMATOCRIT 21.2 % (35.0-46.0); MEAN CELL VOLUME 89.2 FL (80.0-100.0); MEAN CORPUSCULAR HEMOGLOBIN 29.1 PG (27.0-34.0); MEAN CORPUSCULAR HGB CONC 32.7 % (32.0-36.0); PLATELET COUNT 39 TH/MM3 (150-450); RED BLOOD COUNT 2.37 MIL/MM3 (4.00-5.30); WHITE BLOOD COUNT 7.9 TH/MM3 (4.0-11.0)
[2016-12-19 10:22] LABS: REVIEW FLAG FINAL
--- NOTE | 2016-12-19 11:22 | HHI.HCPN ---
Reason for visit a. To assist with evaluation and management of symptoms including: pain b. To assist medical decision maker(s) with: better understanding of current medical conditions; weighing benefits/burdens of medical treatment options; making medical treatment decisions. . Subjective/Interval History Pt appears more lethargic and sleepy today, but she had just had prn pain medicine 30 mins ago. HgB is low today. He endorse pain is good right now, and did not want me to change pain meds. I did discuss with her if she still have significant use of prn IV and PO dilaudid , and that the next step is to change to another long acting such as methadone. She decline for the time being, but is open to it. She maintain she wants to find out why she has low plts and wants to wait for the biopsy results. Continue aggressive care for now. Family/friend interactions no family at bedside today. Advance Directives Living Will: Never completed Health Care Surrogate: Never completed Durable Power of Box Coverer Hand: Never completed Objective Vital Signs Date Time Temp Pulse Resp B/P Pulse Ox O2 Delivery O2 Flow Rate FiO2 12/19/16 08:38 97.3 105 18 149/95 94 12/19/16 07:00 97.8 100 18 149/89 93 12/19/16 06:15 98.5 102 18 135/75 94 12/19/16 06:00 97.7 103 18 137/83 95 12/19/16 05:45 97.8 119 20 137/86 95 12/19/16 04:04 98.3 110 16 144/96 97 12/19/16 00:00 96.6 113 16 140/91 98 12/18/16 20:00 96.3 116 18 145/90 95 12/18/16 16:45 116 16 135/79 96 12/18/16 16:15 118 18 130/80 93 12/18/16 16:00 122 18 138/69 91 12/18/16 12:00 97.8 111 20 128/82 95 Intake & Output 12/19/16 12/19/16 07:00 19:00 Intake Total 610 ml Balance 610 ml Intake Oral 610 ml # Voids 2 # Bowel Movements 2 Physical Exam CONSTITUTIONAL/GENERAL: This is an adequately nourished patient who appears chronically ill. More lethargic today. TUBES/LINES/DRAINS: Peripheral IV SKIN: She is pale. No jaundice, rashes, or lesions. No wounds seen anteriorly. Skin temperature appropriate. Not diaphoretic. ENT: Hearing grossly normal. Nose without bleeding or purulent drainage. Throat without visible erythema, exudates, masses, or lesions. NECK: Trachea midline. Supple, nontender. No palpable thyroid enlargement or nodularity. CARDIOVASCULAR: Regular rate and rhythm without murmurs, gallops, or rubs. No JVD. Peripheral pulses symmetric. RESPIRATORY/CHEST: Symmetric, unlabored respirations. There are scattered rhonchi bilaterally GASTROINTESTINAL: Abdomen soft, non-tender, nondistended. No hepato-splenomegaly , or palpable masses. No guarding. Bowel sounds present. MUSCULOSKELETAL: Extremities without clubbing, cyanosis. There is some edema about the right proximal humerus (overlying the fx), and some tenderness there. No calf tenderness. No mottling or clubbing. NEUROLOGICAL: Awake and alert, more lethargic. Motor and sensory grossly within normal limits. Follows commands. Cognitively sharp. Moves all extremities. . Diagnostic Tests Laboratory Laboratory Tests Test 12/17/16 12/17/16 12/17/16 12/17/16 06:18 08:32 10:32 20:00 White Blood Count 8.8 TH/MM3 11.0 TH/MM3 (4.0-11.0) (4.0-11.0) Red Blood Count 2.67 MIL/MM3 2.70 MIL/MM3 (4.00-5.30) (4.00-5.30) Hemoglobin 7.9 GM/DL 8.2 GM/DL (11.6-15.3) (11.6-15.3) Hematocrit 24.0 % 23.9 % (35.0-46.0) (35.0-46.0) Mean Corpuscular Volume 89.8 FL 88.6 FL (80.0-100.0) (80.0-100.0) Mean Corpuscular Hemoglobin 29.5 PG 30.3 PG (27.0-34.0) (27.0-34.0) Mean Corpuscular Hemoglobin 32.9 % 34.2 % Concent (32.0-36.0) (32.0-36.0) Red Cell Distribution Width 18.7 % 18.5 % (11.6-17.2) (11.6-17.2) Platelet Count 8 TH/MM3 36 TH/MM3 (150-450) (150-450) Mean Platelet Volume 9.8 FL 6.9 FL (7.0-11.0) (7.0-11.0) Neutrophils (%) (Auto) 92.8 % (16.0-70.0) Lymphocytes (%) (Auto) 2.1 % (9.0-44.0) Monocytes (%) (Auto) 4.6 % (0.0-8.0) Eosinophils (%) (Auto) 0.1 % (0.0-4.0) Basophils (%) (Auto) 0.4 % (0.0-2.0) Neutrophils # (Auto) 8.2 TH/MM3 (1.8-7.7) Lymphocytes # (Auto) 0.2 TH/MM3 (1.0-4.8) Monocytes # (Auto) 0.4 TH/MM3 (0-0.9) Eosinophils # (Auto) 0.0 TH/MM3 (0-0.4) Basophils # (Auto) 0.0 TH/MM3 (0-0.2) CBC Comment AUTO DIFF Differential Total Cells 100 Counted Neutrophils % (Manual) 47 % (16-70) Band Neutrophils % 44 % (0-6) Monocytes % 2 % (0-8) Neutrophils # (Manual) 8.6 TH/MM3 (1.8-7.7) Metamyelocytes 4 % (0-1) Myelocytes 3 % (0-0) Nucleated Red Blood Cells 1 /100 WBC (0-0) Differential Comment FINAL DIFF MANUAL Platelet Estimate RARE (NORMAL) Platelet Morphology Comment NORMAL (NORMAL) Tear Drop Cells 1+ (NORMAL) Keratocytes OCC (NORMAL) Blood Bank Comment Haptoglobin 208 MG/DL (30-200) Total Bilirubin 0.5 MG/DL (0.2-1.0) Direct Bilirubin 0.2 MG/DL (0.0-0.2) Indirect Bilirubin 0.3 MG/DL (0.0-0.8) Aspartate Amino Transf 78 U/L (15-37) (AST/SGOT) Alanine Aminotransferase 17 U/L (10-53) (ALT/SGPT) Alkaline Phosphatase 144 U/L (45-117) Lactate Dehydrogenase 3190 U/L (84-246) Total Protein 6.0 GM/DL (6.4-8.2) Albumin 2.7 GM/DL (3.4-5.0) Test 12/18/16 12/19/16 12/19/16 12/19/16 06:15 02:23 05:12 10:00 White Blood Count 12.3 TH/MM3 11.6 TH/MM3 7.9 TH/MM3 (4.0-11.0) (4.0-11.0) (4.0-11.0) Red Blood Count 2.77 MIL/MM3 2.66 MIL/MM3 2.37 MIL/MM3 (4.00-5.30) (4.00-5.30) (4.00-5.30) Hemoglobin 8.2 GM/DL 7.8 GM/DL 6.9 GM/DL (11.6-15.3) (11.6-15.3) (11.6-15.3) Hematocrit 24.6 % 23.7 % 21.2 % (35.0-46.0) (35.0-46.0) (35.0-46.0) Mean Corpuscular Volume 89.0 FL 89.0 FL 89.2 FL (80.0-100.0) (80.0-100.0) (80.0-100.0) Mean Corpuscular Hemoglobin 29.7 PG 29.5 PG 29.1 PG (27.0-34.0) (27.0-34.0) (27.0-34.0) Mean Corpuscular Hemoglobin 33.4 % 33.2 % 32.7 % Concent (32.0-36.0) (32.0-36.0) (32.0-36.0) Red Cell Distribution Width 18.3 % 18.4 % 18.0 % (11.6-17.2) (11.6-17.2) (11.6-17.2) Platelet Count 24 TH/MM3 14 TH/MM3 39 TH/MM3 (150-450) (150-450) (150-450) Mean Platelet Volume 6.8 FL 9.0 FL 7.5 FL (7.0-11.0) (7.0-11.0) (7.0-11.0) Neutrophils (%) (Auto) 93.1 % 92.2 % (16.0-70.0) (16.0-70.0) Lymphocytes (%) (Auto) 2.6 % 3.0 % (9.0-44.0) (9.0-44.0) Monocytes (%) (Auto) 3.8 % (0.0-8.0) 4.3 % (0.0-8.0) Eosinophils (%) (Auto) 0.2 % (0.0-4.0) 0.1 % (0.0-4.0) Basophils (%) (Auto) 0.3 % (0.0-2.0) 0.4 % (0.0-2.0) Neutrophils # (Auto) 11.5 TH/MM3 10.7 TH/MM3 (1.8-7.7) (1.8-7.7) Lymphocytes # (Auto) 0.3 TH/MM3 0.3 TH/MM3 (1.0-4.8) (1.0-4.8) Monocytes # (Auto) 0.5 TH/MM3 0.5 TH/MM3 (0-0.9) (0-0.9) Eosinophils # (Auto) 0.0 TH/MM3 0.0 TH/MM3 (0-0.4) (0-0.4) Basophils # (Auto) 0.0 TH/MM3 0.1 TH/MM3 (0-0.2) (0-0.2) CBC Comment AUTO DIFF AUTO DIFF Differential Total Cells 100 100 Counted Neutrophils % (Manual) 47 % (16-70) 46 % (16-70) Band Neutrophils % 10 % (0-6) 40 % (0-6) Lymphocytes % 23 % (9-44) Neutrophils # (Manual) 9.5 TH/MM3 11.0 TH/MM3 (1.8-7.7) (1.8-7.7) Metamyelocytes 16 % (0-1) 8 % (0-1) Myelocytes 4 % (0-0) 1 % (0-0) Differential Comment FINAL DIFF FINAL DIFF MANUAL MANUAL Platelet Estimate LOW (NORMAL) RARE (NORMAL) Platelet Morphology Comment NORMAL NORMAL (NORMAL) (NORMAL) Reticulocyte Count 1.5 % (0.4-3.0) Absolute Reticulocyte Count 42.5 MIL/L (20.0-150.0) Haptoglobin 231 MG/DL (30-200) Sodium Level 138 MEQ/L 138 MEQ/L (136-145) (136-145) Potassium Level 4.2 MEQ/L 4.5 MEQ/L (3.5-5.1) (3.5-5.1) Chloride Level 101 MEQ/L 101 MEQ/L (98-107) (98-107) Carbon Dioxide Level 28.7 MEQ/L 27.6 MEQ/L (21.0-32.0) (21.0-32.0) Anion Gap 8 MEQ/L (5-15) 9 MEQ/L (5-15) Blood Urea Nitrogen 11 MG/DL (7-18) 12 MG/DL (7-18) Creatinine 0.41 MG/DL 0.43 MG/DL (0.50-1.00) (0.50-1.00) Estimat Glomerular Filtration 164 ML/MIN 155 ML/MIN Rate (>89) (>89) Random Glucose 117 MG/DL 114 MG/DL (74-106) (74-106) Calcium Level 8.7 MG/DL 8.4 MG/DL (8.5-10.1) (8.5-10.1) Total Bilirubin 0.6 MG/DL (0.2-1.0) Aspartate Amino Transf 144 U/L (15-37) (AST/SGOT) Alanine Aminotransferase 29 U/L (10-53) (ALT/SGPT) Alkaline Phosphatase 152 U/L (45-117) Total Protein 6.8 GM/DL (6.4-8.2) Albumin 3.1 GM/DL (3.4-5.0) Blood Bank Comment Monocytes % 5 % (0-8) Nucleated Red Blood Cells 1 /100 WBC (0-0) Phosphorus Level 2.4 MG/DL (2.5-4.9) Magnesium Level 2.5 MG/DL (1.5-2.5) Result Diagram: 12/19/16 1000 12/19/16 0512 Assessment and Plan Disease Oriented Problem List: (1) metastatic small cell lung cancer, extensive disease, widespread bony metastases (2) pain, worsening, secondary to widespread bony metastases (3) chemotherapy-induced anemia and thrombocytopenia (4) hospitalization for nausea/vomiting, likely chemotherapy-induced (5) epistaxis, intermittent (6) history of right proximal humerus fracture Symptom Scale: (1) pain 0-10 Scale: 6 (her fentanyl and oxycodone have been increased) Pertinent Non-Medical Issues Psychosocial: , unemployed, 5 children living in [place]. Spiritual: Unaffiliated [employer] who does not desire track production engineer visits. Legal: The patient has capacity for decision making. When she loses that capacity, her will be her proxy decision maker. Ethical issues impacting care: None . Important Contacts : Lai Jeter [phone] . Prognosis This patient is terminal, likely with weeks or months to live due to her extensive stage lung cancer. She is appropriate for hospice services when she makes the decision to stop chemotherapy and further aggressive care. . Code Status: No Code Plan * DNR * GOALS: She is hoping to live "a little little while longer," and she is hoping that more chemotherapy will help that. She wants to get her pain under control, get out of the hospital, and continue aggressive care. When it is apparent that her disease is progressing, she says she will stop chemotherapy. I had a conversation with pt. Told pt that if pt's plt remains low, and pt continue to require transfusion, and low plt does not resovlve, she would not be a candidate for further treatment. Discussed hospice consideration. She states she would consider it and understands. Today she wants to wait for the biopsy result and continue aggressive care for the time being. * DECISION-MAKING: The patient has capacity for decision making. When she loses that capacity, her will be her proxy decision maker. * SYMPTOMS: Pain, bony mets, right arm (fracture): All OME has had 25% reduction accounting for cross tolerance). Pt on oxycontin 120 mg BID ( 270 mg OME) fentanyl 200 mcg. (400 mg Oral Morphine Eq) PO dilaudid and IV dilaudid for which she has had many doses. ( about 225 oral morphine eq respectively) All that combined she is 895 Oral morphine eq. If pain continue to be an issue next step would be to d/c oxycontin and start methadone 7.5 mg PO q 8 hours atc (more conservative ) and continue Fentanyl. She declined initiating methadone at this moment. the other option is to go up on the oxycontin. * She appears more lethargic, but that could be that she just had pain meds, will f/u later. If she is lethargic, will consider decrease IV dilaudid. * Palliative Care will continue to follow the patient during this hospitalization. D/w with oncology. . Time Spent Total Floor Time (mins): 38 Face to Face Time (mins): 26 >50% Counseling/Coord of Care: Yes Attestation To help prompt me to consider important information that might be impacting today's encounter and assessment, information from prior notes written by myself or my colleagues may have been "brought forward" into today's note. My signature on this note, however, is an attestation that I personally performed the exam, history, and/or decision-making noted today, and, unless otherwise indicated, the interactions with patient, family, and staff as well as the review of records all occurred today. I also attest that the listed assessment and stated plan reflect my best clinical judgment today based on the combination of historical information, prior notes, and today's exam/ interactions. When time spent is documented, it refers only to time spent today by the signer, or if indicated, combined time spent today by collaborating physician/nurse practitioner. Jovon Schneider MD Dec 19, 2016 11:22
--- NOTE | 2016-12-19 11:39 | HHI.PR ---
Subjective Remarks Follow-up anemia. Complains of dyspnea on exertion. Also has discomfort worse she had bone marrow biopsy. Discussed with RN and oncology PA, awaiting approval to follow-up with Dr. Schwartz this Saturday Objective Vitals Vital Signs Date Time Temp Pulse Resp B/P Pulse Ox O2 Delivery O2 Flow Rate FiO2 12/19/16 08:38 97.3 105 18 149/95 94 12/19/16 07:00 97.8 100 18 149/89 93 12/19/16 06:15 98.5 102 18 135/75 94 12/19/16 06:00 97.7 103 18 137/83 95 12/19/16 05:45 97.8 119 20 137/86 95 12/19/16 04:04 98.3 110 16 144/96 97 12/19/16 00:00 96.6 113 16 140/91 98 12/18/16 20:00 96.3 116 18 145/90 95 12/18/16 16:45 116 16 135/79 96 12/18/16 16:15 118 18 130/80 93 12/18/16 16:00 122 18 138/69 91 12/18/16 12:00 97.8 111 20 128/82 95 I/O 12/18/16 12/18/16 12/18/16 12/19/16 12/19/16 12/19/16 07:00 15:00 23:00 07:00 15:00 23:00 Intake Total 360 ml 250 ml Balance 360 ml 250 ml Intake Oral 360 ml 250 ml # Voids 3 2 1 1 # Bowel Movements 4 2 0 Result Diagram: 12/19/16 1000 12/19/16 0512 Imaging Last Impressions Bone Biopsy CT 12/18/16 0000 Signed Impressions: Service Date/Time: Sunday, December 18, 2016 15:09 - CONCLUSION: 1. Uncomplicated CT guided bone marrow aspirate. 2. Uncomplicated CT guided bone marrow biopsy. Adam Aldana MD Lower Extremity Ultrasound 12/14/16 0000 Signed Impressions: Service Date/Time: Wednesday, December 14, 2016 20:20 - CONCLUSION: No evidence of deep venous thrombosis within the lower extremities. Daniel Culver MD Shoulder X-Ray 12/12/16 0000 Signed Impressions: Service Date/Time: Monday, December 12, 2016 14:47 - CONCLUSION: 1. Mild osteoarthritis as described above. Anibal Quigley MD Humerus X-Ray 12/12/16 Signed Impressions: Service Date/Time: Monday, December 12, 2016 14:54 - CONCLUSION: Probable pathologic fracture right humeral neck Anibal Quigley MD Abdomen X-Ray 12/09/16 Signed Impressions: Service Date/Time: Friday, December 09, 2016 23:00 - CONCLUSION: 1. Moderate constipation. No acute findings. Magdiel Cuevas MD Lumbar Spine MRI 12/05/16 Signed Impressions: Service Date/Time: Monday, December 05, 2016 12:58 - CONCLUSION: 1. MR findings characteristic of extensive metastatic disease to the lower thoracic, the entire lumbar and the entire sacral spine as well as the pelvis. 2. Multilevel degenerative disc disease with disc bulges most prominent at L1-2 and L4-5. There is moderate central spinal stenosis at L4-5 with no central nerve root compromise. 3. Left posterior lateral component of the L4-5 disc abuts up against the left L4 nerve root after it leaves the neural foramina. Clinical significance of this is uncertain. 4. Neural foramina appear to be adequate at all remaining levels despite the aforementioned degenerative changes. Cristian Tate MD Abdomen/Pelvis CT 12/03/16 0933 Signed Impressions: Service Date/Time: Saturday, December 03, 2016 10:34 - CONCLUSION: 1. Nondisplaced fracture of the transverse process of L2. 2. No findings to indicate bowel obstruction are seen. 3. There are scattered low-attenuation lesions throughout the liver these are probably simple cysts however they are indeterminate in appearance and metastatic disease cannot be entirely excluded. If prior imaging is available these would be of benefit for direct comparison. If not, MRI imaging could be performed for more definitive assessment. Adam Aldana MD Chest X-Ray 12/03/16 Signed Impressions: Service Date/Time: Saturday, December 03, 2016 11:23 - CONCLUSION: 1. No acute cardiopulmonary process. 2. Mottled appearance of the proximal right humerus. There may be an associated old fracture deformity as well. Cannot exclude chronic inflammation/infection or metastatic disease. Cristian Tate MD Brain MRI 12/03/16 Signed Impressions: Service Date/Time: Saturday, December 03, 2016 19:52 - CONCLUSION: 1. Chronic white matter changes bilaterally characteristic of ischemic demyelinization. 2. No evidence of a mass within the substance of the brain. 3. Nonspecific enhancement of the marrow of the calvarium. Bony metastatic disease would be a consideration. If clinically indicated, recommend a whole body bone scan for further evaluation. Fernando Diaz MD Objective Remarks GENERAL: Appears comfortable. SKIN: Warm and dry. HEAD: Normocephalic. EYES: No scleral icterus. No injection or drainage. NECK: Supple, trachea midline. No JVD. CARDIOVASCULAR: Regular rate and rhythm without murmurs, gallops, or rubs. RESPIRATORY: Breath sounds equal bilaterally. No accessory muscle use. GASTROINTESTINAL: Abdomen is distended. Positive bowel sounds. No rebound or guarding. MUSCULOSKELETAL: No cyanosis, or edema. Tenderness to palpation of left collarbone, left shoulder, left humerus but not on the right humerus. BACK: Nontender without obvious deformity. No CVA tenderness. NEURO: Awake and alert Procedures Bone marrow biopsy 12/18. A/P Problem List: (1) Thrombocytopenia ICD Code: D69.6 Status: Acute (2) metastatic small cell lung cancer, extensive disease, widespread bony metastases Status: Acute Assessment and Plan Thrombocytopenia Chemo induced. Has had epistaxis. Appreciate oncology input. Not consistent with DIC. Duplex LE negative. HIT panel negative. - follow CBC and transfuse as needed. Transfuse with platelets 12/17 and 12/19 - prednisone trial per oncology. - bone marrow biopsy done 12/18. Follow pathology. Anemia of malignancy Hemoglobin has been decreasing. - follow CBC and transfuse as needed. Transfused 1 unit PRBCs 12/16. Hemoglobin 6.9. We'll transfuse 2 more units today Chronic right shoulder/ Low back pain/ Left upper extremity pain L2 transverse process fracture noted. MRI findings characteristic of extensive metastatic disease to the lower thoracic, the entire lumbar and the entire sacral spine as well as the pelvis; Multilevel degenerative disc disease with disc bulges most prominent at L1-2 and L4-5; There is moderate central spinal stenosis at L4-5 with no central nerve root compromise; Left posterior lateral component of the L4-5 disc abuts up against the left L4 nerve root after it leaves the neural foramina; Clinical significance of this is uncertain. Pathologic fracture of right humerus noted. - pain control being adjusted by palliative care. Counseled regarding narcotics Nausea and vomiting Resolved. Pt has not been eating well. - added Ensure to meals. - Miralax for constipation. 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 Palliative care consult appreciated. - continue pain control with a bowel regimen. - Continue scheduled IV Zofran with as needed Compazine. - Oncology input appreciated. - change status to DNR. - follow up with palliative care. Hypophosphatemia Started on standing supplements. - continue IV phos as needed. - follow labs. Stable. Epigastric pain CT abdomen reviewed, no obvious cause of acute pain. Could be from liver lesions. Gastroenterology consulted. Patient refused EGD. - We'll continue PPI. - Pain control. Tobacco abuse Cessation strongly advised. Room frequently smells of smoke. She claims her smokes - Counseling provided. DVT prophylaxis. SCDs. We'll continue to hold AC secondary to anemia, epistaxis. Discharge Planning Hopefully can be discharged in 2 days when arrangements made Mitchell Cardoso MD Dec 19, 2016 11:39
[2016-12-19] MEDS ORDERED: ACETAMINOPHEN 325 MG TAB PO PRN (11:45)
[2016-12-19] MEDS ORDERED: SODIUM CHLOR 0.9% 250 ML INJ 250 ML IV ONE (11:45)
[2016-12-19] MEDS ORDERED: diphenhydrAMINE HCL 25 MG CAP PO PRN (11:45)
--- NOTE | 2016-12-19 13:09 | PD.ONC.PN ---
Subjective Subjective Remarks Afebrile overnight. Patient complaining of continued pain in low back. Somewhat improved with pain medications. Wants to know when she can go home. Objective Data Date Time Temp Pulse Resp B/P Pulse Ox O2 Delivery O2 Flow Rate FiO2 12/19/16 08:38 97.3 105 18 149/95 94 12/19/16 07:00 97.8 100 18 149/89 93 12/19/16 06:15 98.5 102 18 135/75 94 12/19/16 06:00 97.7 103 18 137/83 95 12/19/16 05:45 97.8 119 20 137/86 95 12/19/16 04:04 98.3 110 16 144/96 97 12/19/16 00:00 96.6 113 16 140/91 98 12/18/16 20:00 96.3 116 18 145/90 95 12/18/16 16:45 116 16 135/79 96 12/18/16 16:15 118 18 130/80 93 12/18/16 16:00 122 18 138/69 91 12/19/16 12/19/16 12/19/16 07:00 15:00 23:00 Intake Total 250 ml Balance 250 ml Result Diagram: 12/19/16 1000 12/19/16 0512 Laboratory Results Laboratory Tests Test 12/19/16 12/19/16 12/19/16 02:23 05:12 10:00 Blood Bank Comment White Blood Count 11.6 TH/MM3 7.9 TH/MM3 Red Blood Count 2.66 MIL/MM3 2.37 MIL/MM3 Hemoglobin 7.8 GM/DL 6.9 GM/DL Hematocrit 23.7 % 21.2 % Mean Corpuscular Volume 89.0 FL 89.2 FL Mean Corpuscular Hemoglobin 29.5 PG 29.1 PG Mean Corpuscular Hemoglobin 33.2 % 32.7 % Concent Red Cell Distribution Width 18.4 % 18.0 % Platelet Count 14 TH/MM3 39 TH/MM3 Mean Platelet Volume 9.0 FL 7.5 FL Neutrophils (%) (Auto) 92.2 % Lymphocytes (%) (Auto) 3.0 % Monocytes (%) (Auto) 4.3 % Eosinophils (%) (Auto) 0.1 % Basophils (%) (Auto) 0.4 % Neutrophils # (Auto) 10.7 TH/MM3 Lymphocytes # (Auto) 0.3 TH/MM3 Monocytes # (Auto) 0.5 TH/MM3 Eosinophils # (Auto) 0.0 TH/MM3 Basophils # (Auto) 0.1 TH/MM3 CBC Comment AUTO DIFF Differential Total Cells 100 Counted Neutrophils % (Manual) 46 % Band Neutrophils % 40 % Monocytes % 5 % Neutrophils # (Manual) 11.0 TH/MM3 Metamyelocytes 8 % Myelocytes 1 % Nucleated Red Blood Cells 1 /100 WBC Differential Comment FINAL DIFF MANUAL Platelet Estimate RARE Platelet Morphology Comment NORMAL Sodium Level 138 MEQ/L Potassium Level 4.5 MEQ/L Chloride Level 101 MEQ/L Carbon Dioxide Level 27.6 MEQ/L Anion Gap 9 MEQ/L Blood Urea Nitrogen 12 MG/DL Creatinine 0.43 MG/DL Estimat Glomerular Filtration 155 ML/MIN Rate Random Glucose 114 MG/DL Calcium Level 8.4 MG/DL Phosphorus Level 2.4 MG/DL Magnesium Level 2.5 MG/DL Administered Medications Medications (Trade) Dose Ordered Sig/Homero Route PRN Reason Start Time Stop Time Status Last Admin Dose Admin IV Flush (NS Flush) 2 ml UNSCH PRN FLUSH FLUSH AFTER USING IV ACCESS 12/03/16 13:00 12/05/16 06:58 IV Flush (NS Flush) 2 ml BID FLUSH 12/03/16 21:00 12/19/16 08:36 Ondansetron HCl (Zofran Inj) 4 mg Q6HR IV PUSH 12/03/16 18:00 12/19/16 11:45 Metoclopramide HCl (Reglan Inj) 10 mg Q8H PRN IV PUSH NAUSEA 12/03/16 13:00 12/06/16 20:01 Padimate O (Chapstick) 1 applic UNSCH PRN TOPICAL DRY LIPS 12/05/16 04:00 12/05/16 04:00 Diphenhydramine HCl (Benadryl) 25 mg Q4H PRN PO BLOOD PRODUCTS 12/05/16 20:45 12/19/16 05:23 Acetaminophen (Tylenol) 650 mg Q4H PRN PO BLOOD PRODUCTS 12/05/16 20:45 12/19/16 05:23 Hydromorphone HCl (Dilaudid) 6 mg Q2HR PRN PO PAIN SCALE 4 TO 10 12/06/16 11:00 12/19/16 11:45 Metoprolol Tartrate (Lopressor) 25 mg Q12HR PO 12/10/16 21:00 12/19/16 08:35 Fentanyl (Duragesic 100 Mcg Patch.72 Hr) 2 patch Q3D TD 12/10/16 17:00 12/16/16 17:20 Miscellaneous Information 1 Q3D TD 12/10/16 17:00 12/16/16 17:00 Senna/Docusate Sodium (Telma-Colace) 2 tab BID PO 12/11/16 09:00 12/19/16 08:34 Pantoprazole Sodium (Protonix) 40 mg DAILY PO 12/15/16 09:00 12/19/16 08:34 Prednisone (Deltasone) 20 mg BID PO 12/14/16 21:00 12/19/16 08:35 Lactulose (Lactulose Liq) 30 ml TID PO 12/17/16 09:00 12/19/16 08:34 Oxycodone HCl (OxyCONTIN CR) 80 mg Q12HR PO 12/17/16 21:00 12/19/16 08:35 Oxycodone HCl (OxyCONTIN CR) 40 mg Q12HR PO 12/17/16 21:00 12/19/16 08:34 Hydromorphone HCl (Dilaudid Pf Inj) 3 mg Q4HR PRN IV PUSH BREAKTHROUGH PAIN 12/18/16 12:00 12/19/16 09:49 Potassium Phos/ Sodium Phos (K-Phos Neutral) 500 mg TID PO 12/19/16 09:00 12/19/16 11:44 Objective Remarks GENERAL: Chronically ill female, sitting up in bed resting, at bedside. SKIN: Warm and dry. HEAD: Normocephalic. EYES: No injection or drainage. NECK: Supple, trachea midline. CARDIOVASCULAR: +S1/S2 RESPIRATORY: diminished at bases, anterior boyd clear. GASTROINTESTINAL: Abdomen soft, non-tender, nondistended. EXTREMITIES: No cyanosis or edema. Assessment/Plan Problem List: (1) Small cell lung cancer Status: Acute Plan: --follows with an oncologist in [place] --is receiving palliative chemotherapy (likely standard cisplatin or carboplatin along with DRY CLEANING MANAGER-16 every 3-4 weeks) --denies CHIPS SCREEN TENDER mets (2) Thrombocytopenia Status: Acute Plan: 12/18: bone marrow biopsy in invasive radiology today --Suspect the chemo most likely contribute with bone marrow slow to recover after XRT. --medication list reviewed--I don't see any medications that would cause that degree of thrombocytopenia --DIC panel negative --CT ab/pelvis showed normal sized spleen --Pt reports previous XRT to pelvis and sternum for metastatic disease. --Also reports she was suppose to be on steroids but stopped it before coming into hospital- ? ITP. --Empiric trial of steroids Prednisone 20mg BID --Check HIT, exposure to UFH--->negative --direct Tylor negative No NSAIDS or ASA, no ND meds. Monitor for bleeding. Assessment 51y/o with intractable nausea and vomiting associated with small cell lung cancer diagnosis. history of small cell lung cancer diagnosed in [place] in July of 2016-- metastatic at the time of diagnosis. Plan 1. patient expressed desire to follow up with Dr. Schwartz here in [facility]. I have faxed her information to new patient referrals and will try to arrange for an appointment with our SIZE CUTTER this Saturday. If we can set up the appointment for this Saturday, the patient could be discharged home tomorrow and follow up on Saturday 2. awaiting pathology from bone marrow biopsy--patient does not need to wait for this prior to discharge Attending Statement The exam, history, and the medical decision-making described in the above note were completed with the assistance of the mid-level provider. I reviewed and agree with the findings presented. I attest that I had a [id number] encounter with the patient on the same day, and personally performed and documented my assessment and findings in the medical record. Pt seen and examined. Sleepy after Benadryl for transfusion. Results of bone marrow biopsy is not yet available to explain reason for thrombocytopenia. As it seems transfusions are needed to support blood counts. Jessy Hoffmann Dec 19, 2016 13:09 Minoo Schwartz MD Dec 19, 2016 23:45
--- NOTE | 2016-12-19 14:57 | HHI.DCPOC ---
Discharge Care Plan Diagnosis: (1) metastatic small cell lung cancer, extensive disease, widespread bony metastases (2) Thrombocytopenia (3) epistaxis, intermittent Your Health Problems Are: Difficulty with ADL Exercise Tolerance Goals to Promote Your Health * To prevent worsening of your condition and complications * To maintain your health at the optimal level Directions to Meet Your Goals Take your medications as prescribed Follow your dietary instruction Follow activity as directed Keep your appointments as scheduled Take your immunizations and boosters as scheduled If your symptoms worsen call your PCP, if no PCP go to Urgent Care Center or Emergency Room Smoking is Dangerous to Your Health. Avoid second hand smoke Call the 24-hour hour crisis hotline for domestic abuse at Mitchell Cardoso MD Dec 19, 2016 14:57
[2016-12-19] MEDS ORDERED: PRED20 PO (15:07)
[2016-12-19] MEDS ORDERED: OXYC40TA9 PO (15:07)
[2016-12-19] MEDS ORDERED: FENT100T TD (15:07)
[2016-12-19] MEDS ORDERED: METO25TA3 PO (15:07)
[2016-12-19] MEDS ORDERED: LACT10SO PO (15:07)
[2016-12-19] MEDS ORDERED: OXYC80TA9 PO (15:07)
[2016-12-19] MEDS: [UNRECOGNIZED DRUG - OTHER] TD SCH (17:00)
[2016-12-19] MEDS: fentaNYL 100 MCG/HR PATCH TD SCH (17:11)
[2016-12-19] MEDS: METOPROLOL TARTRATE 50 MG TAB PO SCH (22:03)
[2016-12-20] MEDS: HYDROmorphone HCL 2 MG TAB PO PRN ×6 (01:15→18:44)
[2016-12-20] MEDS: HYDROmorphone HCL PF 4 MG/ML VIAL IV PUSH PRN ×5 (03:11→18:54)
[2016-12-20 04:00] VITALS: BP 168/92; PULSE 106; RESP 16; TEMP 97.8; O2SAT 97
[2016-12-20] MEDS: ONDANSETRON HCL 4 MG/2 ML VIAL IV PUSH SCH ×2 (05:40→12:00)
[2016-12-20 06:50] LABS: AUTOMATED NEUTROPHIL # 9.2 TH/MM3 (1.8-7.7); BASOPHIL % 0.2 % (0.0-2.0); EOSINOPHIL % 0.2 % (0.0-4.0); LYMPH % 2.4 % (9.0-44.0); LYMPHOCYTE # 0.2 TH/MM3 (1.0-4.8); MEAN CELL VOLUME 87.6 FL (80.0-100.0); MEAN CORPUSCULAR HEMOGLOBIN 29.4 PG (27.0-34.0); MEAN CORPUSCULAR HGB CONC 33.5 % (32.0-36.0); MONO % 4.5 % (0.0-8.0); NEUT % 92.7 % (16.0-70.0); RED BLOOD COUNT 3.43 MIL/MM3 (4.00-5.30); RED CELL DISTRIBUTION WIDTH 16.9 % (11.6-17.2); WHITE BLOOD COUNT 9.9 TH/MM3 (4.0-11.0)
[2016-12-20 07:02] LABS: HEMO FLAGS AUTO DIFF; PLATELET COUNT 18 TH/MM3 (150-450)
[2016-12-20 07:50] VITALS: BP 133/81; PULSE 105; RESP 20; TEMP 97; O2SAT 93
[2016-12-20 07:58] LABS: BANDS 23 % (0-6); CORRECTED NUCLEATED RBC 1 /100 WBC (0-0); METAMYELOCYTES 1 % (0-1); MYELOCYTES 4 % (0-0); NEUTROPHIL # MANUAL DIFF 9.2 TH/MM3 (1.8-7.7); POLYS (SEG NEUTROPHILS) 64 % (16-70); PROMYELOCYTES 1 % (0-0); WBC DIFF SAMPLE 100
[2016-12-20 08:00] LABS: PLATELET ESTIMATE SMEAR RARE (NORMAL); PLATELET MORPHOLOGY NORMAL (NORMAL); SCAN/DIFF FINAL DIFF MANUAL
[2016-12-20] MEDS: POTASSIUM PHOSPHATE/SODIUM PHOSPHATE 250 MG TAB PO SCH ×3 (08:21→16:27)
[2016-12-20] MEDS: METOPROLOL TARTRATE 50 MG TAB PO SCH (08:21)
[2016-12-20] MEDS: predniSONE 20 MG TAB PO SCH (08:21)
[2016-12-20] MEDS: PANTOPRAZOLE SOD 40 MG DELAYED RELEASE TAB PO SCH (08:21)
[2016-12-20] MEDS: LACTULOSE SYRUP 20 GM/30 ML CUP PO SCH ×2 (08:22→12:16)
[2016-12-20] MEDS: DOCUSATE SODIUM 50 MG/SENNA 8.6 MG TAB PO SCH (09:00)
[2016-12-20] MEDS: SODIUM CHLORIDE 0.9% FLUSH 5 ML FLUSH FLUSH SCH (09:00)
[2016-12-20] MEDS: oxyCODONE HCL 80 MG CONTROLLED RELEASE TAB PO SCH ×2 (09:47→18:40)
[2016-12-20] MEDS: oxyCODONE HCL 40 MG CONTROLLED RELEASE TAB PO SCH ×2 (09:48→18:41)
--- NOTE | 2016-12-20 10:37 | HHI.PR ---
Subjective Remarks Follow-up thrombocytopenia. Has mild left epistaxis denies trauma. Discussed with oncology PA, she is approved to see oncology tomorrow in the clinic. Discussed with RN, patient can be discharged after platelet transfusion and hemostasis secured Objective Vitals Vital Signs Date Time Temp Pulse Resp B/P Pulse Ox O2 Delivery O2 Flow Rate FiO2 12/20/16 07:50 97.0 105 20 133/81 93 12/20/16 04:00 97.8 106 16 168/92 97 12/19/16 23:40 97.6 93 16 131/79 94 12/19/16 20:15 97.8 109 20 139/83 94 12/19/16 20:01 98.1 108 20 133/87 94 12/19/16 20:00 97.9 110 16 146/94 97 12/19/16 18:43 97.0 121 18 139/80 99 12/19/16 16:00 98.0 115 20 142/83 98 12/19/16 15:50 98.1 110 18 143/87 93 12/19/16 15:35 97.4 108 16 137/89 93 12/19/16 12:00 97.1 127 22 162/87 98 I/O 12/19/16 12/19/16 12/19/16 12/20/16 12/20/16 12/20/16 07:00 15:00 23:00 07:00 15:00 23:00 Intake Total 250 ml 300 ml 240 ml Balance 250 ml 300 ml 240 ml Intake Oral 250 ml 300 ml 240 ml # Voids 1 3 1 1 # Bowel Movements 0 0 0 Result Diagram: 12/20/16 0545 12/19/16 0512 Imaging Last Impressions Bone Biopsy CT 12/18/16 0000 Signed Impressions: Service Date/Time: Sunday, December 18, 2016 15:09 - CONCLUSION: 1. Uncomplicated CT guided bone marrow aspirate. 2. Uncomplicated CT guided bone marrow biopsy. Adam Aldana MD Lower Extremity Ultrasound 12/14/16 0000 Signed Impressions: Service Date/Time: Wednesday, December 14, 2016 20:20 - CONCLUSION: No evidence of deep venous thrombosis within the lower extremities. Daniel Culver MD Shoulder X-Ray 12/12/16 0000 Signed Impressions: Service Date/Time: Monday, December 12, 2016 14:47 - CONCLUSION: 1. Mild osteoarthritis as described above. Anibal Quigley MD Humerus X-Ray 12/12/16 Signed Impressions: Service Date/Time: Monday, December 12, 2016 14:54 - CONCLUSION: Probable pathologic fracture right humeral neck Anibal Quigley MD Abdomen X-Ray 12/09/16 Signed Impressions: Service Date/Time: Friday, December 09, 2016 23:00 - CONCLUSION: 1. Moderate constipation. No acute findings. Magdiel Cuevas MD Lumbar Spine MRI 12/05/16 Signed Impressions: Service Date/Time: Monday, December 05, 2016 12:58 - CONCLUSION: 1. MR findings characteristic of extensive metastatic disease to the lower thoracic, the entire lumbar and the entire sacral spine as well as the pelvis. 2. Multilevel degenerative disc disease with disc bulges most prominent at L1-2 and L4-5. There is moderate central spinal stenosis at L4-5 with no central nerve root compromise. 3. Left posterior lateral component of the L4-5 disc abuts up against the left L4 nerve root after it leaves the neural foramina. Clinical significance of this is uncertain. 4. Neural foramina appear to be adequate at all remaining levels despite the aforementioned degenerative changes. Cristian Tate MD Abdomen/Pelvis CT 12/03/16 0933 Signed Impressions: Service Date/Time: Saturday, December 03, 2016 10:34 - CONCLUSION: 1. Nondisplaced fracture of the transverse process of L2. 2. No findings to indicate bowel obstruction are seen. 3. There are scattered low-attenuation lesions throughout the liver these are probably simple cysts however they are indeterminate in appearance and metastatic disease cannot be entirely excluded. If prior imaging is available these would be of benefit for direct comparison. If not, MRI imaging could be performed for more definitive assessment. Adam Aldana MD Chest X-Ray 12/03/16 Signed Impressions: Service Date/Time: Saturday, December 03, 2016 11:23 - CONCLUSION: 1. No acute cardiopulmonary process. 2. Mottled appearance of the proximal right humerus. There may be an associated old fracture deformity as well. Cannot exclude chronic inflammation/infection or metastatic disease. Cristian Tate MD Brain MRI 12/03/16 Signed Impressions: Service Date/Time: Saturday, December 03, 2016 19:52 - CONCLUSION: 1. Chronic white matter changes bilaterally characteristic of ischemic demyelinization. 2. No evidence of a mass within the substance of the brain. 3. Nonspecific enhancement of the marrow of the calvarium. Bony metastatic disease would be a consideration. If clinically indicated, recommend a whole body bone scan for further evaluation. Fernando Diaz MD Objective Remarks GENERAL: Appears comfortable. SKIN: Warm and dry. HEAD: Normocephalic. EYES: No scleral icterus. No injection or drainage. Nose: Trace bleeding left nostril NECK: Supple, trachea midline. No JVD. CARDIOVASCULAR: Regular rate and rhythm without murmurs, gallops, or rubs. RESPIRATORY: Breath sounds equal bilaterally. No accessory muscle use. GASTROINTESTINAL: Abdomen is distended. Positive bowel sounds. No rebound or guarding. MUSCULOSKELETAL: No cyanosis, or edema. Tenderness to palpation of left collarbone, left shoulder, left humerus but not on the right humerus. BACK: Nontender without obvious deformity. No CVA tenderness. NEURO: Awake and alert Procedures Bone marrow biopsy 12/18. A/P Problem List: (1) Thrombocytopenia ICD Code: D69.6 Status: Acute (2) metastatic small cell lung cancer, extensive disease, widespread bony metastases Status: Acute Assessment and Plan Thrombocytopenia Chemo induced. Has had epistaxis. Appreciate oncology input. Not consistent with DIC. Duplex LE negative. HIT panel negative. - follow CBC and transfuse as needed. Transfuse with platelets 12/17 and 4/5. We 'll transfuse again today in light of epistaxis - prednisone trial per oncology. - bone marrow biopsy done 12/18. Follow pathology. Anemia of malignancy Hemoglobin has been decreasing. - follow CBC and transfuse as needed. Transfused 1 unit PRBCs /2 and 2 units 4/ 5. Hemoglobin improved Chronic right shoulder/ Low back pain/ Left upper extremity pain L2 transverse process fracture noted. MRI findings characteristic of extensive metastatic disease to the lower thoracic, the entire lumbar and the entire sacral spine as well as the pelvis; Multilevel degenerative disc disease with disc bulges most prominent at L1-2 and L4-5; There is moderate central spinal stenosis at L4-5 with no central nerve root compromise; Left posterior lateral component of the L4-5 disc abuts up against the left L4 nerve root after it leaves the neural foramina; Clinical significance of this is uncertain. Pathologic fracture of right humerus noted. - pain control being adjusted by palliative care. Counseled regarding narcotics Nausea and vomiting Resolved. Pt has not been eating well. - added Ensure to meals. - Miralax for constipation. 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 Palliative care consult appreciated. - continue pain control with a bowel regimen. - Continue scheduled IV Zofran with as needed Compazine. - Oncology input appreciated. - change status to DNR. - follow up with palliative care. Hypophosphatemia Started on standing supplements. - continue IV phos as needed. - follow labs. Stable. Epigastric pain CT abdomen reviewed, no obvious cause of acute pain. Could be from liver lesions. Gastroenterology consulted. Patient refused EGD. - We'll continue PPI. - Pain control. Tobacco abuse Cessation strongly advised. Room frequently smells of smoke. She claims her smokes - Counseling provided. DVT prophylaxis. SCDs. We'll continue to hold AC secondary to anemia, epistaxis. Discharge Planning Hopefully can be discharged later today after transfusion Mitchell Cardoso MD Dec 20, 2016 10:36
[2016-12-20 11:50] VITALS: BP 118/75; PULSE 91; RESP 20; TEMP 98.8; O2SAT 95
[2016-12-20] MEDS ORDERED: SODIUM CHLOR 0.9% 250 ML INJ 250 ML IV ONE (12:45)
--- NOTE | 2016-12-20 13:27 | PD.ONC.PN ---
Subjective Subjective Remarks Afebrile overnight. patient resting comfortably. reports pain in low back is persistent but improved with pain medication. She had a small nosebleed this AM. She is very eager to go home. Objective Data Date Time Temp Pulse Resp B/P Pulse Ox O2 Delivery O2 Flow Rate FiO2 12/20/16 11:50 98.8 91 20 118/75 95 12/20/16 07:50 97.0 105 20 133/81 93 12/20/16 04:00 97.8 106 16 168/92 97 12/19/16 23:40 97.6 93 16 131/79 94 12/19/16 20:15 97.8 109 20 139/83 94 12/19/16 20:01 98.1 108 20 133/87 94 12/19/16 20:00 97.9 110 16 146/94 97 12/19/16 18:43 97.0 121 18 139/80 99 12/19/16 16:00 98.0 115 20 142/83 98 12/19/16 15:50 98.1 110 18 143/87 93 12/19/16 15:35 97.4 108 16 137/89 93 12/20/16 12/20/16 12/20/16 07:00 15:00 23:00 Intake Total 240 ml Balance 240 ml Result Diagram: 12/20/16 0545 12/19/16 0512 Laboratory Results Laboratory Tests Test 12/20/16 05:45 White Blood Count 9.9 TH/MM3 Red Blood Count 3.43 MIL/MM3 Hemoglobin 10.1 GM/DL Hematocrit 30.0 % Mean Corpuscular Volume 87.6 FL Mean Corpuscular Hemoglobin 29.4 PG Mean Corpuscular Hemoglobin 33.5 % Concent Red Cell Distribution Width 16.9 % Platelet Count 18 TH/MM3 Mean Platelet Volume 8.5 FL Neutrophils (%) (Auto) 92.7 % Lymphocytes (%) (Auto) 2.4 % Monocytes (%) (Auto) 4.5 % Eosinophils (%) (Auto) 0.2 % Basophils (%) (Auto) 0.2 % Neutrophils # (Auto) 9.2 TH/MM3 Lymphocytes # (Auto) 0.2 TH/MM3 Monocytes # (Auto) 0.4 TH/MM3 Eosinophils # (Auto) 0.0 TH/MM3 Basophils # (Auto) 0.0 TH/MM3 CBC Comment AUTO DIFF Differential Total Cells 100 Counted Neutrophils % (Manual) 64 % Band Neutrophils % 23 % Lymphocytes % 2 % Monocytes % 5 % Neutrophils # (Manual) 9.2 TH/MM3 Metamyelocytes 1 % Myelocytes 4 % Promyelocytes 1 % Nucleated Red Blood Cells 1 /100 WBC Differential Comment FINAL DIFF MANUAL Platelet Estimate RARE Platelet Morphology Comment NORMAL Red Cell Morphology Comment NORMAL Administered Medications Medications (Trade) Dose Ordered Sig/Homero Route PRN Reason Start Time Stop Time Status Last Admin Dose Admin IV Flush (NS Flush) 2 ml UNSCH PRN FLUSH FLUSH AFTER USING IV ACCESS 12/03/16 13:00 12/05/16 06:58 IV Flush (NS Flush) 2 ml BID FLUSH 12/03/16 21:00 12/20/16 09:00 Ondansetron HCl (Zofran Inj) 4 mg Q6HR IV PUSH 12/03/16 18:00 12/20/16 05:40 Metoclopramide HCl (Reglan Inj) 10 mg Q8H PRN IV PUSH NAUSEA 12/03/16 13:00 12/06/16 20:01 Padimate O (Chapstick) 1 applic UNSCH PRN TOPICAL DRY LIPS 12/05/16 04:00 12/05/16 04:00 Diphenhydramine HCl (Benadryl) 25 mg Q4H PRN PO BLOOD PRODUCTS 12/05/16 20:45 12/19/16 19:36 Acetaminophen (Tylenol) 650 mg Q4H PRN PO BLOOD PRODUCTS 12/05/16 20:45 12/19/16 19:36 Hydromorphone HCl (Dilaudid) 6 mg Q2HR PRN PO PAIN SCALE 4 TO 10 12/06/16 11:00 12/20/16 12:17 Fentanyl (Duragesic 100 Mcg Patch.72 Hr) 2 patch Q3D TD 12/10/16 17:00 12/19/16 17:11 Miscellaneous Information 1 Q3D TD 12/10/16 17:00 12/19/16 17:00 Senna/Docusate Sodium (Telma-Colace) 2 tab BID PO 12/11/16 09:00 12/19/16 08:34 Pantoprazole Sodium (Protonix) 40 mg DAILY PO 12/15/16 09:00 12/20/16 08:21 Prednisone (Deltasone) 20 mg BID PO 12/14/16 21:00 12/20/16 08:21 Lactulose (Lactulose Liq) 30 ml TID PO 12/17/16 09:00 12/19/16 08:34 Oxycodone HCl (OxyCONTIN CR) 80 mg Q12HR PO 12/17/16 21:00 12/20/16 09:47 Oxycodone HCl (OxyCONTIN CR) 40 mg Q12HR PO 12/17/16 21:00 12/20/16 09:48 Hydromorphone HCl (Dilaudid Pf Inj) 3 mg Q4HR PRN IV PUSH BREAKTHROUGH PAIN 12/18/16 12:00 12/20/16 11:24 Potassium Phos/ Sodium Phos (K-Phos Neutral) 500 mg TID PO 12/19/16 09:00 12/20/16 12:16 Metoprolol Tartrate (Lopressor) 50 mg Q12HR PO 12/19/16 21:00 12/20/16 08:21 Objective Remarks GENERAL: Chronically ill female, upright in room SKIN: Warm and dry. HEAD: Normocephalic. EYES: No injection or drainage. NECK: Supple, trachea midline. CARDIOVASCULAR: +S1/S2 RESPIRATORY: diminished at bases, anterior boyd clear. GASTROINTESTINAL: Abdomen soft, non-tender, nondistended. EXTREMITIES: No cyanosis or edema. Assessment/Plan Problem List: (1) Small cell lung cancer Status: Acute Plan: --is receiving palliative chemotherapy (likely standard cisplatin or carboplatin along with ASSEMBLER HYDRAULIC BACKHOE-16 every 3-4 weeks) --denies STEAM PIPE FITTER mets (2) Thrombocytopenia Status: Acute Plan: --s/p bone marrow biopsy in invasive radiology 12/18 --Suspect the chemo most likely contribute with bone marrow slow to recover after XRT. --medication list reviewed--I don't see any medications that would cause that degree of thrombocytopenia --DIC panel negative --CT ab/pelvis showed normal sized spleen --Pt reports previous XRT to pelvis and sternum for metastatic disease. --Also reports she was suppose to be on steroids but stopped it before coming into hospital- ? ITP. --Empiric trial of steroids Prednisone 20mg BID --Check HIT, exposure to UFH--->negative --direct Tylor negative No NSAIDS or ASA, no TX meds. Monitor for bleeding. Assessment 51y/o with intractable nausea and vomiting associated with small cell lung cancer diagnosis. history of small cell lung cancer diagnosed in [place] in July of 2016-- metastatic at the time of diagnosis. Plan 1. patient has appointment tomorrow 12/21 with Becky Thompson our oncology CASE HARDENER in clinic. 2. give 1 unit platelets prior to discharge Attending Statement The exam, history, and the medical decision-making described in the above note were completed with the assistance of the mid-level provider. I reviewed and agree with the findings presented. I attest that I had a [id number] encounter with the patient on the same day, and personally performed and documented my assessment and findings in the medical record. Pt seen and examined before DC. Discussed pain regimen. Review chronic long acting pain medication with out pt pharmacy. Dispense breakthrough medication enough for 7-10 days pending on pain. Follow up in clinic set up for tomorrow. Bone marrow biopsy results still pending but flowcytometry is negative. Pt will need transfusion support, coordinate as out pt. Pt plans to get care closer to home than [place]. Unable to offer chemotherapy until bone marrow recovery. Continue supportive care for now. OK for DC and follow up as out pt. Jessy Hoffmann Dec 20, 2016 13:27 Minoo Schwartz MD Dec 20, 2016 23:40
--- NOTE | 2016-12-20 13:54 | HHI.DS ---
Discharge Summary Admission Date Dec 07, 2016 at 08:27 Discharge Date: Dec 20, 2016 Admitting Diagnosis intractable abdominal pain, nausea and vomiting, leukocytosis (1) Thrombocytopenia ICD Code: D69.6 Diagnosis: Principal (2) metastatic small cell lung cancer, extensive disease, widespread bony metastases Diagnosis: Principal Procedures Bone marrow biopsy 12/18. Brief History - From Admission 51-year-old female with a history of lung cancer on chemotherapy 3 times weekly since August, who presents with a 2 day history of nausea with bilious yellow vomiting, subsequently waking up at 4 AM today with sharp, constant, nonradiating, left sided epigastric pain with no exacerbating or relieving factors. She also reports some chills, however no measured fevers. Patient does report starting dexamethasone 10 mg by mouth twice daily 3 days ago for exacerbation of chronic right shoulder pain. She reports her shoulder pain has not improved, but that shoulder pain is not of concern at this time. She denies ever having an ulcer. She does report very small specks of blood in the vomitus at times, however denies any coffee-ground emesis. Denies any black tarry stools. She does take about 1200 mg of ibuprofen daily. Patient says she was taking her antinausea medication, however this has not been working. CBC/BMP: 12/20/16 0545 12/19/16 0512 Significant Findings Laboratory Tests Test 12/17/16 12/18/16 12/19/16 12/19/16 20:00 06:15 05:12 10:00 Red Blood Count 2.70 MIL/MM3 2.77 MIL/MM3 2.66 MIL/MM3 2.37 MIL/MM3 (4.00-5.30) (4.00-5.30) (4.00-5.30) (4.00-5.30) Hemoglobin 8.2 GM/DL 8.2 GM/DL 7.8 GM/DL 6.9 GM/DL (11.6-15.3) (11.6-15.3) (11.6-15.3) (11.6-15.3) Hematocrit 23.9 % 24.6 % 23.7 % 21.2 % (35.0-46.0) (35.0-46.0) (35.0-46.0) (35.0-46.0) Red Cell Distribution Width 18.5 % 18.3 % 18.4 % 18.0 % (11.6-17.2) (11.6-17.2) (11.6-17.2) (11.6-17.2) Platelet Count 36 TH/MM3 24 TH/MM3 14 TH/MM3 39 TH/MM3 (150-450) (150-450) (150-450) (150-450) Mean Platelet Volume 6.9 FL 6.8 FL (7.0-11.0) (7.0-11.0) White Blood Count 12.3 TH/MM3 11.6 TH/MM3 (4.0-11.0) (4.0-11.0) Neutrophils (%) (Auto) 93.1 % 92.2 % (16.0-70.0) (16.0-70.0) Lymphocytes (%) (Auto) 2.6 % 3.0 % (9.0-44.0) (9.0-44.0) Neutrophils # (Auto) 11.5 TH/MM3 10.7 TH/MM3 (1.8-7.7) (1.8-7.7) Lymphocytes # (Auto) 0.3 TH/MM3 0.3 TH/MM3 (1.0-4.8) (1.0-4.8) Band Neutrophils % 10 % (0-6) 40 % (0-6) Neutrophils # (Manual) 9.5 TH/MM3 11.0 TH/MM3 (1.8-7.7) (1.8-7.7) Metamyelocytes 16 % (0-1) 8 % (0-1) Myelocytes 4 % (0-0) 1 % (0-0) Platelet Estimate LOW (NORMAL) RARE (NORMAL) Haptoglobin 231 MG/DL (30-200) Creatinine 0.41 MG/DL 0.43 MG/DL (0.50-1.00) (0.50-1.00) Random Glucose 117 MG/DL 114 MG/DL (74-106) (74-106) Aspartate Amino Transf 144 U/L (15-37) (AST/SGOT) Alkaline Phosphatase 152 U/L (45-117) Albumin 3.1 GM/DL (3.4-5.0) Nucleated Red Blood Cells 1 /100 WBC (0-0) Calcium Level 8.4 MG/DL (8.5-10.1) Phosphorus Level 2.4 MG/DL (2.5-4.9) Test 12/20/16 05:45 Red Blood Count 3.43 MIL/MM3 (4.00-5.30) Hemoglobin 10.1 GM/DL (11.6-15.3) Hematocrit 30.0 % (35.0-46.0) Platelet Count 18 TH/MM3 (150-450) Neutrophils (%) (Auto) 92.7 % (16.0-70.0) Lymphocytes (%) (Auto) 2.4 % (9.0-44.0) Neutrophils # (Auto) 9.2 TH/MM3 (1.8-7.7) Lymphocytes # (Auto) 0.2 TH/MM3 (1.0-4.8) Band Neutrophils % 23 % (0-6) Lymphocytes % 2 % (9-44) Neutrophils # (Manual) 9.2 TH/MM3 (1.8-7.7) Myelocytes 4 % (0-0) Promyelocytes 1 % (0-0) Nucleated Red Blood Cells 1 /100 WBC (0-0) Platelet Estimate RARE (NORMAL) Imaging Last Impressions Bone Biopsy CT 12/18/16 0000 Signed Impressions: Service Date/Time: Sunday, December 18, 2016 15:09 - CONCLUSION: 1. Uncomplicated CT guided bone marrow aspirate. 2. Uncomplicated CT guided bone marrow biopsy. Adam Aldana MD Lower Extremity Ultrasound 12/14/16 0000 Signed Impressions: Service Date/Time: Wednesday, December 14, 2016 20:20 - CONCLUSION: No evidence of deep venous thrombosis within the lower extremities. Daniel Culver MD Shoulder X-Ray 12/12/16 0000 Signed Impressions: Service Date/Time: Monday, December 12, 2016 14:47 - CONCLUSION: 1. Mild osteoarthritis as described above. Anibal Quigley MD Humerus X-Ray 12/12/16 0000 Signed Impressions: Service Date/Time: Monday, December 12, 2016 14:54 - CONCLUSION: Probable pathologic fracture right humeral neck Anibal Quigley MD Abdomen X-Ray 12/09/16 0000 Signed Impressions: Service Date/Time: Friday, December 09, 2016 23:00 - CONCLUSION: 1. Moderate constipation. No acute findings. Magdiel Cuevas MD Lumbar Spine MRI 12/05/16 0000 Signed Impressions: Service Date/Time: Monday, December 05, 2016 12:58 - CONCLUSION: 1. MR findings characteristic of extensive metastatic disease to the lower thoracic, the entire lumbar and the entire sacral spine as well as the pelvis. 2. Multilevel degenerative disc disease with disc bulges most prominent at L1-2 and L4-5. There is moderate central spinal stenosis at L4-5 with no central nerve root compromise. 3. Left posterior lateral component of the L4-5 disc abuts up against the left L4 nerve root after it leaves the neural foramina. Clinical significance of this is uncertain. 4. Neural foramina appear to be adequate at all remaining levels despite the aforementioned degenerative changes. Cristian Tate MD Abdomen/Pelvis CT 12/03/16 0933 Signed Impressions: Service Date/Time: Saturday, December 03, 2016 10:34 - CONCLUSION: 1. Nondisplaced fracture of the transverse process of L2. 2. No findings to indicate bowel obstruction are seen. 3. There are scattered low-attenuation lesions throughout the liver these are probably simple cysts however they are indeterminate in appearance and metastatic disease cannot be entirely excluded. If prior imaging is available these would be of benefit for direct comparison. If not, MRI imaging could be performed for more definitive assessment. Adam Aldana MD Chest X-Ray 12/03/16 Signed Impressions: Service Date/Time: Saturday, December 03, 2016 11:23 - CONCLUSION: 1. No acute cardiopulmonary process. 2. Mottled appearance of the proximal right humerus. There may be an associated old fracture deformity as well. Cannot exclude chronic inflammation/infection or metastatic disease. Cristian Tate MD Brain MRI 12/03/16 0000 Signed Impressions: Service Date/Time: Saturday, December 03, 2016 19:52 - CONCLUSION: 1. Chronic white matter changes bilaterally characteristic of ischemic demyelinization. 2. No evidence of a mass within the substance of the brain. 3. Nonspecific enhancement of the marrow of the calvarium. Bony metastatic disease would be a consideration. If clinically indicated, recommend a whole body bone scan for further evaluation. Fernando Diaz MD PE at Discharge GENERAL: Appears comfortable. SKIN: Warm and dry. HEAD: Normocephalic. EYES: No scleral icterus. No injection or drainage. Nose: Trace bleeding left nostril NECK: Supple, trachea midline. No JVD. CARDIOVASCULAR: Regular rate and rhythm without murmurs, gallops, or rubs. RESPIRATORY: Breath sounds equal bilaterally. No accessory muscle use. GASTROINTESTINAL: Abdomen is distended. Positive bowel sounds. No rebound or guarding. MUSCULOSKELETAL: No cyanosis, or edema. Tenderness to palpation of left collarbone, left shoulder, left humerus but not on the right humerus. BACK: Nontender without obvious deformity. No CVA tenderness. NEURO: Awake and alert Hospital Course Thrombocytopenia Chemo induced. Has had epistaxis. Appreciate oncology input. Not consistent with DIC. Duplex LE negative. HIT panel negative. - follow CBC and transfuse as needed. Transfuse with platelets 12/17 and 12/19. We 'll transfuse again today in light of epistaxis - prednisone trial per oncology. - bone marrow biopsy done 12/18. Follow pathology. Anemia of malignancy Hemoglobin has been decreasing. - follow CBC and transfuse as needed. Transfused 1 unit PRBCs 12/16 and 2 units 12/19. Hemoglobin improved Chronic right shoulder/ Low back pain/ Left upper extremity pain L2 transverse process fracture noted. MRI findings characteristic of extensive metastatic disease to the lower thoracic, the entire lumbar and the entire sacral spine as well as the pelvis; Multilevel degenerative disc disease with disc bulges most prominent at L1-2 and L4-5; There is moderate central spinal stenosis at L4-5 with no central nerve root compromise; Left posterior lateral component of the L4-5 disc abuts up against the left L4 nerve root after it leaves the neural foramina; Clinical significance of this is uncertain. Pathologic fracture of right humerus noted. - pain control being adjusted by palliative care. Counseled regarding narcotics Nausea and vomiting Resolved. Pt has not been eating well. - added Ensure to meals. - Miralax for constipation. 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 Palliative care consult appreciated. - continue pain control with a bowel regimen. - Continue scheduled IV Zofran with as needed Compazine. - Oncology input appreciated. - change status to DNR. - follow up with palliative care. Hypophosphatemia Started on standing supplements. - continue IV phos as needed. - follow labs. Stable. Epigastric pain CT abdomen reviewed, no obvious cause of acute pain. Could be from liver lesions. Gastroenterology consulted. Patient refused EGD. - We'll continue PPI. - Pain control. Tobacco abuse Cessation strongly advised. Room frequently smells of smoke. She claims her smokes - Counseling provided. DVT prophylaxis. SCDs. We'll continue to hold AC secondary to anemia, epistaxis. Pt Condition on Discharge: Stable Discharge Disposition: Discharge Home Discharge Time: <= 30 minutes Discharge Instructions DIET: Follow Instructions for: As Tolerated, No Restrictions Activities you can perform: Regular-No Restrictions Activities to Avoid: Driving Follow up Referrals: Oncology - 12/21/16 PCP Follow-up - 1 Week New Medications: Ukmxxfxd-Mutxkcrf-Mdfhwwvwtl A (Emetrol 1.87-1.87-21.5) 1 Suad Suad 30 ML PO 5 TIMES A DAY PRN NAUSEA Days 30 BOTTLE Metoclopramide (Reglan) 10 Mg Tab 10 MG PO TIDAC Nausea/Vomiting #90 Ref 0 TAB Omeprazole (Omeprazole) 40 Mg Cap 40 MG PO BID Reflux #30 Ref 0 CAP Ondansetron (Ondansetron) 8 Mg Tab 8 MG PO TID Nausea/Vomiting #90 Ref 1 TAB Fentanyl Patch 72 HR (Duragesic Patch 72 HR) 100 Mcg/Hr Patch 2 PATCH TD Q3D Pain Management #10 PATCH Hydromorphone (Dilaudid) 2 Mg Tab 6 MG PO Q2HR PRN PAIN SCALE 4 TO 10 #252 TAB Lactulose Liq (Lactulose Liq) 10 Gm/15 Ml Soln 30 ML PO TID Prevent Constipation #1000 ML Metoprolol Tartrate (Metoprolol Tartrate) 25 Mg Tab 50 MG PO Q12HR Blood Pressure Management #60 TAB Oxycodone ER (Oxycontin) 80 Mg Tab 80 MG PO Q12HR Pain Management #14 TAB Oxycodone ER (Oxycontin) 40 Mg Tab 40 MG PO Q12HR Pain Management #14 TAB Prednisone (Prednisone) 20 Mg Tab 20 MG PO BID low platelets #60 TAB Sennosides-Docusate Sodium (Senna Plus 8.6-50 mg) 1 Tab Tab 1 TAB PO BID Constipation #60 TAB Continued Medications: Nicotine Patch (Nicotine Patch) 7 Mg/24 Hr Patch 7 MG T-DERMAL DAILY Smoking Cessation #30 Ref 0 PATCH Discontinued Medications: Fentanyl Patch 72 HR (Fentanyl Patch 72 HR) 100 Mcg/Hr Patch 100 MCG T-DERMAL Q72H Remove old patch when new one placed. Pain Management #0 Ref 0 PATCH Oxycodone ER (Oxycontin) 10 Mg Tab 10 MG PO Q6HR PRN PAIN SCALE 4 TO 10 Ref 0 TAB ([nausea med]) Unknown Dose PO Q6HR PRN VOMITING Mitchell Cardoso MD Dec 20, 2016 13:54
[2016-12-20] MEDS: ACETAMINOPHEN 325 MG TAB PO PRN (15:07)
[2016-12-20] MEDS: diphenhydrAMINE HCL 25 MG CAP PO PRN (15:07)
[2016-12-20 15:27] VITALS: BP 115/69; PULSE 96; RESP 16; TEMP 96.7; O2SAT 93
[2016-12-20 15:50] VITALS: BP 117/81; PULSE 100; RESP 20; TEMP 96.3; O2SAT 93
--- NOTE | 2016-12-20 17:26 | HHI.HCPN ---
Pt schedule to go home, and stated she wants to go home. Pain is the same, but she say its manageble. She was amenable to sign a community DNR. Copy given to patient. A copy of the DNR will be scanned into the computer system/ HIM. Jovon Schneider MD Dec 20, 2016 17:26
== END 2016-12-20 19:22 | disposition home or self-care (01) | DRG 543 ==
LOC: NEPC 09:31 → NEDA 12:56 → NEPGCP 16:19 → HOCB 12-04 21:23 → OBSVTOIN 12-07 08:27
PROVIDERS: ADMIT Internal Medicine; ATTEND Internal Medicine
PROC: 30233R1 Transfusion of Nonautologous Platelets into Peripheral Vein, Percutaneous Approach (ICD-10-PCS; 2016-12-05)
PROC: 30233N1 Transfusion of Nonautologous Red Blood Cells into Peripheral Vein, Percutaneous Approach (ICD-10-PCS; 2016-12-10)
PROC: 07DR3ZX Extraction of Iliac Bone Marrow, Percutaneous Approach, Diagnostic (ICD-10-PCS; principal; 2016-12-18)
DX: C79.51 Secondary malignant neoplasm of bone (principal); C34.90 Malignant neoplasm of unspecified part of unspecified bronchus or lung; D69.59 Other secondary thrombocytopenia; M84.58XA Pathological fracture in neoplastic disease, other specified site, initial encounter for fracture; M84.521A Pathological fracture in neoplastic disease, right humerus, initial encounter for fracture; E88.09 Other disorders of plasma-protein metabolism, not elsewhere classified; E83.42 Hypomagnesemia; R11.2 Nausea with vomiting, unspecified; E83.39 Other disorders of phosphorus metabolism; F17.210 Nicotine dependence, cigarettes, uncomplicated; G89.3 Neoplasm related pain (acute) (chronic); D63.0 Anemia in neoplastic disease; R10.13 Epigastric pain; R04.0 Epistaxis; E87.6 Hypokalemia; M51.36 Other intervertebral disc degeneration, lumbar region; D64.81 Anemia due to antineoplastic chemotherapy; M48.06 Spinal stenosis, lumbar region; K76.9 Liver disease, unspecified; D72.829 Elevated white blood cell count, unspecified; T45.1X5A Adverse effect of antineoplastic and immunosuppressive drugs, initial encounter; K59.03 Drug induced constipation; T40.2X5A Adverse effect of other opioids, initial encounter; Z66 Do not resuscitate; Z92.3 Personal history of irradiation
CPT/HCPCS: 36430; 38221; 70553; 71010; 72158; 73030; 73060; 74000; 74177; 77012; 80048; 80053; 80069; 80076; 81001; 82550; 82552; 82948; 83010; 83605; 83615; 83690; 83735; 84100; 84484; 84702; 85007; 85018; 85027; 85044; 85060; 85097; 85384; 85610; 85730; 86022; 86850; 86880; 86900; 86901; 86920; 88305; 88311; 88313; 88341; 88342; 93005; 93970; 96374; 96375; 99152; 99153; A9579; C9113; G0364; G0378; J1170; J1642; J2212; J2250; J2270; J2405; J2765; J3010; J3480; J7030; J7040; J7050; J7512; P9016; P9035; P9037; Q9967

== ENCOUNTER 2016-12-30 12:10 | Emergency (ER) | payer SELFPAY ==
[~2016-12-30] VITALS: Ht 170.2 cm; Wt 75.0 kg
[2016-12-30 12:10] VITALS: PULSE 0; PULSE 103
[~2016-12-30 12:10] MED LIST: DILA2TAB2 PO; EMETSOL PO; FENT100T TD; FENT50T TD; LACT10SO PO; METO25TA3 PO; NICO7DIS2 T-DERMAL; OMEP40CA2 PO; ONDA1TAB17 PO; OXYC40TA9 PO; OXYC80TA9 PO; PRED20 PO; REGL10TA5 PO; SENN1TAB PO
[2016-12-30 12:22] VITALS: O2SAT 0
--- NOTE | 2016-12-30 12:33 | PD ---
HPI Chief Complaint: Respiratory Distress Time Seen by Provider: 12:22 Travel History International Travel<30 days: No Contact w/Intl Traveler<30days: No History of Present Illness HPI 51-year-old female arrives by EMS. EMS reports the patient woke up with coffee- ground emesis. The activated EMS. On scene she was reported to have a heart rhythm consistent with SVT. The patient heart rate then decreased to the 80s. Her O2 sat on scene was in the 40s according to EMS. En route with a nonrebreather the O2 sat increased to the 90s. An attempted intubation failed due to poor visualization of the airway. The patient had received etomidate and Ativan given by EMS. The notified EMS the patient was a DNR. When the patient arrived DNR was confirmed by review of the EMR. As such the patient was not intubated. Agonal breathing present upon patient's arrival. HR remained 90s until over the course of about 2 minutes or so patient's heart rate decreased to 40 and then at 12:16 PM the patient became asystolic. Her pupils were fixed and dilated upon arrival. Patient's advanced directives were honored; DNR protocol followed with no chest compressions or intubation. PFSH Past Medical History Arthritis: Yes Heart Rhythm Problems: No Cancer: Yes (lung CA) Cardiovascular Problems: No High Cholesterol: No Chemotherapy: Yes (sat, , sat ) Chest Pain: No Congestive Heart Failure: No COPD: Yes Diabetes: No Endocrine: No Genitourinary: No Immune Disorder: No Musculoskeletal: No Neurologic: No Psychiatric: No Reproductive: No Respiratory: Yes (Lung cancer) Radiation Therapy: Yes (Jul and Aug 2016) Sleep Apnea: No Thyroid Disease: No Past Surgical History AICD: No Body Medical Devices: plate and screws in left ankle Pacemaker: No Thoracic Surgery: Yes (pnemectomy ) Social History Alcohol Use: No Tobacco Use: No (former smoker) Substance Use: No Allergies-Medications (Allergen,Severity, Reaction): Coded Allergies: No Known Allergies (Unverified , 12/30/16) Reported Meds & Prescriptions Reported Meds & Active Scripts Active Duragesic Patch 72 HR (Fentanyl) 100 Mcg/Hr Patch 2 Patch TD Q3D Metoprolol Tartrate 25 Mg Tab 50 Mg PO Q12HR Prednisone 20 Mg Tab 20 Mg PO BID Lactulose Liq (Lactulose) 10 Gm/15 Ml Soln 30 Ml PO TID Oxycontin (Oxycodone HCl) 40 Mg Tab 40 Mg PO Q12HR Oxycontin (Oxycodone HCl) 80 Mg Tab 80 Mg PO Q12HR Duragesic Patch 72 HR (Fentanyl) 50 Mcg/Hr Patch 1 Patch TD Q3D Emetrol 1.87-1.87-21.5 (Fffqxwmb-Ccocboel-Ebrhfkjdgn A) 1 Suad Suad 30 Ml PO 5 TIMES A DAY PRN 30 Days Reglan (Metoclopramide HCl) 10 Mg Tab 10 Mg PO TIDAC Ondansetron (Ondansetron HCl) 8 Mg Tab 8 Mg PO TID Omeprazole 40 Mg Cap 40 Mg PO BID Senna Plus 8.6-50 mg (Sennosides-Docusate Sodium) 1 Tab Tab 1 Tab PO BID Dilaudid (Hydromorphone HCl) 2 Mg Tab 6 Mg PO Q2HR PRN Nicotine Patch (Nicotine) 7 Mg/24 Hr Patch 7 Mg T-DERMAL DAILY Review of Systems ROS Limitations: Clinical Condition, Unresponsive Physical Exam Narrative GENERAL: 51 -year-old female unresponsive SKIN: Focused skin assessment warm/dry. HEAD: Atraumatic. Normocephalic. EYES: Pupils fixed and dilated. ENT: Coffee-ground emesis about mouth face and nose. NECK: Trachea midline. No JVD. CARDIOVASCULAR: Tachycardia. Regular. RESPIRATORY: Assisted ventilations. GASTROINTESTINAL: Abdomen nondistended. MUSCULOSKELETAL: No obvious deformities. No clubbing. No cyanosis. No edema. Left tibia intraosseous line. NEUROLOGICAL: GCS 3. Pupils fixed and dilated. PSYCHIATRIC: Unable to assess. Data Data Last Documented VS Vital Signs Date Time Temp Pulse Resp B/P Pulse Ox O2 Delivery O2 Flow Rate FiO2 12/30/16 12:22 0 100 12/30/16 12:[address] [facility] Medical Decision Making Medical Screen Exam Complete: Yes Emergency Medical Condition: Yes Medical Record Reviewed: Yes Differential Diagnosis Cardiopulmonary arrest, anemia, electrolyte imbalance, aspiration, GI bleed Narrative Course Please refer to the history of present illness. The patient was pronounced at 12:16 PM. The patient's was informed shortly thereafter. Diagnosis Primary Impression: Cardiopulmonary arrest Additional Instructions: N/A Disposition: 20 Condition: Adam Galeano MD Dec 30, 2016 12:33
== END 2016-12-30 14:22 | disposition expired ==
LOC: NEPC 12:10 → NEPI 14:22
DX: I46.9 Cardiac arrest, cause unspecified (principal); J44.9 Chronic obstructive pulmonary disease, unspecified
CPT/HCPCS: 99285